=== PATIENT | female | born 1995 | race Caucasian/White ===

== ENCOUNTER 2023-01-15 09:50 | Outpatient (OUT) | payer OTHER, SELFPAY ==
[2023-01-15 10:52] LABS: HCG Quantitative 41400 mIU/mL
== END 2023-01-15 09:51 | disposition home or self-care (01) ==
PROVIDERS: PCP Family Medicine; Visit Provider Obstetrics & Gynecology
DX: N92.6 Irregular menstruation, unspecified (principal)
CPT/HCPCS: 36415; 84702

== ENCOUNTER 2023-01-17 09:44 | Outpatient (OUT) | payer OTHER, SELFPAY ==
[2023-01-17 12:38] LABS: HCG Quantitative 54295 mIU/mL
== END 2023-01-17 09:45 | disposition home or self-care (01) ==
LOC: LAB 09:44
PROVIDERS: PCP Family Medicine; Visit Provider Obstetrics & Gynecology
DX: N92.6 Irregular menstruation, unspecified (principal)
CPT/HCPCS: 36415; 84702

== ENCOUNTER 2023-01-30 13:17 | Outpatient (OUT) | payer OTHER, SELFPAY ==
--- NOTE | 2023-01-30 13:11 | US_ITS ---
[address] [address] Patient Name: GUANAKITO CASTILLO MRN: [id number] date: 1995 Sex: F Assigned Patient Location: US Current Patient Location: LAB Accession/Order Number: [id number] Exam Date: 01/30/2023 13:12 Report Date: 01/30/2023 20:56 At the request of: DEANDRA HOWE Procedure: US OB transvaginal EXAMINATION: US OB transvaginal HISTORY: MISSED period COMPARISON: No relevant comparison available. FINDINGS: Huerta intrauterine gestation Gestational sac: 3.6 cm, 8 weeks 6 days CRL: 1.5 cm, 8 weeks 2 days Yolk sac: 1.3 mm Heart rate: 159 beats minute Cervix: Closed, 3.6 cm The uterus is normal in size. Adjacent to the gestational sac is a 2.3 x 0.6 x 3.0 cm area of hypoechogenicity. The ovaries are normal. Right corpus luteal cyst Clinical age: 9 weeks 2 days Clinical RACHEL: 09/02/2023 Ultrasound age: 8 weeks 2 days Ultrasound RACHEL: 09/09/2023 US/US OB transvaginal IMPRESSION: Viable huerta intrauterine gestation measuring 8 weeks 2 days 3.0 cm subchorionic hematoma Electronically authenticated by: ERICA BHANDARI Date: 01/30/2023 20:56
== END 2023-01-30 13:18 | disposition home or self-care (01) ==
PROVIDERS: PCP Family Medicine; Visit Provider Obstetrics & Gynecology
DX: O36.8910 Maternal care for other specified fetal problems, first trimester, not applicable or unspecified (principal); Z3A.08 8 weeks gestation of pregnancy
CPT/HCPCS: 76817

== ENCOUNTER 2023-01-31 10:05 | Outpatient (OUT) | payer OTHER, SELFPAY ==
[2023-01-31 10:23] LABS: Basophils Percent Auto 0.5 % (0.2-2.0); Eosinophils Percent Auto 0.7 % (0.9-7.0); Hematocrit 42.1 % (36.0-48.0); Hemoglobin 14.6 g/dL (12.0-16.0); Immature Granulocytes Abs Auto 0.01 10^3/uL (0.00-0.03); Immature Granulocytes Pct Auto 0.2 % (0.0-0.5); Lymphocytes Absolute Auto 1.2 10^3/uL (1.2-3.8); Lymphocytes Percent Auto 21.6 % (20.5-60.0); Mean Corpuscular HGB Conc 34.7 g/dL (29.9-35.2); Mean Corpuscular Hemoglobin 31.2 pg (26.7-34.0); Monocytes Absolute Auto 0.5 10^3/uL (0.3-0.8); Monocytes Percent Auto 8.2 % (1.7-12.0); Neutrophils Absolute Auto 3.9 10^3/uL (1.4-6.5); Neutrophils Percent Auto 68.8 % (43.0-75.0); Platelet Count 212 10^3/uL (150-450); Red Blood Count 4.68 10^6/uL (4.20-5.40); Red Cell Distribution Width 12.6 % (11.0-15.0); White Blood Count 5.6 10^3/uL (4.0-11.0)
[2023-01-31 11:12] LABS: Estimated Average Glucose 88 mg/dL; Glycohemoglobin A1C 4.7 % (4.5-6.2)
[2023-01-31 11:25] LABS: Thyroid Stimulating Hormone 1.029 uIU/mL (0.358-3.740)
[2023-02-01 07:12] LABS: HBsAg Screen Negative (Negative); HCV Ab Non Reactive (Non Reactive); HIV Ab/p24 Ag Screen Non Reactive (Non Reactive)
[2023-02-01 10:13] LABS: Rapid Plasma Reagin, Quant Non Reactive (NonRea<1:1)
== END 2023-01-31 10:06 | disposition home or self-care (01) ==
LOC: LAB 10:05
PROVIDERS: PCP Family Medicine; Visit Provider Obstetrics & Gynecology
DX: N91.2 Amenorrhea, unspecified (principal)
CPT/HCPCS: 36415; 83036; 84443; 85025; 86592; 86706; 86762; 86803; 86850; 86900; 86901; 87086; 87389

== ENCOUNTER 2023-04-23 13:27 | Outpatient (OUT) | payer OTHER, SELFPAY ==
--- NOTE | 2023-04-23 13:29 | US_ITS ---
[address] [address] Patient Name: GUANAKITO CASTILLO MRN: [id number] date: 1995 Sex: F Assigned Patient Location: Current Patient Location: Accession/Order Number: [id number] Exam Date: 04/23/2023 13:30 Report Date: 04/24/2023 10:08 At the request of: DEANDRA HOWE Procedure: US OB anatomy EXAMINATION: US OB anatomy, US OB cervical length HISTORY: ANATOMY COMPARISON: No relevant comparison available. TECHNIQUE: Transabdominal sonographic examination was performed for obstetrical and evaluation. FINDINGS: Number: 1 Heart Rate: 154.0 bpm H.B. /min Amniotic Fluid Volume: Subjectively normal position: Breech presentation, longitudinal lie Placental Location: Anterior, grade 0. Placental edge 4.9 cm from the cervical os Cervix Length: 4.7 cm , closed Normal anatomy: Lateral ventricles, cerebellum, posterior fossa, nose, lips, orbits, four-chamber heart, RVOT, LVOT, diaphragm, stomach, kidneys, abdominal cord insertion, bladder, umbilical arteries, three-vessel cord, spine, extremities BIOMETRY: BPD: 4.7 cm 20 weeks 2 days , 58% HC: 18.2 cm 20 weeks 4 days, 61% AC: 15.5 cm 20 weeks 5 days, 63% FL: 3.2 cm 20 weeks 1 days, 41% EFW:353.7 grams; 12 ounces, 62% FL/AC: 20.9 FL/BPD: 68.4 HC/AC: 1.2 GESTATIONAL AGE: Age by EDC: 20 weeks 1 days RACHEL by EDC: 09/09/2023 Age by current US: 20 weeks 3 days RACHEL by current US: 09/07/2023 US/US OB anatomy IMPRESSION: Normal anatomy scan *Reference: [facility] Practice Guideline for the performance of Obstetric Ultrasound Examinations, April 06, 2007. Electronically authenticated by: ERICA BHANDARI Date: 04/24/2023 10:08
--- NOTE | 2023-04-23 13:29 | US_ITS ---
[address] [address] Patient Name: GUANAKITO CASTILLO MRN: [id number] date: 1995 Sex: F Assigned Patient Location: US Current Patient Location: Accession/Order Number: [id number] Exam Date: 04/23/2023 13:30 Report Date: 04/24/2023 10:08 At the request of: DEANDRA HOWE Procedure: US OB cervical length EXAMINATION: US OB anatomy, US OB cervical length HISTORY: ANATOMY COMPARISON: No relevant comparison available. TECHNIQUE: Transabdominal sonographic examination was performed for obstetrical and evaluation. FINDINGS: Number: 1 Heart Rate: 154.0 bpm H.B. /min Amniotic Fluid Volume: Subjectively normal position: Breech presentation, longitudinal lie Placental Location: Anterior, grade 0. Placental edge 4.9 cm from the cervical os Cervix Length: 4.7 cm , closed Normal anatomy: Lateral ventricles, cerebellum, posterior fossa, nose, lips, orbits, four-chamber heart, RVOT, LVOT, diaphragm, stomach, kidneys, abdominal cord insertion, bladder, umbilical arteries, three-vessel cord, spine, extremities BIOMETRY: BPD: 4.7 cm 20 weeks 2 days , 58% HC: 18.2 cm 20 weeks 4 days, 61% AC: 15.5 cm 20 weeks 5 days, 63% FL: 3.2 cm 20 weeks 1 days, 41% EFW:353.7 grams; 12 ounces, 62% FL/AC: 20.9 FL/BPD: 68.4 HC/AC: 1.2 GESTATIONAL AGE: Age by EDC: 20 weeks 1 days RACHEL by EDC: 09/09/2023 Age by current US: 20 weeks 3 days RACHEL by current US: 09/07/2023 US/US OB cervical length IMPRESSION: Normal anatomy scan *Reference: [facility] Practice Guideline for the performance of Obstetric Ultrasound Examinations, April 06, 2007. Electronically authenticated by: ERICA BHANDARI Date: 04/24/2023 10:08
== END 2023-04-23 13:28 | disposition home or self-care (01) ==
LOC: US 13:27
PROVIDERS: PCP Family Medicine; Visit Provider Obstetrics & Gynecology
DX: Z34.92 Encounter for supervision of normal pregnancy, unspecified, second trimester (principal); Z3A.20 20 weeks gestation of pregnancy
CPT/HCPCS: 76805; 76817

== ENCOUNTER 2023-05-23 08:30 | Outpatient (OUT) | payer OTHER, SELFPAY ==
[2023-05-23 09:36] LABS: Basophils Percent Auto 0.1 % (0.2-2.0); Eosinophils Absolute Auto 0.1 10^3/uL (0.0-0.7); Eosinophils Percent Auto 0.9 % (0.9-7.0); Hematocrit 39.7 % (36.0-48.0); Hemoglobin 13.5 g/dL (12.0-16.0); Immature Granulocytes Abs Auto 0.03 10^3/uL (0.00-0.03); Immature Granulocytes Pct Auto 0.4 % (0.0-0.5); Lymphocytes Absolute Auto 1.2 10^3/uL (1.2-3.8); Mean Corpuscular Hemoglobin 31.5 pg (26.7-34.0); Mean Corpuscular Volume 92.5 fL (81.0-99.0); Mean Platelet Volume 9.7 fL (9.5-13.5); Monocytes Absolute Auto 0.6 10^3/uL (0.3-0.8); Monocytes Percent Auto 7.8 % (1.7-12.0); Neutrophils Absolute Auto 5.9 10^3/uL (1.4-6.5); Neutrophils Percent Auto 75.8 % (43.0-75.0); Platelet Count 152 10^3/uL (150-450); Red Blood Count 4.29 10^6/uL (4.20-5.40); Red Cell Distribution Width 12.6 % (11.0-15.0); White Blood Count 7.8 10^3/uL (4.0-11.0)
[2023-05-23 10:14] LABS: Glucose 1 Hour 121 mg/dL
== END 2023-05-23 08:31 | disposition home or self-care (01) ==
LOC: LAB 08:30
PROVIDERS: PCP Family Medicine; Visit Provider Obstetrics & Gynecology
DX: Z34.92 Encounter for supervision of normal pregnancy, unspecified, second trimester (principal)
CPT/HCPCS: 36415; 82950; 85025

== ENCOUNTER 2023-08-11 20:43 | Outpatient (REF) | payer OTHER, SELFPAY ==
--- OUTSIDE RECORDS SUMMARY | 2023-08-11 20:45 | XMS_ITS | CCD ---
Author Name Unknown Address [address] [place] [address] Organization [facility] Care Team Providers Care Air And Hydronic Balancing Technician Name Role Phone CARLEY ., DR LIRIANO Admitting Unavailable CARLEY ., DR LIRIANO Attending Unavailable CARLEY ., DR LIRIANO Primary Care Unavailable CARLEY ., DR LIRIANO Admitting Unavailable CARLEY ., DR LIRIANO Attending Unavailable CARLEY ., DR LIRIANO Primary Care Unavailable CARLEY ., DR LIRIANO Consulting Unavailable KARASIK ., DR MANZO Admitting Unavailabl e KARASIK ., DR MANZO Attending Unavailabl e CARLEY ., DR LIRIANO Primary Care Unavailable KARASIK ., DR MANZO Consulting Unavailabl e CARLEY ., DR LIRIANO Admitting Unavailable CARLEY ., DR LIRIANO Attending Unavailable CARLEY ., DR LIRIANO Primary Care Unavailable CARLEY ., DR LIRIANO Consulting Unavailable AGUBOSIM, YOLIS Consulting Unavailable CARLEY ., DR LIRIANO Procedure Practitioner Unavail able TOMMY OLSEN Attending Unavailable CARLEYDEANDRA Attending Unavailable TOMMY OLSEN Attending Unavailable CARLEYDEANDRA Attending Unavailable Allergies Allergy Classification Reported Allergen(s) Allergy Type Date of Onset Reaction(s) Facility (1 source) bee venom Drug allergy (disorder) 12-25-2021 [facility] Repository (1 source) Erythromycin Drug Allergy [facility] Problems Active Problems Problem Classification Problem Date Documented Date Episodic/Chronic Other screening for suspected conditions (not mental disorders or infectious disease) (8 sources) Encounter for screening for malignant neoplasm of cervix; Translations: [Encounter for screening for Streptococcus B] Onset: 12-11-2021 Episodic Unclassified (1 source) CONTACT W/AND (SUSP) EXPOS COVID-19; Translations: [CONTACT W/AND (SUSP) EXPOS COVID-19] Onset: 01-03-2022 Past or Other Problems Problem Classification Problem Date Documented Da te Episodic/Chronic OB-related trauma to perineum and vulva (1 source) Third degree perineal laceration during delivery, unspecified; Translations: [THIRD DEGREE PERINL LAC DUR DEL UNS] Onset: 01-03-2022 Episodic Other and delivery including normal (7 sources) Encounter for routine follow-up; Translations: [Encounter for supervision of normal , unspecified, first trimester] Onset: 12-25-2021 Episodic Residual codes; unclassified (1 source) 38 weeks gestation of ; Translations: [38 WEEKS GESTATION OF ] Onset: 01-03-2022 Episodic Results Test Name Value Interpretation Reference Range Facil ity PAP ACOG PANEL 2: 21 to 29on 10-02-2022 . . [facility] Comment on above: Performed By: #### [id number] #### [facility] [address] [place] [address] Dr. Alee Paez Age Gdln ACOG Testing - [facility] Comment on above: Performed By: #### [id number] #### [facility] [address] [place] [address] Dr. Alee Paez DIAGNOSIS: Comment [facility] Comment on above: Result Comment: NEGA TIVE FOR INTRAEPITHELIAL LESION OR MALIGNANCY. THIS SPECIMEN WAS RESCREENED PART OF OUR ONLINE SERVICES MANAGER PROGRAM. Performed By: #### [id number] #### [facility] [address] [place] [address] Dr. Alee Paez Methodology: Comment [facility] Comment on above: Result Comment: This liquid based ThinPrep(R) pap test was screened with the use of an image guided system. Performed By: #### [id number] #### [facility] [address] [place] [address] Dr. Alee Paez Note: Comment [facility] Comment on above: Result Comment: The Pap smear is a screening test designed to aid in the detection of premalignant and malignant conditions of the uterine cervix. It is not a diagnostic procedure and should not be used as the sole means of detecting cervical cancer. Both false-positive and false-negative reports do occur. . Performed By: #### [id number] #### [facility] [address] [place] [address] Dr. Alee Paez Performed by: Comment Normal [facility] Comment on above: Result Comment: Sarita Gonzales, [facility] (ASCP) Performed By: #### [id number] #### [facility] [address] [place] [address] Dr. Aele Paez QC reviewed by: Comment Normal [facility] Comment on above: Result Comment: Ketty Caba, [facility] (ASCP) Performed By: #### [id number] #### [facility] [address] [place] [address] Dr. Alee Paez Reflex Criteria: Comment Normal [facility] Comment on above: Result Comment: The HPV DNA reflex criteria were not met with this specimen result therefore, no HPV testing was performed. . Performed By: #### [id number] #### [facility] [address] [place] [address] Dr. Alee Paez Specimen adequacy: Comment Normal [facility] Comment on above: Result Comment: Sati sfactory for evaluation. Endocervical and/or squamous metaplastic cells (endocervical component) are present. Performed By: #### [id number] #### [facility] [address] [place] [address] Dr. Alee Paez CBC AUTO DIFFon 12-27-2021 BASO # 0.0 103/ul Normal 0.0-0.1 [facility] Comment on above: Performed By: #### C BC #### [facility] [address] [place] [address] Dr. Alee Paez Basophils/100 WBC (Bld) 0.2 % Normal 0.2-2.0 [facility] Comment on above: Performed By: #### C BC #### [facility] [address] [place] [address] Dr. Alee Paez EO # 0.1 103/ul Normal 0.0-0.7 [facility] Comment on above: Performed By: #### C BC #### [facility] [address] [place] [address] Dr. Alee Paez Eosinophils/100 WBC (Bld) 1.2 % Normal 0.9-7.0 [facility] Comment on above: Performed By: #### C BC #### [facility] [address] [place] [address] Dr. Alee Paez Erythrocyte distribution width (RBC) [Ratio] 15.3 % Critically high 11.0-15.0 [facility] Comment on above: Performed By: #### C BC #### [facility] [address] [place] [address] Dr. Alee Paez Hematocrit (Bld) [Volume fraction] 25.1 % Critically low 36.0-48.0 [facility] Comment on above: Performed By: #### C BC #### [facility] [address] [place] [address] Dr. Alee Paez Hemoglobin (Bld) [Mass/Vol] 8.2 g/dL Critically low 12.0-16.0 [facility] Comment on above: Result Comment: just delivered Performed By: #### C BC #### [facility] [address] [place] [address] Dr. Alee Paez IG # 0.03 10e3/ul Normal 0.00-0.03 [facility] Comment on above: Performed By: #### C BC #### [facility] [address] [place] [address] Dr. Alee Paez IG % 0.4 % Normal 0.0-0.5 [facility] Comment on above: Performed By: #### C BC #### [facility] [address] [place] [address] Dr. Alee Paez LYMPH # 2.0 103/ul Normal 1.2-3.8 [facility] Comment on above: Performed By: #### C BC #### [facility] [address] [place] [address] Dr. Alee Paez Lymphocytes/100 WBC (Bld) 23.9 % Normal 20.5-60.0 [facility] Comment on above: Performed By: #### C BC #### [facility] [address] [place] [address] Dr. Alee Paez MANUAL DIFF REQ NO Normal [facility] Comment on above: Performed By: #### C BC #### [facility] [address] [place] [address] Dr. Alee Paez MCH (RBC) [Entitic mass] 28.3 pg Normal 26.7-34.0 [facility] Comment on above: Performed By: #### C BC #### [facility] [address] [place] [address] Dr. Alee Paez MCHC (RBC) [Mass/Vol] 32.7 g/dL Normal 29.9-35.2 [facility] Comment on above: Performed By: #### C BC #### [facility] [address] [place] [address] Dr. Alee Paez MCV (RBC) [Entitic vol] 86.6 fL Normal 81.0-99.0 [facility] Comment on above: Performed By: #### C BC #### [facility] [address] [place] [address] Dr. Alee Paez MONO # 0.8 103/ul Normal 0.3-0.8 [facility] Comment on above: Performed By: #### C BC #### [facility] [address] [place] [address] Dr. Alee Paez Monocytes/100 WBC (Bld) 9.8 % Normal 1.7-12.0 [facility] Comment on above: Performed By: #### C BC #### [facility] [address] [place] [address] Dr. Alee Paez NEUT # 5.5 103/ul Normal 1.4-6.5 [facility] Comment on above: Performed By: #### C BC #### [facility] [address] [place] [address] Dr. Alee Paez Neutrophils/100 WBC (Bld) 64.5 % Normal 43.0-75.0 [facility] Comment on above: Performed By: #### C BC #### [facility] [address] [place] [address] Dr. Alee Paez Platelet mean volume (Bld) [Entitic vol] 9.8 fL Normal 9.5-13.5 [facility] Comment on above: Performed By: #### C BC #### [facility] [address] [place] [address] Dr. Alee Paez PLT 152 103/ul Normal 150-450 [facility] Comment on above: Performed By: #### C BC #### [facility] [address] [place] [address] Dr. Alee Paez RBC 2.90 106/ul Critically low 4.20-5.40 [facility] Comment on above: Performed By: #### C BC #### [facility] [address] [place] [address] Dr. Alee Paez WBC 8.5 103/ul Normal 4.0-11.0 [facility] Comment on above: Performed By: #### C BC #### [facility] [address] [place] [address] Dr. Alee Paez CBC AUTO DIFFon 12-25-2021 BASO # 0.0 103/ul Normal 0.0-0.1 [facility] Comment on above: Performed By: #### C BC #### [facility] [address] [place] [address] Dr. Alee Paez Basophils/100 WBC (Bld) 0.2 % Normal 0.2-2.0 [facility] Comment on above: Performed By: #### C BC #### [facility] [address] [place] [address] Dr. Alee Paez EO # 0.0 103/ul Normal 0.0-0.7 [facility] Comment on above: Performed By: #### C BC #### [facility] [address] [place] [address] Dr. Alee Paez Eosinophils/100 WBC (Bld) 0.5 % Critically low 0.9-7.0 [facility] Comment on above: Performed By: #### C BC #### [facility] [address] [place] [address] Dr. Alee Paez Erythrocyte distribution width (RBC) [Ratio] 15.0 % Normal 11.0-15.0 [facility] Comment on above: Performed By: #### C BC #### [facility] [address] [place] [address] Dr. Alee Paez Hematocrit (Bld) [Volume fraction] 38.1 % Normal 36.0-48.0 [facility] Comment on above: Performed By: #### C BC #### [facility] [address] [place] [address] Dr. Alee Paez Hemoglobin (Bld) [Mass/Vol] 12.6 g/dL Normal 12.0-16.0 [facility] Comment on above: Performed By: #### C BC #### [facility] [address] [place] [address] Dr. Alee Paez IG # 0.03 10e3/ul Normal 0.00-0.03 [facility] Comment on above: Performed By: #### C BC #### [facility] [address] [place] [address] Dr. Alee Paez IG % 0.4 % Normal 0.0-0.5 [facility] Comment on above: Performed By: #### C BC #### [facility] [address] [place] [address] Dr. Alee Paez LYMPH # 1.0 103/ul Critically low 1.2-3.8 [facility] Comment on above: Performed By: #### C BC #### [facility] [address] [place] [address] Dr. Alee Paez Lymphocytes/100 WBC (Bld) 12.5 % Critically low 20.5-60.0 [facility] Comment on above: Performed By: #### C BC #### [facility] [address] [place] [address] Dr. Alee Paez MANUAL DIFF REQ NO Normal [facility] Comment on above: Performed By: #### C BC #### [facility] [address] [place] [address] Dr. Alee Paez MCH (RBC) [Entitic mass] 27.8 pg Normal 26.7-34.0 [facility] Comment on above: Performed By: #### C BC #### [facility] [address] [address] [address] Alee Paez MCHC (RBC) [Mass/Vol] 33.1 g/dL Normal 29.9-35.2 [facility] Comment on above: Performed By: #### C BC #### [facility] [address] [place] [address] Dr. Alee Paez MCV (RBC) [Entitic vol] 84.1 fL Normal 81.0-99.0 [facility] Comment on above: Performed By: #### C BC #### [facility] [address] [place] [address] Dr. Alee Paez MONO # 1.0 103/ul Critically high 0.3-0.8 [facility] Comment on above: Performed By: #### C BC #### [facility] [address] [place] [address] Dr. Alee Paez Monocytes/100 WBC (Bld) 11.4 % Normal 1.7-12.0 [facility] Comment on above: Performed By: #### C BC #### [facility] [address] [place] [address] Dr. Alee Paez NEUT # 6.2 103/ul Normal 1.4-6.5 [facility] Comment on above: Performed By: #### C BC #### [facility] [address] [place] [address] Dr. Alee Paez Neutrophils/100 WBC (Bld) 75.0 % Normal 43.0-75.0 [facility] Comment on above: Performed By: #### C BC #### [facility] [address] [place] [address] Dr. Alee Paez Platelet mean volume (Bld) [Entitic vol] 11.4 fL Normal 9.5-13.5 [facility] Comment on above: Performed By: #### C BC #### [facility] [address] [place] [address] Dr. Alee Paez PLT 204 103/ul Normal 150-450 [facility] Comment on above: Performed By: #### C BC #### [facility] [address] [place], [place] [address] Dr. Alee Paez RBC 4.53 106/ul Normal 4.20-5.40 [facility] Comment on above: Performed By: #### C BC #### [facility] [address] [place], [place] [address] Dr. Alee Paez WBC 8.3 103/ul Normal 4.0-11.0 [facility] Comment on above: Performed By: #### C BC #### [facility] [address] [address] [address] Alee [facility]ae[facility]06 SARS-CoV-2 (COVID-19) RNA JERRY+probe Ql (Unsp spec) Not detected Normal NOT DETECTED [facility] Comment on above: Result Comment: When diagnostic testing is negative, the possibility of a false negative should be considered in the context of a patient's recent exposures and the presence of clinical signs and symptoms consistent with SARS-CoV-2. This test is not yet approved or cleared by the [place] FDA. When there are no FDA-approved or cleared tests available, and other criteria are met, FDA can make tests available under an emergency access mechanism called an Emergency Use Authorization (EUA). The EUA for this test is supported by the [place] of Health and Human Service's declaration that circumstances exist to justify the emergency use of in vitro diagnostics for the detection and/or diagnosis of the virus that causes COVID-19. This EUA will remain in effect for the duration of the COVID-19 declaration justifying emergency of IVDs, unless it is terminated or revoked by the FDA (after which the test may no longer be used). Performed By: #### C VDTBH #### [facility] [address] [place], [place] [id number] Dr. Alee Paez DRUG SCREEN RAPID (URINE)on 12-25-2021 AMP Negative Normal NEGATIVE [facility] Comment on above: Performed By: #### D RUGRPD #### [facility] [address] [place], [place] [id number] Dr. Alee Paez BAR Negative Normal NEGATIVE [facility] Comment on above: Performed By: #### D RUGRPD #### [facility] [address] [address] [address] Alee Paez BUP Negative Normal NEGATIVE [facility] Comment on above: Performed By: #### D RUGRPD #### [facility] [address] [place] [address] Dr. Alee Paez BZO Negative Normal NEGATIVE [facility] Comment on above: Performed By: #### D RUGRPD #### [facility] [address] [address] [address] Alee Paez FLOYD Negative Normal NEGATIVE [facility] Comment on above: Performed By: #### D RUGRPD #### [facility] [address] [place] [address] Dr. Alee Paez CUT-OFFS SEE BELOW Normal [facility] Comment on above: Result Comment: AMP (Amphetamine): 500ng/mL, BAR (Barbituates): 200 ng/mL, BZO (Benzodiazepines): 150 ng/mL, BUP (Buprenorphine): 10 ng/mL, FLOYD (Cocaine): 150 ng/mL, mAMP (Methamphetamine): 500 ng/mL, MTD (Methadone): 200 ng/mL, OPI (Opiates): 100 ng/mL, OXY (Oxycodone): 100 ng/mL, PCP (Phencyclidine): 25 ng/mL, PPX (Propoxyphene): 300 ng/mL, THC (Cannabinoids): 50 ng/mL, TCA (Trycyclic Antidepressants): 300 ng/mL Performed By: #### D RUGRPD #### [facility] [address] [place] [address] Dr. Alee Paez DRUG CUT HEADER DRUG CLASS TEST SYST EM CUT-OFF CONCENTRATIONS ARE FOLLOWS: Normal [facility] Comment on above: Performed By: #### D RUGRPD #### [facility] [address] [place] [address] Dr. Alee Paez mAMP Negative Normal NEGATIVE [facility] Comment on above: Performed By: #### D RUGRPD #### [facility] [address] [address] [address] Alee Paez MTD Negative Normal NEGATIVE [facility] Comment on above: Performed By: #### D RUGRPD #### [facility] [address] [address] [address] Alee Paez OPI Negative Normal NEGATIVE [facility] Comment on above: Performed By: #### D RUGRPD #### [facility] [address] [address] [address] Alee Paez OXY Negative Normal NEGATIVE [facility] Comment on above: Performed By: #### D RUGRPD #### [facility] [address] [place] [address] Dr. Alee Paez PCP Negative Normal NEGATIVE [facility] Comment on above: Performed By: #### D RUGRPD #### [facility] [address] [place] [address] Dr. Alee Paez PPX Negative Normal NEGATIVE [facility] Comment on above: Performed By: #### D RUGRPD #### [facility] [address] [place] [address] Dr. Alee Paez TCA Negative Normal NEGATIVE [facility] Comment on above: Performed By: #### D RUGRPD #### [facility] [address] [address] [address] Alee Paez THC Negative Normal NEGATIVE [facility] Comment on above: Performed By: #### D RUGRPD #### [facility] [address] [place] [address] Dr. Alee Paez TYPE AND SCREENon 12-25-2021 TYPE AND SCREEN Negative Normal [facility] Comment on above: Performed By: #### T NS #### [facility] [address] [place] [address] Dr. Alee Paez GROUP B STREP CULTUREon S. agalactiae Ag Ql (Unsp spec) Culture Observations: NEGATIVE FOR GROUP B STREPTOCOCCUS. Normal [facility] Comment on above: Performed By: #### G BSCX #### [facility] [address] [place] [address] Dr. Alee Paez Encounters Encounter Date Encounter Type Care Provider Facility Start: 07-28-2023 End: 07-28-2023 ambulatory DEANDRA HOWE Not Available Start: 07-14-2023 End: 07-14-2023 ambulatory TOMMY GONSALVESEY Not Available Start: 06-26-2023 End: 06-26-2023 ambulatory DEANDRA HOWE Not Available Start: 05-28-2023 End: 05-28-2023 ambulatory TOMMY OLSEN Not Available Start: 09-23-2022 End: 09-23-[address] DEANDRA HOWE . Facility: Start: 12-31-2021 End: 12-31-[address] DEANDRA HOWE . Facility: Start: 12-25-2021 End: 12-27-2021 Evaluation and management of inpatient DR DEANDRA HOWE . Facility: Start: 12-11-2021 End: 12-11-[address] JOVANY RUSHING . Facility: Procedures Date Procedure Procedure Detail Performing Clinician Start: 12-25-2021 Delivery of Products of Conception, External Approach DR DEANDRA HOWE . Start: 12-25-2021 Division of Female P erineum, External Approach DR DEANDRA HOWE . Start: 12-25-2021 Repair Anal Sphincte r, Open Approach DR DEANDRA HOWE . Payers Date Payer Category Payer Unknown [id number] 2.16.84 [id number] 1994 Unknown [id number] 2.16.84 [id number] 1994 Unknown [id number] 2.16.84 [id number] 1994 Unknown [id number] 2.16.84 [id number] 1994 Unknown [id number] 2.16.84 [id number] 1994 Unknown [id number] 2.16.84 [id number] 1994 Unknown [id number] 1994 Unknown [id number] 1959 Unknown [id number] Summary Purpose Family History No Family History Records FoundNo Family History Records Found Advance Directives No Advanced Directives Records FoundNo Advanced Directives Records Found Additional Source Comments INFORMATION SOURCE (unrecogn ized section and content) DATE CREATED AUTHOR 10/06/2022 [facility] DATE CREATED AUTHOR AUTHOR'S ORGANIZ ATRAJENDRA 07/29/2023 [facility] Special[facility] FOR RECORDS PERTAINING TO PATIENTS WHO ARE OR HAVE BEEN ENROLLED IN A CHEMICAL DEPENDENCY/SUBSTANCEABUSE PROGRAM, SOME INFORMATION MAY BE OMITTED. This clinical summary was aggregated from multiple sources. Caution should be exercised in using it in the provision of clinical care. This summary normalizes information from multiple sources, and as a consequence, information in this document may materially change the coding, format and clinical context of patient data. In addition, data may be omitted in some cases. CLINICAL DECISIONS SHOULD BE BASED ON THE PRIMARY CLINICAL RECORDS. [facility] [employer] provides no warranty or guarantee of the accuracy or completeness of information in this document.
== END 2023-08-11 20:44 | disposition home or self-care (01) ==
LOC: LAB 20:43
PROVIDERS: PCP Family Medicine; Visit Provider Obstetrics & Gynecology
DX: Z34.93 Encounter for supervision of normal pregnancy, unspecified, third trimester (principal)
CPT/HCPCS: 87081

== ENCOUNTER 2023-08-14 18:30 | Observation (INO) | payer OTHER, SELFPAY ==
--- OUTSIDE RECORDS SUMMARY | 2023-08-14 18:35 | XMS_ITS | CCD ---
Author Name Unknown Address [facility] [address] [place] [address] Organization [facility] Care Team Providers Care Ad Setter Name Role Phone CARLEY ., DR LIRIANO [...] TOMMY OLSEN Attending Unavailable CARLEYDEANDRA Attending Unavailable CARLEY, DEANDRA Attending Unavailable PRETTYTOMMY RHOADES Attending Unavailable CARLEYDEANDRA Attending Unavailable Allergies Allergy Classification Reported Allergen(s) Allergy Type Date of Onset Reaction(s) Facility (1 source) bee venom Drug allergy (disorder) 12-25-2021 [facility] Repository (1 source) Erythromycin Drug Allergy [facility] Problems Active Problems Problem Classification Problem [...] 21 to 29on 10-02-2022 . . Normal [facility] Comment on above: Performed By: #### [id number] #### [facility] [address] [place] [address] Dr. Alee Paez Age Gdln ACOG Testing [facility] Comment on above: Performed By: #### [id number] #### [facility] [address] [place] [address] Dr. Alee Paez DIAGNOSIS: Comment [facility] Comment on above: Result Comment: NEGA TIVE FOR INTRAEPITHELIAL LESION OR MALIGNANCY. THIS SPECIMEN WAS RESCREENED PART OF OUR VEGETABLE CANNER PROGRAM. Performed By: #### [id number] #### [facility] [address] [place] [address] Dr. Alee Paez Methodology: Comment [facility] Comment on above: Result Comment: This liquid based ThinPrep(R) pap test was screened with the use of an image guided system. Performed By: #### [id number] #### [facility] [address] [place] [address] Dr. Alee Paez Note: Comment [facility] Comment on above: Result Comment: The Pap smear is a screening test designed to aid in the detection of premalignant and malignant conditions of the uterine cervix. It is not a diagnostic procedure and should not be used as the sole means of detecting cervical cancer. Both false-positive and false-negative reports do occur. . Performed By: #### [id number] #### [facility] [address] [place] [address] Dr. Alee Paez Performed by: Comment Normal [facility] Comment on above: Result Comment: Sarita Gonzales, Mobility Engineer (ASCP) Performed By: #### [id number] #### [facility] [address] [place] [address] Dr. Alee Paez QC reviewed by: Comment Normal [facility] Comment on above: Result Comment: Ketty Caba, Mobility Engineer (ASCP) Performed By: #### [id number] #### [facility] [address] [place] [address] Dr. Alee Paez Reflex Criteria: Comment Normal [facility] Comment on above: Result Comment: The HPV DNA reflex criteria were not met with this specimen result therefore, no HPV testing was performed. . Performed By: #### [id number] #### [facility] [address] [place] [address] Dr. Alee Paez Specimen adequacy: Comment Normal [facility] Comment on above: Result Comment: Sati sfactory for evaluation. Endocervical and/or squamous metaplastic cells (endocervical component) are present. Performed By: #### [id number] #### [facility] [address] [place] [address] Dr. Alee Paez CBC AUTO DIFFon 12-27-2021 BASO # 0.0 103/ul Normal 0.0-0.1 [facility] Comment on above: Performed By: #### C BC #### [facility] [address] [place] [address] Dr. Alee Paez Basophils/100 WBC (Bld) 0.2 % Normal 0.2-2.0 [facility] Comment on above: Performed By: #### C BC #### [facility] [address] [place] [address] Dr. Alee Paez EO # 0.1 103/ul Normal 0.0-0.7 [facility] Comment on above: Performed By: #### C BC #### [facility] [address] [place] [address] Dr. Alee Paez Eosinophils/100 WBC (Bld) 1.2 % Normal 0.9-7.0 [facility] Comment on above: Performed By: #### C BC #### [facility] [address] [place] [address] Dr. Alee Paez Erythrocyte distribution width (RBC) [Ratio] 15.3 % Critically high 11.0-15.0 [facility] Comment on above: Performed By: #### C BC #### [facility] [address] [place] [address] Dr. Alee Paez Hematocrit (Bld) [Volume fraction] 25.1 % Critically low 36.0-48.0 [facility] Comment on above: Performed By: #### C BC #### [facility] [address] [place] [address] Dr. Alee Paez Hemoglobin (Bld) [Mass/Vol] 8.2 g/dL Critically low 12.0-16.0 [facility] Comment on above: Result Comment: just delivered Performed By: #### C BC #### [facility] [address] [place] [address] Dr. Alee Paez IG # 0.03 10e3/ul Normal 0.00-0.03 [facility] Comment on above: Performed By: #### C BC #### [facility] [address] [place] [address] Dr. Alee Paez IG % 0.4 % Normal 0.0-0.5 [facility] Comment on above: Performed By: #### C BC #### [facility] [address] [place] [address] Dr. Alee Paez LYMPH # 2.0 103/ul Normal 1.2-3.8 [facility] Comment on above: Performed By: #### C BC #### [facility] [address] [place] [address] Dr. Alee Paez Lymphocytes/100 WBC (Bld) 23.9 % Normal 20.5-60.0 [facility] Comment on above: Performed By: #### C BC #### [facility] [address] [place] [address] Dr. Alee Paez MANUAL DIFF REQ NO Normal [facility] Comment on above: Performed By: #### C BC #### [facility] [address] [place] [address] Dr. Alee Paez MCH (RBC) [Entitic mass] 28.3 pg Normal 26.7-34.0 [facility] Comment on above: Performed By: #### C BC #### [facility] [address] [place] [address] Dr. Alee Paez MCHC (RBC) [Mass/Vol] 32.7 g/dL Normal 29.9-35.2 [facility] Comment on above: Performed By: #### C BC #### [facility] [address] [place] [address] Dr. Alee Paez MCV (RBC) [Entitic vol] 86.6 fL Normal 81.0-99.0 [facility] Comment on above: Performed By: #### C BC #### [facility] [address] [place] [address] Dr. Alee Paez MONO # 0.8 103/ul Normal 0.3-0.8 [facility] Comment on above: Performed By: #### C BC #### [facility] [address] [place] [address] Dr. Alee Paez Monocytes/100 WBC (Bld) 9.8 % Normal 1.7-12.0 [facility] Comment on above: Performed By: #### C BC #### [facility] [address] [place] [address] Dr. Alee Paez NEUT # 5.5 103/ul Normal 1.4-6.5 [facility] Comment on above: Performed By: #### C BC #### [facility] [address] [place] [address] Dr. Alee Paez Neutrophils/100 WBC (Bld) 64.5 % Normal 43.0-75.0 [facility] Comment on above: Performed By: #### C BC #### [facility] [address] [place] [address] Dr. Alee Paez Platelet mean volume (Bld) [Entitic vol] 9.8 fL Normal 9.5-13.5 [facility] Comment on above: Performed By: #### C BC #### [facility] [address] [place] [address] Dr. Alee Paez PLT 152 103/ul Normal 150-450 [facility] Comment on above: Performed By: #### C BC #### [facility] [address] [address] [address] Alee Paez RBC 2.90 106/ul Critically low 4.20-5.40 [facility] Comment on above: Performed By: #### C BC #### [facility] [address] [place] [address] Dr. Alee Paez WBC 8.5 103/ul Normal 4.0-11.0 [facility] Comment on above: Performed By: #### C BC #### [facility] [address] [place] [address] Dr. Alee Paez CBC AUTO DIFFon 12-25-2021 BASO # 0.0 103/ul Normal 0.0-0.1 [facility] Comment on above: Performed By: #### C BC #### [facility] [address] [place] [address] Dr. Alee Paez Basophils/100 WBC (Bld) 0.2 % Normal 0.2-2.0 [facility] Comment on above: Performed By: #### C BC #### [facility] [address] [place] [address] Dr. Alee Paez EO # 0.0 103/ul Normal 0.0-0.7 [facility] Comment on above: Performed By: #### C BC #### [facility] [address] [place] [address] Dr. Alee Paez Eosinophils/100 WBC (Bld) 0.5 % Critically low 0.9-7.0 [facility] Comment on above: Performed By: #### C BC #### [facility] [address] [place] [address] Dr. Alee Paez Erythrocyte distribution width (RBC) [Ratio] 15.0 % Normal 11.0-15.0 [facility] Comment on above: Performed By: #### C BC #### [facility] [address] [place] [address] Dr. Alee Paez Hematocrit (Bld) [Volume fraction] 38.1 % Normal 36.0-48.0 [facility] Comment on above: Performed By: #### C BC #### [facility] [address] [place] [address] Dr. Alee Paez Hemoglobin (Bld) [Mass/Vol] 12.6 g/dL Normal 12.0-16.0 [facility] Comment on above: Performed By: #### C BC #### [facility] [address] [place] [address] Dr. Alee Paez IG # 0.03 10e3/ul Normal 0.00-0.03 [facility] Comment on above: Performed By: #### C BC #### [facility] [address] [place] [address] Dr. Alee Paez IG % 0.4 % Normal 0.0-0.5 [facility] Comment on above: Performed By: #### C BC #### [facility] [address] [place] [address] Dr. Alee Paez LYMPH # 1.0 103/ul Critically low 1.2-3.8 [facility] Comment on above: Performed By: #### C BC #### [facility] [address] [place] [address] Dr. Alee Paez Lymphocytes/100 WBC (Bld) 12.5 % Critically low 20.5-60.0 [facility] Comment on above: Performed By: #### C BC #### [facility] [address] [place] [address] Dr. Alee Paez MANUAL DIFF REQ NO Normal [facility] Comment on above: Performed By: #### C BC #### [facility] [address] [place] [address] Dr. Alee Paez MCH (RBC) [Entitic mass] 27.8 pg Normal 26.7-34.0 [facility] Comment on above: Performed By: #### C BC #### [facility] [address] [place] [address] Dr. Alee Paez MCHC (RBC) [Mass/Vol] 33.1 g/dL Normal 29.9-35.2 [facility] Comment on above: Performed By: #### C BC #### [facility] [address] [place] [address] Dr. Alee Paez MCV (RBC) [Entitic vol] 84.1 fL Normal 81.0-99.0 [facility] Comment on above: Performed By: #### C BC #### [facility] [address] [place] [address] Dr. Alee Paez MONO # 1.0 103/ul Critically high 0.3-0.8 [facility] Comment on above: Performed By: #### C BC #### [facility] [address] [place] [address] Dr. Alee Paez Monocytes/100 WBC (Bld) 11.4 % Normal 1.7-12.0 [facility] Comment on above: Performed By: #### C BC #### [facility] [address] [place] [address] Dr. Alee Paez NEUT # 6.2 103/ul Normal 1.4-6.5 [facility] Comment on above: Performed By: #### C BC #### [facility] [address] [place] [address] Dr. lAee Paez Neutrophils/100 WBC (Bld) 75.0 % Normal 43.0-75.0 [facility] Comment on above: Performed By: #### C BC #### [facility] [address] [place] [address] Dr. Alee Paez Platelet mean volume (Bld) [Entitic vol] 11.4 fL Normal 9.5-13.5 [facility] Comment on above: Performed By: #### C BC #### [facility] [address] [place] [address] Dr. Alee Paez PLT 204 103/ul Normal 150-450 [facility] Comment on above: Performed By: #### C BC #### [facility] [address] [place] [address] Dr. Alee Paez RBC 4.53 106/ul Normal 4.20-5.40 [facility] Comment on above: Performed By: #### C BC #### [facility] [address] [id number] [address] Alee Paez WBC 8.3 103/ul Normal 4.0-11.0 [facility] Comment on above: Performed By: #### C BC #### [facility] [address] [place] [address] Dr. Alee Paez Covid-19 PCR ([facility])on 12-06 SARS-CoV-2 (COVID-19) RNA JERRY+probe Ql (Unsp spec) Not detected Normal NOT DETECTED [facility] Comment on above: Result Comment: When diagnostic [...] for this test is supported by the [place] of [employer] Service's declaration that [...] used). Performed By: #### C VDTBH #### [facility] [address] [place] [address] Dr. Alee Paez DRUG SCREEN RAPID (URINE)on 12-25-2021 AMP Negative Normal NEGATIVE [facility] Comment on above: Performed By: #### D RUGRPD #### [facility] [address] [place] [address] Dr. Alee Paez BAR Negative Normal NEGATIVE [facility] Comment on above: Performed By: #### D RUGRPD #### [facility] [address] [address] [address] Alee Paez BUP Negative Normal NEGATIVE [facility] Comment on above: Performed By: #### D RUGRPD #### [facility] [address] [address] [address] Alee Paez BZO Negative Normal NEGATIVE [facility] Comment on above: Performed By: #### D RUGRPD #### [facility] [address] [place] [address] Dr. Alee Paez FLOYD Negative Normal NEGATIVE [facility] Comment on above: Performed By: #### D RUGRPD #### [facility] [address] [place] [address] Dr. Alee Paez CUT-OFFS SEE BELOW Normal [facility] Comment on above: Result Comment: AMP (Amphetamine): 500ng/mL, BAR (Barbituates): 200 ng/mL, BZO (Benzodiazepines): 150 ng/mL, BUP (Buprenorphine): 10 ng/mL, FLOYD (Cocaine): 150 ng/mL, mAMP (Methamphetamine): 500 ng/mL, MTD (Methadone): 200 ng/mL, OPI (Opiates): 100 ng/mL, OXY (Oxycodone): 100 ng/mL, PCP (Phencyclidine): 25 ng/mL, PPX (Propoxyphene): 300 ng/mL, THC (Cannabinoids): 50 ng/mL, TCA (Trycyclic Antidepressants): 300 ng/mL Performed By: #### D RUGRPD #### [facility] [address] [place] [address] Dr. Alee Paez DRUG CUT HEADER DRUG CLASS TEST SYST EM CUT-OFF CONCENTRATIONS ARE FOLLOWS: Normal [facility] Comment on above: Performed By: #### D RUGRPD #### [facility] [address] [address] [address] Alee Paez mAMP Negative Normal NEGATIVE [facility] Comment on above: Performed By: #### D RUGRPD #### [facility] [address] [place] [address] Dr. Alee Paez MTD Negative Normal NEGATIVE [facility] Comment on above: Performed By: #### D RUGRPD #### [facility] [address] [place] [address] Dr. Alee Paez OPI Negative Normal NEGATIVE [facility] Comment on above: Performed By: #### D RUGRPD #### [facility] [address] [place] [address] Dr. Alee Paez OXY Negative Normal NEGATIVE [facility] Comment on above: Performed By: #### D RUGRPD #### [facility] [address] [place] [address] Dr. Alee Paez PCP Negative Normal NEGATIVE [facility] Comment on above: Performed By: #### D RUGRPD #### [facility] [address] [place] [address] Dr. Alee Paez PPX Negative Normal NEGATIVE [facility] Comment on above: Performed By: #### D RUGRPD #### [facility] [address] [place] [address] Dr. Alee Paez TCA Negative Normal NEGATIVE [facility] Comment on above: Performed By: #### D RUGRPD #### [facility] [address] [place] [address] Dr. Alee Paez THC Negative Normal NEGATIVE [facility] Comment on above: Performed By: #### D RUGRPD #### [facility] [address] [place] [address] Dr. Alee Paez TYPE AND SCREENon 12-25-2021 TYPE AND SCREEN Negative Normal [facility] Comment on above: Performed By: #### T NS #### [facility] [address] [place] [address] Dr. Alee Paez GROUP B STREP CULTUREon S. agalactiae Ag Ql (Unsp spec) Culture Observations: NEGATIVE FOR GROUP B STREPTOCOCCUS. Normal [facility] Comment on above: Performed By: #### G BSCX #### [facility] [address] [place] [address] Dr. Alee Paez Encounters Encounter Date Encounter Type Care Provider Facility Start: 08-11-2023 End: 08-11-2023 ambulatory DEANDRA HOWE Not Available Start: 07-28-2023 End: 07-28-2023 ambulatory DEANDRA HOWE Not Available Start: 07-14-2023 End: 07-14-2023 ambulatory TOMMY OLSEN Not Available Start: 06-26-2023 End: 06-26-2023 ambulatory [...] . Payers Date Payer Category Payer Unknown [id number] 2.16.84 [id number] 1994 Unknown [id number] 2.16.84 [id number] 1994 Unknown [id number] 2.16.84 [id number] 1994 Unknown [id number] 2.16.84 [id number] 1994 Unknown [id number] 2.16.84 [id number] 1994 Unknown [id number] 2.16.84 [id number] 1994 Unknown [id number] 2.16.84 [id number] 1994 Unknown [id number] [id number] .[id number] 1994 Unknown [id number] [id number] .[id number] 1959 Unknown [id number] Summary Purpose Family History No Family History Records FoundNo Family History Records Found Advance Directives No Advanced Directives Records FoundNo Advanced Directives Records Found Additional Source Comments INFORMATION SOURCE (unrecogn ized section and content) DATE CREATED AUTHOR 10/06/2022 [facility] DATE CREATED AUTHOR MARVA COOPER 08/12/2023 [facility] EPIC FOR RECORDS PERTAINING TO PATIENTS WHO ARE [...] BE BASED ON THE PRIMARY CLINICAL RECORDS. [employer] provides no warranty or guarantee of the accuracy or completeness of information in this document.
[2023-08-14 18:45] VITALS: BP 141/65; PULSE 85
[2023-08-14 19:38] LABS: Bilirubin Urine NEGATIVE (NEGATIVE); Blood Urine NEGATIVE (NEGATIVE); Clarity Urine CLEAR (CLEAR); Color Urine LT. YELLOW (YELLOW); Glucose Urine UA NEGATIVE (NEGATIVE); Ketones Urine NEGATIVE (NEGATIVE); Leukocyte Esterase Urine NEGATIVE (NEGATIVE); Nitrite Urine NEGATIVE (NEGATIVE); Protein Urine NEGATIVE (NEG/TRACE); Urobilinogen Urine 0.2 EU/dL (0.2-1.0); pH Urine 5.5 (5.0-9.0)
[2023-08-14 19:41] LABS: Urine Microscopic Indicated NO
== END 2023-08-14 19:34 | disposition home or self-care (01) ==
LOC: FBC 18:33
PROVIDERS: Admitting Provider Obstetrics & Gynecology; PCP Family Medicine; Visit Provider Obstetrics & Gynecology
DX: O47.9 False labor, unspecified (principal); Z3A.00 Weeks of gestation of pregnancy not specified
CPT/HCPCS: 59025; 81003; G0378; G0379

== ENCOUNTER 2023-08-26 05:02 | Inpatient (IN) | payer OTHER, SELFPAY ==
[2023-08-26] VITALS (31 sets, daily range): BP systolic 106–170; BP diastolic 59–96; PULSE 70–109; RESP 16; TEMP 36.2–36.9
--- OUTSIDE RECORDS SUMMARY | 2023-08-26 05:06 | XMS_ITS | CCD ---
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 Name Role Phone JASON ., DR LIRIANO Admitting Unavailable JASON ., DR LIRIANO Attending Unavailable JASON ., DR LIRIANO Primary Care Unavailable JASON ., DR LIRIANO Admitting Unavailable JASON ., DR LIRIANO Attending Unavailable JASON ., DR LIRIANO Primary Care Unavailable JASON ., DR LIRIANO Consulting Unavailable KARASIK ., DR MANZO Admitting Unavailabl e KARASIK ., DR MANZO Attending Unavailabl e JASON ., DR LIRIANO Primary Care Unavailable KARASIK ., DR MANZO Consulting Unavailabl e JASON ., DR LIRIANO Admitting Unavailable JASON ., DR LIRIANO Attending Unavailable JASON ., DR LIRIANO Primary Care Unavailable JASON ., DR LIRIANO Consulting Unavailable AGUBOSIM, YOLIS Consulting Unavailable JASON ., DR LIRIANO Procedure Practitioner Unavail Harshil Solares MD Primary Care Provider [phone] TOMMY OLSEN Attending Unavailable JASONDEANDRA Pichardo Attending Unavailable TOMMY OLSEN Attending Unavailable JASONDEANDRA Attending Unavailable JASONDEANDRA Attending Unavailable JASONDEANDRA Attending Unavailable Allergies Allergy Classification Reported Allergen(s) Allergy Type Date of Onset Reaction(s) Facility (1 source) bee venom Drug allergy (disorder) 2 [facility] (4 sources) Erythromycin Drug Allergy 2 Rash [facility] (3 sources) Erythromycin Drug Allergy 3 Hives, Unknown [facility] (3 sources) Honey bee venom Propensity to adverse reactions 9 Hives, Unknown [facility] Work Phone: Medications Current Medications Medication Drug Class(es) Dates Sig (Normalized) Sig (Original) alpha-tocopherol acetate 30 unt / ascorbic acid 100 mg / beta carotene 1000 unt / calcium carbonate 200 mg / calcium pantothenate 7 mg / cholecalciferol 400 unt / docusate sodium 25 mg / ferrous fumarate 29 mg / folic acid 1 mg / niacinamide 15 mg / pyridoxine hydrochloride 20 mg / riboflavin 3 mg / thiamine 3 mg / vitamin b12 0.012 mg / zinc oxide 20 mg oral tablet (3 sources) Vitamin B12, Vitamin D, Vitamin C take 1 tablet by mouth in the morning Vit-DSS-Fe Fum-FA ( 19) 29-1 MG tablet Take 1 tablet by mouth in the morning. 0 Active omeprazole 20 mg delayed release oral capsule (3 sources) Proton Pump Inhibitor Start: 04-30-2023 End: 04-29-2024 take 1 capsule by mouth before mealtime omeprazole (PriLOSEC) [address] capsule Indications: Acute cough Take 1 capsule (20 mg) by mouth in the morning. Take before meals. Do not crush or chew. . 30 capsule 11 04/30/2023 04/29/2024 Active Problems Active Problems Problem Classification Problem Date Documented Date Episodic/Chronic Other and delivery including normal (9 sources) Encounter for routine follow-up; Translations: [Encounter for supervision of normal , unspecified, first trimester] Onset: 12-25-2021 Episodic Other screening for suspected conditions (not mental [...] LAC DUR DEL UNS] Onset: 01-03-2022 Episodic Residual codes; unclassified (1 source) 38 weeks gestation of ; Translations: [38 WEEKS GESTATION OF ] Onset: 01-03-2022 Episodic Results Test Name Value Interpretation Reference Range Facility Urinalysis macro (dipstick) panel (U)on 08-18-2023 Bilirubin, UA Negative Negative - 4(70) +++ mg/dL [facility] Blood, UA Negative Negative - 50 Jerad/mcL [facility] Clarity, UA Clear [facility] Color, UA Yellow [facility] Glucose, UA Negative Negative - 1999(110) ++++ mg/dL [facility] Interpretation and review of [facility] results Normal [facility] Ketones, UA Negative Negative - 160(16) ++++ mg/dL [facility] Leukocytes, UA Negative Negative - 500+++ Gerson/mcL [facility] Nitrite, UA Negative Negative - Positive [facility] pH, UA 7.0 5 - 9 [facility] Protein, UA Negative Negative - 1999(20) ++++ mg/dL [facility] Spec Grav, UA 1.010 1 - 1.03 [facility] Urobilinogen, UA 0.2 0.2 - 12 mg/dL [facility] UA (CLEAN/CATCH) [facility] IF INDICATEon 08-14-2023 BILIRUBIN URINE Negative NEGATIVE [facility] BLOOD URINE Negative NEGATIVE [facility] Clarity (U) CLEAR CLEAR [facility] Color (U) LT. YELLOW YELLOW [facility] GLUCOSE URINE UA Negative NEGATIVE mg/dL [facility] Ketones Ql (U) Negative NEGATIVE mg/dL [facility] Leukocyte esterase Test strip Ql (U) Negative NEGATIVE [facility] NITRITE URINE Negative NEGATIVE [facility] pH (U) 5.5 [pH] 5.0 - 9.0 [facility] PROTEIN URINE Negative NEG/TRACE mg/dL [facility] SPECIFIC GRAVITY URINE 1.010 1.005 - 1.025 [facility] URINE MICROSCOPIC INDICATED NO [facility] UROBILINOGEN URINE 0.2 EU/dL 0.2 - 1.0 EU/dL [facility] PAP ACOG PANEL 2: 21 to 29on 10-02-2022 . . Normal [facility] Comment on above: Performed By: #### [id number] #### [facility] [address] [place] [address] Dr. Alee Paez Age Gdln ACOG Testing - Normal [facility] Comment on above: Performed By: #### [id number] #### [facility] [address] [place] [address] Dr. Alee Paez DIAGNOSIS: Comment [facility] Comment on above: Result Comment: NEGA TIVE FOR INTRAEPITHELIAL LESION OR MALIGNANCY. THIS SPECIMEN WAS RESCREENED PART OF OUR SENIOR RELIABILITY ENGINEER PROGRAM. Performed By: #### [id number] #### [facility] [address] [place] [address] Dr. Alee Paez Methodology: Comment [facility] Comment on above: Result Comment: This liquid based ThinPrep(R) pap test was screened with the use of an image guided system. Performed By: #### [id number] #### [facility] [address] [place] [address] Dr. Alee Paez Note: Comment Normal [facility] Comment on above: Result Comment: The Pap smear is a screening test designed to aid in the detection of premalignant and malignant conditions of the uterine cervix. It is not a diagnostic procedure and should not be used as the sole means of detecting cervical cancer. Both false-positive and false-negative reports do occur. . Performed By: #### [id number] #### [facility] [address] [place] [address] Dr. Alee Paez Performed by: Comment Normal [facility] Comment on above: Result Comment: Sarita Gonzales, Animal Pathologist (ASCP) Performed By: #### [id number] #### [facility] [address] [place] [address] Dr. Alee Paez QC reviewed by: Comment Normal [facility] Comment on above: Result Comment: Ketty Caba, Animal Pathologist (ASCP) Performed By: #### [id number] #### [facility] [address] [place] [address] Dr. Alee Paez Reflex Criteria: Comment [facility] Comment on above: Result Comment: The HPV DNA reflex criteria were not met with this specimen result therefore, no HPV testing was performed. . Performed By: #### [id number] #### [facility] [address] [place] [address] Dr. Alee Paez Specimen adequacy: Comment Normal [facility] Comment on above: Result Comment: Sati sfactory for evaluation. Endocervical and/or squamous metaplastic cells (endocervical component) are present. Performed By: #### [id number] #### [facility] [address] [place] [address] Dr. Alee Paez CBC AUTO DIFFon 12-27-2021 BASO # 0.0 103/ul Normal 0.0-0.1 [facility] Comment on above: Performed By: #### C BC #### [facility] [address] [place] [address] Dr. Alee Paez Basophils/100 WBC (Bld) 0.2 % Normal 0.2-2.0 [facility] Comment on above: Performed By: #### C BC #### [facility] [address] [place] [address] Dr. Alee Paez EO # 0.1 103/ul Normal 0.0-0.7 [facility] Comment on above: Performed By: #### C BC #### [facility] [address] [place] [address] Dr. Alee Paez Eosinophils/100 WBC (Bld) 1.2 % Normal 0.9-7.0 [facility] Comment on above: Performed By: #### C BC #### [facility] [address] [place] [address] Dr. Alee Paez Erythrocyte distribution width (RBC) [Ratio] 15.3 % Critically high 11.0-15.0 [facility] Comment on above: Performed By: #### C BC #### [facility] [address] [place] [address] Dr. Alee Paez Hematocrit (Bld) [Volume fraction] 25.1 % Critically low 36.0-48.0 [facility] Comment on above: Performed By: #### C BC #### [facility] [address] [place] [address] Dr. Alee Paez Hemoglobin (Bld) [Mass/Vol] 8.2 g/dL Critically low 12.0-16.0 [facility] Comment on above: Result Comment: just delivered Performed By: #### C BC #### [facility] [address] [place] [address] Dr. Alee Paez IG # 0.03 10e3/ul Normal 0.00-0.03 [facility] Comment on above: Performed By: #### C BC #### [facility] [address] [place] [address] Dr. Alee Paez IG % 0.4 % Normal 0.0-0.5 [facility] Comment on above: Performed By: #### C BC #### [facility] [address] [place] [address] Dr. Alee Paez LYMPH # 2.0 103/ul Normal 1.2-3.8 [facility] Comment on above: Performed By: #### C BC #### [facility] [address] [place] [address] Dr. Alee Paez Lymphocytes/100 WBC (Bld) 23.9 % Normal 20.5-60.0 [facility] Comment on above: Performed By: #### C BC #### [facility] [address] [place] [address] Dr. Alee Paez MANUAL DIFF REQ NO Normal [facility] Comment on above: Performed By: #### C BC #### [facility] [address] [place] [address] Dr. Alee Paez MCH (RBC) [Entitic mass] 28.3 pg Normal 26.7-34.0 [facility] Comment on above: Performed By: #### C BC #### [facility] [address] [place] [address] Dr. Alee Paez MCHC (RBC) [Mass/Vol] 32.7 g/dL Normal 29.9-35.2 [facility] Comment on above: Performed By: #### C BC #### [facility] [address] [place] [address] Dr. Alee Paez MCV (RBC) [Entitic vol] 86.6 fL Normal 81.0-99.0 [facility] Comment on above: Performed By: #### C BC #### [facility] [address] [address] [address] Alee Paez MONO # 0.8 103/ul Normal 0.3-0.8 [facility] Comment on above: Performed By: #### C BC #### [facility] [address] [address] [address] Alee Paez Monocytes/100 WBC (Bld) 9.8 % Normal 1.7-12.0 [facility] Comment on above: Performed By: #### C BC #### [facility] [address] [address] [address] Alee Paez NEUT # 5.5 103/ul Normal 1.4-6.5 [facility] Comment on above: Performed By: #### C BC #### [facility] [address] [place] [address] Dr. Alee Paez Neutrophils/100 WBC (Bld) 64.5 % Normal 43.0-75.0 [facility] Comment on above: Performed By: #### C BC #### [facility] [address] [place] [address] Dr. Alee Paez Platelet mean volume (Bld) [Entitic vol] 9.8 fL Normal 9.5-13.5 [facility] Comment on above: Performed By: #### C BC #### [facility] [address] [place] [address] Dr. Alee Paez PLT 152 103/ul Normal 150-450 [facility] Comment on above: Performed By: #### C BC #### [facility] [address] [place] [address] Dr. Alee Paez RBC 2.90 106/ul Critically low 4.20-5.40 [facility] Comment on above: Performed By: #### C BC #### [facility] [address] [address] [address] Alee Paez WBC 8.5 103/ul Normal 4.0-11.0 [facility] Comment on above: Performed By: #### C BC #### [facility] [address] [place] [address] Dr. Alee Paez CBC AUTO DIFFon 12-25-2021 BASO # 0.0 103/ul Normal 0.0-0.1 [facility] Comment on above: Performed By: #### C BC #### [facility] [address] [place] [address] Dr. Alee Paez Basophils/100 WBC (Bld) 0.2 % Normal 0.2-2.0 [facility] Comment on above: Performed By: #### C BC #### [facility] [address] [place] [address] Dr. Alee Paez EO # 0.0 103/ul Normal 0.0-0.7 [facility] Comment on above: Performed By: #### C BC #### [facility] [address] [place] [address] Dr. Alee Paez Eosinophils/100 WBC (Bld) 0.5 % Critically low 0.9-7.0 [facility] Comment on above: Performed By: #### C BC #### [facility] [address] [place] [address] Dr. Alee Paez Erythrocyte distribution width (RBC) [Ratio] 15.0 % Normal 11.0-15.0 [facility] Comment on above: Performed By: #### C BC #### [facility] [address] [place] [address] Dr. Alee Paez Hematocrit (Bld) [Volume fraction] 38.1 % Normal 36.0-48.0 [facility] Comment on above: Performed By: #### C BC #### [facility] [address] [place] [address] Dr. Alee Paez Hemoglobin (Bld) [Mass/Vol] 12.6 g/dL Normal 12.0-16.0 [facility] Comment on above: Performed By: #### C BC #### [facility] [address] [place] [address] Dr. Alee Paez IG # 0.03 10e3/ul Normal 0.00-0.03 [facility] Comment on above: Performed By: #### C BC #### [facility] [address] [place] [address] Dr. Alee Paez IG % 0.4 % Normal 0.0-0.5 [facility] Comment on above: Performed By: #### C BC #### [facility] [address] [place] [address] Dr. Alee Paez LYMPH # 1.0 103/ul Critically low 1.2-3.8 [facility] Comment on above: Performed By: #### C BC #### [facility] [address] [place] [address] Dr. Alee Paez Lymphocytes/100 WBC (Bld) 12.5 % Critically low 20.5-60.0 [facility] Comment on above: Performed By: #### C BC #### [facility] [address] [place] [address] Dr. Alee Paez MANUAL DIFF REQ NO Normal [facility] Comment on above: Performed By: #### C BC #### [facility] [address] [place] [address] Dr. Alee Paez MCH (RBC) [Entitic mass] 27.8 pg Normal 26.7-34.0 [facility] Comment on above: Performed By: #### C BC #### [facility] [address] [place] [address] Dr. Alee Paez MCHC (RBC) [Mass/Vol] 33.1 g/dL Normal 29.9-35.2 [facility] Comment on above: Performed By: #### C BC #### [facility] [address] [place] [address] Dr. Alee Paez MCV (RBC) [Entitic vol] 84.1 fL Normal 81.0-99.0 [facility] Comment on above: Performed By: #### C BC #### [facility] [address] [place] [address] Dr. Alee Paez MONO # 1.0 103/ul Critically high 0.3-0.8 [facility] Comment on above: Performed By: #### C BC #### [facility] [address] [place] [address] Dr. Alee Paez Monocytes/100 WBC (Bld) 11.4 % Normal 1.7-12.0 [facility] Comment on above: Performed By: #### C BC #### [facility] [address] [place] [address] Dr. Alee Paez NEUT # 6.2 103/ul Normal 1.4-6.5 [facility] Comment on above: Performed By: #### C BC #### [facility] [address] [place] [address] Dr. Alee Paez Neutrophils/100 WBC (Bld) 75.0 % Normal 43.0-75.0 [facility] Comment on above: Performed By: #### C BC #### [facility] [address] [place] [address] Dr. Alee Paez Platelet mean volume (Bld) [Entitic vol] 11.4 fL Normal 9.5-13.5 [facility] Comment on above: Performed By: #### C BC #### [facility] [address] [place] [address] Dr. Alee Paez PLT 204 103/ul Normal 150-450 [facility] Comment on above: Performed By: #### C BC #### [facility] [address] [place] [address] Dr. Alee Paez RBC 4.53 106/ul Normal 4.20-5.40 [facility] Comment on above: Performed By: #### C BC #### [facility] [address] [place] [address] Dr. Alee Paez WBC 8.3 103/ul Normal 4.0-11.0 [facility] Comment on above: Performed By: #### C BC #### [facility] [address] [place] [address] Dr. Alee Paez [facility]on [facility]06 SARS-CoV-2 (COVID-19) RNA JERRY+probe Ql (Unsp spec) Not detected Normal NOT DETECTED [facility] Comment on above: Result [...] for this test is supported by the [employer] of Health and Human Service's declaration that [...] used). Performed By: #### C VDTBH #### [facility] [address] [place] [address] Dr. Alee Paez DRUG SCREEN RAPID (URINE)on 12-25-2021 AMP Negative Normal NEGATIVE [facility] Comment on above: Performed By: #### D RUGRPD #### [facility] [address] [place] [address] Dr. Alee Paez BAR Negative Normal NEGATIVE [facility] Comment on above: Performed By: #### D RUGRPD #### [facility] [address] [place] [address] Dr. Alee Paez BUP Negative Normal NEGATIVE [facility] Comment on above: Performed By: #### D RUGRPD #### [facility] [address] [place] [address] Dr. Alee Paez BZO Negative Normal NEGATIVE [facility] Comment on above: Performed By: #### D RUGRPD #### [facility] [address] [place] [address] Dr. Alee Paez FLOYD Negative Normal NEGATIVE [facility] Comment on above: Performed By: #### D RUGRPD #### [facility] [address] [place] [address] Dr. Alee Paez CUT-OFFS SEE BELOW Normal [facility] Comment on above: Result Comment: [...] ng/mL Performed By: #### D RUGRPD #### [facility] [address] [place] [address] Dr. Alee Paez DRUG CUT HEADER DRUG CLASS TEST SYSTEM CUT-OFF CONCENTRATIONS ARE FOLLOWS: Normal [facility] Comment on above: Performed By: #### D RUGRPD #### [facility] [address] [place] [address] Dr. Alee Paez mAMP Negative Normal NEGATIVE [facility] Comment on above: Performed By: #### D RUGRPD #### [facility] [address] [place] [address] Dr. Alee Paez MTD Negative Normal NEGATIVE [facility] Comment on above: Performed By: #### D RUGRPD #### [facility] [address] [place] [address] Dr. Alee Paez OPI Negative Normal NEGATIVE [facility] Comment on above: Performed By: #### D RUGRPD #### [facility] [address] [place] [address] Dr. Alee Paez OXY Negative Normal NEGATIVE [facility] Comment on above: Performed By: #### D RUGRPD #### [facility] [address] [place] [address] Dr. Alee Paez PCP Negative Normal NEGATIVE [facility] Comment on above: Performed By: #### D RUGRPD #### [facility] [address] [place] [address] Dr. Alee Paez PPX Negative Normal NEGATIVE [facility] Comment on above: Performed By: #### D RUGRPD #### [facility] [address] [address] [address] Alee Paez TCA Negative Normal NEGATIVE [facility] Comment on above: Performed By: #### D RUGRPD #### [facility] [address] [address] [address] Alee Paez THC Negative Normal NEGATIVE [facility] Comment on above: Performed By: #### D RUGRPD #### [facility] [address] [address] [address] Alee Paez TYPE AND SCREENon 12-25-2021 TYPE AND SCREEN Negative Normal [facility] Comment on above: Performed By: #### T NS #### [facility] [address] [place] [address] Dr. Alee Paez GROUP B STREP CULTUREon S. agalactiae Ag Ql (Unsp spec) Culture Observations: NEGATIVE FOR GROUP B STREPTOCOCCUS. Normal [facility] Comment on above: Performed By: #### G BSCX #### [facility] [address] [address] [address] Alee Paez Vital Signs Date Time Vital Sign Value Performing Clinician Faci lity 08-18-2023 12:59-0500 Body mass index (BMI) [Ratio] 29.45 kg/m2 Deandra Jason DO Work Phone: [facility] 08-18-2023 12:59-0500 Body weight 73.03 kg Deandra Jason DO Work Phone: [facility] 08-18-2023 12:59-0500 Diastolic blood pressure 72 mm[Hg] Deandra Jason DO Work Phone: [facility] 08-18-2023 12:59-0500 Systolic blood pressure 122 mm[Hg] Deandra Jason DO Work Phone: [facility] Encounters Encounter Date Encounter Type Care Provider Facility Start: 08-18-2023 End: 08-18-2023 ambulatory DEANDRA GOMEZ Not Available Start: 08-18-2023 End: 08-18-2023 flow sheet Deandra Jason DO Work Phone: [facility] Comment on above: Third trimester preg coco Start: 08-14-2023 Clinisync Result Encounter Deandra Jason DO Work Phone: [facility] Unsolicited Start: 08-14-2023 Clinisync Result Encounter Deandra Jason DO Work Phone: [facility] Unsolicited Start: 08-11-2023 End: 08-11-2023 ambulatory DEANDRA GOMEZ Not Available Start: 07-28-2023 End: 07-28-2023 ambulatory DEANDRA GOMEZ Not Available Start: 07-14-2023 End: 07-14-2023 ambulatory TOMMY OLSEN Not Available Start: 06-26-2023 End: 06-26-2023 ambulatory DEANDRA GOMEZ Not Available Start: 05-28-2023 End: 05-28-2023 ambulatory TOMMY OLSEN Not Available Start: 09-23-2022 End: 09-23-[address] DEANDRA GOMEZ . Facility: Start: 12-31-2021 End: 12-31-[address] DEANDRA GOMEZ . Facility: Start: 12-25-2021 End: 12-27-2021 Evaluation and management of inpatient DR DEANDRA GOMEZ . Facility: Start: 12-11-2021 End: 12-11-[address] JOVANY RUSHING . Facility: Procedures Date Procedure Procedure Detail Performing Clinician Start: 08-18-2023 Urnls dip stick/tabl et rgnt non-auto w/o micrscp Deandra Gomez DO Work Phone: Start: 08-14-2023 [facility] UA (CLEAN/CATCH) MICROSCOPIC IF INDICATE Deandra Gomez DO Work Phone: Start: 12-25-2021 Delivery of Products of Conception, External Approach DR DEANDRA GOMEZ . Start: 12-25-2021 Division of Female Perineum, External Approach DR DEANDRA GOMEZ . Start: 12-25-2021 Repair Anal Sphincte r, Open Approach DR DEANDRA GOMEZ . Plan of Treatment Date Care Activity Detail Author Start: 08-18-2023 End: 08-18-2023 Patient encounter procedure 08/18/2023 1:00 PM EST Routine [facility] [address] [place] [address] Deandra Gomez, [address] [place] [address] Third trimester [facility] Comment on above: Third trimester preg coco Payers Date Payer Category Payer Unknown [employer] FRONTP ATH [id number] 2022-Present [address] [place] [address] [id number] 1994 Unknown [id number] 3 1994 Unknown [id number] 3 1994 Unknown [id number] 3 1994 Unknown [id number] 3 1994 Unknown [id number] 59 1994 Unknown [id number] 59 1994 Unknown [id number] 59 1994 Unknown [id number] 59 1994 Unknown [id number] 59 1994 Unknown [id number] 59 1959 Unknown [id number] Social History Date Type Detail Facility Start: 02-25-[address] [facility] Never smoked tobacco [facility] Start: 02-25-2023 Tobacco use and exposure Smokeless t obacco non-user [facility] Start: 07-28-2023 End: 08-18-2023 Alcohol intake Lifetime non-drinker (finding) [facility] Start: 02-25-2023 History of Social function [facility] Start: 02-25-2023 Tobacco use panel [facility] Start: 12-17-2022 [facility] Start: 1995 Sex Assigned At Not on file [facility] History of Present illness Narrative 08-18-2023 Saadia Fernandez MA - 08/18/2023 1:00 PM EST Note Date & Type Note Facility 08-18-2023 History of Presen t illness Narrative Reason for Appointment: Patient ID: Albina Monreal is a 27 y.o. female who presents for Routine Visit Patient presents today for Return OB appointment. Current Medications: has a current medication list which includes the following prescription(s): omeprazole and 19. Medical History: Active Ambulatory Problems Diagnosis Date Noted No Active Ambulatory Problems Resolved Ambulatory Problems Diagnosis Date Noted No Resolved Ambulatory Problems Past Medical History: Diagnosis Date 6 weeks follow-up BMI 24.0-24.9, adult Vaginal delivery Family History Problem Relation Name Age of Onset Hypertension Mother Hypertension Father Heart disease Father Heart disease Brother Social History Tobacco Use Smoking status: Never Smokeless tobacco: Never Substance Use Topics Alcohol use: Never Drug use: Never Past Surgical History: Procedure Laterality Date PAP SMEAR 09/19/2021 negative Allergies Allergen Reactions Bee Venom Hives and Unknown Erythromycin Hives and Unknown Erythromycin Base Rash Review of Systems: Review of Systems Objective OBGyn Exam Vitals: Estimated body mass index is 29.45 kg/m as calculated from the following: Height as of 09/23/22: 5' 2 . Weight as of this encounter: 161 lb. BP: 122/72 Patient's last menstrual period was 11/28/2022. Assessment/Plan Encounter Diagnosis Name Primary? Third trimester Pt was vaginally checked and is 1 cm dilated, 50% effaced and -2 at today's visit. Pt will be induced on 08/26/2023 due to h/o placenta abruption. Induction paperwork was signed and faxed to [facility] for patients scheduled induction plan. Documented by Saadia Fernandez MA on behalf of: Deandra Gomez DO documented in this encounter [facility] Evaluation note Note Date & Type Note Facility Evaluation note Diagnosis Third trimester state, incidental documented in this encounter [facility] Summary Purpose Family History No Family History Records FoundNo Family History Records Found Advance Directives No Advanced Directives Records FoundNo Advanced Directives Records Found Additional Source Comments INFORMATION SOURCE (unrecogn ized section and content) DATE CREATED AUTHOR 10/06/2022 [facility] DATE CREATED AUTHOR AUTHOR'S ORGANIZ ATION 08/19/2023 [facility] EPIC Care Teams (unrecognized sec tion and content) [employer] Machine Operator Relationship Specialty Start Date End Date Harshil Moran MD [address], [place] [address] PCP - General Family Medicine 12/30/22 [employer] Operator Relationship Specialty Start Date End Date Harshil Moran MD [address], [place] [address] PCP - General Family Medicine 12/30/22 Reason for Visit (unrecogniz ed section and content) Reason Comments Routine Visit FOR RECORDS PERTAINING TO PATIENTS WHO ARE [...] BE BASED ON THE PRIMARY CLINICAL RECORDS. [employer] provides no warranty or guarantee of the accuracy or completeness of information in this document.
[2023-08-26] MEDS: 0.9 % SODIUM CHLORIDE 1,000 ML 125 ML IV ×2 (05:30→12:52)
[2023-08-26 05:34] LABS: Hematocrit 41.9 % (36.0-48.0); Hemoglobin 13.8 g/dL (12.0-16.0); Mean Corpuscular HGB Conc 32.9 g/dL (29.9-35.2); Mean Corpuscular Hemoglobin 29.8 pg (26.7-34.0); Mean Corpuscular Volume 90.5 fL (81.0-99.0); Mean Platelet Volume 11.4 fL (9.5-13.5); Platelet Count 213 10^3/uL (150-450); Red Blood Count 4.63 10^6/uL (4.20-5.40); Red Cell Distribution Width 14.1 % (11.0-15.0); White Blood Count 9.4 10^3/uL (4.0-11.0)
[2023-08-26 05:44] LABS: Amphetamine Screen Urine NEGATIVE (NEGATIVE); Barbiturates Screen Urine NEGATIVE (NEGATIVE); Benzodiazepines Screen Urine NEGATIVE (NEGATIVE); Buprenorphine Screen Urine NEGATIVE (NEGATIVE); Cannabinoid Screen Urine NEGATIVE (NEGATIVE); Cocaine Screen Urine NEGATIVE (NEGATIVE); Methadone Screen Urine NEGATIVE (NEGATIVE); Methamphetamines Screen Urine NEGATIVE (NEGATIVE); Opiate Screen Urine NEGATIVE (NEGATIVE); Oxycodone Screen Urine NEGATIVE (NEGATIVE); Phencyclidine Screen Urine NEGATIVE (NEGATIVE); Tricyclic Antidepressant Urine NEGATIVE (NEGATIVE)
[2023-08-26] MEDS: OXYTOCIN/0.9 % SODIUM CHLORIDE 10 UNITS/500 ML PLAST..BAG 6 UNIT IV (06:30)
--- NOTE | 2023-08-26 16:55 | PM.OBPRCVD ---
Procedure Intrapartal events: None Induction method: per pitocin protocol Delivery augmentation: rupture of membranes and pitocin Delivery monitor: external FHT and external uterine Route of delivery: Episiotomy Description: none L&D Laceration Description: periurethral - 1st degree and perineal - 1st degree Delivery repair: Vicryl Estimated blood loss (mL): 300 Anesthesia type: None Disposition: floor Delivery date: 08/26/23 Gender: male presentation: vertex Placental delivery description: Spontaneous cord description: 3 Vessels
[2023-08-26] MEDS: KETOROLAC TROMETHAMINE 30 MG/ML VIAL IVP (17:14)
[2023-08-26] MEDS: BENZOCAINE/MENTHOL 85 GRAM SPRAY BOTTLE 1 APPLIC TOPICAL (17:16)
[2023-08-26] MEDS: GLYCERIN/WITCH HAZEL PADS 1 PAD TOPICAL (17:16)
[2023-08-26] MEDS: LIDOCAINE HCL 1% 200 MG/20 ML MDV INJ (17:19)
[2023-08-27 05:52] LABS: Basophils Percent Auto 0.3 % (0.2-2.0); Eosinophils Absolute Auto 0.1 10^3/uL (0.0-0.7); Eosinophils Percent Auto 0.5 % (0.9-7.0); Hematocrit 34.1 % (36.0-48.0); Hemoglobin 11.1 g/dL (12.0-16.0); Immature Granulocytes Abs Auto 0.05 10^3/uL (0.00-0.03); Immature Granulocytes Pct Auto 0.4 % (0.0-0.5); Lymphocytes Absolute Auto 2.1 10^3/uL (1.2-3.8); Lymphocytes Percent Auto 16.4 % (20.5-60.0); Mean Corpuscular HGB Conc 32.6 g/dL (29.9-35.2); Mean Corpuscular Hemoglobin 29.8 pg (26.7-34.0); Mean Corpuscular Volume 91.7 fL (81.0-99.0); Mean Platelet Volume 10.9 fL (9.5-13.5); Monocytes Absolute Auto 1.4 10^3/uL (0.3-0.8); Monocytes Percent Auto 10.7 % (1.7-12.0); Neutrophils Absolute Auto 9.2 10^3/uL (1.4-6.5); Neutrophils Percent Auto 71.7 % (43.0-75.0); Platelet Count 158 10^3/uL (150-450); Red Blood Count 3.72 10^6/uL (4.20-5.40); Red Cell Distribution Width 14.2 % (11.0-15.0); White Blood Count 12.8 10^3/uL (4.0-11.0)
[2023-08-27 08:16] VITALS: BP 112/72; PULSE 92; RESP 16; TEMP 36.3
[2023-08-27] MEDS: IBUPROFEN 600 MG TABLET PO ×2 (08:23→17:56)
[2023-08-27] MEDS: DOCUSATE SODIUM 100 MG CAPSULE PO (08:23)
--- NOTE | 2023-08-27 09:35 | PM.OBPN ---
OB - PN: Subj Subjective Patient comments: no complaints and pain well controlled [place] status: doing well Exam Constitutional Vital Signs, click to edit/add: Last Vital Signs Temp 98.4 F 08/26/23 23:39 Pulse 92 H 08/27/23 08:16 Resp 16 08/26/23 17:44 BP 112/72 08/27/23 08:16 O2 Del Method Room Air 08/26/23 23:39 Documenting provider has reviewed patient's vital signs: yes Common normals: no apparent distress Respiratory Common normals: clear to auscultation bilaterally Cardio Common normals: regular rate and regular rhythm GI Common normals: Normal to inspection, nondistended, normoactive bowel sounds present Extremity Common normals: no clubbing, cyanosis or edema and no calf tenderness Results Labs Labs: Short CBC 08/27/23 Range/Units 05:37 WBC 12.8 H (4.0-11.0) 10^3/uL Hgb 11.1 L (12.0-16.0) g/dL Hct 34.1 L (36.0-48.0) % Plt Count 158 (150-450) 10^3/uL OB - PN: A/P Plan - Vaginal Delivery day: 1 Plan: routine care Time Spent with Patient Time: Total time spent is greater than 50% in coordination of care (as documented) at patient's floor/unit and/or counseling patient: Total time spent with greater than 50% in coordination of care (as documented) at patient's floor/unit and/or counseling patient: less than 15 minutes
--- NOTE | 2023-08-27 14:16 | PC.NURSE ---
LC into room and identifies self. 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 States feels comfortable and has no questions or concerns at this time. Mom does reveal, I had to remember this is a and he needs help getting latched instead of older child that helps himself info given for review. Will call for questions or concerns as needed.
[2023-08-27 17:30] VITALS: RESP 16
[2023-08-27 17:53] VITALS: BP 116/75; PULSE 80; TEMP 36.9
[2023-08-27] MEDS: ACETAMINOPHEN 325 MG TABLET 650 MG PO (21:18)
[2023-08-28 01:26] VITALS: BP 114/60; PULSE 84; RESP 16; TEMP 36.8
[2023-08-28] MEDS: IBUPROFEN 600 MG TABLET PO (01:33)
[2023-08-28 08:30] VITALS: BP 116/71; PULSE 83
--- NOTE | 2023-08-28 08:42 | P.OBPN_ITS ---
OB - PN: Subj Subjective Patient comments: no complaints [place] status: doing well feeding status: exclusively Exam Constitutional Vital Signs, click to edit/add: Last Vital Signs Temp 98.2 F 08/28/23 01:26 Pulse 83 08/28/23 08:30 Resp 16 08/28/23 01:26 BP 116/71 08/28/23 08:30 O2 Del Method Room Air 08/27/23 17:30 Documenting provider has reviewed patient's vital signs: yes Common normals: no apparent distress HENMT Common normals: normocephalic Eye Common normals: EOMs intact bilaterally Neck & C-Spine Common normals: full ROM and no lymphadenopathy Lymph Lymphatic: no lymphadenopathy noted Chest Common normals: inspection of chest normal Respiratory Common normals: normal respiratory effort Effort & inspection: able to speak in complete sentences Cardio Common normals: regular rate and regular rhythm Rate: regular rate Rhythm: regular rhythm GI Common normals: Normal to inspection, nondistended, normoactive bowel sounds present Inspection: normal to inspection Common normals: no CVA tenderness External Female Exam: normal appearance of the urethra Back & Pelvis Common normals: no CVA tenderness Extremity Common normals: normal to inspection and full ROM Neuro Biju Coma Scale: document GCS findings Common normals: oriented x3 Sensorium/orientation: awake, alert, oriented to person, oriented to place and oriented to time Psych Psychiatry clinicians, please identify where your Mental Status Exam is documented: Mental Status Exam documented in the separate MSE Appearance: grossly normal Attitude: calm Speech: normal speech OB - PN: A/P Plan - Vaginal Delivery Plan: discharge home Time Spent with Patient Time: Total time spent is greater than 50% in coordination of care (as documented) at patient's floor/unit and/or counseling patient: Total time spent with greater than 50% in coordination of care (as documented) at patient's floor/unit and/or counseling patient: less than 15 minutes
[2023-08-28 10:38] VITALS: BP 116/71; PULSE 83; RESP 16; TEMP 36.6
--- NOTE | 2023-08-28 10:51 | PC.NURSE ---
Awake sitting on couch with baby. Denies concerns or complaints. Reports baby has been nursing every 2-3 hours on demand, offers breast sooner if needed. Mom reports baby beginning to gulp with feeds and feels like milk is beginning to transition.
--- NOTE | 2023-08-28 10:59 | PC.NURSE ---
08/28/[address] Ventura in room and reviews circ with mom and obtains consent.
== END 2023-08-28 13:45 | disposition home or self-care (01) | DRG 807 ==
PROVIDERS: Admitting Provider Obstetrics & Gynecology; PCP Family Medicine; Visit Provider Obstetrics & Gynecology
DX: O70.0 First degree perineal laceration during delivery (principal); Z37.0 Single live birth; Z3A.38 38 weeks gestation of pregnancy
CPT/HCPCS: 36415; 59410; 80307; 85025; 85027; 86850; 86900; 86901; 96365; 96366; 96375; 96376; J1885; J2590

== ENCOUNTER 2023-12-15 20:34 | Outpatient (REF) | payer OTHER, SELFPAY ==
--- OUTSIDE RECORDS SUMMARY | 2023-12-15 20:38 | XMS_ITS | CCD ---
Author Organization [facility] Care Team Providers Care Supervisor Twisting Department Name Role Phone JASON ., DR LIRIANO [...] JASON ., DR LIRIANO Procedure Practitioner Unavail precious Moran MD, Harshil Barron Primary Care Provider TOMMY OLSEN Attending Unavailable JASONDEANDRA Attending Unavailable JASON, DEANDRA Attending Unavailable JASON, DEANDRA Attending Unavailable TOMMY OLSEN Attending Unavailable TOMMY OLSEN Attending Unavailable JASON, DEANDRA Attending Unavailable Allergies Allergy Classification Reported Allergen(s) Allergy Type Date of Onset Reaction(s) Facility (1 source) bee venom Drug allergy (disorder) 2 [facility] (4 sources) Erythromycin Drug Allergy 2 Rash [facility] (3 sources) Erythromycin Drug Allergy 3 [...] Range Facility Urinalysis macro (dipstick) panel (U)on 02-12-2024 Bilirubin, UA Negative Negative - 4(70) +++ mg/dL [facility] Blood, UA Negative Negative - 50 Jerad/mcL [facility] Clarity, UA Clear [facility] Color, UA Yellow [facility] Glucose, UA Negative Negative - 1999(110) ++++ mg/dL [facility] Interpretation and review of laboratory results Normal [facility] Ketones, UA Negative Negative - 160(16) ++++ mg/dL [facility] Leukocytes, UA Negative Negative - 500+++ Gerson/mcL [facility] Nitrite, UA Negative Negative - Positive [facility] pH, UA 7.0 5 - 9 [facility] Protein, UA Negative Negative - 1999(20) ++++ mg/dL [facility] Spec Grav, UA 1.010 1 - 1.03 [facility] Urobilinogen, UA 0.2 0.2 - 12 mg/dL [facility] UA (CLEAN/CATCH) [facility] OPIC IF INDICATEon 08-14-2023 BILIRUBIN URINE Negative NEGATIVE [facility] BLOOD URINE Negative NEGATIVE [facility] Clarity (U) CLEAR CLEAR [facility] Color (U) LT. YELLOW YELLOW [facility] GLUCOSE URINE UA Negative NEGATIVE mg/dL [facility] Ketones Ql (U) Negative NEGATIVE mg/dL [facility] Leukocyte esterase Test strip Ql (U) Negative NEGATIVE [facility] NITRITE URINE Negative NEGATIVE [facility] pH (U) 5.5 [pH] 5.0 - 9.0 [facility] PROTEIN URINE Negative NEG/TRACE mg/dL [facility] SPECIFIC GRAVITY URINE 1.010 1.005 - 1.025 [facility] URINE MICROSCOPIC INDICATED NO [facility] UROBILINOGEN URINE 0.2 EU/dL 0.2 - 1.0 EU/dL [facility] PAP ACOG PANEL 2: 21 to 29on 10-02-2022 . . Normal [facility] Comment on above: Performed By: #### [id number] #### [facility] [address] [address] [address] Alee Paez Age Gdln ACOG Testing - Normal [facility] Comment on above: Performed By: #### [id number] #### [facility] [address] [place] [address] Dr. Alee Paez DIAGNOSIS: Comment [facility] Comment on above: Result Comment: NEGA TIVE FOR INTRAEPITHELIAL LESION OR MALIGNANCY. THIS SPECIMEN WAS RESCREENED PART OF OUR POND TENDER PROGRAM. Performed By: #### [id number] #### [facility] [address] [place] [address] Dr. Alee Paez Methodology: Comment Normal [facility] Comment on above: Result Comment: This liquid based ThinPrep(R) pap test was screened with the use of an image guided system. Performed By: #### [id number] #### [facility] [address] [place] [address] Dr. Alee Paez Note: Comment [facility] Comment on above: Result Comment: The Pap smear is a screening test designed to aid in the detection of premalignant and malignant conditions of the uterine cervix. It is not a diagnostic procedure and should not be used as the sole means of detecting cervical cancer. Both false-positive and false-negative reports do occur. . Performed By: #### [id number] #### [facility] [address] [place] [address] Dr. Alee Paez Performed by: Comment Normal [facility] Comment on above: Result Comment: Sarita Gonzales, Parachute Accessories Attacher (ASCP) Performed By: #### [id number] #### [facility] [address] [place] [address] Dr. Alee Paez QC reviewed by: Comment Normal [facility] Comment on above: Result Comment: Ketty Caba, Parachute Accessories Attacher (ASCP) Performed By: #### [id number] #### [facility] [address] [place] [address] Dr. Alee Paez Reflex Criteria: Comment [facility] Comment on above: Result Comment: The HPV DNA reflex criteria were not met with this specimen result therefore, no HPV testing was performed. . Performed By: #### 4 [id number] #### [facility] [address] [place] [address] Dr. Alee Paez Specimen adequacy: Comment Normal [facility] Comment on above: Result Comment: Sati sfactory for evaluation. Endocervical and/or squamous metaplastic cells (endocervical component) are present. Performed By: #### [id number] #### [facility] [address] [address] [address] Alee Paez CBC AUTO DIFFon 12-27-2021 BASO # 0.0 103/ul Normal 0.0-0.1 [facility] Comment on above: Performed By: #### C BC #### [facility] [address] [address] [address] Alee Paez Basophils/100 WBC (Bld) 0.2 % Normal 0.2-2.0 [facility] Comment on above: Performed By: #### C BC #### [facility] [address] [place] [address] Dr. Alee Paez EO # 0.1 103/ul Normal 0.0-0.7 [facility] Comment on above: Performed By: #### C BC #### [facility] [address] [place] [address] Dr. Alee Paez Eosinophils/100 WBC (Bld) 1.2 % Normal 0.9-7.0 [facility] Comment on above: Performed By: #### C BC #### [facility] [address] [place] [address] Dr. Alee Paez Erythrocyte distribution width (RBC) [Ratio] 15.3 % Critically high 11.0-15.0 [facility] Comment on above: Performed By: #### C BC #### [facility] [address] [place] [address] Dr. Alee Paez Hematocrit (Bld) [Volume fraction] 25.1 % Critically low 36.0-48.0 [facility] Comment on above: Performed By: #### C BC #### [facility] [address] [place] [address] Dr. Alee Paez Hemoglobin (Bld) [Mass/Vol] 8.2 g/dL Critically low 12.0-16.0 [facility] Comment on above: Result Comment: just delivered Performed By: #### C BC #### [facility] [address] [place] [address] Dr. Alee Paez IG # 0.03 10e3/ul Normal 0.00-0.03 [facility] Comment on above: Performed By: #### C BC #### [facility] [address] [place] [address] Dr. lAee Paez IG % 0.4 % Normal 0.0-0.5 [facility] Comment on above: Performed By: #### C BC #### [facility] [address] [place] [address] Dr. Alee Paez LYMPH # 2.0 103/ul Normal 1.2-3.8 [facility] Comment on above: Performed By: #### C BC #### [facility] [address] [place] [address] Dr. Alee Paez Lymphocytes/100 WBC (Bld) 23.9 % Normal 20.5-60.0 [facility] Comment on above: Performed By: #### C BC #### [facility] [address] [place] [address] Dr. Alee Paez MANUAL DIFF REQ NO Normal [facility] Comment on above: Performed By: #### C BC #### [facility] [address] [place] [address] Dr. Alee Paez MCH (RBC) [Entitic mass] 28.3 pg Normal 26.7-34.0 [facility] Comment on above: Performed By: #### C BC #### [facility] [address] [place] [address] Dr. Alee Paez MCHC (RBC) [Mass/Vol] 32.7 g/dL Normal 29.9-35.2 [facility] Comment on above: Performed By: #### C BC #### [facility] [address] [place] [address] Dr. Alee Paez MCV (RBC) [Entitic vol] 86.6 fL Normal 81.0-99.0 [facility] Comment on above: Performed By: #### C BC #### [facility] [address] [address] [address] Alee Paez MONO # 0.8 103/ul Normal 0.3-0.8 [facility] Comment on above: Performed By: #### C BC #### [facility] [address] [address] [address] Alee Paez Monocytes/100 WBC (Bld) 9.8 % Normal 1.7-12.0 [facility] Comment on above: Performed By: #### C BC #### [facility] [address] [place] [address] Dr. Alee Paez NEUT # 5.5 103/ul Normal 1.4-6.5 [facility] Comment on above: Performed By: #### C BC #### [facility] [address] [place] [address] Dr. Alee Paez Neutrophils/100 WBC (Bld) 64.5 % Normal 43.0-75.0 [facility] Comment on above: Performed By: #### C BC #### [facility] [address] [place] [address] Dr. Alee Paez Platelet mean volume (Bld) [Entitic vol] 9.8 fL Normal 9.5-13.5 [facility] Comment on above: Performed By: #### C BC #### [facility] [address] [place] [address] Dr. Alee Paez PLT 152 103/ul Normal 150-450 [facility] Comment on above: Performed By: #### C BC #### [facility] [address] [place] [address] Dr. Alee Paez RBC 2.90 106/ul Critically low 4.20-5.40 [facility] Comment on above: Performed By: #### C BC #### [facility] [address] [place] [address] Dr. Alee Paez WBC 8.5 103/ul Normal 4.0-11.0 [facility] Comment on above: Performed By: #### C BC #### [facility] [address] [place] [address] Dr. Alee Paez CBC AUTO DIFFon 12-25-2021 BASO # 0.0 103/ul Normal 0.0-0.1 [facility] Comment on above: Performed By: #### C BC #### [facility] [address] [place] [address] Dr. Alee Paez Basophils/100 WBC (Bld) 0.2 % Normal 0.2-2.0 [facility] Comment on above: Performed By: #### C BC #### [facility] [address] [place] [address] Dr. Alee Paez EO # 0.0 103/ul Normal 0.0-0.7 [facility] Comment on above: Performed By: #### C BC #### [facility] [address] [place] [address] Dr. Alee Paez Eosinophils/100 WBC (Bld) 0.5 % Critically low 0.9-7.0 [facility] Comment on above: Performed By: #### C BC #### [facility] [address] [place] [address] Dr. Alee Paez Erythrocyte distribution width (RBC) [Ratio] 15.0 % Normal 11.0-15.0 [facility] Comment on above: Performed By: #### C BC #### [facility] [address] [place] [address] Dr. Alee Paez Hematocrit (Bld) [Volume fraction] 38.1 % Normal 36.0-48.0 [facility] Comment on above: Performed By: #### C BC #### [facility] [address] [place] [address] Dr. Alee Paez Hemoglobin (Bld) [Mass/Vol] 12.6 g/dL Normal 12.0-16.0 [facility] Comment on above: Performed By: #### C BC #### [facility] [address] [place] [address] Dr. Alee Paez IG # 0.03 10e3/ul Normal 0.00-0.03 [facility] Comment on above: Performed By: #### C BC #### [facility] [address] [place] [address] Dr. Alee Paez IG % 0.4 % Normal 0.0-0.5 [facility] Comment on above: Performed By: #### C BC #### [facility] [address] [place] [address] Dr. Alee Paez LYMPH # 1.0 103/ul Critically low 1.2-3.8 [facility] Comment on above: Performed By: #### C BC #### [facility] [address] [place] [address] Dr. Alee Paez Lymphocytes/100 WBC (Bld) 12.5 % Critically low 20.5-60.0 [facility] Comment on above: Performed By: #### C BC #### [facility] [address] [place] [address] Dr. Alee Paez MANUAL DIFF REQ NO Normal [facility] Comment on above: Performed By: #### C BC #### [facility] [address] [place] [address] Dr. Alee Paez MCH (RBC) [Entitic mass] 27.8 pg Normal 26.7-34.0 [facility] Comment on above: Performed By: #### C BC #### [facility] [address] [place] [address] Dr. Alee Paez MCHC (RBC) [Mass/Vol] 33.1 g/dL Normal 29.9-35.2 [facility] Comment on above: Performed By: #### C BC #### [facility] [address] [place] [address] Dr. Alee Paez MCV (RBC) [Entitic vol] 84.1 fL Normal 81.0-99.0 [facility] Comment on above: Performed By: #### C BC #### [facility] [address] [place] [address] Dr. Alee Paez MONO # 1.0 103/ul Critically high 0.3-0.8 [facility] Comment on above: Performed By: #### C BC #### [facility] [address] [place] [address] Dr. Alee Paez Monocytes/100 WBC (Bld) 11.4 % Normal 1.7-12.0 [facility] Comment on above: Performed By: #### C BC #### [facility] [address] [place] [address] Dr. Alee Paez NEUT # 6.2 103/ul Normal 1.4-6.5 [facility] Comment on above: Performed By: #### C BC #### [facility] [address] [place] [address] Dr. Alee Paez Neutrophils/100 WBC (Bld) 75.0 % Normal 43.0-75.0 [facility] Comment on above: Performed By: #### C BC #### [facility] [address] [place] [address] Dr. Alee Paez Platelet mean volume (Bld) [Entitic vol] 11.4 fL Normal 9.5-13.5 [facility] Comment on above: Performed By: #### C BC #### [facility] [address] [place] [address] Dr. Alee Paez PLT 204 103/ul Normal 150-450 [facility] Comment on above: Performed By: #### C BC #### [facility] [address] [place] [address] Dr. Alee Paez RBC 4.53 106/ul Normal 4.20-5.40 [facility] Comment on above: Performed By: #### C BC #### [facility] [address] [place] [address] Dr. Alee Paez WBC 8.3 103/ul Normal 4.0-11.0 [facility] Comment on above: Performed By: #### C BC #### [facility] [address] [place] [address] Dr. Alee Paez Covid-19 PCR ([facility])on 12-06 SARS-CoV-2 (COVID-19) RNA JERRY+probe Ql (Unsp spec) Not detected Normal NOT DETECTED [facility] Comment on above: Result Comment: When [...] for this test is supported by the [place] of Health and Human Service's declaration that [...] used). Performed By: #### C VDTBH #### [facility] [address] [place] [address] Dr. Alee Paez DRUG SCREEN RAPID (URINE)on 12-25-2021 AMP Negative Normal NEGATIVE [facility] Comment on above: Performed By: #### D RUGRPD #### [facility] [address] [place] [address] Dr. Alee Paez BAR Negative Normal NEGATIVE [facility] Comment on above: Performed By: #### D RUGRPD #### [facility] [address] [place] [address] Dr. Alee Paez BUP Negative Normal NEGATIVE [facility] Comment on above: Performed By: #### D RUGRPD #### [facility] [address] [place] [address] Dr. Alee Paez BZO Negative Normal NEGATIVE [facility] Comment on above: Performed By: #### D RUGRPD #### [facility] [address] [place] [address] Dr. Alee Paez FLOYD Negative Normal NEGATIVE [facility] Comment on above: Performed By: #### D RUGRPD #### [facility] [address] [place] [address] Dr. Alee Paez CUT-OFFS SEE BELOW Normal [facility] Comment on above: Result Comment: AMP [...] ng/mL Performed By: #### D RUGRPD #### [facility] [address] [place] [address] Dr. Alee Paez DRUG CUT HEADER DRUG CLASS TEST SYSTEM CUT-OFF CONCENTRATIONS ARE FOLLOWS: Normal [facility] Comment on above: Performed By: #### D RUGRPD #### [facility] [address] [place] [address] Dr. Alee Paez mAMP Negative Normal NEGATIVE [facility] Comment on above: Performed By: #### D RUGRPD #### [facility] [address] [place] [address] Dr. Alee Paez MTD Negative Normal NEGATIVE [facility] Comment on above: Performed By: #### D RUGRPD #### [facility] [address] [place] [address] Dr. Alee Paez OPI Negative Normal NEGATIVE [facility] Comment on above: Performed By: #### D RUGRPD #### [facility] [address] [place] [address] Dr. Alee Paez OXY Negative Normal NEGATIVE [facility] Comment on above: Performed By: #### D RUGRPD #### [facility] [address] [place] [address] Dr. Alee Paez PCP Negative Normal NEGATIVE [facility] Comment on above: Performed By: #### D RUGRPD #### [facility] [address] [place] [address] Dr. Alee Paez PPX Negative Normal NEGATIVE [facility] Comment on above: Performed By: #### D RUGRPD #### [facility] [address] [address] [address] Alee Paez TCA Negative Normal NEGATIVE [facility] Comment on above: Performed By: #### D RUGRPD #### [facility] [address] [address] [address] Alee Paez THC Negative Normal NEGATIVE [facility] Comment on above: Performed By: #### D RUGRPD #### [facility] [address] [address] [address] Alee Paez TYPE AND SCREENon 12-25-2021 TYPE AND SCREEN Negative Normal [facility] Comment on above: Performed By: #### T NS #### [facility] [address] [place] [address] Dr. Alee Paez GROUP B STREP CULTUREon S. agalactiae Ag Ql (Unsp spec) Culture Observations: NEGATIVE FOR GROUP B STREPTOCOCCUS. Normal [facility] Comment on above: Performed By: #### G BSCX #### [facility] [address] [place] [address] Dr. Alee Paez Vital Signs Date Time Vital Sign Value Performing Clinician Faci lity 08-18-2023 12:59-0500 Body mass index (BMI) [Ratio] 29.45 kg/m2 Deandra Jason DO Work Phone: [facility] 08-18-2023 12:59-0500 Body weight 73.03 kg Deandra Jason DO Work Phone: [facility] 08-18-2023 12:59-0500 Diastolic blood pressure 72 mm[Hg] Deandra Jason DO Work Phone: [facility] 08-18-2023 12:59-0500 Systolic blood pressure 122 mm[Hg] Deandra Jason DO Work Phone: [facility] Healthcare Encounters Encounter Date Encounter Type Care Provider Facility Start: 10-07-2023 End: 10-07-2023 ambulatory TOMMY OLSEN Not Available Start: 08-18-2023 End: 08-18-2023 ambulatory DEANDRA GOMEZ [...] EST Routine [facility] [address] [place] [address] Deandra Gomez, [address] [place] [address] Third trimester [facility] Comment on above: Third trimester preg coco Payers Date Payer Category Payer Unknown FRONTPATH FRONTP ATH [id number] 2022-Present [address] [place] [address] [id number] 1994 Unknown [id number] 3 1994 Unknown [id number] 3 1994 Unknown [id number] 3 1994 Unknown [id number] 3 1994 Unknown [id number] 59 1994 Unknown [id number] [id number] 59 1994 Unknown [id number] 59 1994 Unknown [id number] 59 1994 Unknown [id number] [id number] 59 1994 Unknown [id number] [id number] 59 1994 Unknown [id number] 59 1959 Unknown [id number] Social History Date Type Detail Facility Start: 02-25-2023 Tobacco smoking stat [facility] Never smoked tobacco [facility] Start: [...] Narrative Reason for Appointment: Patient ID: Albina Castillo is a 27 y.o. female who presents [...] Induction paperwork was signed and faxed to [facility] for patients scheduled induction plan. Documented [...] pital DATE CREATED AUTHOR AUTHOR'S ORGANIZ ATION 10/08/2023 [facility] Care Teams (unrecognized sec tion and content) Supervisor Twisting Department Relationship Specialty Start Date End Date Harshil Moran MD [address], [place] [address] PCP - General Family Medicine 12/30/22 Supervisor Twisting Department Relationship Specialty Start Date End Date Harshil Moran MD [address] [place] [address] PCP - General Family Medicine 12/30/22 Reason [...] BE BASED ON THE PRIMARY CLINICAL RECORDS. [facility] provides no warranty or guarantee of the accuracy or completeness of information in this document.
[2023-12-18 09:11] LABS: Age Gdln ACOG Testing Note (.); IGP, rfx Aptima HPV ASCU Note (.)
== END 2023-12-15 20:35 | disposition home or self-care (01) ==
LOC: LAB 20:34
PROVIDERS: PCP Family Medicine; Visit Provider Obstetrics & Gynecology
DX: Z01.419 Encounter for gynecological examination (general) (routine) without abnormal findings (principal)
CPT/HCPCS: 88175

== ENCOUNTER 2023-12-25 08:54 | Outpatient (OUT) | payer OTHER, SELFPAY ==
--- NOTE | 2023-12-25 08:59 | US_ITS ---
The [address] [address] Patient Name: GUANAKITO CASTILLO MRN: [id number] date: 1995 Sex: F Assigned Patient Location: US Current Patient Location: Accession/Order Number: [id number] Exam Date: 12/25/2023 09:10 Report Date: 12/26/2023 05:12 At the request of: DEANDRA HOWE Procedure: US extremity nonvascular RT EXAMINATION: US extremity nonvascular RT HISTORY: Mass Of Right Axilla COMPARISON: No relevant comparison available. FINDINGS: Nonspecific mass versus 2 adjacent masses within the subcutaneous fat of the right axilla corresponding to patient's palpable lump, 4.1 x 1.2 x 0.6 cm. Color Doppler demonstrates blood flow within this lesion(s). US/US extremity nonvascular RT IMPRESSION: 1. Nonspecific subcutaneous mass versus lymph node(s) within right axilla. Consider follow-up ultrasound evaluation in one month to document regression, otherwise consider ultrasound-guided tissue sampling. Electronically authenticated by: AKIKO NATARAJAN Date: 12/26/2023 05:12
--- OUTSIDE RECORDS SUMMARY | 2023-12-25 09:11 | XMS_ITS | CCD ---
Author Organization [facility] Care Team Providers Care [employer] Superintendent Name Role Phone JASON ., DR LIRIANO [...] Primary Care Provider TOMMY OLSEN Attending Unavailable JASONDAJUANY Attending Unavailable JASON, DEANDRA Attending Unavailable JASON, DEANDRA Attending Unavailable TOMMY OLSEN Attending Unavailable TOMMY OLSEN Attending Unavailable JASON, DEANDRA Attending Unavailable Allergies Allergy Classification Reported Allergen(s) Allergy Type Date of Onset Reaction(s) Facility (1 source) bee venom Drug allergy (disorder) [address] [facility] Repository (4 sources) Erythromycin Drug Allergy 2 Rash [address] [facility] Repository (3 sources) Erythromycin Drug Allergy [...] UA Negative Negative - 1999(110) ++++ mg/dL [facility] Interpretation and review of laboratory results [facility] Ketones, UA Negative Negative - 160(16) ++++ mg/dL [facility] Leukocytes, UA Negative Negative - 500+++ Gerson/mcL [facility] Nitrite, UA Negative Negative - Positive [facility] pH, UA 7.0 5 - 9 [facility] Protein, UA Negative Negative - 1999(20) ++++ mg/dL [facility] Spec Grav, UA 1.010 1 - 1.03 [facility] Urobilinogen, UA 0.2 0.2 - 12 mg/dL [facility] UA (CLEAN/CATCH) [facility] IF INDICATEon 08-14-2023 BILIRUBIN URINE Negative NEGATIVE [facility] BLOOD URINE Negative NEGATIVE [facility] [...] URINE 0.2 EU/dL 0.2 - 1.0 EU/dL [facility] PAP ACOG PANEL 2: 21 to 29on 10-02-2022 . . Normal [facility] Comment on above: Performed By: #### [id number] #### [facility] [address] [address] [address] Alee Paez Age Gdln ACOG Testing - Normal [facility] Comment on above: Performed By: #### [id number] #### [facility] [address] [place] [address] Dr. Alee Paez DIAGNOSIS: Comment [facility] Comment on above: Result Comment: NEGA TIVE FOR INTRAEPITHELIAL LESION OR MALIGNANCY. THIS SPECIMEN WAS RESCREENED PART OF OUR RISK LEAD PROGRAM. Performed By: #### [id number] #### [facility] [address] [place] [address] Dr. Alee Paez Methodology: Comment Normal [facility] Comment on above: Result Comment: This liquid based ThinPrep(R) pap test was screened with the use of an image guided system. Performed By: #### [id number] #### [facility] [address] [place] [address] Dr. Alee Paez Note: Comment [facility] Comment on above: Result Comment: The Pap smear is a screening test designed to aid in the detection of premalignant and malignant conditions of the uterine cervix. It is not a diagnostic procedure and should not be used as the sole means of detecting cervical cancer. Both false-positive and false-negative reports do occur. . Performed By: #### [id number] #### [facility] [address] [place] [address] Dr. Alee Paez Performed by: Comment Normal [facility] Comment on above: Result Comment: Sarita Gonzales, Hand Woven Carpet And Rug Mender (ASCP) Performed By: #### [id number] #### [facility] [address] [place] [address] Dr. Alee Paez QC reviewed by: Comment [facility] Comment on above: Result Comment: Ketty Caba, Hand Woven Carpet And Rug Mender (ASCP) Performed By: #### [id number] #### [facility] [address] [place] [address] Dr. Alee Paez Reflex Criteria: Comment [facility] Comment on above: Result Comment: The HPV DNA reflex criteria were not met with this specimen result therefore, no HPV testing was performed. . Performed By: #### [id number] #### [facility] [address] [place] [address] Dr. Alee Paez Specimen adequacy: Comment Normal [facility] Comment on above: Result Comment: Sati sfactory for evaluation. Endocervical and/or squamous metaplastic cells (endocervical component) are present. Performed By: #### [id number] #### [facility] [address] [address] [address] Alee Paez CBC AUTO DIFFon 12-27-2021 BASO # 0.0 103/ul Normal 0.0-0.1 [facility] Comment on above: Performed By: #### C BC #### [facility] [address] [address] [address] Alee Paez Basophils/100 WBC (Bld) 0.2 % Normal 0.2-2.0 [facility] Comment on above: Performed By: #### C BC #### [facility] [address] [place] [address] Dr. Alee Paez EO # 0.1 103/ul Normal 0.0-0.7 [facility] Comment on above: Performed By: #### C BC #### [facility] [address] [place] [address] Dr. Alee Paez Eosinophils/100 WBC (Bld) 1.2 % Normal 0.9-7.0 [facility] Comment on above: Performed By: #### C BC #### [facility] [address] [place] [address] Dr. Alee Paez Erythrocyte distribution width (RBC) [Ratio] 15.3 % Critically high 11.0-15.0 [facility] Comment on above: Performed By: #### C BC #### [facility] [address] [place] [address] Dr. Alee Paez Hematocrit (Bld) [Volume fraction] 25.1 % Critically low 36.0-48.0 [facility] Comment on above: Performed By: #### C BC #### [facility] [address] [place] [address] Dr. Alee Paez Hemoglobin (Bld) [Mass/Vol] 8.2 g/dL Critically low 12.0-16.0 [facility] Comment on above: Result Comment: just delivered Performed By: #### C BC #### [facility] [address] [place] [address] Dr. Alee Paez IG # 0.03 10e3/ul Normal 0.00-0.03 [facility] Comment on above: Performed By: #### C BC #### [facility] [address] [place] [address] Dr. Alee Paez IG % 0.4 % Normal 0.0-0.5 [facility] Comment on above: Performed By: #### C BC #### [facility] [address] [place] [address] Dr. Alee Paez LYMPH # 2.0 103/ul Normal 1.2-3.8 [facility] Comment on above: Performed By: #### C BC #### [facility] [address] [place] [address] Dr. Alee Paez Lymphocytes/100 WBC (Bld) 23.9 % Normal 20.5-60.0 [facility] Comment on above: Performed By: #### C BC #### [facility] [address] [place] [address] Dr. Alee Paez MANUAL DIFF REQ NO [facility] Comment on above: Performed By: #### C BC #### [facility] [address] [place] [address] Dr. Alee Paez MCH (RBC) [Entitic mass] 28.3 pg Normal 26.7-34.0 [facility] Comment on above: Performed By: #### C BC #### [facility] [address] [place] [address] Dr. Alee Paez MCHC (RBC) [Mass/Vol] 32.7 g/dL Normal 29.9-35.[address] [facility] Comment on above: Performed By: #### C BC #### [facility] [address] [place] [address] Dr. Alee Paez MCV (RBC) [Entitic vol] 86.6 fL Normal 81.0-99.0 [facility] Comment on above: Performed By: #### C BC #### [facility] [address] [address] [address] Alee Paez MONO # 0.8 103/ul Normal 0.3-0.[address] [facility] Comment on above: Performed By: #### C BC #### [facility] [address] [address] [address] Alee Paez Monocytes/100 WBC (Bld) 9.8 % Normal 1.7-12.[address] [facility] Comment on above: Performed By: #### C BC #### [facility] [address] [place] [address] Dr. Alee Paez NEUT # 5.5 103/ul Normal 1.4-6.5 [facility] Comment on above: Performed By: #### C BC #### [facility] [address] [place] [address] Dr. Alee Paez Neutrophils/100 WBC (Bld) 64.5 % Normal 43.0-75.[address] [facility] Comment on above: Performed By: #### C BC #### [facility] [address] [place] [address] Dr. Alee Paez Platelet mean volume (Bld) [Entitic vol] 9.8 fL Normal 9.5-13.5 [facility] Comment on above: Performed By: #### C BC #### [facility] [address] [place] [address] Dr. Alee Paez PLT 152 103/ul Normal 150-[address] [facility] Comment on above: Performed By: #### C BC #### [facility] [address] [place] [address] Dr. Alee Paez RBC 2.90 106/ul Critically low 4.20-5.40 The [facility] Comment on above: Performed By: #### C BC #### [facility] [address] [place] [address] Dr. Alee Paez WBC 8.5 103/ul Normal 4.0-11.[address] [facility] Comment on above: Performed By: #### C BC #### [facility] [address] [place] [address] Dr. Alee Paez CBC AUTO DIFFon 12-25-2021 BASO # 0.0 103/ul Normal 0.0-0.[address] [facility] Comment on above: Performed By: #### C BC #### [facility] [address] [place] [address] Dr. Alee Paez Basophils/100 WBC (Bld) 0.2 % Normal 0.2-2.[address] [facility] Comment on above: Performed By: #### C BC #### [facility] [address] [place] [address] Dr. Alee Paez EO # 0.0 103/ul Normal 0.0-0.[address] [facility] Comment on above: Performed By: #### C BC #### [facility] [address] [place] [address] Dr. Alee Paez Eosinophils/100 WBC (Bld) 0.5 % Critically low 0.9-7.0 [facility] Comment on above: Performed By: #### C BC #### [facility] [address] [place] [address] Dr. Alee Paez Erythrocyte distribution width (RBC) [Ratio] 15.0 % Normal 11.0-15.0 [facility] Comment on above: Performed By: #### C BC #### [facility] [address] [place] [address] Dr. Alee Paez Hematocrit (Bld) [Volume fraction] 38.1 % Normal 36.0-48.0 [facility] Comment on above: Performed By: #### C BC #### [facility] [address] [place] [address] Dr. Alee Paez Hemoglobin (Bld) [Mass/Vol] 12.6 g/dL Normal 12.0-16.[address] [facility] Comment on above: Performed By: #### C BC #### [facility] [address] [place] [address] Dr. Alee Paez IG # 0.03 10e3/ul Normal 0.00-0.[address] [facility] Comment on above: Performed By: #### C BC #### [facility] [address] [place] [address] Dr. Alee Paez IG % 0.4 % Normal 0.0-0.5 [facility] Comment on above: Performed By: #### C BC #### [facility] [address] [place] [address] Dr. Alee Paez LYMPH # 1.0 103/ul Critically low 1.2-3.8 The [facility] Comment on above: Performed By: #### C BC #### [facility] [address] [place] [address] Dr. Alee Paez Lymphocytes/100 WBC (Bld) 12.5 % Critically low 20.5-60.0 [facility] Comment on above: Performed By: #### C BC #### [facility] [address] [place] [address] Dr. Alee Paez MANUAL DIFF REQ NO Normal [facility] Comment on above: Performed By: #### C BC #### [facility] [address] [place] [address] Dr. Alee Paez MCH (RBC) [Entitic mass] 27.8 pg Normal 26.7-34.0 [facility] Comment on above: Performed By: #### C BC #### [facility] [address] [place] [address] Dr. Alee Paez MCHC (RBC) [Mass/Vol] 33.1 g/dL Normal 29.9-35.[address] [facility] Comment on above: Performed By: #### C BC #### [facility] [address] [place] [address] Dr. Alee Paez MCV (RBC) [Entitic vol] 84.1 fL Normal 81.0-99.[address] [facility] Comment on above: Performed By: #### C BC #### [facility] [address] [place] [address] Dr. Alee Paez MONO # 1.0 103/ul Critically high 0.3-0.8 The [facility] Comment on above: Performed By: #### C BC #### [facility] [address] [place] [address] Dr. Alee Paez Monocytes/100 WBC (Bld) 11.4 % Normal 1.7-12.0 [facility] Comment on above: Performed By: #### C BC #### [facility] [address] [place] [address] Dr. Alee Paez NEUT # 6.2 103/ul Normal 1.4-6.5 [facility] Comment on above: Performed By: #### C BC #### [facility] [address] [place] [address] Dr. Alee Paez Neutrophils/100 WBC (Bld) 75.0 % Normal 43.0-75.[address] [facility] Comment on above: Performed By: #### C BC #### [facility] [address] [place] [address] Dr. Alee Paez Platelet mean volume (Bld) [Entitic vol] 11.4 fL Normal 9.5-13.5 [facility] Comment on above: Performed By: #### C BC #### [facility] [address] [place] [address] Dr. Alee Paez PLT 204 103/ul Normal 150-[address] [facility] Comment on above: Performed By: #### C BC #### [facility] [address] [place] [address] Dr. Alee Paez RBC 4.53 106/ul Normal 4.20-5.[address] [facility] Comment on above: Performed By: #### C BC #### [facility] [address] [place] [address] Dr. Alee Paez WBC 8.3 103/ul Normal 4.0-11.[address] [facility] Comment on above: Performed By: #### C BC #### [facility] [address] [place] [address] Dr. Alee Paez Covid-19 PCR ([facility])on 12-06 SARS-CoV-2 (COVID-19) RNA JERRY+probe Ql (Unsp spec) Not detected Normal NOT DETECTED [facility] Comment on above: Result Comment: When [...] for this test is supported by the [employer] of Health and Human Service's declaration that [...] used). Performed By: #### C VDTBH #### [facility] [address] [place] [address] Dr. Alee Paez DRUG SCREEN RAPID (URINE)on 12-25-2021 AMP Negative Normal NEGATIVE [facility] Comment on above: Performed By: #### D RUGRPD #### [facility] [address] [place] [address] Dr. Alee Paez BAR Negative Normal NEGATIVE [facility] Comment on above: Performed By: #### D RUGRPD #### [facility] [address] [place] [address] Dr. Alee Paez BUP Negative Normal NEGATIVE [facility] Comment on above: Performed By: #### D RUGRPD #### [facility] [address] [place] [address] Dr. Alee Paez BZO Negative Normal NEGATIVE [facility] Comment on above: Performed By: #### D RUGRPD #### [facility] [address] [place] [address] Dr. Alee Paez FLOYD Negative Normal NEGATIVE [facility] Comment on above: Performed By: #### D RUGRPD #### [facility] [address] [place] [address] Dr. Alee Paez CUT-OFFS SEE BELOW Normal [facility] Comment on above: Result Comment: AMP [...] ng/mL Performed By: #### D RUGRPD #### [facility] [address] [place] [address] Dr. Alee Paez DRUG CUT HEADER DRUG CLASS TEST SYSTEM CUT-OFF CONCENTRATIONS ARE FOLLOWS: Normal [facility] Comment on above: Performed By: #### D RUGRPD #### [facility] [address] [place] [address] Dr. Alee Paez mAMP Negative Normal NEGATIVE [facility] Comment on above: Performed By: #### D RUGRPD #### [facility] [address] [place] [address] Dr. Alee Paez MTD Negative Normal NEGATIVE [facility] Comment on above: Performed By: #### D RUGRPD #### [facility] [address] [place] [address] Dr. Alee Paez OPI Negative Normal NEGATIVE [facility] Comment on above: Performed By: #### D RUGRPD #### [facility] [address] [place] [address] Dr. Alee Paez OXY Negative Normal NEGATIVE [facility] Comment on above: Performed By: #### D RUGRPD #### [facility] [address] [place] [address] Dr. Alee Paez PCP Negative Normal NEGATIVE [facility] Comment on above: Performed By: #### D RUGRPD #### [facility] [address] [place] [address] Dr. Alee Paez PPX Negative Normal NEGATIVE [facility] Comment on above: Performed By: #### D RUGRPD #### [facility] [address] [address] [address] Alee Paez TCA Negative Normal NEGATIVE [facility] Comment on above: Performed By: #### D RUGRPD #### [facility] [address] [address] [address] Alee Paez THC Negative Normal NEGATIVE [facility] Comment on above: Performed By: #### D RUGRPD #### [facility] [address] [address] [address] Alee Paez TYPE AND SCREENon 12-25-2021 TYPE AND SCREEN Negative Normal [facility] Comment on above: Performed By: #### T NS #### [facility] [address] [place] [address] Dr. Alee Paez GROUP B STREP CULTUREon S. agalactiae Ag Ql (Unsp spec) Culture Observations: NEGATIVE FOR GROUP B STREPTOCOCCUS. Normal [facility] Comment on above: Performed By: #### G BSCX #### [facility] [address] [place] [address] Dr. Alee Paez Vital Signs Date Time Vital Sign Value Performing Clinician Faci lity 08-18-2023 12:59-0500 Body mass index (BMI) [Ratio] 29.45 kg/m2 Deandra Jason DO Work Phone: [facility] 08-18-2023 12:59-0500 Body weight 73.03 kg Deandra Jason DO Work Phone: [facility] 08-18-2023 12:59-0500 Diastolic blood pressure 72 mm[Hg] Deandra Jason DO Work Phone: [facility] 08-18-2023 12:59-0500 Systolic blood pressure 122 mm[Hg] Deandra Jason DO Work Phone: [facility] Healthcare Encounters Encounter Date Encounter Type [...] EST Routine [facility] [address] [place] [address] Deandra Gomez, [address] [place] [address] Third trimester [facility] Comment on above: Third trimester preg coco Payers Date Payer Category Payer Unknown FRONTPATH FRONTP ATH [id number] 2022-Present [address] [place] [address] [id number] 1994 Unknown [id number] 3 1994 Unknown [id number] 3 1994 Unknown [id number] 3 1994 Unknown [id number] 3 1994 Unknown [id number] [id number] 59 1994 Unknown [id number] [id number] 59 1994 Unknown [id number] [id number] 59 1994 Unknown [id number] [id number] 59 1994 Unknown [id number] [id number] 59 1994 Unknown [id number] [id number] 59 1994 Unknown [id number] 59 1959 Unknown [id number] Social History Date Type Detail Facility Start: 02-25-2023 Tobacco smoking stat [facility] Never smoked tobacco [facility] [...] Induction paperwork was signed and faxed to [facility] for patients scheduled induction plan. Documented by Saadia Fernandze MA on behalf of: Deandra Gomez DO [...] DATE CREATED AUTHOR AUTHOR'S ORGANIZ ATION 10/08/2023 [facility] Care Teams (unrecognized sec tion and content) [employer] Superintendent Relationship Specialty Start Date End Date Harshil Moran MD [address], [place] [address] PCP - General Family Medicine 12/30/22 [employer] Superintendent Relationship Specialty Start Date End Date Harshil Moran MD [address] [place] [address] PCP - General Family Medicine 12/30/22 Reason [...] BE BASED ON THE PRIMARY CLINICAL RECORDS. [facility]. provides no warranty or guarantee of the accuracy or completeness of information in this document.
== END 2023-12-25 08:55 | disposition home or self-care (01) ==
LOC: US 08:54
PROVIDERS: PCP Family Medicine; Visit Provider Obstetrics & Gynecology
DX: N63.10 Unspecified lump in the right breast, unspecified quadrant (principal); R22.31 Localized swelling, mass and lump, right upper limb; R92.8 Other abnormal and inconclusive findings on diagnostic imaging of breast
CPT/HCPCS: 76882

== ENCOUNTER 2024-01-16 10:30 | Day surgery (SDC) | payer OTHER, SELFPAY ==
--- NOTE | 2024-01-16 10:35 | US_ITS ---
The [address] [address] Patient Name: GUANAKITO CASTILLO MRN: [id number] date: 1995 Sex: F Assigned Patient Location: US Current Patient Location: US Accession/Order Number: [id number] Exam Date: 01/16/2024 10:34 Report Date: 01/16/2024 12:45 At the request of: DEANDRA HOWE Procedure: US biopsy FNA EXAMINATION: US biopsy FNA HISTORY: Axillary Mass Right R22.31 COMPARISON: No relevant comparison available. TECHNIQUE: After obtaining informed consent, an ultrasound-guided biopsy was performed in the usual sterile manner. FINDINGS: IMAGING: Ultrasound BIOPSY NEEDLE: 25-gauge, 2 inch SPECIMEN TYPE, #, LOCATION: 3 fine-needle aspirates, right axillary mass MEDICATION: 2 cc 1% buffered lidocaine COMPLICATIONS: None. LABORATORY: Specimen sent for pathology OTHER: Aspiration of milky clear fluid resembling milk, suspicious for galactocele US/US biopsy FNA IMPRESSION: Uneventful ultrasound guided biopsy. The patient was instructed to obtain follow up care and biopsy results from the referring physician. Electronically authenticated by: ERICA BHANDARI Date: 01/16/2024 12:45
[2024-01-16 10:40] VITALS: BP 137/77; PULSE 97; O2SAT 95
[2024-01-16] MEDS: LIDOCAINE HCL 10 ML, SODIUM BICARBONATE 1 MEQ INJ (11:35)
--- NOTE | 2024-01-16 13:13 | SUR.PREOP ---
01/12/24 Pt instructed on procedure, date, time, and prep.
--- NOTE | 2024-01-16 13:22 | PC.NURSE ---
1140 All fluid aspirated is milky white.
== END 2024-01-16 11:55 | disposition home or self-care (01) ==
LOC: US 10:30
PROVIDERS: Radiology Diagnostic Radiology; PCP Family Medicine; Visit Provider Obstetrics & Gynecology
DX: R22.31 Localized swelling, mass and lump, right upper limb (principal); R92.8 Other abnormal and inconclusive findings on diagnostic imaging of breast
CPT/HCPCS: 10005; 88173

== ENCOUNTER 2024-03-11 08:56 | Outpatient (OUT) | payer OTHER, SELFPAY ==
--- NOTE | 2024-03-11 09:04 | US_ITS ---
The [address] [address] Patient Name: GUANAKITO CASTILLO MRN: [id number] date: 1995 Sex: F Assigned Patient Location: US Current Patient Location: Accession/Order Number: [id number] Exam Date: 03/11/2024 09:10 Report Date: 03/12/2024 04:44 At the request of: PRAKASH LATHAM Procedure: US extremity nonvascular RT EXAMINATION: US extremity nonvascular RT HISTORY: Localized Swelling Mass And Lump Unopacified Upper Limb COMPARISON: Ultrasound biopsy 01/16/2024, ultrasound extremity nonvascular right 12/25/2023 FINDINGS: Multiloculated/multilobular hypoechoic mass versus fluid collection within right axilla, 4.0 x 0.5 x 1.0 cm. US/US extremity nonvascular RT IMPRESSION: 1. Nonspecific fluid collection versus hypovascular mass within right axilla which was previously biopsied. No appreciable change. Electronically authenticated by: AKIKO NATARAJAN Date: 03/12/2024 04:44
== END 2024-03-11 08:57 | disposition home or self-care (01) ==
LOC: US 08:57
PROVIDERS: PCP Family Medicine; Visit Provider Surgery
DX: R22.30 Localized swelling, mass and lump, unspecified upper limb (principal)
CPT/HCPCS: 76882

== ENCOUNTER 2024-12-20 20:07 | Outpatient (REF) | payer OTHER, SELFPAY ==
--- OUTSIDE RECORDS SUMMARY | 2024-12-20 14:00 | XMS_ITS | Encounter Summary ---
Author Organization [facility] Address [address] [facility] [place] [address] Care Team Providers Care Stamping Die Maker Name Role Phone Harshil Moran MD Primary Care Provider [phone] Reason for Visit * Reason Comments Well Women Visit Encounter Details Date Type Department Care Team (Late st Contact Info) Description 12/20/2024 2:00 PM EDT Office Visit [facility] [address] [address] Alexis Gomez, DO [address] [facility] [place] [address] examination or test, positive result ([facility]) (Primary Dx); Well woman exam with routine gynecological exam; STD exposure; Nausea and vomiting during ([facility]) Social History Tobacco Use Types Packs/Day Years Used Date Smoking Tobacco: Never Smokeless Tobacco: Never Alcohol Use Standard Drinks/Week Comments Never 0 (1 standard drink = 0.6 oz pur e alcohol) Comments No Sex and Gender Information Value Date Recorded Sex Assigned at Not on file Legal Sex Female 11:47 PM EDT Gender Identity Not on file Sexual Orientation Not on file documented as of this encounter Last Filed Vital Signs Vital Sign Reading Time Taken Comments Blood Pressure 126/90 12/20/2024 2:29 PM EDT Pulse - - Temperature - - Respiratory Rate - - Oxygen Saturation - - Inhaled Oxygen Concentration - - Weight 64.9 kg (143 lb) 12/20/2024 2:29 PM EDT Height - - Body Mass Index 26.16 09/23/2022 12:00 PM EDT documented in this encounter Plan of Treatment Upcoming Encounters Date Type Department Care Team (Late st Contact Info) Description 01/21/2025 8:30 AM EDT Ancillary Procedure [facility] OB [address] [facility] [place] [address] 01/21/2025 9:00 AM EDT Initial [facility] [address] [facility] [place] [address] Scheduled Orders Name Type Priority Associated Diagnoses Orde r Schedule Pap Smear Pathology and Cytology Routine Well woman exam with routine gynecological exam Ordered: 12/20/2024 HPV DNA probe, amplified Microbiology Routine Well woman exam with routine gynecological exam Ordered: 12/20/2024 SURESWAB(R) ADVANCED VAGINITIS PLUS, TMA Pathology and Cytology Routine STD exposure Ordered: 12/20/2024 CHLAMYDIA TRACHOMATIS (GENITO/STI) Lab Routine STD exposure Ordered: 12/20/2024 Neisseria gonorrhea DNA probe, direct Lab Routine STD exposure Ordered: 12/20/2024 documented as of this encounter Procedures Procedure Name Priority Date/Time Associated Diagnosis Comments POCT , URINE Routine 12/20/2024 3:26 PM EDT Well woman exam with routine gynecological exam STD exposure Nausea and vomiting during ([facility]) examination or test, positive result ([facility]) documented in this encounter Results * (ABNORMAL) POCT , urine manually resulted (12/20/2024 3:26 PM EDT) Preg Test, Ur Positive Negative Urine 12/20/2024 3:26 PM EDT Alexis Jason DO POINT OF CARE TEST ENTER/EDIT OR DERABLES Final Result documented in this encounter Visit Diagnoses Diagnosis examination or test, positive result ([facility])- Primary examination or test, positive result Well woman exam with routine gynecological exam Routine gynecological examination STD exposure Nausea and vomiting during ([facility]) documented in this encounter Care Teams Stamping Die Maker Relationship Specialty Start Date End Date Harshil Moran MD PCP - General Family Medicine 12/30/22 documented as of this encounter
--- OUTSIDE RECORDS SUMMARY | 2024-12-20 20:10 | XMS_ITS | Encounter Summary ---
Author Organization [facility] Address [address] [facility] [place] [address] Care Team Providers Care Towboat Captain Name Role Phone Harshil Moran MD Primary Care Provider [phone] Encounter Details Date Type Department Care Team (Late st Contact Info) Description 04/24/2023 Clinisync Result Encounter [facility] External Department Unsolicited Deandra Gomez, DO [address] [place], [place] [id number] Social History Tobacco Use Types Packs/Day Years Used Date Smoking Tobacco: Never Smokeless Tobacco: Never Alcohol Use Standard Drinks/Week Comments Never 0 (1 standard drink = 0.6 oz pur e alcohol) Comments Yes Sex and Gender Information Value Date Recorded Sex Assigned at Not on file Legal Sex Female 11:47 PM EDT Gender Identity Not on file Sexual Orientation Not on file COVID-19 Exposure Response Date Recorded In the last 10 days, have yo u been in contact with someone who was confirmed or suspected to have Coronavirus/COVID-19? No / Unsure 04/24/2023 11:11 AM EDT documented as of this encounter Plan of Treatment Upcoming Encounters Date Type Department Care Team (Late st Contact Info) Description 01/21/2025 8:30 AM EDT Ancillary Procedure [facility] [place] [address] 01/21/2025 9:00 AM EDT Initial [facility] [place] [address] documented as of this encounter Procedures Procedure Name Priority Date/Time Associated Diagnosis Comments US OB CERVICAL LENGTH 04/24/2023 10:08 AM EDT documented in this encounter Results * US OB CERVICAL LENGTH (04/24/2023 10:08 AM EDT) Anatomical Region Laterality Modality Other 04/24/2023 10:0 8 AM EDT Narrative 04/24/2023 10:08 [place] [address] Ultrasound Report Signed Patient: GUANAKIOT MONREAL MR#: [id number] : 1995 Acct:[id number] Age/Sex: 27 / F ADM Date: 04/23/23 Loc: US Attending Dr: Deandra Gomez D.O. Ordering Physician: Deandra Gomez D.O. Date of Service: 04/23/23 Procedure(s): US OB cervical length Accession Number(s): [id number] cc: HARSHIL MORAN Corey D.O. [place] [address] Patient Name: GUANAKITO MONREAL MRN: [id number] date: 1995 Sex: F Assigned Patient Location: Current Patient Location: Accession/Order Number: [id number] Exam Date: 04/23/2023 13:30 Report Date: 04/24/2023 10:08 At the request of: DEANDRA GOMEZ Procedure: US OB cervical length EXAMINATION: US OB anatomy, US OB cervical length HISTORY: ANATOMY COMPARISON: No relevant comparison available. TECHNIQUE: Transabdominal sonographic examination was performed for obstetrical and evaluation. FINDINGS: Number: 1 Heart Rate: 154.0 bpm H.B. /min Amniotic Fluid Volume: Subjectively normal position: Breech presentation, longitudinal lie Placental Location: Anterior, grade 0. Placental edge 4.9 cm from the cervical os Cervix Length: 4.7 cm , closed Normal anatomy: Lateral ventricles, cerebellum, posterior fossa, nose, lips, orbits, four-chamber heart, RVOT, LVOT, diaphragm, stomach, kidneys, abdominal cord insertion, bladder, umbilical arteries, three-vessel cord, spine, extremities BIOMETRY: BPD: 4.7 cm 20 weeks 2 days , 58% HC: 18.2 cm 20 weeks 4 days, 61% AC: 15.5 cm 20 weeks 5 days, 63% FL: 3.2 cm 20 weeks 1 days, 41% EFW:353.7 grams; 12 ounces, 62% FL/AC: 20.9 FL/BPD: 68.4 HC/AC: 1.2 GESTATIONAL AGE: Age by EDC: 20 weeks 1 days RACHEL by EDC: 09/09/2023 Age by current US: 20 weeks 3 days RACHEL by current US: 09/07/2023 US/US OB cervical length IMPRESSION: Normal anatomy scan *Reference: [employer] Practice Guideline for the performance of Obstetric Ultrasound Examinations, April 06, 2007. Electronically authenticated by: ERICA BHANDARI Date: 04/24/2023 10:08 Dictated By: Erica Bhandari M.D. Signed By: 04/24/23 1010 DD/ 1008 TD/TT: Training Program Assistant: Procedure Note Radiology, Radiologist, MD - 04/24/2023 [place] [address] Ultrasound Report Signed Patient: GUANAKITO MONREAL LMR#: [id number] : 1995Acct:[id number] Age/Sex: 27 / FADM Date: 04/23/23 Loc: US Attending Dr: Deandra Gomez D.O. Ordering Physician: Deandra Gomez D.O. Date of Service: 04/23/23 Procedure(s): US OB cervical length Accession Number(s): [id number] cc: HARSHIL MORAN Corey D.O. The [place] [id number] Patient Name: GUANAKITO MONREAL MRN: [id number] date: 1995 Sex: F Assigned Patient Location: US Current Patient Location: Accession/Order Number: [id number] Exam Date: 04/23/2023 13:30 Report Date: 04/24/2023 10:08 At the request of: DEANDRA GOMEZ Procedure: US OB cervical length EXAMINATION: US OB anatomy, US OB cervical length HISTORY: ANATOMY COMPARISON: No relevant comparison available. TECHNIQUE: Transabdominal sonographic examination was performed for obstetrical and evaluation. FINDINGS: Number: 1 Heart Rate: 154.0 bpm H.B. /min Amniotic Fluid Volume: Subjectively normal position: Breech presentation, longitudinal lie Placental Location: Anterior, grade 0. Placental edge 4.9 cm from thecervical os Cervix Length: 4.7 cm , closed Normal anatomy: Lateral ventricles, cerebellum, posterior fossa, nose,lips, orbits, four-chamber heart, RVOT, LVOT, diaphragm, stomach, kidneys,abdominal cord insertion, bladder, umbilical arteries, three-vessel cord, spine, extremities BIOMETRY: BPD: 4.7 cm 20 weeks 2 days , 58% HC: 18.2 cm 20 weeks 4 days, 61% AC: 15.5 cm 20 weeks 5 days, 63% FL: 3.2 cm 20 weeks 1 days, 41% EFW:353.7 grams; 12 ounces, 62% FL/AC: 20.9 FL/BPD: 68.4 HC/AC: 1.2 GESTATIONAL AGE: Age by EDC: 20 weeks 1 days RACHEL by EDC: 09/09/2023 Age by current US: 20 weeks 3 days RACHEL by current US: 09/07/2023 US/US OB cervical length IMPRESSION: Normal anatomy scan *Reference: [employer] Practice Guideline for the performance of Obstetric Ultrasound Examinations, April 06, 2007. Electronically authenticated by: ERICA BHANDARI Date: 04/24/2023 10:08 Dictated By: Erica Bhandari M.D. Signed By:04/24/23 1010 DD/ 1008 TD/TT: Training Program Assistant: us Deandra Gmoez DO [facility] Final Result documented in this encounter Visit Diagnoses Not on filedocumented in this encounter Care Teams Towboat Captain Relationship Specialty Start Date End Date Harshil Moran MD PCP - General Family Medicine 12/30/22 documented as of this encounter
--- OUTSIDE RECORDS SUMMARY | 2024-12-20 20:10 | XMS_ITS | Encounter Summary ---
Author Organization [facility] Address [facility] [address] [facility] [place] [address] Care Team Providers Care Equity Research Associate Name Role Phone Harshil Moran MD Primary Care Provider + [phone] Encounter Details Date Type Department Care Team (Late Contact Info) Description 01/21/2024 Abstract [facility] [address] [employer] [address] Nu Patiño LPN [address] [employer] [facility] [address] [facility] Social History Tobacco Use Types Packs/Day Years [...] on file documented as of this encounter Plan of Treatment Upcoming Encounters Date Type Department Care Team (Late Contact Info) Description 01/21/2025 8:30 AM EDT Ancillary Procedure [facility] [address] [facility] [place] [address] 01/21/2025 9:00 AM EDT Initial [facility] OB [address] [facility] [place] [address] documented as of this encounter Visit Diagnoses Not on filedocumented in this encounter Care Teams Equity Research Associate Relationship Specialty Start Date End Date Harshil Moran MD PCP - General Family Medicine 12/30/22 documented as of this encounter
--- OUTSIDE RECORDS SUMMARY | 2024-12-20 20:10 | XMS_ITS | Clinical Summary ---
[id number] [address] [place] [address] Care Team Providers Care Traffic Controller Cable Name Role Phone Unavailable Primary Care Provider Unavailabl e Allergies Active Allergy Reactions Criticality Noted Date Comments Bee Venom Protein (Honey Bee) Hives Medium 2018 Erythromycin Base Rash Low 04/29/2022 Medications hydrocortisone (HYTONE) 2.5 % cream Apply 1 application topically in the morning and 1 application before bedtime. 30 g Active Family History Medical History Relation Name Comments Atrial fibrillation Father Hypertension Father Anxiety disorder Mother Hypertension Mother Relation Name Status Comments Father Mother Social History Tobacco Use Types Packs/Day Years Used Date Smoking Tobacco: Never Smokeless Tobacco: Never Tobacco Cessation:Counseling Given: Not Answered Comments Unknown Sex and Gender Information Value Date Recorded Sex Assigned at Not on file Legal Sex Female 9:18 AM EDT Gender Identity Not on file Sexual Orientation Not on file Last Filed Vital Signs Vital Sign Reading Time Taken Comments Blood Pressure 141/83 04/29/2022 10:44 AM EDT Pulse 83 04/29/2022 10:44 AM EDT Temperature 37.4 C (99.3 F) 04/29/2022 10:44 AM EDT Respiratory Rate - - Oxygen Saturation 97% 04/29/2022 10:44 AM EDT Inhaled Oxygen Concentration - - Weight 59.4 kg (131 lb) 04/29/2022 10:44 AM EDT Height 162.6 cm (5' 4 ) 04/29/2022 10:44 AM EDT Body Mass Index 22.49 04/29/2022 10:44 AM EDT Plan of Treatment Health Maintenance Due Date Last Done Comments Depression Screening 2006 Tobacco Screening 2006 Adult BMI Screening 04/29/2023 04/29/2022 Influenza Vaccine 03/07/2025 05/04/2019, , 04/30/2017 Pap Smear 09/23/2025 09/23/2022 DTaP,Tdap and Td Vaccines (2 - Td or Tdap) 03/30/2028 03/30/2018 Medical Devices Not on file Insurance [employer]
--- OUTSIDE RECORDS SUMMARY | 2024-12-20 20:10 | XMS_ITS | Encounter Summary ---
Author Organization [facility] tem Address [facility] [address] [place] [address] Care Team Providers Care Poultry Processor Name Role Phone Donna Mata Primary Care Provider [phone] Encounter Details Date Type Department Care Team (Late st Contact Info) Description 11/01/2022 Telephone [facility] Internal Medicine - Family Medicine [address] [place] [address] Donna Mata APRN-FNP [address] [place] [address] [place] [address] Social History Tobacco Use Types Packs/Day Years Used Date Smoking Tobacco: Never Smokeless Tobacco: Never Comments Unknown Sex and Gender Information Value Date Recorded Sex Assigned at Not on file Legal Sex Female 9:18 AM EDT Gender Identity Not on file Sexual Orientation Not on file documented as of this encounter Miscellaneous Notes * Telephone Encounter - Saray Oswald - 11/01/2022 7:50 AM EDT Albina called today c/o yellow gunk in one eye. Son was just diagnosed with pink eye and she thinks she now has it. Would like something called into the pharmacy * Telephone Encounter - EAMON Jose - 11/01/2022 7:50 AM EDT Done - Donna documented in this encounter Plan of Treatment Not on file documented as of this encounter Visit Diagnoses Not on filedocumented in this encounter Care Teams Poultry Processor Relationship Specialty Start Date End Date Donna Mata, OLGA-PREFABRICATOR [address] [facility] 01/05/2024 [place] [address] PCP - General Internal Medicine 11/01/22 12/13/23 documented as of this encounter
--- OUTSIDE RECORDS SUMMARY | 2024-12-20 20:10 | XMS_ITS | Encounter Summary ---
Author Organization [facility] Address [address] [facility] [place] [address] Care Team Providers Care Cheese Packer Name Role Phone Harshil Moran MD Primary Care Provider [phone] Encounter Details Date Type Department Care Team (Late st Contact Info) Description 01/16/2024 Clinisync Result Encounter [facility] External Department Unsolicited Deandra Gomez, DO [address] [place], [place] [id number] Social History Tobacco Use Types Packs/Day Years [...] 01/21/2025 8:30 AM EDT Ancillary Procedure [facility] OB [facility] [place] [address] 01/21/2025 9:00 AM EDT Initial [facility] BCP OB [facility] [place] [address] documented as of this encounter Procedures Procedure Name Priority Date/Time Associated Diagnosis Comments US BIOPSY FNA 01/16/2024 12:45 PM EDT documented in this encounter Results * US BIOPSY FNA (01/16/2024 12:45 PM EDT) Anatomical Region Laterality Modality Other 01/16/2024 12:4 5 PM EDT Narrative 01/16/2024 12:48 PM EDT [address] [address] Ultrasound Report Signed Patient: GUANAKITO MONREAL MR#: [id number] : 1995 Acct:[id number] Age/Sex: 28 / F ADM Date: 01/16/24 Loc: US Attending Dr: Deandra Gomez D.O. Ordering Physician: Deandra Gomez D.O. Date of Service: 01/16/24 Procedure(s): US biopsy FNA Accession Number(s): [id number] cc: HARSHIL MORAN ; Deandra Gomez D.O. [address] [address] Patient Name: GUANAKITO MONREAL MRN: [facility]:[id number] date: 1995 Sex: F Assigned Patient Location: US Current Patient Location: US Accession/Order Number: [id number] Exam Date: 01/16/2024 10:34 Report Date: 01/16/2024 12:45 At the request of: DEANDRA GOMEZ Procedure: US biopsy FNA EXAMINATION: US biopsy FNA HISTORY: Axillary Mass Right R22.31 COMPARISON: No relevant comparison available. TECHNIQUE: After obtaining informed consent, an ultrasound-guided biopsy was performed in the usual sterile manner. FINDINGS: IMAGING: Ultrasound BIOPSY NEEDLE: 25-gauge, 2 inch SPECIMEN TYPE, #, LOCATION: 3 fine-needle aspirates, right axillary mass MEDICATION: 2 cc 1% buffered lidocaine COMPLICATIONS: None. LABORATORY: Specimen sent for pathology OTHER: Aspiration of milky clear fluid resembling milk, suspicious for galactocele US/US biopsy FNA IMPRESSION: Uneventful ultrasound guided biopsy. The patient was instructed to obtain follow up care and biopsy results from the referring physician. Electronically authenticated by: ERICA BHANDARI Date: 01/16/2024 12:45 Dictated By: Erica Bhandari M.D. Signed By: 01/16/24 1248 DD/ 1245 TD/TT: Flash Welder: Procedure Note Radiology, Radiologist, - 01/16/2024 [place] [address] Ultrasound Report Signed Patient: GUANAKITO MONREAL LMR#: [id number] : 1995Acct:[id number] Age/Sex: 28 / FADM Date: 01/16/24 Loc: US Attending Dr: Deandra Gomez D.O. Ordering Physician: Deandra Gomez D.O. Date of Service: 01/16/24 Procedure(s): US biopsy FNA Accession Number(s): [id number] cc: HARSHIL MORAN ; Deandra Gomez D.O. The [place] [id number] Patient Name: GUANAKITO MONREAL MRN: [id number] date: 1995 Sex: F Assigned Patient Location: US Current Patient Location: US Accession/Order Number: [id number] Exam Date: 01/16/2024 10:34 Report Date: 01/16/2024 12:45 At the request of: DEANDRA GOMEZ Procedure: US biopsy FNA EXAMINATION: US biopsy FNA HISTORY: Axillary Mass Right R22.31 COMPARISON: No relevant comparison available. TECHNIQUE: After obtaining informed consent, an ultrasound-guided biopsywas performed in the usual sterile manner. FINDINGS: IMAGING: Ultrasound BIOPSY NEEDLE: 25-gauge, 2 inch SPECIMEN TYPE, #, LOCATION: 3 fine-needle aspirates, right axillary mass MEDICATION: 2 cc 1% buffered lidocaine COMPLICATIONS: None. LABORATORY: Specimen sent for pathology OTHER: Aspiration of milky clear fluid resembling milk, suspicious for galactocele US/US biopsy FNA IMPRESSION: Uneventful ultrasound guided biopsy. The patient was instructed to obtain follow up care and biopsy results from the referring physician. Electronically authenticated by: ERICA BHANDARI Date: 01/16/2024 12:45 Dictated By: rEica Bhandari M.D. Signed By:01/16/24 1248 DD/ 1245 TD/TT: Flash Welder: us Deandra Gomez DO [facility] Final Result documented in this encounter Visit Diagnoses Not on filedocumented in this encounter Care Teams Cheese Packer Relationship Specialty Start Date End Date Harshil Moran MD PCP - General Family Medicine 12/30/22 documented as of this encounter
--- OUTSIDE RECORDS SUMMARY | 2024-12-20 20:10 | XMS_ITS | Encounter Summary ---
Author Organization [facility] tem Address [id number] [address] [place] [address] Care Team Providers Care Hair Baler Name Role Phone Donna Mata Primary Care Provider [phone] Encounter Details Date Type Department Care Team (Late st Contact Info) Description 01/31/2023 Orders Only [facility] Internal Medicine - Family Medicine [address] [place] [id number] External, Scanning Provider Social History Tobacco Use Types Packs/Day Years Used Date Smoking Tobacco: Never Smokeless Tobacco: Never Comments Unknown Sex and Gender Information Value Date Recorded Sex Assigned at Not on file Legal Sex Female 9:18 AM EDT Gender Identity Not on file Sexual Orientation Not on file documented as of this encounter Plan of Treatment Not on file documented as of this encounter Procedures Procedure Name Priority Date/Time Associated Diagnosis Comments US PELVIC WITH TRANSVAGINAL Routine 01/30/2023 10:41 AM EDT documented in this encounter Results * Ultrasound pelvic with transvaginal (01/30/2023 10:41 AM EDT) Anatomical Region Laterality Modality Body, Pelvis Ultrasound us Scanning Provider External IMG US ORDERABLES Fin al Result documented in this encounter Visit Diagnoses Not on filedocumented in this encounter Care Teams Hair Baler Relationship Specialty Start Date End Date Donna Mata APRN-FNP [address] [facility] RETIRED 01/05/2024 [place] [address] PCP - General Internal Medicine 11/01/22 12/13/23 documented as of this encounter
--- OUTSIDE RECORDS SUMMARY | 2024-12-20 20:10 | XMS_ITS | Encounter Summary ---
Author Organization [facility] Address [address] [facility] [place] [address] Care Team Providers Care Cloud Administrator Name Role Phone Harshil Moran MD Primary Care Provider [phone] Encounter Details Date Type Department Care Team (Late Contact Info) Description 04/01/2023 Abstract [facility] [address] [place] [address] Tammie Maloney PA [address] [place] [address] Dr Garcia, [facility] Social History Tobacco Use Types Packs/Day Years Used Date Smoking Tobacco: Never Smokeless Tobacco: Never Tobacco Cessation:Counseling Given: Not Answered Alcohol Use Standard Drinks/Week Comments Never 0 [...] suspected to have Coronavirus/COVID-19? No / Unsure 03/27/2023 11:11 AM EDT documented as of this encounter Plan of Treatment Upcoming Encounters Date Type Department Care Team (Late Contact Info) Description 01/21/2025 8:30 AM EDT Ancillary Procedure [facility] [address] [place] [address] 01/21/2025 9:00 AM EDT Initial [facility] OB [address] [place] [address] [place] [address] documented as of this encounter Visit Diagnoses Not on filedocumented in this encounter Care Teams Cloud Administrator Relationship Specialty Start Date End Date Harshil Moran MD PCP - General Family Medicine 12/30/22 documented as of this encounter
--- OUTSIDE RECORDS SUMMARY | 2024-12-20 20:10 | XMS_ITS | Encounter Summary ---
Author Organization [facility] Address [id number] [address] [place] [address] Care Team Providers Care Survey Technician Name Role Phone Unavailable Primary Care Provider Unavailabl e Encounter Details Date Type Department Care Team (Late st Contact Info) Description 03/12/2024 Orders Only [facility] - Family Medicine [address] [place] [address] Ref Prov, [place] [address] Social History Tobacco Use Types Packs/Day Years [...] Name Priority Date/Time Associated Diagnosis Comments US EXTREMITY NON-VASC REAL-TIME IMG LMTD Routine 03/11/2024 2:28 PM EDT documented in this encounter Results * US EXTREMITY NON-VASC REAL-TIME IMG LMTD (03/11/2024 2:28 PM EDT) us Not In System Ref Prov [facility] Final Result MANUALLY TRANSCRIBED RESULTS documented in this encounter Visit Diagnoses Not on filedocumented in this encounter
--- OUTSIDE RECORDS SUMMARY | 2024-12-20 20:10 | XMS_ITS | Encounter Summary ---
Author Organization [facility] Address [facility] [place] [address] Care Team Providers Care Clerk Typist Name Role Phone Harshil Moran MD Primary Care Provider + [phone] Encounter Details Date Type Department Care Team (Late Contact Info) Description 07/22/2023 Abstract [facility] [address] [facility] [place] [address] Nu Patiño LPN [address] [employer] [facility] [address] [place] [facility]11 Social History Tobacco Use Types Packs/Day Years [...] 01/21/2025 8:30 AM EDT Ancillary Procedure [facility] OB [address] [facility] [place] [address] 01/21/2025 9:00 AM EDT Initial [facility] OB [address] [facility] [place] [address] documented as of this encounter Visit Diagnoses Not on filedocumented in this encounter Care Teams Clerk Typist Relationship Specialty Start Date End Date Harshil Moran MD PCP - General Family Medicine 12/30/22 documented as of this encounter
--- OUTSIDE RECORDS SUMMARY | 2024-12-20 20:10 | XMS_ITS | Encounter Summary ---
Author Organization [facility] Address [address] [facility] [place] [address] Care Team Providers Care Abap Developer Name Role Phone Harshil Moran MD Primary Care Provider + [phone] Encounter Details Date Type Department Care Team (Late Contact Info) Description 08/26/[address] [facility] OB [address] [place] [address] Alexis Gomez [address] Raudel Limon, [facility]11 Social History Tobacco Use Types Packs/Day [...] 01/21/2025 8:30 AM EDT Ancillary Procedure [facility] OB [address] [place] [address] 01/21/2025 9:00 AM EDT [facility] OB [address] [place] [address] documented as of this encounter Visit Diagnoses Not on filedocumented in this encounter Care Teams Abap Developer Relationship Specialty Start Date End Date Harshil Moran MD PCP - General Family Medicine 12/30/22 documented as of this encounter
--- OUTSIDE RECORDS SUMMARY | 2024-12-20 20:10 | XMS_ITS | Encounter Summary ---
Author Organization [facility] Address [address] [facility] [place] [address] Care Team Providers Care Propeller Tester Name Role Phone Harshil Moran MD Primary Care Provider +[phone] Encounter Details Date Type Department Care Team (Late st Contact Info) Description 12/24/2023 Orders Only [facility] OB [address] [place], [place] [address] [address] Saadia Fernandez MA [address] [place] [address] [place] [address] Social History Tobacco Use Types Packs/Day Years [...] 01/21/2025 8:30 AM EDT Ancillary Procedure [facility] OB [facility] [place] [address] 01/21/2025 9:00 AM EDT Initial [facility] OB [address] [place], [place] [address] [address] documented as of this encounter Procedures Procedure Name Priority Date/Time Associated Diagnosis Comments PAP SMEAR Routine 12/15/2023 12:00 AM EDT documented in this encounter Results * Pap Smear (12/15/2023 12:00 AM EDT) Swab Cervical swab / Unknown us [facility] ORDERABLES Final Re sult EXTERNAL LAB documented in this encounter Visit Diagnoses Not on filedocumented in this encounter Care Teams Propeller Tester Relationship Specialty Start Date End Date Harshil Moran MD PCP - General Family Medicine 12/30/22 documented as of this encounter
--- OUTSIDE RECORDS SUMMARY | 2024-12-20 20:10 | XMS_ITS | Encounter Summary ---
Author Organization [facility] Address [address] [facility] [place] [address] Care Team Providers Care Computer Repair Engineer Name Role Phone Harshil Moran MD Primary Care Provider [phone] Encounter Details Date Type Department Care Team (Late st Contact Info) Description 04/24/2023 Clinisync Result Encounter N[facility] External Department Unsolicited Deandra Gomez [place] [facility] [place] [address] Social History Tobacco Use Types Packs/Day Years [...] 01/21/2025 8:30 AM EDT Ancillary Procedure [facility] [place] [facility] [place] [address] 01/21/2025 9:00 AM EDT Initial [facility] [place] [facility] [place] [address] documented as of this encounter Procedures Procedure Name Priority Date/Time Associated Diagnosis Comments US OB ANATOMY 04/24/2023 10:08 AM EDT documented in this encounter Results * US OB ANATOMY (04/24/2023 10:08 AM EDT) Anatomical Region Laterality Modality Other 04/24/2023 10:0 8 AM EDT Narrative 04/24/2023 10:08 [place] [address] Ultrasound Report Signed Patient: GUANAKITO MONREAL MR#: [id number] : 1995 Acct:[id number] Age/Sex: 27 / F ADM Date: 04/23/23 Loc: US Attending Dr: Deandra Gomez D.O. Ordering Physician: Deandra Gomez D.O. Date of Service: 04/23/23 Procedure(s): US OB anatomy Accession Number(s): [id number] cc: HARSHIL MORAN Corey D.O. [place] [address] Patient Name: GUANAKITO MONREAL MRN: [id number] date: 1995 Sex: F Assigned Patient Location: Current Patient Location: Accession/Order Number: [id number] Exam Date: 04/23/2023 13:30 Report Date: 04/24/2023 10:08 At the request of: DEANDRA GOMEZ Procedure: US OB anatomy EXAMINATION: US OB anatomy, US OB cervical [...] RACHEL by current US: 09/07/2023 US/US OB anatomy IMPRESSION: Normal anatomy scan *Reference: [facility] Practice Guideline for the performance of Obstetric Ultrasound Examinations, April 06, 2007. Electronically authenticated by: ERICA BHANDARI Date: 04/24/2023 10:08 Dictated By: Erica Bhandari M.D. Signed By: 04/24/23 1010 DD/ 1008 TD/TT: Police Liaison Officer: Procedure Note Radiology, Radiologist, MD - 04/24/2023 [place] [address] Ultrasound Report Signed Patient: GUANAKITO MONREAL LMR#: [id number] : 1995Acct:[id number] Age/Sex: 27 / FADM Date: 04/23/23 Loc: US Attending Dr: Deandra Gomez D.O. Ordering Physician: Deandra Gomez D.O. Date of Service: 04/23/23 Procedure(s): US OB anatomy Accession Number(s): [id number] cc: HARSHIL MORAN Corey D.O. The [address] [address] Patient Name: GUANAKITO MONREAL MRN: [id number] date: 1995 Sex: F Assigned Patient Location: Current Patient Location: Accession/Order Number: [id number] Exam Date: 04/23/2023 13:30 Report Date: 04/24/2023 10:08 At the request of: DEANDRA GOMEZ Procedure: US OB anatomy EXAMINATION: US OB anatomy, US OB cervical [...] RACHEL by current US: 09/07/2023 US/US OB anatomy IMPRESSION: Normal anatomy scan *Reference: [facility] Practice Guideline for the performance of Obstetric Ultrasound Examinations, April 06, 2007. Electronically authenticated by: ERICA BHANDARI Date: 04/24/2023 10:08 Dictated By: Erica Bhandari M.D. Signed By:04/24/23 1010 DD/ 1008 TD/TT: Police Liaison Officer: us Deandra Jason DO [facility] Final Result documented in this encounter Visit Diagnoses Not on filedocumented in this encounter Care Teams Computer Repair Engineer Relationship Specialty Start Date End Date Harshil Moran MD PCP - General Family Medicine 12/30/22 documented as of this encounter
--- OUTSIDE RECORDS SUMMARY | 2024-12-20 20:10 | XMS_ITS | Encounter Summary ---
Author Organization [facility] Address [address] [place] [address] Care Team Providers Care Continuous Improvement Manager Name Role Phone Harshil Moran MD Primary Care Provider [phone] Encounter Details Date Type Department Care Team (Late st Contact Info) Description 12/26/2023 Clinisync Result Encounter [facility] External Department Unsolicited Deandra Gomez, DO [address] [place], [place] [address] Social History Tobacco Use Types Packs/Day Years [...] 01/21/2025 8:30 AM EDT Ancillary Procedure [facility] OB [facility] [place] [address] 01/21/2025 9:00 AM EDT Initial [facility] BCP OB [facility] [place] [address] documented as of this encounter Procedures Procedure Name Priority Date/Time Associated Diagnosis Comments US NONVASCULAR RIGHT EXTREMITY 55923 12/26/2023 5:12 AM EDT documented in this encounter Results * US NONVASCULAR RIGHT EXTREMITY 87290 (12/26/2023 5:12 AM EDT) Anatomical Region Laterality Modality Radiographic Grace ging 12/26/2023 5:12 AM EDT Narrative 12/26/2023 5:15 [place] [address] Ultrasound Report Signed Patient: GUANAKITO MONREAL MR#: [id number] : 1995 Acct:[id number] Age/Sex: 28 / F ADM Date: 12/25/23 Loc: US Attending Dr: Deandra Gomez D.O. Ordering Physician: Deandra Gomez D.O. Date of Service: 12/25/23 Procedure(s): US extremity nonvascular RT Accession Number(s): [id number] cc: HARSHIL MORAN ; Deandra Gomez D.O. The [place] [address] Patient Name: GUANAKITO MONREAL MRN: [id number] date: 1995 Sex: F Assigned Patient Location: US Current Patient Location: Accession/Order Number: [id number] Exam Date: 12/25/2023 09:10 Report Date: 12/26/2023 05:12 At the request of: DEANDRA GOMEZ Procedure: US extremity nonvascular RT EXAMINATION: US extremity nonvascular RT HISTORY: Mass Of Right Axilla COMPARISON: No relevant comparison available. FINDINGS: Nonspecific mass versus 2 adjacent masses within the subcutaneous fat of the right axilla corresponding to patient's palpable lump, 4.1 x 1.2 x 0.6 cm. Color Doppler demonstrates blood flow within this lesion(s). US/US extremity nonvascular RT IMPRESSION: 1. Nonspecific subcutaneous mass versus lymph node(s) within right axilla. Consider follow-up ultrasound evaluation in one month to document regression, otherwise consider ultrasound-guided tissue sampling. Electronically authenticated by: ARIS WORKMAN Date: 12/26/2023 05:12 Dictated By: Aris Workman M.D. Signed By: 12/26/23514 DD/ 1 TD/TT: Nurse Orthopedic: Procedure Note Radiology, Radiologist, MD - 12/26/2023 [place] [address] Ultrasound Report Signed Patient: GUANAKITO MONREAL LMR#: [id number] : 1995Acct:[id number] Age/Sex: 28 / FADM Date: 12/25/23 Loc: US Attending Dr: Deandra Gomez D.O. Ordering Physician: Deandra Gomez D.O. Date of Service: 12/25/23 Procedure(s): US extremity nonvascular RT Accession Number(s): [id number] cc: HARSHIL MORAN ; Deandra Gomez D.O. [address] [place] [address] Patient Name: GUANAKITO MONREAL MRN: [id number] date: 1995 Sex: F Assigned Patient Location: US Current Patient Location: Accession/Order Number: [id number] Exam Date: 12/25/2023 09:10 Report Date: 12/26/2023 05:12 At the request of: DEANDRA GOMEZ Procedure: US extremity nonvascular RT EXAMINATION: US extremity nonvascular RT HISTORY: Mass Of Right Axilla COMPARISON: No relevant comparison available. FINDINGS: Nonspecific mass versus 2 adjacent masses within the subcutaneous fat ofthe right axilla corresponding to patient's palpable lump, 4.1 x 1.2 x 0.6 cm. Color Doppler demonstrates blood flow within this lesion(s). US/US extremity nonvascular RT IMPRESSION: 1. Nonspecific subcutaneous mass versus lymph node(s) within right axilla. Consider follow-up ultrasound evaluation in one month to documentregression, otherwise consider ultrasound-guided tissue sampling. Electronically authenticated by: ARIS WORKMAN Date: 12/26/2023 05:12 Dictated By: Aris Workman M.D. Signed By:12/26/23 0515 DD/ TD/TT: Nurse Orthopedic: us Deandra Gomez DO IMG XR PROCEDURES Final Result documented in this encounter Visit Diagnoses Not on filedocumented in this encounter Care Teams Continuous Improvement Manager Relationship Specialty Start Date End Date Harshil Moran MD PCP - General Family Medicine 12/30/22 documented as of this encounter
--- OUTSIDE RECORDS SUMMARY | 2024-12-20 20:10 | XMS_ITS | Encounter Summary ---
Author Organization [facility] Address [address] [facility] [place] [address] Care Team Providers Care Finishing And Shipping Supervisor Name Role Phone Harshil Moran MD Primary Care Provider + [phone] Encounter Details Date Type Department Care Team (Late Contact Info) Description 01/27/2024 Abstract [facility] OB [address] [facility] [place] [address] Selina Ruiz LPN [facility] [place] [address] Social History Tobacco Use Types Packs/Day [...] AM EDT Ancillary Procedure [facility] BCP OB [address] [facility] [place] [address] 01/21/2025 9:00 AM EDT Initial [facility] BCP OB [address] [facility] [place] [address] documented as of this encounter Visit Diagnoses Not on filedocumented in this encounter Care Teams Finishing And Shipping Supervisor Relationship Specialty Start Date End Date Harshil Moran MD PCP - General Family Medicine 12/30/22 documented as of this encounter
--- OUTSIDE RECORDS SUMMARY | 2024-12-20 20:11 | XMS_ITS | Encounter Summary ---
Author Organization [facility] Address [id number] [address] [place] [address] Care Team Providers Care Die Try Out Worker Stamping Name Role Phone Unavailable Primary Care Provider Unavailabl e Encounter Details Date Type Department Care Team (Late st Contact Info) Description 12/26/2023 Orders Only [facility] - Family Medicine [address] [place] [address] External, Scanning Provider Social History Tobacco Use [...] Procedure Name Priority Date/Time Associated Diagnosis Comments VASC ARTERIAL DUPLEX UPPER SINGLE RIGHT Routine 12/25/2023 12:46 PM EDT documented in this encounter Results * Vas art duplex upr single right (12/25/2023 12:46 PM EDT) Anatomical Region Laterality Modality Vascular Right Ultrasound us Scanning Provider External CV VASCULAR ORDERABLE S Final Result documented in this encounter Visit Diagnoses Not on filedocumented in this encounter
--- OUTSIDE RECORDS SUMMARY | 2024-12-20 20:11 | XMS_ITS | Encounter Summary ---
Author Organization [facility] tem Address [id number] [address] [place] [address] Care Team Providers Care Tear Down Man Name Role Phone Unavailable Primary Care Provider Unavailabl e Encounter Details Date Type Department Care Team (Late st Contact Info) Description 01/19/2024 Orders Only [facility] - Family Medicine [address] [place] [address] Ref Prov, [place] [address] Social History Tobacco Use Types Packs/Day Years [...] Name Priority Date/Time Associated Diagnosis Comments US GUIDE NDL BIOPSY Routine 01/16/2024 2:28 PM EDT documented in this encounter Results * Ultrasound guidance intraoperative with Bx or Asp (01/16/2024 2:28 PM EDT) Anatomical Region Laterality Modality Ultrasound us Not In System Ref Prov IMG US ORDERABLES Final R esult documented in this encounter Visit Diagnoses Not on filedocumented in this encounter
--- OUTSIDE RECORDS SUMMARY | 2024-12-20 20:11 | XMS_ITS | Encounter Summary ---
Author Organization [facility] Address [id number] [address] [place] [address] Care Team Providers Care Photogrammetry Airplane Pilot Name Role Phone Donna Mata APRN-JAJA Primary Care Provider [phone] Encounter Details Date Type Department Care Team (Late st Contact Info) Description 04/25/2023 Orders Only [facility] - Family Medicine [address] [place] [address] Donna Mata APRN-FNP [address] [facility] [place] [address] Social History Tobacco Use Types Packs/Day Years [...] Diagnosis Comments US PELVIC WITH TRANSVAGINAL Routine 04/23/2023 11:51 AM EDT documented in this encounter Results * Ultrasound pelvic with transvaginal (04/23/2023 11:51 AM EDT) Anatomical Region Laterality Modality Body, Pelvis Ultrasound us Scanning Provider External IMG US ORDERABLES Fin al Result documented in this encounter Visit Diagnoses Not on filedocumented in this encounter Care Teams Photogrammetry Airplane Pilot Relationship Specialty Start Date End Date Donna Mata APRN-FNP [address] [employer] [facility] RETIRED 01/05/2024 [place] [address] PCP - General Internal Medicine 11/01/22 12/13/23 documented as of this encounter
--- OUTSIDE RECORDS SUMMARY | 2024-12-20 20:11 | XMS_ITS | Encounter Summary ---
Author Organization [facility] Address [address] [facility] [place] [address] Care Team Providers Care Dental Technician Instructor Name Role Phone Harshil Moran MD Primary Care Provider + [phone] Encounter Details Date Type Department Care Team (Late Contact Info) Description 12/20/2024 Bamboo flowsheet [facility] OB [address] [place] [address] Alexis Gomez [address] Raudel Limon, [facility]11 Social History Tobacco Use Types Packs/Day [...] 01/21/2025 8:30 AM EDT Ancillary Procedure [facility] OB [address] [place] [address] 01/21/2025 9:00 AM EDT Initial [facility] OB [address] [place] [address] documented as of this encounter Visit Diagnoses Not on filedocumented in this encounter Care Teams Dental Technician Instructor Relationship Specialty Start Date End Date Harshil Moran MD PCP - General Family Medicine 12/30/22 documented as of this encounter
--- OUTSIDE RECORDS SUMMARY | 2024-12-20 20:11 | XMS_ITS | Clinical Summary ---
Author Organization [facility] Address [address] [place] [address] Care Team Providers Care Room Service Food Server Name Role Phone Harshil Moran MD Primary Care Provider [phone] Allergies Active Allergy Reactions Criticality Noted Date Comments Bee Venom Hives,Unknown Medium 12/20/2018 Erythromycin Hives,Unknown 01/30/2023 Erythromycin Base Rash Low 04/29/2022 Medications Vit-DSS-Fe Fum-FA ( 19) 29-1 MG tablet Take 1 tablet by mouth in the morning. Active ondansetron (Zofran) 4 MG tabletIndications: Well woman exam with routine gynecological exam Take 2 tablets (8 mg) by mouth every 6 (six) hours if needed for nausea or vomiting for up to 120 doses Take 1 tablet by mouth every 6 hours as needed for nausea. 60 tablet 3 5 Active ondansetron (Zofran) 4 MG tabletIndications: Nausea and vomiting during ([facility]) Take 1 tablet (4 mg) by mouth every 6 (six) hours if needed for nausea or vomiting for up to 30 doses Take 1 tablet by mouth every 6 hours as needed for nausea. 30 tablet 3 5 Active Vit-Fe Fumarate-FA ( Vitamins) 28-0.8 MG tabletIndications: examination or test, positive result ([facility]) Take 1 tablet by mouth Daily 30 tablet 9 5 12/21/19 26 Active Active Problems Problem Noted Date Diagnosed Date Axillary mass, right 01/05/2024 Encounters Date Type Department Care Team Description 12/20/2024 2:00 PM EDT Office Visit [facility] OB [address] [place] [address] [place] [address] Alexis Gomez DO examination or test, positive result [facility] (Primary [facility]x); Well woman exam with routine gynecological exam; STD exposure; Nausea and vomiting during ([facility]) 12/20/2024 Bamboo flowsheet [facility] OB [address] [facility] [place] [address] Alexis Gomez DO 12/13/2024 Travel from Last 3 Months Family History Medical History Relation Name Comments Heart disease Brother Heart disease Father Hypertension Father Hypertension Mother Relation Name Status Comments Brother 1 Father Mother Social History Tobacco Use Types [...] (143 lb) 12/20/2024 2:29 PM EDT Height 157.5 cm (5' 2 ) 09/23/2022 12:00 PM EDT Body Mass Index 26.16 09/23/2022 12:00 PM EDT Plan of Treatment Upcoming Encounters Date Type Department Care Team (Late st Contact Info) Description 01/21/2025 8:30 AM EDT Ancillary Procedure [facility] OB [address] [place] [address] [place] [address] 01/21/2025 9:00 AM EDT Initial N[facility] OB [address] [place] [address] [place] [address] Procedures Procedure Name Priority Date/Time Associated Diagnosis Comments POCT , URINE Routine 12/20/2024 3:26 PM EDT Well woman exam with routine gynecological exam STD exposure Nausea and vomiting during ([facility]) examination or test, positive result ([facility]) from Last 3 Months Results * (ABNORMAL) POCT , urine manually resulted (12/20/2024 3:26 PM EDT) Preg Test, Ur Positive Negative Urine 12/20/2024 3:26 PM EDT Alexis Gomez DO POINT OF CARE TEST ENTER/EDIT OR DERABLES Final Result from Last 3 Months Insurance [employer] Care Teams Room Service Food Server Relationship Specialty Start Date End Date Harshil Moran MD PCP - General Family Medicine 12/30/22
--- OUTSIDE RECORDS SUMMARY | 2024-12-20 20:11 | XMS_ITS | Encounter Summary ---
Author Organization [facility] Address [address] [place] [address] Care Team Providers Care Fishing Manager Name Role Phone Harshil Moran MD Primary Care Provider [phone] Encounter Details Date Type Department Care Team (Latest Contact Info) Description 12/13/2024 Travel Social History Tobacco Use Types Packs/Day Years [...] EDT Ancillary Procedure [facility] B[facility] OB [address] [facility] [place] [address] 01/21/2025 9:00 AM EDT Initial [facility] OB [address] [facility] [place] [address] documented as of this encounter Visit Diagnoses Not on filedocumented in this encounter Care Teams Fishing Manager Relationship Specialty Start Date End Date Harshil Moran MD PCP - General Family Medicine 12/30/22 documented as of this encounter
--- OUTSIDE RECORDS SUMMARY | 2024-12-20 20:11 | XMS_ITS | Encounter Summary ---
Author Organization [facility] Address [address] [facility] [place] [address] Care Team Providers Care Meter Reader Inspector Name Role Phone Harshil Moran MD Primary Care Provider + [phone] Encounter Details Date Type Department Care Team (Late Contact Info) Description 01/28/2024 Abstract [facility] BCP OB [address] [place] [address] Alexis Gomez [address] Raudel [place], [facility] Social History Tobacco Use Types Packs/Day Years [...] 01/21/2025 8:30 AM EDT Ancillary Procedure [facility] OB [address] [place] [address] 01/21/2025 9:00 AM EDT Initial [facility] OB [address] [place] [address] documented as of this encounter Visit Diagnoses Not on filedocumented in this encounter Care Teams Meter Reader Inspector Relationship Specialty Start Date End Date Harshil Moran MD PCP - General Family Medicine 12/30/22 documented as of this encounter
--- OUTSIDE RECORDS SUMMARY | 2024-12-20 20:11 | XMS_ITS | Encounter Summary ---
Author Organization [facility] tem Address [id number] [address] [place] [address] Care Team Providers Care Sales Development Director Name Role Phone Unavailable Primary Care Provider Unavailabl e Encounter Details Date Type Department Care Team (Late st Contact Info) Description 01/26/2024 Orders Only [facility] - Family Medicine [address] [place] [address] Ref Prov, [place] [address] Social History Tobacco Use Types Packs/Day Years [...] Comments US GUIDE NDL BIOPSY Routine 01/16/2024 1:50 PM EDT documented in this encounter Results * Ultrasound guidance intraoperative with Bx or Asp (01/16/2024 1:50 PM EDT) Anatomical Region Laterality Modality Ultrasound us Not In System Ref Prov IMG US ORDERABLES Final R esult documented in this encounter Visit Diagnoses Not on filedocumented in this encounter
--- OUTSIDE RECORDS SUMMARY | 2024-12-20 20:29 | XMS_ITS | CCD ---
Author Organization [facility] Care Team Providers Care Manufacturing Software Engineer Name Role Phone JASON ., DR LIRIANO Admitting Unavailable JASNO ., DR LIRIANO Attending Unavailable JASON ., [...] JASON ., DR LIRIANO Procedure Practitioner Unavail able Harshil Moran MD Primary Care Provider [phone] TOMMY OLSEN Attending Unavailable DAJUAN GOMEZY Attending Unavailable JASONDAJUAN PERSONY Attending Unavailable JASONDAJUANY Attending Unavailable TOMMY OLSEN Attending Unavailable TOMMY OLSEN Attending Unavailable JASONDAJUANY Attending Unavailable Community, Outreach Primary Care Provider DO Deandra Gomez Attending Provider Community, Outreach Primary Care Unavailable Dajuan Gomezy Attending Unavailable Jason Deandra Admitting Unavailable HARSHIL MORAN Primary Care Physician HARSHIL MORAN Referring Unavailable Mark LATHAM Attending Harshil St MD Primary Care Provider [phone] Allergies Allergy Classification Reported Allergen(s) Allergy Type Date of Onset Reaction(s) Facility (1 source) bee venom Drug allergy (disorder) 2 [facility] (5 sources) Erythromycin Drug Allergy 2 Rash [facility] (6 sources) Erythromycin; Translations: [erythromycin] Drug Allergy 3 Hives, Unknown, Eruption of skin (disorder) [facility] (4 sources) Honey bee venom Propensity to adverse reactions 9 Hives, Unknown [facility] Work Phone: (2 sources) Bee/Wasp/Ant venom; Translations: [Bee Stings] Allergy to substance Weal (disorder) [facility] (1 source) No Known Medication Allergies; Translations: [No Known Medication Allergies] Propensity to adverse reactions (disorder) [facility] Medications Current Medications Medication Drug Class(es) Dates [...] / zinc oxide 20 mg oral tablet (4 sources) Vitamin B12, Vitamin D, Vitamin C take 1 tablet by mouth in the morning Vit-DSS-Fe Fum-FA ( 19) 29-1 MG tablet Take 1 tablet by mouth in the morning. Active [facility] (No Known Home Meds) (1 source) Start: 04-21-2024 [facility] (No Known Home Meds) Active April 21, 2024 12:00am omeprazole 20 mg delayed release oral capsule (3 sources) Proton Pump Inhibitor Start: 04-30-2023 End: 04-29-2024 take 1 capsule by mouth before mealtime omeprazole (PriLOSEC) [address] capsule Indications: Acute cough Take 1 capsule (20 mg) by mouth in the morning. Take before meals. Do not crush or chew. . 30 capsule 11 04/30/2023 04/29/2024 Active Completed/Discontinued Medications Medication Drug Class(es) Dates Sig (Normalized) Sig (Original) amoxicillin 500 mg oral capsule (3 sources) Penicillin-class Antibacterial Start: 12-27-2023 End: 04-21-2024 take 500 mg by mouth twice daily Amoxicillin Discontinued 500 MG PO Twice daily 20 December 27, 2023 12:00am April 21, 2024 9:28am Problems Active Problems Problem Classification Problem Date Documented Date Episodic/Chronic Other nutritional; endocrine; and metabolic disorders (1 source) Overweight 03-09-2024 Episodic Other nutritional; endocrine; and metabolic disorders (1 source) Overweight in adulthood with body mass index of 25 or more but less than 30 03-09-2024 Episodic Other and delivery including normal (9 sources) Encounter for routine follow-up; Translations: [Encounter for supervision of normal , unspecified, first trimester] Onset: 12-25-2021 Episodic Other screening for suspected conditions (not mental disorders or infectious disease) (8 sources) Encounter for screening for malignant neoplasm of cervix; Translations: [Encounter for screening for Streptococcus B] Onset: 12-11-2021 Episodic Other skin disorders (1 source) Mass of subcutaneous tissue of upper limb; Translations: [Localized swelling, mass and lump, unspecified upper limb] Onset: 03-09-2024 Episodic Other skin disorders (1 source) Mass of axilla 03-09-2024 Episodic Other upper respiratory infections (5 sources) Acute bacterial pharyngitis; Translations: [Acute pharyngitis due to other specified organisms] 12-27-2023 Episodic Otitis media and related conditions (5 sources) Acute right otitis media; Translations: [Otitis media, unspecified, right ear] 12-27-2023 Episodic Unclassified (1 source) CONTACT W/AND (SUSP) EXPOS COVID-19; Translations: [CONTACT W/AND (SUSP) EXPOS COVID-19] Onset: 01-03-2022 Past or Other Problems Problem Classification Problem Date Documented Da te Episodic/Chronic OB-related trauma to perineum and vulva (1 source) Third degree perineal laceration during delivery, unspecified; Translations: [THIRD DEGREE PERINL LAC DUR DEL UNS] Onset: 01-03-2022 Episodic Other skin disorders (1 source) Localized swelling, mass and lump, right upper limb; Translations: [Localized superficial swelling, mass, or lump] Onset: 01-05-2024 01-05-2024 Episodic Residual codes; unclassified (1 source) 38 weeks gestation of ; Translations: [38 WEEKS GESTATION OF ] Onset: 01-03-2022 Episodic Results Test Name Value Interpretation Reference Range Facility [facility] 01-16-2024 L Specimen: BC Received: 01/19/24 Status: JACQUELYN Ashraf Num: [id number] Spec Type: Cytology Subm Dr: Deandra Gomez Tissues: A FNA SLIDES PATH (RT AXILLA) Procedures: HE/2, -, PAPSTN/7 Age/ Patient Sex Location Account Attending Physician RahAlbina Jay Jay 28/F [place] [id number] Deandra Gomez SPEC NUM: [id number] RECD: 01/19/24 STATUS: JACQUELYN ASHRAF NUM: [id number] KAITLIN: 01/16/24- SUBM DR: Deandra Gomez ENTERED: 01/19/[address]: Ashly,Lab Ehsan Evans MD SPEC TYPE: Cytology DEPT: MYESHA NCJOYA ENTERED BY: [id number] RECV BY: [id number] ORDERED: HE/2, -, PAPSTN/7 ORDERED: HE/2, -, PAPSTN/7 Pathological Diagnosis Right axillary mass, FNA cytology -No evidence of malignant cells -Occasional macrophages and rare small nests of simple or benign epithelial cells in few smears -ThinPrep smear also showing similar findings, suggesting sampling of the simple or benign epithelial cyst -No other acute or obvious chronic inflammatory cell noted -Continuous conservative excision of the entire mass for further assessment is also suggested Clinical Information Right axilla mass Gross Description Received fixed in Cytolyt is <1 ml colorless opaque fluid for cytology said to have been obtained as R't axilla mass. ThinPrep and cell block preparations are prepared for microscopic examination. Also received are 6 spray fixed smeared slides to be stained pap for microscopic Specimen: [id number] Received: 01/19/24 Status: JACQUELYN Ashraf Num: [id number] Spec Type: Cytology Subm Dr: Deandra Gomez Tissues: A FNA SLIDES PATH (RT AXILLA) Procedures: JEET/Silvia, -, PAPSTN/7 Patient: Albina Monreal [id number] (Continued) Specimen: Received: 01/19/24 (Continued) Gross Description (Continued) Signed (signature on file) Kishore Paez MD 01/20/24 1720 Specimen: Received: 01/19/24 Status: JACQUELYN Ashraf Num: [id number] Spec Type: Cytology Subm Dr: Deandra Gomez Tissues: A FNA SLIDES PATH (RT AXILLA) Procedures: JEET/Silvia, -, PAPSTN/7 Patient: Albina Monreal [id number] (Continued) Specimen: [id number] Received: 01/19/24 (Continued) Gross Description (Continued) examination.(CC/nh) CPT Codes 16052 Specimen: BC Received: 01/19/24 Status: JACQUELYN Ashraf Num: [id number] Spec Type: Cytology Subm Dr: Deandra Gomez Tissues: A FNA SLIDES PATH (RT AXILLA) Procedures: HE/2, -, PAPSTN/7 Patient: Albina Monreal [id number] (Continued) Signed (signature on file) Enrique-Yared Paez MD 01/20/24 1720 Normal [facility] No Panel InformationOrdered By: Terrie Cardozo on 12-27-2023 Quick Strep (POC) [facility] Urinalysis macro (dipstick) panel (U)on 08-18-2023 Bilirubin, UA Negative Negative - 4(70) +++ mg/dL [facility] Blood, UA Negative Negative - 50 Jerad/mcL [facility] Clarity, UA Clear [facility] Color, UA Yellow [facility] Glucose, UA Negative Negative - 1999(110) ++++ mg/dL [facility] Interpretation and review of laboratory results Normal [facility] Ketones, UA Negative Negative - 160(16) ++++ mg/dL [facility] Leukocytes, UA Negative Negative - 500+++ Gerson/mcL [facility] Nitrite, UA Negative Negative - Positive [facility] pH, UA 7.0 5 - 9 [facility] Protein, UA Negative Negative - 1999(20) ++++ mg/dL [facility] Spec Grav, UA 1.010 1 - 1.03 [facility] Urobilinogen, UA 0.2 0.2 - 12 mg/dL [facility]H UA (CLEAN/CATCH) MICROS OPIC IF INDICATEon 08-14-2023 BILIRUBIN URINE Negative NEGATIVE [facility] BLOOD URINE Negative NEGATIVE [facility] Clarity (U) CLEAR CLEAR [facility] Color (U) LT. YELLOW YELLOW [facility] GLUCOSE URINE UA Negative NEGATIVE mg/dL [facility] Ketones Ql (U) Negative NEGATIVE mg/dL [facility] Leukocyte esterase Test strip Ql (U) Negative NEGATIVE [facility] NITRITE URINE Negative NEGATIVE [facility] pH (U) 5.5 [pH] 5.0 - 9.0 [facility] PROTEIN URINE Negative NEG/TRACE mg/dL [facility] SPECIFIC GRAVITY URINE 1.010 1.005 - 1.025 [facility] URINE MICROSCOPIC INDICATED NO [facility] UROBILINOGEN URINE 0.2 EU/dL 0.2 - 1.0 EU/dL [facility] PAP ACOG PANEL 2: 21 to 28on 10-02-2022 . . [facility] Comment on above: Performed By: #### [id number] #### [facility] [address] [place] [address] Dr. Alee Paez Age Gdln ACOG Testing [facility] Comment on above: Performed By: #### [id number] #### [facility] [address] [place] [address] Dr. Alee Paez DIAGNOSIS: Comment [facility] Comment on above: Result Comment: NEGA TIVE FOR INTRAEPITHELIAL LESION OR MALIGNANCY. THIS SPECIMEN WAS RESCREENED PART OF OUR CABLE CUTTER AND SWAGER PROGRAM. Performed By: #### [id number] #### [facility] [address] [place] [address] Dr. Alee Paez Methodology: Comment [facility] Comment on above: Result Comment: This liquid based ThinPrep(R) pap test was screened with the use of an image guided system. Performed By: #### [id number] #### [facility] [address] [place] [address] Dr. Alee Paez Note: Comment [facility] Comment on above: Result Comment: The Pap smear is a screening test designed to aid in the detection of premalignant and malignant conditions of the uterine cervix. It is not a diagnostic procedure and should not be used as the sole means of detecting cervical cancer. Both false-positive and false-negative reports do occur. . Performed By: #### [id number] #### [facility] [address] [place] [address] Dr. Alee Paez Performed by: Comment Normal [facility] Comment on above: Result Comment: Sarita Gonzales, Account Executive [employer] (ASCP) Performed By: #### [id number] #### [facility] [address] [place] [address] Dr. Alee Paez QC reviewed by: Comment Normal [facility] Comment on above: Result Comment: Ketty Caba, Account Executive [employer] (ASCP) Performed By: #### [id number] #### [facility] [address] [place] [address] Dr. Alee Paez Reflex Criteria: Comment Normal [facility] Comment on above: Result Comment: The HPV DNA reflex criteria were not met with this specimen result therefore, no HPV testing was performed. . Performed By: #### [id number] #### [facility] [address] [place] [address] Dr. Alee Paez Specimen adequacy: Comment Normal [facility] Comment on above: Result Comment: Sati sfactory for evaluation. Endocervical and/or squamous metaplastic cells (endocervical component) are present. Performed By: #### [id number] #### [facility] [address] [place] [address] Dr. Alee Paez CBC AUTO DIFFon 12-27-2021 BASO # 0.0 103/ul Normal 0.0-0.1 [facility] Comment on above: Performed By: #### C BC #### [facility] [address] [place] [address] Dr. Alee Paez Basophils/100 WBC (Bld) 0.2 % Normal 0.2-2.0 [facility] Comment on above: Performed By: #### C BC #### [facility] [address] [place] [address] Dr. Alee Paez EO # 0.1 103/ul Normal 0.0-0.7 [facility] Comment on above: Performed By: #### C BC #### [facility] [address] [place] [address] Dr. Alee Paez Eosinophils/100 WBC (Bld) 1.2 % Normal 0.9-7.0 [facility] Comment on above: Performed By: #### C BC #### [facility] [address] [place] [address] Dr. Alee Paez Erythrocyte distribution width (RBC) [Ratio] 15.3 % Critically high 11.0-15.0 [facility] Comment on above: Performed By: #### C BC #### [facility] [address] [place] [address] Dr. Alee Paez Hematocrit (Bld) [Volume fraction] 25.1 % Critically low 36.0-48.0 [facility] Comment on above: Performed By: #### C BC #### [facility] [address] [place] [address] Dr. Alee Paez Hemoglobin (Bld) [Mass/Vol] 8.2 g/dL Critically low 12.0-16.0 [facility] Comment on above: Result Comment: just delivered Performed By: #### C BC #### [facility] [address] [place] [address] Dr. Alee Paez IG # 0.03 10e3/ul Normal 0.00-0.03 [facility] Comment on above: Performed By: #### C BC #### [facility] [address] [place] [address] Dr. Alee Paez IG % 0.4 % Normal 0.0-0.5 [facility] Comment on above: Performed By: #### C BC #### [facility] [address] [place] [address] Dr. Alee Paez LYMPH # 2.0 103/ul Normal 1.2-3.8 [facility] Comment on above: Performed By: #### C BC #### [facility] [address] [place] [address] Dr. Alee Paez Lymphocytes/100 WBC (Bld) 23.9 % Normal 20.5-60.0 [facility] Comment on above: Performed By: #### C BC #### [facility] [address] [place] [address] Dr. Alee Paez MANUAL DIFF REQ NO Normal [facility] Comment on above: Performed By: #### C BC #### [facility] [address] [place] [address] Dr. Alee Paez MCH (RBC) [Entitic mass] 28.3 pg Normal 26.7-34.0 [facility] Comment on above: Performed By: #### C BC #### [facility] [address] [place] [address] Dr. Alee Paez MCHC (RBC) [Mass/Vol] 32.7 g/dL Normal 29.9-35.2 [facility] Comment on above: Performed By: #### C BC #### [facility] [address] [place] [address] Dr. Alee Paez MCV (RBC) [Entitic vol] 86.6 fL Normal 81.0-99.0 [facility] Comment on above: Performed By: #### C BC #### [facility] [address] [place] [address] Dr. Alee Paez MONO # 0.8 103/ul Normal 0.3-0.8 [facility] Comment on above: Performed By: #### C BC #### [facility] [address] [place] [address] Dr. Alee Paez Monocytes/100 WBC (Bld) 9.8 % Normal 1.7-12.0 [facility] Comment on above: Performed By: #### C BC #### [facility] [address] [place] [address] Dr. Alee Paez NEUT # 5.5 103/ul Normal 1.4-6.5 [facility] Comment on above: Performed By: #### C BC #### [facility] [address] [place] [address] Dr. Alee Paez Neutrophils/100 WBC (Bld) 64.5 % Normal 43.0-75.0 [facility] Comment on above: Performed By: #### C BC #### [facility] [address] [place] [address] Dr. Alee Paez Platelet mean volume (Bld) [Entitic vol] 9.8 fL Normal 9.5-13.5 [facility] Comment on above: Performed By: #### C BC #### [facility] [address] [place] [address] Dr. Alee Paez PLT 152 103/ul Normal 150-450 [facility] Comment on above: Performed By: #### C BC #### [facility] [address] [place] [address] Dr. Alee Paez RBC 2.90 106/ul Critically low 4.20-5.40 [facility] Comment on above: Performed By: #### C BC #### [facility] [address] [place] [address] Dr. Alee Paez WBC 8.5 103/ul Normal 4.0-11.0 [facility] Comment on above: Performed By: #### C BC #### [facility] [address] [place] [address] Dr. Alee Paez CBC AUTO DIFFon 12-25-2021 BASO # 0.0 103/ul Normal 0.0-0.1 [facility] Comment on above: Performed By: #### C BC #### [facility] [address] [place] [address] Dr. Alee Paez Basophils/100 WBC (Bld) 0.2 % Normal 0.2-2.0 [facility] Comment on above: Performed By: #### C BC #### [facility] [address] [place] [address] Dr. Alee Paez EO # 0.0 103/ul Normal 0.0-0.7 [facility] Comment on above: Performed By: #### C BC #### [facility] [address] [place] [address] Dr. Alee Paez Eosinophils/100 WBC (Bld) 0.5 % Critically low 0.9-7.0 [facility] Comment on above: Performed By: #### C BC #### [facility] [address] [place] [address] Dr. Alee Paez Erythrocyte distribution width (RBC) [Ratio] 15.0 % Normal 11.0-15.0 [facility] Comment on above: Performed By: #### C BC #### [facility] [address] [place] [address] Dr. Alee Paez Hematocrit (Bld) [Volume fraction] 38.1 % Normal 36.0-48.0 [facility] Comment on above: Performed By: #### C BC #### [facility] [address] [place] [address] Dr. Alee Paez Hemoglobin (Bld) [Mass/Vol] 12.6 g/dL Normal 12.0-16.0 [facility] Comment on above: Performed By: #### C BC #### [facility] [address] [place] [address] Dr. Alee Paez IG # 0.03 10e3/ul Normal 0.00-0.03 [facility] Comment on above: Performed By: #### C BC #### [facility] [address] [place] [address] Dr. Alee Paez IG % 0.4 % Normal 0.0-0.5 [facility] Comment on above: Performed By: #### C BC #### [facility] [address] [place] [address] Dr. Alee Paez LYMPH # 1.0 103/ul Critically low 1.2-3.8 [facility] Comment on above: Performed By: #### C BC #### [facility] [address] [place] [address] Dr. Alee Paez Lymphocytes/100 WBC (Bld) 12.5 % Critically low 20.5-60.0 [facility] Comment on above: Performed By: #### C BC #### [facility] [address] [place] [address] Dr. Alee Paez MANUAL DIFF REQ NO Normal [facility] Comment on above: Performed By: #### C BC #### [facility] [address] [place] [address] Dr. Alee Paez MCH (RBC) [Entitic mass] 27.8 pg Normal 26.7-34.0 [facility] Comment on above: Performed By: #### C BC #### [facility] [address] [address] [address] Alee Paez MCHC (RBC) [Mass/Vol] 33.1 g/dL Normal 29.9-35.2 [facility] Comment on above: Performed By: #### C BC #### [facility] [address] [address] [address] Alee Paez MCV (RBC) [Entitic vol] 84.1 fL Normal 81.0-99.0 [facility] Comment on above: Performed By: #### C BC #### [facility] [address] [address] [address] Alee Paez MONO # 1.0 103/ul Critically high 0.3-0.8 [facility] Comment on above: Performed By: #### C BC #### [facility] [address] [place] [address] Dr. Alee Paez Monocytes/100 WBC (Bld) 11.4 % Normal 1.7-12.0 [facility] Comment on above: Performed By: #### C BC #### [facility] [address] [place] [address] Dr. Alee Paez NEUT # 6.2 103/ul Normal 1.4-6.5 [facility] Comment on above: Performed By: #### C BC #### [facility] [address] [place] [address] Dr. Alee Paez Neutrophils/100 WBC (Bld) 75.0 % Normal 43.0-75.0 [facility] Comment on above: Performed By: #### C BC #### [facility] [address] [address] [address] Alee Paez Platelet mean volume (Bld) [Entitic vol] 11.4 fL Normal 9.5-13.5 [facility] Comment on above: Performed By: #### C BC #### [facility] [address] [address] [address] Alee Paez PLT 204 103/ul Normal 150-450 [facility] Comment on above: Performed By: #### C BC #### [facility] [address] [address] [address] Alee Paez RBC 4.53 106/ul Normal 4.20-5.40 [facility] Comment on above: Performed By: #### C BC #### [facility] [address] [place], [place] [address] Dr. Alee Paez WBC 8.3 103/ul Normal 4.0-11.0 [facility] Comment on above: Performed By: #### C BC #### [facility] [id number] Alee Paez Covid-19 PCR (CVDTB)on 12-06 SARS-CoV-2 (COVID-19) RNA JERRY+probe Ql (Unsp spec) Not detected Normal NOT DETECTED [facility] Comment on above: Result Comment: When diagnostic [...] for this test is supported by the Guest Experience Captain of Health and Human Service's declaration that [...] used). Performed By: #### C VDTBH #### [facility] [address] [place], [place] [id number] Dr. Alee Paez DRUG SCREEN RAPID (URINE)on 12-25-2021 AMP Negative Normal NEGATIVE [facility] Comment on above: Performed By: #### D RUGRPD #### [facility] [address] [place], [place] [id number] Dr. Alee Paez BAR Negative Normal NEGATIVE [facility] Comment on above: Performed By: #### D RUGRPD #### [facility] [address] [address] [address] Alee Paez BUP Negative Normal NEGATIVE [facility] Comment on above: Performed By: #### D RUGRPD #### [facility] [address] [place] [address] Dr. Alee Paez BZO Negative Normal NEGATIVE [facility] Comment on above: Performed By: #### D RUGRPD #### [facility] [address] [address] [address] Alee Paez FLOYD Negative Normal NEGATIVE [facility] Comment on above: Performed By: #### D RUGRPD #### [facility] [address] [place] [address] Dr. Alee Paez CUT-OFFS SEE BELOW Normal [facility] Comment on above: Result Comment: AMP [...] ng/mL Performed By: #### D RUGRPD #### [facility] [address] [place] [address] Dr. Alee Paez DRUG CUT HEADER DRUG CLASS TEST SYSTEM CUT-OFF CONCENTRATIONS ARE FOLLOWS: Normal [facility] Comment on above: Performed By: #### D RUGRPD #### [facility] [address] [place] [address] Dr. Alee Paez mAMP Negative Normal NEGATIVE [facility] Comment on above: Performed By: #### D RUGRPD #### [facility] [address] [place] [address] Dr. Alee Paez MTD Negative Normal NEGATIVE [facility] Comment on above: Performed By: #### D RUGRPD #### [facility] [address] [place] [address] Dr. Alee Paez OPI Negative Normal NEGATIVE [facility] Comment on above: Performed By: #### D RUGRPD #### [facility] [address] [place] [address] Dr. Alee Paez OXY Negative Normal NEGATIVE [facility] Comment on above: Performed By: #### D RUGRPD #### [facility] [address] [place] [address] Dr. Alee Paez PCP Negative Normal NEGATIVE [facility] Comment on above: Performed By: #### D RUGRPD #### [facility] [address] [place] [address] Dr. Alee Paez PPX Negative Normal NEGATIVE [facility] Comment on above: Performed By: #### D RUGRPD #### [facility] [address] [place] [address] Dr. Alee Paez TCA Negative Normal NEGATIVE [facility] Comment on above: Performed By: #### D RUGRPD #### [facility] [address] [place] [address] Dr. Alee Paez THC Negative Normal NEGATIVE [facility] Comment on above: Performed By: #### D RUGRPD #### [facility] [address] [place] [address] Dr. Alee Paez TYPE AND SCREENon 12-25-2021 TYPE AND SCREEN Negative Normal [facility] Comment on above: Performed By: #### T NS #### [facility] [address] [place] [address] Dr. Alee Paez GROUP B STREP CULTUREon S. agalactiae Ag Ql (Unsp spec) Culture Observations: NEGATIVE FOR GROUP B STREPTOCOCCUS. Normal [facility] Comment on above: Performed By: #### G BSCX #### [facility] [address] [place] [address] Dr. Alee Paez Vital Signs Date Time Vital Sign Value Performing Clinician Facility 04-21-2024 09:31-0400 Body height 162.56 cm [facility] 04-21-2024 09:31-0400 Body mass index (BMI) [Ratio] 24 kg/m2 [facility] 04-21-2024 09:31-0400 Body temperature 98.1 [degF] [facility] 04-21-2024 09:31-0400 Body weight 63.5 kg [facility] 04-21-2024 09:31-0400 Diastolic blood pressure 83 mm[Hg] [facility] 04-21-2024 09:31-0400 Heart rate 102 /min [facility] 04-21-2024 09:31-0400 Respiratory rate 18 /min [facility] 04-21-2024 09:31-0400 SaO2% (BldA) [Mass fraction] 99 % [facility] 04-21-2024 09:31-0400 Systolic blood pressure 120 mm[Hg] [facility] 03-09-2024 13:32-0400 Blood Pressure Location [employer] [facility] 03-09-2024 13:32-0400 Diastolic blood pressure 78 mm[Hg] Mark DYEL [facility] 03-09-2024 13:32-0400 Heart rate 72 /min Mark DYEL [facility] 03-09-2024 13:32-0400 Respiratory rate 16 /min Mark DYEL [facility] 03-09-2024 13:32-0400 Systolic blood pressure 120 mm[Hg] Mark DYEL [facility] 12-27-2023 09:45-0400 Body height 162.56 cm [facility] 12-27-2023 09:45-0400 Body mass index (BMI) [Ratio] 23.6 kg/m2 [facility] 12-27-2023 09:45-0400 Body temperature 98.7 [degF] [facility] 12-27-2023 09:45-0400 Body weight 62.59 kg [facility] 12-27-2023 09:45-0400 Heart rate 79 /min [facility] 12-27-2023 09:45-0400 Respiratory rate 18 /min [facility] 12-27-2023 09:45-0400 SaO2% (BldA) [Mass fraction] 98 % [facility] 08-18-2023 12:59-0500 Body mass index (BMI) [Ratio] 29.45 kg/m2 Deandra Jason DO Work Phone: [facility] 08-18-2023 12:59-0500 Body weight 73.03 kg Deandra Jason DO Work Phone: [facility] 08-18-2023 12:59-0500 Diastolic blood pressure 72 mm[Hg] Deandra Jason DO Work Phone: [facility] 08-18-2023 12:59-0500 Systolic blood pressure 122 mm[Hg] Deandra Jason DO Work Phone: [facility] Encounters Encounter Date Encounter Type Care Provider Facility Start: 12-20-2024 End: 12-20-2024 Bamboo flowsheet Deandra Jason DO Work Phone: [facility] Start: 12-20-2024 End: 12-20-2024 Bamboo flowsheet Deandra Jason DO Work Phone: [facility] Start: 04-21-2024 End: 04-21-2024 ambulatory [facility] Work Phone: Start: 04-21-2024 End: 04-21-2024 Patient encounter procedure [facility] Work Phone: Start: 03-09-2024 End: 03-09-2024 ambulatory HARSHIL DAFTER Facility: [facility] Start: 03-09-2024 End: 03-09-2024 Patient encounter procedure Mark LATHAM [facility] Start: 01-29-2024 ambulatory HARSHIL FURLONG Facility : [place] Start: 01-16-2024 End: 01-16-2024 ambulatory [facility] Work Phone: [facility] Work Phone: Start: 01-16-2024 End: 01-16-2024 Departed Referred [facility] Work Phone: [facility] Start: 12-27-2023 End: 12-27-2023 ambulatory [facility] Work Phone: Start: 12-27-2023 End: 12-27-2023 Patient encounter procedure [facility] Work Phone: Start: 10-07-2023 End: 10-07-2023 ambulatory TOMMY OLSEN Not Available Start: 08-18-2023 End: 08-18-2023 ambulatory DEANDRA JASON Not Available Start: 08-18-2023 End: 08-18-2023 flow sheet Deandra Jason DO Work Phone: [facility] Comment on above: Third trimester preg coco Start: 08-14-2023 Clinisync Result Encounter Deandra Jason DO Work Phone: [facility] Unsolicited Start: 08-14-2023 Clinisync Result Encounter Deandra Jason DO Work Phone: [facility] Unsolicited Start: 08-11-2023 End: 08-11-2023 ambulatory DEANDRA JASON Not Available Start: 07-28-2023 End: 07-28-2023 ambulatory DEANDRA JASON Not Available Start: 07-14-2023 End: 07-14-2023 ambulatory TOMMY PRETTY Not Available Start: 06-26-2023 End: 06-26-2023 ambulatory DEANDRA JASON Not Available Start: 05-28-2023 End: 05-28-2023 ambulatory TOMMY OLSEN Not Available Start: 09-23-2022 End: 09-23-[address] DEANDRA GOMEZ . Facility:[facility] Start: 12-31-2021 End: 12-31-[address] DEANDRA GOMEZ . Facility: Start: 12-25-2021 End: 12-27-2021 Evaluation and management of inpatient DR DEANDRA GOMEZ . Facility:[facility] Start: 12-11-2021 End: 12-11-[address] JOVANY RUSHING . Facility:[facility] Procedures Date Procedure Procedure Detail Performing Clinician Start: 12-27-2023 Quick Strep (POC) Start: 08-18-2023 Urnls dip stick/tabl et rgnt non-auto w/o micrscp Deandra Gomez DO Work Phone: Start: 08-14-2023 TB UA (CLEAN/CATCH) MICROSCOPIC IF INDICATE Deandra Gomez DO Work Phone: Start: 12-25-2021 Delivery of Products of Conception, External Approach DR DEANDRA GOMEZ . Start: 12-25-2021 Division of Female Perineum, External Approach DR DEANDRA GOMEZ . Start: 12-25-2021 Repair Anal Sphincte r, Open Approach DR DEANDRA GOMEZ . Adenoid excision Mark Goyal Nasal polypectomy Mark YEBOAH Plan of Treatment Date Care Activity Detail Author Start: 12-20-2024 End: 12-20-2024 Patient encounter procedure 12/20/2024 2:00 PM EDT Office Visit [facility] [address] [place] [address] Deandra Gomez, DO [address] [place] [address] Arrived [facility] Comment on above: Arrived Start: 08-18-2023 End: 08-18-2023 Patient encounter procedure 08/18/2023 1:00 PM EST Routine [facility] [address] [place] [address] Deandra Gomez, [address] [place] [address] Third trimester [facility] Comment on above: Third trimester preg coco Payers Date Payer Category Payer Private Health [facility] [id number] 2022 Unknown [facility] ATH [id number] 2022-Present [address] [address] [id number] 1994 Unknown [id number] .2.593 1994 Unknown [id number] [id number] .2.593 1994 Unknown [id number] [id number] .2.593 1994 Unknown [id number] [id number] .2.593 1994 Unknown [id number] [id number] .2.1259 1994 Unknown [id number] [id number] .2.1259 1994 Unknown [id number] 2.16.840.1.060988.3.579 .2.9 1994 Unknown [id number] [id number] .2.9 1994 Unknown [id number] 2.16.840.1.358636.3.579 .2.9 1994 Unknown [id number] 2.16.840.1.820471.3.579 .2.9 1994 Unknown [id number] [id number] .2.9 1994 Unknown [id number] [id number] .2.727 1959 Unknown [id number] Social History Date Type Detail Facility Start: 02-25-2023 End: 04-21-2024 Tobacco smoking status NHIS Never smoked tobacco [facility] Start: 02-25-2023 Tobacco use and exposure Smokeless tobacco non-user [facility] Start: 07-28-2023 End: 12-15-2023 Alcohol intake Lifetime non-drinker (finding) [facility] Start: 02-25-2023 End: 12-15-2023 History of Social function [facility] Start: 02-25-2023 End: 12-15-2023 Tobacco use panel [facility] Start: 12-17-2022 [facility] Start: 1995 Sex Assigned At Not on file N [facility] Start: 1995 Sex Assigned At Female F [facility] Tobacco smoking status Never Zayra Tapia [facility] [place] Functional Status Date Assessment Result Facility 03-09-2024 Functional Status N/A Latoya byrnes [facility] Clinical Note 03-09-2024 Note Date & Type Note Facility 03-09-2024 Note General Surgery Offi ce/Clinic Note Chief Complaint consultation for axillary cyst HPI Staff 28 year old female presents on consultation from Dr. Moran for right axilla mass. US completed 12/25 with nonspecific mass. Fine needle aspiration completed 01/24 suggestive of benign cyst. Denies change in size since first noted. Denies soreness or tenderness. History of Present Illness 28 yo female referred for right axillary nodule, noticed this 3 months ago, no pain, has decreased in size; US with nonspecific subcutaneous nodule; patient had fine need aspirate by radiology, thought to be consistent with possible cyst; no fevers, chills or night sweats, no recent injections or extremity injuries/infections; no asa or NSAID use. Review of Systems PHQ Score Initial Depression Screen Score: 0 SCORE ROS - Provider Constitutional: no fever, no sweats, no weight loss. Eyes: no glasses, no blurred vision, no visual loss. ENMT: no dentures, no hoarseness, no swallowing difficulties, no hearing loss, no ear infection(s), no nose bleeds. Cardiovascular: normal blood pressure, no chest pain, regular heartbeat, no heart murmur. Respiratory: no shortness of breath, no cough, no asthma, no wheezing. Gastrointestinal: no nausea, no vomiting, no diarrhea, no constipation, no blood in stool, no change in bowel habits, no abdominal pain, no hepatitis. Genitourinary: no kidney stones, no urine infection, no dysuria. Musculoskeletal: no pain, no weakness. Skin: no changing moles, no rash, yes skin lumps. Neurologic: no seizures, no epilepsy, no headache. Psychiatric: no emotional or psychiatric problem. Heme/Lymph: no bleeding problems, no anemia, no blood clots, no transfusions. Allergy/Immunologic: no swollen lymph nodes/glands, no IV drug abuse. Other: Additional ROS info: Except as noted in the above Review of Systems and in the History of Present Illness, all other systems have been reviewed and are negative or noncontributory. Physical Exam Vitals & Measurements HR: 72(Peripheral) RR: 16 BP: 120/78 HT: 62 in HT: 157.4 cm WT: 66.4 kg WT: 146.08 lb BMI: 26.8 HEENT: normal conjunctiva, sclera clear, no scleral icterus, EOM intact, PERRLA, oral mucosa moist without lesions. Neck: trachea midline, no mass, symmetric, no thyromegaly or nodules, no adenopathy Respiratory: lungs CTA, respirations non labored. Cardiovascular: regular rate and rhythm, no murmur, no pedal edema or varicosities. Lymphatic: no cervical adenopathy, right axilla with firm nodule upper, lateral axilla, nontender,no skin changes; no other adenopathy noted Musculoskeletal: normal gait, digits and nails without infection, nodes, cyanosis, clubbing. Skin: no rashes, no lesions, no ulcers, no subcutaneous nodules, induration. Psychiatric/Neuro: oriented to time, place, person, judgement normal, affect appropriate for age, insight intact, no focal deficits. Tests: , x-rays reviewed, review of old records completed , Discussed surgical options, risks, and possible complications with patient. Assessment/Plan 1. Axillary mass (R22.30: Localized swelling, mass and lump, unspecified upper limb) possible 2 adjacent reactive nodes; appear to be decreasing in size; will recheck US, if remain enlarged, will proceed with excisional biopsy under anesthesia for definitive diagnosis, informed consent obtained; call sooner if problems/questions. Ordered: US Extremity Non-Vascular Limited Right Follow-up No qualifying data available Problem List/Past Medical History Ongoing Axillary mass BMI 26.0-26.9,adult Over weight Historical No qualifying data Procedure/Surgical History Adenoidectomy, Nasal polypectomy. Medications No active medications Allergies Bee Stings (Hives) erythromycin (Rash) Social History Alcohol - Denies Alcohol Use, 03/09/2024 Substance Abuse - Denies Substance Abuse, 03/09/2024 Tobacco Never (less than 100 in lifetime) Tobacco Use:. Never Smokeless Tobacco Use:., 03/09/2024 Family History Cardiac arrhythmia: Father. Hypertension: Mother, Father and Brother. [facility] Comment on above: Result Comment: Elec tronically Signed By: NOA SANTA, Mark Tolbert\Date and Time Signed: 03/09/24 14:03 EDT History of Present illness Narrative 08-18-2023 Saadia [...] Induction paperwork was signed and faxed to [facility] for patients scheduled induction plan. Documented by Saadia Fernandez MA on behalf of: Deandra Gomez DO documented in this encounter [facility] Evaluation + Plan note Note Date & Type Note Facility Evaluation + Plan note No data available for this section [facility] Note Date & Type Note Facility Evaluation note Diagnosis Third trimester state, incidental documented in this encounter [facility] Evaluation note Note Date & Type Note Facility Evaluation note Diagnosis Onset Date Acute bacterial pharyngitis acute Acute right otitis media acu [facility] Work Phone: Evaluation note Note Date & Type Note Facility Evaluation note No assessment information availa [facility] Work Phone: Hospital Discharge instructions Note Date & Type Note Facility Hospital Discharge instructions No data available for this section [facility] Progress note Note Date & Type Note Facility Progress note No data available for this section [facility] Summary Purpose Family History Relationship Condition Age at Onset Recorded Date/T celio father Hypertension Unknown Heart disease Unknown mother Hypertension Unknown Advance Directives Advance Directive Response Recorded Date/ Time Advance Directives No December 26 9:37am Chief Complaint and Reason for Visit Chief Complaint sore throat, fever, body aches Reason for Visit Acute bacterial phar yngitis Acute right otitis media Chief Complaint sore throat, fever, body aches Unknown Reason for Visit Acute bacterial phar yngitis Acute right otitis media Chief Complaint Cough Additional Source Comments INFORMATION SOURCE (unrecogn ized section and content) DATE CREATED AUTHOR 10/06/2022 [facility] DATE CREATED AUTHOR AUTHOR'S ORGANIZ ATION 10/08/2023 [facility] EPIC DATE CREATED AUTHOR AUTHOR'S ORGANIZ ATION 01/23/2024 [facility] DATE CREATED AUTHOR AUTHOR'S ORGANIZ ATION 03/11/2024 [facility] Care Teams (unrecognized sec tion and content) Manufacturing Software Engineer Relationship Specialty Start Date End Date Harshil Moran MD [address], [facility] [place] [address] PCP - General Family Medicine 12/30/22 Manufacturing Software Engineer Relationship Specialty Start Date End Date Harshil Moran MD [address] [facility] [place] [address] PCP - General Family Medicine 12/30/22 Team Status: Active Member Role Status Dates [facility] Primary Care Provider Active Team Status: Inactive Member Role Status Dates Terrie Cardozo APRN Attending Provider Active S tart: December 27, 2023 End: December 27, 2023 [facility] Primary Care Provider Active Start: December 27, 2023 End: December 27, 2023 Team Status: Inactive Member Role Status Dates [facility] Primary Care Provider Active Start: January 16, 2024 End: January 16, 2024 Deandra Gomez DO Attending Provider Active Start : January 16, 2024 End: January 16, 2024 Team Status: Active Member Role Status Dates Harshil Moran DO Primary Care Provider Active Team Status: Inactive Member Role Status Dates Terrie Cardozo APRN Attending Provider Active S tart: April 21, 2024 End: April 21, 2024 Harshil Moran DO Primary Care Provider Active Start: April 21, 2024 End: April 21, 2024 Manufacturing Software Engineer Relationship Specialty Start Date End Date Harshil Moran MD PCP - General Family Medicine 12/30/22 Reason for Visit (unrecogniz ed section and content) Reason Comments Routine Visit Goals (unrecognized section and content) Goals may be documented in a n alternate sectionGoals may be documented in an alternate section No data available for this sectionGoals may be documented in an alternate section FOR RECORDS PERTAINING TO PATIENTS WHO ARE [...] BE BASED ON THE PRIMARY CLINICAL RECORDS. [facility] [employer] [facility]. provides no warranty or guarantee of the accuracy or completeness of information in this document.
[2024-12-23 17:10] LABS: Age Gdln ACOG Testing Note (.); HPV Aptima Negative (Negative); IGP, Aptima HPV, rfx 16/18,45 Note (.)
== END 2024-12-20 20:08 | disposition home or self-care (01) ==
LOC: LAB 20:07
PROVIDERS: PCP Family Medicine; Visit Provider Obstetrics & Gynecology
DX: Z01.419 Encounter for gynecological examination (general) (routine) without abnormal findings (principal)
CPT/HCPCS: 87624; 88175

== ENCOUNTER 2025-01-28 09:05 | Outpatient (OUT) | payer OTHER, SELFPAY ==
--- OUTSIDE RECORDS SUMMARY | 2025-01-21 08:30 | XMS_ITS | Encounter Summary ---
Author Organization [facility] Address [address] [facility] [place] [address] Care Team Providers Care Gunner'S Mate Name Role Phone Harshil Moran MD Primary Care Provider Encounter Details Date Type Department Care Team (Late Contact Info) Description 01/21/2025 8:30 AM EDT Ancillary Procedure [facility] [address] [place] [address] [place] [address] Missed menses Social History Tobacco Use Types Packs/Day Years Used Date Smoking Tobacco: Never Smokeless Tobacco: Never Alcohol Use Standard Drinks/Week Comments Never 0 (1 standard drink = 0.6 oz pur e alcohol) Estimated Date of Delivery Comme nts Yes 08/23/2025 Based on last me nstrual period of 11/16/2024 Sex and Gender Information Value Date Recorded Sex Assigned at Not on file Legal Sex Female 11:47 PM EDT Gender Identity Not on file Sexual Orientation Not on file documented as of this encounter Plan of Treatment Upcoming Encounters Date Type Department Care Team (Late st Contact Info) Description 02/21/2025 9:50 AM EDT Routine [facility] [address] [place], [place] [address] [address] Alexis Gomez, DO [address] [place], [place] [address], [place] [id number] documented as of this encounter Procedures Procedure Name Priority Date/Time Associated Diagnosis Comments US OB TRANSVAGINAL Routine 01/21/2025 8: 41 AM EDT Missed menses documented in this encounter Results * US OB transvaginal (01/21/2025 8:41 AM EDT) Anatomical Region Laterality Modality Body Ultrasound 01/25/2025 10:4 0 AM EDT Impressions 01/25/2025 11:25 AM EDT Findings consistent with a live intrauterine gestation, current sonographic age of 9 weeks and 1 day resulting in an estimated date of delivery of August 25, 2025. TRANSCRIBED BY: ELECTRONICALLY SIGNED BY: Corey Melgoza MD Narrative 01/25/2025 11:25 AM EDT FINDINGS: A single intrauterine gestational sac is present. No subchorionic hemorrhage. A single pole is present. Normal heart rate at 186 beats per minute. Yolk sac also is seen. Current sonographic age is 9 weeks and 1 day based on the crown-rump length measurement of 2.4 cm, gestational sac measurement of 3.9 cm. Based on this age, current estimated date of delivery is August 25, 2025. No pelvic fluid or adnexal mass present. Cervix is closed, 3.5 cm. Procedure Note Corey Melgoza MD - 01/25/2025 FINDINGS: A single intrauterine gestational sac is present. No subchorionichemorrhage. A single pole is present. Normal heart rate at186 beats per minute. Yolk sac also is seen. Current sonographic age is9 weeks and 1 day based on the crown-rump length measurement of 2.4 cm,gestational sac measurement of 3.9 cm. Based on this age, currentestimated date of delivery is August 25, 2025. No pelvic fluid oradnexal mass present. Cervix is closed, 3.5 cm. IMPRESSION: Findings consistent with a live intrauterine gestation, currentsonographic age of 9 weeks and 1 day resulting in an estimated date ofdelivery of August 25, 2025. TRANSCRIBED BY: ELECTRONICALLY SIGNED BY: Corey Melgoza MD us Alexis Jason DO IMG OB US PROCEDURES Final Resul t documented in this encounter Visit Diagnoses Diagnosis Missed menses documented in this encounter Care Teams Gunner'S Mate Relationship Specialty Start Date End Date Harshil Moran MD PCP - General Family Medicine 12/30/22 documented as of this encounter
--- OUTSIDE RECORDS SUMMARY | 2025-01-21 09:00 | XMS_ITS | Encounter Summary ---
Author Organization [facility] Address [address] [place] [address] Care Team Providers Care Bullet Swaging Machine Adjuster Name Role Phone Harshil Moran MD Primary Care Provider Reason for Visit * Reason Comments Amenorrhea Encounter Details Date Type Department Care Team (Late st Contact Info) Description 01/21/2025 9:00 AM EDT Initial [facility] B[facility] OB [address] [place] [address] [place] [address] GA: 9w3d Social History Tobacco Use Types Packs/Day Years [...] Sign Reading Time Taken Comments Blood Pressure 120/80 01/21/2025 9:03 AM EDT Pulse - - Temperature - - Respiratory Rate - - Oxygen Saturation - - Inhaled Oxygen Concentration - - Weight 64.8 kg (142 lb 12.8 oz) 01/21/2025 9:03 AM EDT Height - - Body Mass Index 26.12 09/23/2022 12:00 PM EDT documented in this encounter Progress Notes * Nu Patiño LPN - 01/21/2025 9:00 AM EDT Reason for Appointment: Patient ID: Albina Monreal is a 29 y.o. female who presents for Amenorrhea Patient presents today for a Nurse OB Intake appointment. Patient is 9w3d with a Estimated Date of Delivery: 08/23/25 OB History Para Term AB Living 3 2 2 2 SAB IAB Ectopic Multiple Live Births 2 # Outcome Date GA Lbr Shiva/2nd Weight Sex Type Anes PTL Lv 3 Current 2 Term 08/26/23 38w0d 6 lb 10 oz M Vag-Spont AIKL 1 Term 12/25/21 38w0d 6 lb 10 oz M Vag-Spont AKIL Obstetric Comments Last pap smear date 09/19/2021 neg Current Medications: has a current medication list which includes the following prescription(s): ondansetron, ondansetron, 19, and vitamins. Medical History: Active Ambulatory Problems Diagnosis Date Noted Axillary mass, right 01/05/2024 Resolved Ambulatory Problems Diagnosis Date Noted No Resolved Ambulatory Problems Past Medical History: Diagnosis Date 6 weeks follow-up ([facility]) BMI 24.0-24.9, adult Vaginal delivery ([facility]) Family History Problem Relation Name Age of Onset Hypertension Mother Hypertension Father Heart disease Father Heart disease Brother Social History Tobacco Use Smoking status: Never Smokeless tobacco: Never Substance Use Topics Alcohol use: Never Drug use: Never Past Surgical History: Procedure Laterality Date PAP SMEAR 09/19/2021 negative Allergies Allergen Reactions Bee Venom Hives and Unknown Erythromycin Hives and Unknown Erythromycin Base Rash Vitals: Estimated body mass index is 26.12 kg/m?? as calculated from the following: Height as of 09/23/22: 5' 2 . Weight as of this encounter: 142 lb 12.8 oz. BP: 120/80 Patient's last menstrual period was 11/16/2024. Assessment/Plan Diagnoses and all orders for this visit: Missed menses - US OB transvaginal; Future - Type and screen; Future - ABO/Rh; Future - CBC and differential - Hemoglobin A1c - RPR - Rubella antibody, IgG - Hepatitis B surface antigen - Hepatitis C antibody - HIV-1 and HIV-2 antibodies - Urine culture - POCT , urine manually resulted - POCT urinalysis dipstick manually resulted , unspecified gestational age [facility] - Type and screen; Future - ABO/Rh; Future - CBC and differential - Hemoglobin A1c - RPR - Rubella antibody, IgG - Hepatitis B surface antigen - Hepatitis C antibody - HIV-1 and HIV-2 antibodies - Rapid drug screen, urine; Future Encounter for supervision of normal first in first trimester ([facility]) - Rapid drug screen, urine; Future Nurse Note: OB Intake: Patient presents today for first OB visit. Patients history has been reviewed in great detail including any potential risks. Patient signed consent forms and patient desires testing in both trimesters. Patient currently has no complaints and has been advised to drink 6-8 glasses of water a day, eatno raw or undercooked meat, and stay away from [facility]. Patient has also been advised to not change litter boxes and eat 6 small meals a day. Patient has been consulted regarding the do's and don'ts ofpregnancy. Patient was given labs and all questions and concerns were answered. Follow Up: Patient is to return in 4 weeks for routine OB appointment. Follow Up: Patient is to have labs drawn at directed and return to office for initial OB appointment with provider. Patient may call office as needed with any concerns or questions. Nurse Visit Completed by: Nu Patiño LPN documented in this encounter Plan of Treatment Upcoming Encounters Date Type Department Care Team (Late st Contact Info) Description 02/21/2025 9:50 AM EDT Routine [facility] OB [address] [place] [address] Alexis Gomez, DO [address] [facility] [address] [address] Scheduled Orders Name Type Priority Associated Diagnoses Orde r Schedule Type and screen Lab Routine Missed menses , unspecified gestational age ([facility]) Expected: 01/21/2025 (Approximate), Expires: 01/21/2026 ABO/Rh Lab Routine Missed menses , unspecified gestational age ([facility]) Expected: 01/21/2025 (Approximate), Expires: 01/21/2026 CBC and differential Lab Routine Missed menses , unspecified gestational age ([facility]) Ordered: 01/21/2025 Hemoglobin A1c Lab Routine Missed menses , unspecified gestational age ([facility]) Ordered: 01/21/2025 RPR Lab Routine Missed menses , unspecified gestational age ([facility]) Ordered: 01/21/2025 Rubella antibody, IgG Lab Routine Missed menses , unspecified gestational age ([facility]) Ordered: 01/21/2025 Hepatitis B surface antigen Lab Routine Missed menses , unspecified gestational age ([facility]) Ordered: 01/21/2025 Hepatitis C antibody Lab Routine Missed menses , unspecified gestational age ([facility]) Ordered: 01/21/2025 HIV-1 and HIV-2 antibodies Lab Routine Missed menses , unspecified gestational age ([facility]) Ordered: 01/21/2025 Urine culture Microbiology Routine Missed menses Ordered: 01/21/2025 Rapid drug screen, urine Lab Routine , unspecified gestational age ([facility]) Encounter for supervision of normal first in first trimester ([facility]) Expected: 01/21/2025 (Approximate), Expires: 01/21/2026 documented as of this encounter Procedures Procedure Name Priority Date/Time Associated Diagnosis Comments POCT , URINE Routine 01/21/2025 8:49 AM EDT Missed menses POCT URINALYSIS DIPSTICK Routine 01/21/2025 8:49 AM EDT Missed menses documented in this encounter Results * POCT urinalysis dipstick manually resulted (01/21/2025 8:49 AM EDT) Color, UA Yellow Clarity, UA Clear Glucose, UA Negative Negative - 1999(110) ++++ mg/dL Bilirubin, UA Negative Negative - 4(70) +++ mg/dL Ketones, UA Negative Negative - 160(16) ++++ mg/dL Spec Grav, UA 1.010 1 - 1.03 Blood, UA Negative Negative - 50 Jerad/mcL pH, UA 6.0 5 - 9 Protein, UA Negative Negative - 1999(20) ++++ mg/dL Urobilinogen, UA 1.0 0.2 - 12 mg/dL Leukocytes, UA Negative Negative - 500+++ Gerson/mcL Nitrite, UA Negative Negative - Positive Urine 01/21/2025 8:49 AM EDT us Alexis Jason DO POINT OF CARE TEST ENTER/EDIT OR DERABLES Final Result * (ABNORMAL) POCT , urine manually resulted (01/21/2025 8:49 AM EDT) Preg Test, Ur Positive Negative Urine 01/21/2025 8:49 AM EDT us Alexis Jason DO POINT OF CARE TEST ENTER/EDIT OR DERABLES Final Result * US OB transvaginal (01/21/2025 8:41 AM [...] this encounter Visit Diagnoses Diagnosis Missed menses Missed menses , unspecified gestational age ([facility]) Encounter for supervision of normal first in first trimester ([facility]) documented in this encounter Care Teams Bullet Swaging Machine Adjuster Relationship Specialty Start Date End Date Harshil Moran MD PCP - General Family Medicine 12/30/22 documented as of this encounter
--- OUTSIDE RECORDS SUMMARY | 2025-01-28 09:07 | XMS_ITS | Encounter Summary ---
Author Organization [facility] Address [address] [place] [facility] [place] [address] Care Team Providers Care Director Personal Name Role Phone Harshil Moran MD Primary Care Provider [phone] Encounter Details Date Type Department Care Team (Late st Contact Info) Description 12/30/2024 Orders Only [facility] [address] [place] [phone] Nu Patiño LPN [address] [employer] [facility] [place] [address] Social History Tobacco Use Types Packs/Day Years [...] AM EDT Routine [facility] OB [address] [employer] [place] [address] Alexis Gomez [address] [place], [place] [address] documented as of this encounter Procedures Procedure Name Priority Date/Time Associated Diagnosis Comments PAP SMEAR Routine 12/20/2024 12:00 AM EDT documented in this encounter Results * Pap Smear (12/20/2024 12:00 AM EDT) Swab Cervical swab / Unknown us Jason Nurse [facility] LAB CYTOLOGY ORDERABLES Final Result EXTERNAL LAB documented in this encounter Visit Diagnoses Not on filedocumented in this encounter Care Teams Director Personal Relationship Specialty Start Date End Date Harshil Moran MD PCP - General Family Medicine 12/30/22 documented as of this encounter
--- OUTSIDE RECORDS SUMMARY | 2025-01-28 09:08 | XMS_ITS | Encounter Summary ---
Author Organization [facility] [employer] [facility] tem Address [id number] [address] [place] [address] Care Team Providers Care Marketing Communications Associate Name Role Phone Donna Mata Primary Care Provider [phone] Encounter Details Date Type Department Care Team (Late st Contact Info) Description 11/01/2022 Telephone [facility] Internal Medicine - Family Medicine [address] [place] [address] Donna Mata APRN-FNP [address] [place] [address] [place] [address] Social History Tobacco Use Types Packs/Day Years [...] on filedocumented in this encounter Care Teams Marketing Communications Associate Relationship Specialty Start Date End Date Donna Mata, OLGA-NURSE ORTHOPAEDIC [address] [facility] 01/05/2024 [place] [address] PCP - General Internal Medicine 11/01/22 12/13/23 documented as of this encounter
--- OUTSIDE RECORDS SUMMARY | 2025-01-28 09:08 | XMS_ITS | Encounter Summary ---
Author Organization [facility] [employer] [facility] tem Address [id number] [address] [place] [address] Care Team Providers Care Film Reader Name Role Phone Donna Mata Primary Care Provider [phone]- [phone] Encounter Details Date Type Department Care Team (Late st Contact Info) Description 01/31/2023 Orders Only [facility] Internal Medicine - Family Medicine [address] [place] [address] External, Scanning Provider Social History Tobacco Use [...] on filedocumented in this encounter Care Teams Film Reader Relationship Specialty Start Date End Date Donna Mata APRN-FNP [address] [facility] RETIRED 01/05/2024 [place] [address] PCP - General Internal Medicine 11/01/22 12/13/23 documented as of this encounter
--- OUTSIDE RECORDS SUMMARY | 2025-01-28 09:08 | XMS_ITS | Encounter Summary ---
Author Organization [facility] tem Address [id number] [address] [place] [address] Care Team Providers Care Store Administrator Name Role Phone Donna Mata APRN-JAJA Primary Care Provider [phone]- [phone] Encounter Details Date Type Department Care Team (Late st Contact Info) Description 04/25/2023 Orders Only [facility] Internal Medicine - Family Medicine [address] [place] [address] Donna Mata APRN-FNP [address] [place] [address] Social History Tobacco Use Types Packs/Day Years [...] on filedocumented in this encounter Care Teams Store Administrator Relationship Specialty Start Date End Date Donna Mata APRN-FNP [address] [facility] 01/05/2024 [place] [address] PCP - General Internal Medicine 11/01/22 12/13/23 documented as of this encounter
--- OUTSIDE RECORDS SUMMARY | 2025-01-28 09:08 | XMS_ITS | Encounter Summary ---
Author Organization [facility] Address [address] [facility] [place] [address] Care Team Providers Care Helminthologist Name Role Phone Harshil Moran MD Primary Care Provider [phone] Encounter Details Date Type Department Care Team (Late st Contact Info) Description 12/24/2023 Orders Only NOM[facility] [address] [place] [phone] Saadia Fernandez MA [address] [place] [address] [place] [address] Social History Tobacco Use Types Packs/Day Years [...] Description 02/21/2025 9:50 AM EDT Routine [facility] OB [address] [place], [place] [address] [phone] Alexis Gomez DO [address] [facility] [address] [place], [place] [address] documented as of this encounter Procedures Procedure Name Priority Date/Time Associated Diagnosis Comments PAP SMEAR Routine 12/15/2023 12:00 AM EDT documented in this encounter Results * Pap Smear (12/15/2023 12:00 AM EDT) Swab Cervical swab / Unknown us Tammie GENAO LAB CYTOLOGY ORDERABLES Final Re sult EXTERNAL LAB documented in this encounter Visit Diagnoses Not on filedocumented in this encounter Care Teams Helminthologist Relationship Specialty Start Date End Date Harshil Moran MD PCP - General Family Medicine 12/30/22 documented as of this encounter
--- OUTSIDE RECORDS SUMMARY | 2025-01-28 09:08 | XMS_ITS | Encounter Summary ---
Author Organization [facility] Address [address] [facility] [place] [address] Care Team Providers Care Firmware Engineer Name Role Phone Harshil Moran MD Primary Care Provider [phone] Encounter Details Date Type Department Care Team (Late st Contact Info) Description 04/24/2023 Clinisync Result Encounter [facility] External Department Unsolicited Deandra Gomez, DO [address] [place], [place] [phone] Social History Tobacco Use Types Packs/Day Years [...] AM EDT Routine [facility] B[facility] OB [address] [place] [phone] Deandra Gomez, DO [address] [place] [address] documented as of this encounter Procedures Procedure Name Priority Date/Time Associated Diagnosis Comments US OB ANATOMY 04/24/2023 10:08 AM EDT documented in this encounter Results * US OB ANATOMY (04/24/2023 10:08 AM EDT) Anatomical Region Laterality Modality Other 04/24/2023 10:0 8 AM EDT Narrative 04/24/2023 10:08 [place] [address] Ultrasound Report Signed Patient: GUANAKITO MONREAL MR#: [id number] : 1995 Acct:[id number] Age/Sex: 27 / F ADM Date: 04/23/23 Loc: US Attending Dr: Deandra Gomez D.O. Ordering Physician: Deandra Gomez D.O. Date of Service: 04/23/23 Procedure(s): US OB anatomy Accession Number(s): [id number] cc: HARSHIL MORAN ; Deandra Gomez D.O. [place] [address] Patient Name: GUANAKITO MONREAL MRN: [id number] date: 1995 Sex: F Assigned Patient Location: Current Patient Location: Accession/Order Number: [id number] Exam Date: 04/23/2023 13:30 Report Date: 04/24/2023 [...] Signed By: 04/24/23 1010 DD/ 1008 TD/TT: Food Mixer: Procedure Note Radiology, Radiologist, MD - 04/24/2023 [place] [address] Ultrasound Report Signed Patient: GUANAKITO MONREAL LMR#: [id number] : 1995Acct:[id number] Age/Sex: 27 / FADM Date: 04/23/23 Loc: US Attending Dr: Deandra Gomez D.O. Ordering Physician: Deandra Gomez D.O. Date of Service: 04/23/23 Procedure(s): US OB anatomy Accession Number(s): [id number] cc: HARSHIL MORAN Corey D.O. The [address] [address] Patient Name: GUANAKITO MONREAL MRN: [id number] date: 1995 Sex: F Assigned Patient Location: Current Patient Location: Accession/Order Number: [id number] Exam Date: 04/23/2023 13:30 Report Date: 04/24/2023 [...] M.D. Signed By:04/24/23 1010 DD/ 1008 TD/TT: Food Mixer: us Deandraандрей Rooto DO [facility] Final Result documented in this encounter Visit Diagnoses Not on filedocumented in this encounter Care Teams Firmware Engineer Relationship Specialty Start Date End Date Harshil Moran MD PCP - General Family Medicine 12/30/22 documented as of this encounter
--- OUTSIDE RECORDS SUMMARY | 2025-01-28 09:08 | XMS_ITS | Clinical Summary ---
Author [facility] Address [id number] [address] [place] [address] Care Team Providers Care Router Tender Name Role Phone Unavailable Primary Care Provider [...]
--- OUTSIDE RECORDS SUMMARY | 2025-01-28 09:08 | XMS_ITS | Encounter Summary ---
Author Organization [facility] Address [address] [facility] [place] [address] Care Team Providers Care Senior Dynamics Crm Developer Name Role Phone Harshil Moran MD Primary Care Provider [phone] Encounter Details Date Type Department Care Team (Late Contact Info) Description 04/01/2023 Abstract [facility] OB [address] [facility] [place] [address] Tammie Maloney PA [address] [facility] [address] [place], [facility] Social History Tobacco Use Types Packs/Day [...] Description 02/21/2025 9:50 AM EDT Routine [facility] OB [address] [facility] [place] [address] Alexis Gomez, DO [address] [facility] [address] [place], [facility] documented as of this encounter Visit Diagnoses Not on filedocumented in this encounter Care Teams Senior Dynamics Crm Developer Relationship Specialty Start Date End Date Harshil Moran MD PCP - General Family Medicine 12/30/22 documented as of this encounter
--- OUTSIDE RECORDS SUMMARY | 2025-01-28 09:08 | XMS_ITS | Encounter Summary ---
Author Organization [facility] Address [address] [place] [address] Care Team Providers Care Spring Fitter Helper Name Role Phone Harshil Moran MD Primary Care Provider + [phone] Encounter Details Date Type Department Care Team (Late Contact Info) Description 08/26/2023 Abstract [facility] B[facility] OB [address] [place] [phone] Alexis Gomez [address] [place], [facility]11 Social History Tobacco Use Types Packs/Day Years [...] Department Care Team (Late Contact Info) Description 02/21/2025 9:50 AM EDT Routine [facility] OB [address] [place] [address] Alexis Gomez [facility] [place] [phone] documented as of this encounter Visit Diagnoses Not on filedocumented in this encounter Care Teams Spring Fitter Helper Relationship Specialty Start Date End Date Harshil Moran MD PCP - General Family Medicine 12/30/22 documented as of this encounter
--- OUTSIDE RECORDS SUMMARY | 2025-01-28 09:08 | XMS_ITS | Encounter Summary ---
Author Organization [facility] Address [id number] [address] [place] [address] Care Team Providers Care Lighthouse Keeper Name Role Phone Unavailable Primary Care Provider Unavailabl e Encounter Details Date Type Department Care Team (Late st Contact Info) Description 12/26/2023 Orders Only [facility] Internal [facility] - Family Medicine [address] [place] [address] External, Scanning Provider Social History Tobacco Use [...]
--- OUTSIDE RECORDS SUMMARY | 2025-01-28 09:08 | XMS_ITS | Encounter Summary ---
Author Organization [facility] Address [id number] [address] [place] [address] Care Team Providers Care Design Drafter Chief Name Role Phone Unavailable Primary Care Provider Unavailabl e Encounter Details Date Type Department Care Team (Late st Contact Info) Description 03/12/2024 Orders Only [facility] Internal Medicine - Family Medicine [address] [place] [address] Ref Prov, [place] [address] Social History Tobacco Use Types Packs/Day Years [...] EDT) us Not In System Ref Prov OR [facility] Final Result MANUALLY TRANSCRIBED RESULTS documented in this encounter Visit Diagnoses Not on filedocumented in this encounter
--- OUTSIDE RECORDS SUMMARY | 2025-01-28 09:08 | XMS_ITS | Encounter Summary ---
Author Organization [facility] Address [address] [facility] [place] [address] Care Team Providers Care Devops Developer Name Role Phone Harshil Moran MD Primary Care Provider [phone] Encounter Details Date Type Department Care Team (Late st Contact Info) Description 01/16/2024 Clinisync Result Encounter [facility] External Department Unsolicited Deandra Gomez, [address] [place], [place] [address] Social History Tobacco Use Types Packs/Day Years [...] AM EDT Routine [facility] B[facility] OB [address] [facility] [place] [phone] Deandra Gomez, DO [address] [place], [place] [address] documented as of this encounter Procedures Procedure Name Priority Date/Time Associated Diagnosis Comments US BIOPSY FNA 01/16/2024 12:45 PM EDT documented in this encounter Results * US BIOPSY FNA (01/16/2024 12:45 PM EDT) Anatomical Region Laterality Modality Other 01/16/2024 12:4 5 PM EDT Narrative 01/16/2024 12:48 PM EDT [address] [address] Ultrasound Report Signed Patient: GUANAKITO MONREAL MR#: [id number] : 1995 Acct:[id number] Age/Sex: 28 / F ADM Date: 01/16/24 Loc: US Attending Dr: Deandra Gomez D.O. Ordering Physician: Deandra Gomez D.O. Date of Service: 01/16/24 Procedure(s): US biopsy FNA Accession Number(s): [id number] cc: HARSHIL MORAN ; Deandra Gomez D.O. [address] [address] Patient Name: GUANAKITO MONREAL MRN: [facility]:[id number] date: 1995 Sex: F Assigned Patient Location: US Current Patient Location: US Accession/Order Number: [id number] Exam Date: 01/16/2024 10:34 Report Date: 01/16/2024 [...] Signed By: 01/16/24 1248 DD/ 1245 TD/TT: Medical Technical Writer: Procedure Note Radiology, Radiologist, - 01/16/2024 [place] [address] Ultrasound Report Signed Patient: GUANAKITO MONREAL LMR#: [id number] : 1995Acct:[id number] Age/Sex: 28 / FADM Date: 01/16/24 Loc: US Attending Dr: Deandra Gomez D.O. Ordering Physician: Deandra Gomez D.O. Date of Service: 01/16/24 Procedure(s): US biopsy FNA Accession Number(s): [id number] cc: HARSHIL MORAN Corey D.O. The [place] [id number] Patient Name: GUANAKITO MONREAL MRN: [id number] date: 1995 Sex: F Assigned Patient Location: US Current Patient Location: US Accession/Order Number: [id number] Exam Date: 01/16/2024 10:34 Report Date: 01/16/2024 [...] 12:45 Dictated By: Erica Bhandari M.D. Signed By:01/16/24 1248 DD/ 1245 TD/TT: Medical Technical Writer: us Deandra Gomez DO [facility] Final Result documented in this encounter Visit Diagnoses Not on filedocumented in this encounter Care Teams Devops Developer Relationship Specialty Start Date End Date Harshil Moran MD PCP - General Family Medicine 12/30/22 documented as of this encounter
--- OUTSIDE RECORDS SUMMARY | 2025-01-28 09:08 | XMS_ITS | Encounter Summary ---
Author Organization [facility] Address [address] [facility] [place] [address] Care Team Providers Care Cassandra Developer Name Role Phone Harshil Moran MD Primary Care Provider [phone] Encounter Details Date Type Department Care Team (Late st Contact Info) Description 04/24/2023 Clinisync Result Encounter [facility] External Department Unsolicited Deandra Gomez, DO [address] [place], [place] [id number] Social History Tobacco Use Types Packs/Day Years [...] Routine [facility] BCP [place] [address] [place] [phone] Deandra Gomez, DO [address] [place] [address] documented as of this encounter Procedures Procedure Name Priority Date/Time Associated Diagnosis Comments US OB CERVICAL LENGTH 04/24/2023 10:08 AM EDT documented in this encounter Results * US OB CERVICAL LENGTH (04/24/2023 10:08 AM EDT) Anatomical Region Laterality Modality Other 04/24/2023 10:0 8 AM EDT Narrative 04/24/2023 10:08 [place] [address] Ultrasound Report Signed Patient: GUANAKITO MONREAL MR#: [id number] : 1995 Acct:[id number] Age/Sex: 27 / F ADM Date: 04/23/23 Loc: US Attending Dr: Deandra Gomez D.O. Ordering Physician: Deandra Gomez D.O. Date of Service: 04/23/23 Procedure(s): US OB cervical length Accession Number(s): [id number] cc: HARSHIL MORAN ; Deandra Gomez D.O. [place] [address] Patient Name: GUANAKITO MONREAL MRN: [id number] date: 1995 Sex: F Assigned Patient Location: Current Patient Location: Accession/Order Number: [id number] Exam Date: 04/23/2023 13:30 Report Date: 04/24/2023 [...] Signed By: 04/24/23 1010 DD/ 1008 TD/TT: General Clerk: Procedure Note Radiology, Radiologist, MD - 04/24/2023 [place] [address] Ultrasound Report Signed Patient: GUANAKITO MONREAL LMR#: [id number] : 1995Acct:[id number] Age/Sex: 27 / FADM Date: 04/23/23 Loc: US Attending Dr: Deandra Gomez D.O. Ordering Physician: Deandra Gomez D.O. Date of Service: 04/23/23 Procedure(s): US OB cervical length Accession Number(s): [id number] cc: HARSHIL MORAN Corey D.O. The [place] [id number] Patient Name: GUANAKITO MONREAL MRN: [id number] date: 1995 Sex: F Assigned Patient Location: US Current Patient Location: Accession/Order Number: [id number] Exam Date: 04/23/2023 13:30 Report Date: 04/24/2023 [...] M.D. Signed By:04/24/23 1010 DD/ 1008 TD/TT: General Clerk: us Deandra Gomez DO [facility] Final Result documented in this encounter Visit Diagnoses Not on filedocumented in this encounter Care Teams Cassandra Developer Relationship Specialty Start Date End Date Harshil Moran MD PCP - General Family Medicine 12/30/22 documented as of this encounter
--- OUTSIDE RECORDS SUMMARY | 2025-01-28 09:08 | XMS_ITS | Encounter Summary ---
Author Organization [facility] Address [address] [facility] [place] [address] Care Team Providers Care Mold Mechanic Name Role Phone Harshil Moran MD Primary Care Provider + [phone] Encounter Details Date Type Department Care Team (Late Contact Info) Description 01/27/2024 Abstract [facility] BCP OB [address] [employer] [place] [address] Selina Ruiz LPN [address] [employer] [place] [id number] Social History Tobacco Use Types Packs/Day Years [...] AM EDT Routine [facility] BCP OB [address] [employer] [place] [address] Alexis Gomez [address] [place] [address] documented as of this encounter Visit Diagnoses Not on filedocumented in this encounter Care Teams Mold Mechanic Relationship Specialty Start Date End Date Harhsil Moran MD PCP - General Family Medicine 12/30/22 documented as of this encounter
--- OUTSIDE RECORDS SUMMARY | 2025-01-28 09:08 | XMS_ITS | Encounter Summary ---
Author Organization [facility] Address [id number] [address] [place] [address] Care Team Providers Care Circuit Court Clerk Name Role Phone Unavailable Primary Care Provider Unavailabl e Encounter Details Date Type Department Care Team (Late st Contact Info) Description 01/26/2024 Orders Only [facility] Internal Medicine - Family Medicine [address] [place] [address] Ref Prov, [place] [address] Social History Tobacco Use Types Packs/Day Years [...]
--- OUTSIDE RECORDS SUMMARY | 2025-01-28 09:08 | XMS_ITS | Encounter Summary ---
Author Organization [facility] Address [address] [facility] [place] [address] Care Team Providers Care Master Electrician Name Role Phone Harshil Moran MD Primary Care Provider + [phone] Encounter Details Date Type Department Care Team (Late Contact Info) Description 01/21/2024 Abstract [facility] BCP OB [address] [place] [place] [phone] Nu Patiño LPN [address] [employer] [facility] [place] [address] Social History Tobacco Use Types Packs/Day Years [...] AM EDT Routine [facility] BCP OB [address] [facility] [place] [address] Alexis Gomez DO [address] [place], [place] [phone] documented as of this encounter Visit Diagnoses Not on filedocumented in this encounter Care Teams Master Electrician Relationship Specialty Start Date End Date Harshil Moran MD PCP - General Family Medicine 12/30/22 documented as of this encounter
--- OUTSIDE RECORDS SUMMARY | 2025-01-28 09:08 | XMS_ITS | Encounter Summary ---
Author Organization [facility] Address [address] [facility] [address] Care Team Providers Care Long Lines Operator Name Role Phone Harshil Moran MD Primary Care Provider + [phone] Encounter Details Date Type Department Care Team (Late st Contact Info) Description 07/22/2023 Abstract [facility] BCP OB [address] [employer] [place] [phone] Nu Patiño LPN [address] [employer] [facility] [address] Social History Tobacco Use Types Packs/Day Years [...] AM EDT Routine [facility] BCP OB [address] [place] [address] Alexis Gomez DO [address] [place], [place] [address] documented as of this encounter Visit Diagnoses Not on filedocumented in this encounter Care Teams Long Lines Operator Relationship Specialty Start Date End Date Harshil Moran MD PCP - General Family Medicine 12/30/22 documented as of this encounter
--- OUTSIDE RECORDS SUMMARY | 2025-01-28 09:08 | XMS_ITS | Encounter Summary ---
Author Organization [facility] Address [address] [place] [address] Care Team Providers Care Enterprise Project Manager Name Role Phone Harshil Moran MD Primary Care Provider [phone] Encounter Details Date Type Department Care Team (Late st Contact Info) Description 12/26/2023 Clinisync Result Encounter [facility] External Department Unsolicited Deandra Gomez, [address] [place] [address] Social History Tobacco Use Types Packs/Day Years [...] AM EDT Routine [facility] BCP OB [address] [place] [phone] Deandra Gomez, [address] [place] [address] documented as of this encounter Procedures Procedure Name Priority Date/Time Associated Diagnosis Comments US NONVASCULAR RIGHT EXTREMITY 11982 12/26/2023 5:12 AM EDT documented in this encounter Results * US NONVASCULAR RIGHT EXTREMITY 03625 (12/26/2023 5:12 AM EDT) Anatomical Region Laterality Modality Radiographic Grace ging 12/26/2023 5:12 AM EDT Narrative 12/26/2023 5:15 [place] [address] Ultrasound Report Signed Patient: GUANAKITO MONREAL MR#: [id number] : 1995 Acct:[id number] Age/Sex: 28 / F ADM Date: 12/25/23 Loc: US Attending Dr: Deandra Gomez D.O. Ordering Physician: Deandra Gomez D.O. Date of Service: 12/25/23 Procedure(s): US extremity nonvascular RT Accession Number(s): [id number] cc: HARSHIL MORAN ; Deandra Gomez D.O. [place] [address] Patient Name: GUANAKITO MONREAL MRN: [id number] date: 1995 Sex: F Assigned Patient Location: US Current Patient Location: Accession/Order Number: [id number] Exam Date: 12/25/2023 09:10 Report Date: 12/26/2023 [...] Dictated By: Aris Workman M.D. Signed By: 12/26/2315 DD/ 1 TD/TT: Electrician Helper Powerhouse: Procedure Note Radiology, Radiologist, MD - 12/26/2023 [place] [address] Ultrasound Report Signed Patient: GUANAKITO MONREAL LMR#: [id number] : 1995Acct:[id number] Age/Sex: 28 / FADM Date: 12/25/23 Loc: US Attending Dr: Deandra Gomez D.O. Ordering Physician: Deandra Gomez D.O. Date of Service: 12/25/23 Procedure(s): US extremity nonvascular RT Accession Number(s): [id number] cc: HARSHIL MORAN ; Deandra Gomez D.O. The [place] [address] Patient Name: GUANAKITO MONREAL MRN: [facility]:[id number] date: 1995 Sex: F Assigned Patient Location: US Current Patient Location: Accession/Order Number: [id number] Exam Date: 12/25/2023 09:10 Report Date: 12/26/2023 [...] 05:12 Dictated By: Aris Workman M.D. Signed By:12/26/2315 DD/ 1 TD/TT: Electrician Helper Powerhouse: us Deandra Gomez DO IMG XR PROCEDURES Final Result documented in this encounter Visit Diagnoses Not on filedocumented in this encounter Care Teams Enterprise Project Manager Relationship Specialty Start Date End Date Harshil Moran MD PCP - General Family Medicine 12/30/22 documented as of this encounter
--- OUTSIDE RECORDS SUMMARY | 2025-01-28 09:09 | XMS_ITS | Clinical Summary ---
Author Organization [facility] Healthcare Address [address] [place] [address] Care Team Providers Care Director Private Name Role Phone Harshil Moran MD Primary Care Provider Allergies Active Allergy Reactions Criticality Noted Date [...] 4 MG tabletIndications: Nausea and vomiting during ([facility]) Take 1 tablet (4 mg) by mouth every 6 (six) hours if needed for nausea or vomiting for up to 30 doses Take 1 tablet by mouth every 6 hours as needed for nausea. 30 tablet 3 5 Active Vit-Fe Fumarate-FA ( Vitamins) 28-0.8 MG tabletIndications: examination or test, positive result ([facility]) Take 1 tablet by mouth Daily 30 tablet 9 5 12/21/19 26 Active Active Problems Problem Noted Date Diagnosed Date Axillary mass, right 01/05/2024 Estimated Date of Delivery Comme nts Yes 08/23/2025 Based on last me nstrual period of 11/16/2024 Encounters Date Type Department Care Team Description 01/21/2025 9:00 AM EDT Initial [facility] OB [address] [place] [address] GA: 9w3d 01/21/2025 8:30 AM EDT Ancillary Procedure [facility] OB [address] [place] [address] Missed menses 01/21/2025 Abstract [facility] OB [facility] [place] [address] Alexis Gomez, DO 01/21/2025 Abstract [facility] OB [address] [place] [address] Alexis Gomez, DO 01/14/2025 Travel 12/30/2024 Orders Only [facility] OB [address] [place] [address] Nu Patiño LPN 12/20/2024 2:00 PM EDT Office Visit [facility] OB [address] [place] [address] Alexis Gomez, examination or test, positive result ([facility]) (Primary Dx); Well woman exam with routine gynecological exam; STD exposure; Nausea and vomiting during ([facility]) 12/20/2024 Clinisync Result Encounter [facility]OMS External Department Unsolicited Alexis Gomez, DO 12/20/2024 External Result Encounter [facility] External Department Unsolicited Alexis Gomez, DO 12/20/2024 Bamboo flowsheet [facility] OB [address] [facility] [place] [address] Alexis Gomez, DO 12/13/2024 Travel from Last 3 Months [...] 12.8 oz) 01/21/2025 9:03 AM EDT Height 157.5 cm (5' 2 ) 09/23/2022 12:0 0 PM EDT Body Mass Index 26.12 09/23/2022 12:00 PM EDT Plan of Treatment Upcoming Encounters Date Type Department Care Team (Late st Contact Info) Description 02/21/2025 9:50 AM EDT Routine [facility] BCP OB [address] [facility] [place] [address] Alexis Gomez, DO [address] [place] [address] [place] [address] Procedures Procedure Name Priority Date/Time Associated Diagnosis Comments POCT URINALYSIS DIPSTICK Routine 01/21/2025 8:49 AM EDT Missed menses POCT , URINE Routine 01/21/2025 8:49 AM EDT Missed menses OB TRANSVAGINAL Routine 01/21/2025 8: 41 AM EDT Missed menses RECURRENT VAGINITIS (HTRX) Routine 12/20/2024 4:28 PM EDT POCT , URINE Routine 12/20/2024 3:26 PM EDT Well woman exam with routine gynecological exam STD exposure Nausea and vomiting during ([facility]) examination or test, positive result ([facility]) IGP,APTIMA HPV,AGE GDLN Routine 12/20/2024 2:09 PM EDT PAP SMEAR Routine 12/20/2024 12:00 AM EDT from Last 3 Months Results * (ABNORMAL) POCT , urine manually resulted (01/21/2025 8:49 AM EDT) Only the most recent of2 resultswithin the time period is included. Preg Test, Ur Positive Negative Urine 01/21/2025 8:49 AM EDT Alexis Jason DO POINT OF CARE TEST ENTER/EDIT OR DERABLES Final Result * POCT urinalysis dipstick manually resulted (01/21/2025 8:49 AM EDT) Color, UA Yellow Clarity, UA Clear Glucose, UA Negative Negative - 2000(110) ++++ mg/dL Bilirubin, UA Negative Negative - 4(70) +++ mg/dL Ketones, UA Negative Negative - 160(16) ++++ mg/dL Spec Grav, UA 1.010 1 - 1.03 Blood, UA Negative Negative - 50 Jerad/mcL pH, UA 6.0 5 - 9 Protein, UA Negative Negative - 2000(20) ++++ mg/dL Urobilinogen, UA 1.0 0.2 - [...] Corey Melgoza MD us Alexis Jason DO IM OB US PROCEDURES Final Resul t * RECURRENT VAGINITIS (HTRX) (12/20/2024 4:28 PM EDT) Pathologist [facility] ATOPOBIUM VAGINAE 0 19.961 - 24.689 ppm 12/22/2024 6:23 AM EDT [facility] ATOPOBIUM VAGINAE Not Detected 19.961 - 24.689 ppm 12/22/2024 6:23 AM EDT [facility] 2,3 (BACTERIAL VAGINOSIS ASSOCIATED BACTERIA 2, 3); MOBILUNCUS SPP 0 19.961 - 24.689 ppm 12/22/2024 6:23 AM EDT [facility] BVAB 2,3 (BACTERIAL VAGINOSIS ASSOCIATED BACTERIA 2, 3); MOBILUNCUS SPP Not Detected 19.961 - 24.689 ppm 12/22/2024 6:23 AM EDT [facility] HIMANSHU ALBICANS, PARAPSILOSIS, TROPICALIS 0 19.961 - 30.770 ppm 12/22/2024 6:23 AM EDT [facility] HIMANSHU ALBICANS, PARAPSILOSIS, TROPICALIS Not Detected 19.961 - 30.770 ppm 12/22/2024 6:23 AM EDT [facility] HIMANSHU GLABRATA 0 23.000 - 32.138 ppm 12/22/2024 6:23 AM EDT [facility] HIMANSHU GLABRATA Not Detected 23.000 - 32.138 ppm 12/22/2024 6:23 AM EDT [facility] HIMANSHU KRUSEI 0 23.000 - 32.271 ppm 12/22/2024 6:23 AM EDT [facility] HIMANSHU KRUSEI Not Detected 23.000 - 32.271 ppm 12/22/2024 6:23 AM EDT [facility] CHLAMYDIA TRACHOMATIS 0 23.000 - 31.467 ppm 12/22/2024 6:23 AM EDT [facility] CHLAMYDIA TRACHOMATIS Not Detected 23.000 - 31.467 ppm 12/22/2024 6:23 AM EDT [facility] GARDNERELLA VAGINALIS 0 19.961 - 24.689 ppm 12/22/2024 6:23 AM EDT [facility] GARDNERELLA VAGINALIS Not Detected 19.961 - 24.689 ppm 12/22/2024 6:23 AM EDT [facility] MEGASPHAERA (TYPES 1, 2) 0 19.961 - 24.689 ppm 12/22/2024 6:23 AM EDT [facility] MEGASPHAERA (TYPES 1, 2) Not Detected 19.961 - 24.689 ppm 12/22/2024 6:23 AM EDT [facility] NEISSERIA GONORRHOEAE 0 23.000 - 32.117 ppm 12/22/2024 6:23 AM EDT [facility] NEISSERIA GONORRHOEAE Not Detected 23.000 - 32.117 ppm 12/22/2024 6:23 AM EDT [facility] TRICHOMONAS VAGINALIS 0 23.000 - 32.119 ppm 12/22/2024 6:23 AM EDT [facility] TRICHOMONAS VAGINALIS Not Detected 23.000 - 32.119 ppm 12/22/2024 6:23 AM EDT [facility] MYCOPLASMA GENITALIUM 0 19.961 - 24.689 ppm 12/22/2024 6:23 AM EDT [facility] MYCOPLASMA GENITALIUM Not Detected 19.961 - 24.689 ppm 12/22/2024 6:23 AM EDT [facility] Tissue 12/20/2024 4:28 PM EDT 12/22/2024 1:19 AM EDT us Alexis Gomez DO LAB BLOOD ORDERABLES Final Resul t [facility] [address] [place] [address] * IGP,APTIMA HPV,AGE GDLN (12/20/2024 2:09 PM EDT) AGE GDLN ACOG TESTING Note . [facility] Comment: TESTS RESULT FLAG UNITS REF RANGE LAB Clinician Provided Cytology Information Source.............Cervix;Endocervix No. of containers..01 ThinPrep Vial Age Algo ACOG Yessy... 30-65 01 FLAG LEGEND: L-Low Normal,H-High Normal,LL-Alert Low,HH-Alert High <-Panic Low,>-Panic High,A-Abnormal,AA-Critical Abnormal Performed at: 01 =[facility] [address] [facility] [place] [address] Sunita Jacobs MD, IGP, APTIMA HPV, RFX 16/18,45 Note . [facility] Comment: TESTS RESULT FLAG UNITS REF RANGE LAB DIAGNOSIS: 02 NEGATIVE FOR INTRAEPITHELIAL LESION OR MALIGNANCY. Specimen adequacy: 02 Satisfactory for evaluation. No endocervical component is identified. Performed by: Edi Goode, Foreman/Pile Driving And Erection ([facility]) . 02 Note: Note 02 The Pap smear is a screening test designed to aid in the detection of premalignant and malignant conditions of the uterine cervix. It is not a diagnostic procedure and should not be used as the sole means of detecting cervical cancer. Both false-positive and false-negative reports do occur. Test Methodology: Note 02 This liquid based ThinPrep(R) pap test was screened with the use of an image guided system. HPV Genotype Reflex Note 02 Criteria not met, HPV Genotype not performed. FLAG LEGEND: L-Low Normal,H-High Normal,LL-Alert Low,HH-Alert High <-Panic Low,>-Panic High,A-Abnormal,AA-Critical Abnormal Performed at: [address] [address] Sunita Jacobs MD, HPV APTIMA Negative Negative [facility] Comment: This nucleic acid amplification test detects fourteen high- risk HPV types (16,18,31,33,35,39,45,51,52,56,58,59,66,68) without differentiation. Performed at: =[facility] [id number] Lamp Shade Joiner: Sunita Jacobs MD, Phone: [phone] Performed at: [address] [id number] Lamp Shade Joiner: Sunita Jacobs MD, Phone: [phone] 12/20/2024 2:09 PM EDT 12/20/2024 9:37 PM EDT Narrative [facility] - 12/23/2024 5:10 PM EDT BRUSH-SPATULA CERVIX ENDOCERVIX Alexis Gomez DO LAB BLOOD ORDERABLES Final Resul t Performing Organization Address City/[facility]/ZIP Co de Phone Number [facility] * Pap Smear (12/20/2024 12:00 AM EDT) Swab Cervical swab / Unknown Jason Nurse [facility] Ob LAB CYTOLOGY ORDERABLES Final Result EXTERNAL LAB from Last 3 Months Insurance FRONTPATH Care Teams Director Private Relationship Specialty Start Date End Date Harshil Moran MD PCP - General Family Medicine 12/30/22
--- OUTSIDE RECORDS SUMMARY | 2025-01-28 09:09 | XMS_ITS | Encounter Summary ---
Author Organization [facility] Address [address] [facility] [place] [address] Care Team Providers Care Boiler Cleaner Name Role Phone Harshil Moran MD Primary Care Provider + [phone] Encounter Details Date Type Department Care Team (Late Contact Info) Description 01/28/2024 Abstract [facility] B[facility] OB [address] [place] [address] Alexis Gomez [address] [place] [id number] Social History Tobacco Use Types Packs/Day Years [...] Routine [facility] BCP OB [address] [place] [address] Alexis Gomez [facility] [place] [id number] documented as of this encounter Visit Diagnoses Not on filedocumented in this encounter Care Teams Boiler Cleaner Relationship Specialty Start Date End Date Harshil Moran MD PCP - General Family Medicine 12/30/22 documented as of this encounter
--- OUTSIDE RECORDS SUMMARY | 2025-01-28 09:09 | XMS_ITS | Encounter Summary ---
Author Organization [facility] tem Address [id number] [address] [place] [address] Care Team Providers Care Lining Setter Name Role Phone Unavailable Primary Care Provider Unavailabl e Encounter Details Date Type Department Care Team (Late st Contact Info) Description 01/19/2024 Orders Only [facility] Internal Medicine - Family Medicine [address] [place] [address] Ref Prov, [place] [address] Social History Tobacco Use Types Packs/Day Years [...]
--- OUTSIDE RECORDS SUMMARY | 2025-01-28 09:09 | XMS_ITS | Encounter Summary ---
Author Organization [facility] Address [address] [facility] [place] [address] Care Team Providers Care Courtroom Deputy Name Role Phone Harshil Moran MD Primary Care Provider [phone] Encounter Details Date Type Department Care Team (Late Contact Info) Description 01/21/2025 Abstract [facility] OB [address] [place] [address] [facility] [place], [facility] Social History Tobacco Use Types [...] Routine [facility] BCP OB [address] [place] [address] [facility] [place], [place] [id number] documented as of this encounter Visit Diagnoses Not on filedocumented in this encounter Care Teams Courtroom Deputy Relationship Specialty Start Date End Date Harshil Moran MD PCP - General Family Medicine 12/30/22 documented as of this encounter
--- OUTSIDE RECORDS SUMMARY | 2025-01-28 09:09 | XMS_ITS | Encounter Summary ---
Author Organization [facility] Address [address] [place] [address] Care Team Providers Care Aquatics Group Fitness Instructor Name Role Phone Harshil Moran MD Primary Care Provider [phone] Encounter Details Date Type Department Care Team (Latest Contact Info) Description 01/14/2025 Travel Social History Tobacco Use Types Packs/Day [...] AM EDT Routine [facility] OB [address] [facility] [place] [address] Alexis Gomez, DO [address] [facility] [address] [place], [facility]11 documented as of this encounter Visit Diagnoses Not on filedocumented in this encounter Care Teams Aquatics Group Fitness Instructor Relationship Specialty Start Date End Date Harshil Moran MD PCP - General Family Medicine 12/30/22 documented as of this encounter
--- OUTSIDE RECORDS SUMMARY | 2025-01-28 09:09 | XMS_ITS | Encounter Summary ---
Author Organization [facility] Address [address] [facility] [place] [address] Care Team Providers Care Geodetic Survey Director Name Role Phone Harshil Moran MD Primary Care Provider [phone] Encounter Details Date Type Department Care Team (Late Contact Info) Description 01/21/2025 Abstract [facility] OB [address] [place] [address] [facility] [place] Lolita [place], [facility] Social History Tobacco Use Types Packs/Day [...] AM EDT Routine [facility] BCP OB [address] [place] [address] [facility] [place], [place] [id number] documented as of this encounter Visit Diagnoses Not on filedocumented in this encounter Care Teams Geodetic Survey Director Relationship Specialty Start Date End Date Harshil Moran MD PCP - General Family Medicine 12/30/22 documented as of this encounter
[2025-01-28 09:33] LABS: Hematocrit 40.0 % (36.0-48.0); Hemoglobin 14.0 g/dL (12.0-16.0); Immature Granulocytes Abs Auto 0.01 10^3/uL (0.00-0.03); Immature Granulocytes Pct Auto 0.2 % (0.0-0.5); Lymphocytes Absolute Auto 1.5 10^3/uL (1.2-3.8); Mean Corpuscular HGB Conc 35.0 g/dL (29.9-35.2); Mean Corpuscular Hemoglobin 32.0 pg (26.7-34.0); Mean Corpuscular Volume 91.3 fL (81.0-99.0); Platelet Count 196 10^3/uL (150-450); Red Blood Count 4.38 10^6/uL (4.20-5.40); White Blood Count 5.8 10^3/uL (4.0-11.0)
[2025-01-28 09:55] LABS: Cannabinoid Screen Urine NEGATIVE (NEGATIVE); Methamphetamines Screen Urine NEGATIVE (NEGATIVE); Tricyclic Antidepressant Urine NEGATIVE (NEGATIVE)
[2025-01-29 06:08] LABS: Rubella Antibodies, IgG 1.05 index (Immune >0.99)
[2025-01-29 12:09] LABS: Rapid Plasma Reagin, Quant Non Reactive titer (NonRea<1:1)
== END 2025-01-28 09:06 | disposition home or self-care (01) ==
LOC: LAB 09:06
PROVIDERS: PCP Family Medicine; Visit Provider Obstetrics & Gynecology
DX: Z34.01 Encounter for supervision of normal first pregnancy, first trimester (principal); N92.6 Irregular menstruation, unspecified
CPT/HCPCS: 36415; 80307; 83036; 85025; 86592; 86762; 86803; 86850; 86900; 86901; 87086; 87340; 87389

== ENCOUNTER 2025-05-13 08:28 | Outpatient (OUT) | payer OTHER, SELFPAY ==
--- OUTSIDE RECORDS SUMMARY | 2025-04-18 14:00 | XMS_ITS | Encounter Summary ---
Author Organization [facility] Address [address] [place] [address] Care Team Providers Care Director Of Corporate Strategy Name Role Phone Harshil Moran MD Primary Care Provider Reason for Visit * ReasonCommentsRoutine Visit Encounter Details DateTypeDepartmentCare Team (Latest Contact Info)Mygqatbtpwz52/13/2025 3:00 PM EDTRoutine [facility] [place] [facility] [address] [facility] [facility] [address] Alexis Gomez DO [address] [facility] [place] [address] Second trimester ([facility]); 21 weeks gestation of ([facility]); Diabetes mellitus screening Social History Tobacco UseTypesPacks/DayYears UsedDateSmoking Tobacco: NeverSmokeless Tobacco: NeverAlcohol UseStandard Drinks/WeekCommentsNever0 (1 standard drink = 0.6 oz pure alcohol)Estimated Date of ShjbcrtmKtautxkuPja74/17/2026ased on last menstrual period of 11/16/2024Sex and Gender InformationValueDate Recorded Sex Assigned at BirthNot on fileLegal TlpQkywmy13/15/2023 11:47 PM EDTGender IdentityNot on fileSexual OrientationNot on filedocumented as of this encounter Last Filed Vital Signs Vital SignReadingTime TakenCommentsBlood Geiebzta697/9004/18/2025 3:31 PM EDT Pulse--Temperature--Respiratory Rate--Oxygen Saturation--Inhaled Oxygen Concentration--Crvurj40 kg (158 lb 12 oz)04/18/2025 3:31 PM EDTHeight--Body Mass Index29.0403 12:00 PM EDTdocumented in this encounter Progress Notes * Yamilet Ho NP - 04/18/2025 3:00 PM EDT Reason for Appointment: Patient ID: Albina Monreal is a 29 y.o. female who presents for Routine Visit Patient presents today for Return OB appointment. MEDICATIONS Current Outpatient Medications Medication Instructions omeprazole (PRILOSEC) 20 mg, Oral, Daily before breakfast, Do not crush or chew. ondansetron (ZOFRAN) 8 mg, Oral, Every 6 hours PRN, Take 1 tablet by mouth every 6 hours as needed for nausea. ondansetron (ZOFRAN) 4 mg, Oral, Every 6 hours PRN, Take 1 tablet by mouth every 6 hours as needed for nausea. Vit-Fe Fumarate-FA ( Vitamins) 28-0.8 MG tablet 1 tablet, Oral, Daily promethazine (PHENERGAN) 12.5 mg, Oral, Every 6 hours PRN, Take 1 tablet by mouth every 6 hours as needed for nausea. ALLERGIES Allergies[1] PROBLEMS Active Ambulatory Problems Diagnosis Date Noted Axillary mass, right 01/05/2024 Resolved Ambulatory Problems Diagnosis Date Noted No Resolved Ambulatory Problems Past Medical History: Diagnosis Date 6 weeks follow-up ([facility]) BMI 24.0-24.9, adult History of placenta abruption Vaginal delivery ([facility]) HISTORY PAST MEDICAL HISTORY SOCIAL HISTORY Medical History[2] Social History Tobacco Use Smoking status: Never Smokeless tobacco: Never Substance Use Topics Alcohol use: Never Drug use: Never FAMILY HISTORY Family History[3] SURGICAL HISTORY Surgical History[4] REVIEW OF SYSTEMS Review of Systems: Review of Systems Constitutional: Negative. HENT: Negative. Eyes: Negative. Respiratory: Negative. Cardiovascular: Negative. Gastrointestinal: Negative. Genitourinary: Negative. Musculoskeletal: Negative. Skin: Negative. Neurological: Negative. All other systems reviewed and are negative. Hematological: Negative. Endocrine: Negative. Allergic/Immunologic: Negative. OBJECTIVE Objective: Physical Exam Constitutional: Appearance: Normal appearance. She is well-developed. Cardiovascular: Rate and Rhythm: Normal rate and regular rhythm. Pulmonary: Effort: Pulmonary effort is normal. Breath sounds: Normal breath sounds. Abdominal: General: Bowel sounds are normal. There is no distension. Palpations: Abdomen is soft. Tenderness: There is no abdominal tenderness. There is no guarding or rebound. Musculoskeletal: General: No swelling. Normal range of motion. Right lower leg: No edema. Left lower leg: No edema. Neurological: Mental Status: She is alert and oriented to person, place, and time. Skin: General: Skin is warm and dry. Psychiatric: Mood and Affect: Mood normal. Behavior: Behavior normal. Vitals and nursing note reviewed. Exam conducted with a slubber frame changer present. Vitals: Estimated body mass index is 29.04 kg/m?? as calculated from the following: Height as of 09/23/22: 5' 2 . Weight as of this encounter: 158 lb 12 oz. BP: 134/90 Patient's last menstrual period was 11/16/2024. ASSESSMENT & PLAN ICD-10-CM 1. Second trimester ([facility]) Z34.92 POCT urinalysis dipstick manually resulted 2. 21 weeks gestation of ([facility]) Z3A.21 3. Diabetes mellitus screening Z13.1 CBC Glucose tolerance, 1 hour CBC Glucose tolerance, 1 hour Return OB: Patient presents today for a routine obstetrics appointment. Patient is currently 21w6d . Patient states she is doing well but has complaints of being tired due to current . Patient has verbalizes frequent movement. labor precautions was discussed/given and patient was instructed to perform kick counts three times a day. Orders Placed This Encounter Procedures CBC Glucose tolerance, 1 hour POCT urinalysis dipstick manually resulted Follow Up: Patient is to return to office in 4 week for routine OB appointment. Documented by Yamilet Ho NP on behalf of: Alexis Gomez DO [1] Allergies Allergen Reactions Bee Venom Hives and Unknown Erythromycin Hives and Unknown Honey Bee Venom Hives Erythromycin Base Rash [2] Past Medical History: Diagnosis Date 6 weeks follow-up ([facility]) BMI 24.0-24.9, adult History of placenta abruption Vaginal delivery ([facility]) [3] Family History Problem Relation Name Age of Onset Hypertension Mother Hypertension Father Heart disease Father Heart disease Brother [4] Past Surgical History: Procedure Laterality Date PAP SMEAR 09/19/2021 negative documented in this encounter Plan of Treatment DateTypeDepartmentCare Team (Latest Contact Info)Psvqiicewha12/10/2025 2:30 PM ESTRoutine [facility] [address] [facility] [address] Tammie Maloney PA [address] [facility] [place] [address] 12/22/2025 8:30 AM EDTProcedure Visit [facility] [address] [facility] [place] [address] Alexis Gomez DO [address] [facility] [place] [address] NameTypePriorityAssociated DiagnosesOrder ScheduleCBCLabRoutine Diabetes mellitus screening Expected: 04/18/2025 (Approximate), Expires: 04/18/2026Glucose tolerance, 1 hour LabRoutine Diabetes mellitus screening Expected: 04/18/2025 (Approximate), Expires: 04/18/2026documented as of this encounter Procedures Procedure NamePriorityDate/TimeAssociated DiagnosisCommentsPOCT URINALYSIS HLKYXALOIuwtliq60/13/2025 3:34 PM EDT Second trimester ([facility]) documented in this encounter Results * POCT urinalysis dipstick manually resulted (04/18/2025 3:34 PM EDT)Component ValueRef RangeTest MethodAnalysis TimePerformed AtPathologist SignatureColor, UAYellowClarity, UAClearGlucose, UANegativeNegative - 2000(110) ++++ mg/dL Bilirubin, UANegativeNegative - 4(70) +++ mg/dLKetones, UANegativeNegative - 160(16) ++++ mg/dLSpec Grav, UA1.0101 - 1.03Blood, UANegativeNegative - 50 Jerad/mcLpH, UA6.05 - 9Protein, UANegativeNegative - 2000(20) ++++ mg/dL Urobilinogen, UA0.20.2 - 12 mg/dLLeukocytes, UANegativeNegative - 500+++ Gerson/mcLNitrite, UANegativeNegative - PositiveSpecimen (Source)Anatomical Location / LateralityCollection Method / VolumeCollection TimeReceived Time Urine04/18/2025 3:34 PM EDT Narrative Authorizing ProviderResult TypeResult StatusCorey Jason DOPOINT OF CARE TEST ENTER/EDIT ORDERABLESFinal Result documented in this encounter Visit Diagnoses Diagnosis Second trimester ([facility]) state, incidental 21 weeks gestation of ([facility]) Diabetes mellitus screening Screening for diabetes mellitus documented in this encounter Care Teams Team MemberRelationshipSpecialtyStart DateEnd Date Harshil Moran MD PCP - GeneralFamily Medicine12/30/22documented as of this encounter
--- OUTSIDE RECORDS SUMMARY | 2025-05-13 08:30 | XMS_ITS | Encounter Summary ---
Author Organization [facility] Address [address] [place] [facility] [place] [address] Care Team Providers Care Inbound Call Center Agent Name Role Phone Harshil [place] MD Primary Care Provider [phone] Encounter Details DateTypeDepartmentCare Team (Latest Contact Info)Mmcejudqrru83/12/2024linisync Result Encounter [facility] External Department Unsolicited Deandra Gomez DO [address] [facility] [address] [place], [facility]11 Social History Tobacco UseTypesPacks/DayYears UsedDateSmoking Tobacco: NeverSmokeless Tobacco: NeverAlcohol UseStandard Drinks/WeekCommentsNever0 (1 standard drink = 0.6 oz pure alcohol)CommentsNoSex and Gender InformationValueDate RecordedSex Assigned at BirthNot on fileLegal SnjWgeqtb56/15/2023 11:47 PM EDTGender IdentityNot on fileSexual OrientationNot on filedocumented as of this encounter Plan of Treatment DateTypeDepartmentCare Team (Latest Contact Info)Emexteuuhbi72/10/2025 2:30 PM ESTRoutine [facility] [place] [facility] [address] [facility] [address] Tammie Maloney PA [address] [facility] [address] [place], [facility]11 12/22/2025 8:30 AM EDTProcedure Visit [facility] [place] [facility] [address] [facility] [address] Deandra Gomez, DO [address] [place] [address] [place] [address] documented as of this encounter Procedures Procedure NamePriorityDate/TimeAssociated DiagnosisCommentsUS BIOPSY FNA 01/16/2024 12:45 PM EDT documented in this encounter Results * US BIOPSY FNA (01/16/2024 12:45 PM EDT)Anatomical RegionLateralityModality OtherSpecimen (Source)Anatomical Location / LateralityCollection Method / VolumeCollection TimeReceived Time01/16/2024 12:45 PM EDT Narrative 01/16/2024 12:48 PM EDT [facility] ?[address] ? [place] [address] ? Ultrasound Report ? Signed ? Patient: ALBINA MONREAL ?MR#: [id number] ?? : 1995 ?Acct:[id number] ?? Age/Sex: 28 / F ?ADM Date: 01/16/24 ?? Loc: US ? Attending Dr: Deandra Gomez D.O. ? Ordering Physician: Deandra Gomez D.O. ?? Date of Service: 01/16/24 ?? Procedure(s): US biopsy FNA ?? Accession Number(s): [id number] ? cc: HARSHIL [place] ; Deandra Gomez D.O. ? [facility] ? [address] [facility] ? [place] [address] ? Patient Name: ?? ALBINA Goyal MONREAL ? MRN: [facility]:[id number] ? date: 1995 ?Sex: F ?? Assigned Patient Location: US ?? Current Patient Location: US ?? Accession/Order Number: [id number] ?? Exam Date: 01/16/2024 ??10:34 ?Report Date: 01/16/2024 ??12:45 ? At the request of: ?? DEANDRA ??JASON ? Procedure: ??US biopsy FNA ? EXAMINATION: US biopsy FNA ? HISTORY: Axillary Mass Right R22.31 ? COMPARISON: No relevant comparison available. ? TECHNIQUE: After obtaining informed consent, an ultrasound-guided biopsy was ?? performed in the usual sterile manner. ? FINDINGS: ?? IMAGING: Ultrasound ?? BIOPSY NEEDLE: 25-gauge, 2 inch ?? SPECIMEN TYPE, #, LOCATION: 3 fine-needle aspirates, right axillary mass ?? MEDICATION: 2 cc 1% buffered lidocaine ?? COMPLICATIONS: None. ?? LABORATORY: Specimen sent for pathology ?? OTHER: Aspiration of milky clear fluid resembling milk, suspicious for ?? galactocele ? US/US biopsy FNA ?? IMPRESSION: ? Uneventful ultrasound guided biopsy. The patient was instructed to obtain ?? follow up care and biopsy results from the referring physician. ? Electronically authenticated by: ERICA ??ELISABET ?? Date: 01/16/2024 ??12:45 ? Dictated By: ?Erica Bhandari M.D. ? Signed By: ?1224 1248 ? DD/ 1245 ? TD/TT: ? Washer Repairman: Procedure Note Radiology, Radiologist, MD - 01/16/2024 [place] [address] Ultrasound Report Signed Patient: ALBINA MONREAL LMR#: [id number] : 1995Acct:[id number] Age/Sex: 28 / FADM Date: 01/16/24 Loc: US Attending Dr: Deandra Gomez D.O. Ordering Physician: Deandra Gomez D.O. Date of Service: 01/16/24 Procedure(s): US biopsy FNA Accession Number(s): [id number] cc: HARSHIL [place] ; Deandra Gomez D.O. The [place] [id number] Patient Name: ALBINA MONREAL MRN: [id number] date: 1995 Sex: F Assigned Patient Location: US Current Patient Location: US Accession/Order Number: [id number] Exam Date: 01/16/2024 10:34 Report Date: 01/16/2024 [...] M.D. Signed By:01/16/24 1248 DD/ 1245 TD/TT: Washer Repairman: Authorizing ProviderResult TypeResult StatusCorey Jason DOCLINISYNC IMAGINGFinal Result documented in this encounter Visit Diagnoses Not on filedocumented in this encounter Care Teams Team MemberRelationshipSpecialtyStart DateEnd Date Harshil [place] MD PCP - GeneralFamily Medicine12/30/22documented as of this encounter
--- OUTSIDE RECORDS SUMMARY | 2025-05-13 08:30 | XMS_ITS | Encounter Summary ---
Author Organization [facility] Address [address] [facility] [place] [address] Care Team Providers Care Hand Outside Cutter Name Role Phone Harshil [place] MD Primary Care Provider [phone] Encounter Details DateTypeDepartmentCare Team (Latest Contact Info)Nobdimayuha28/21/2024linisync Result Encounter [facility] External Department Unsolicited Deandra Gomez DO [address] [facility] [address] [place], [facility]11 Social History Tobacco UseTypesPacks/DayYears UsedDateSmoking Tobacco: NeverSmokeless Tobacco: NeverAlcohol UseStandard Drinks/WeekCommentsNever0 (1 standard drink = 0.6 oz pure alcohol)CommentsNoSex and Gender InformationValueDate RecordedSex Assigned at BirthNot on fileLegal RgmSgymcu59/15/2023 11:47 PM EDTGender IdentityNot on fileSexual OrientationNot on filedocumented as of this encounter Plan of Treatment DateTypeDepartmentCare Team (Latest Contact Info)Yykjjnlrefy45/10/2025 2:30 PM ESTRoutine [facility] [place] [facility] [address] [place] [address] Tammie Maloney PA [address] [facility] [address] [place], [facility]11 12/22/2025 8:30 AM EDTProcedure Visit [facility] [place] [facility] [address] [place] [address] Deandra Gomez, DO [address] [place] [address] Dr [place] [address] documented as of this encounter Procedures Procedure NamePriorityDate/TimeAssociated DiagnosisCommentsUS NONVASCULAR RIGHT EXTREMITY 0259827/ 5:12 AM EDT documented in this encounter Results * US NONVASCULAR RIGHT EXTREMITY 22669 (12/26/2023 5:12 AM EDT)Anatomical Region LateralityModalityRadiographic ImagingSpecimen (Source)Anatomical Location / LateralityCollection Method / VolumeCollection TimeReceived Time12/26/2023 5:12 AM EDT Narrative 12/26/2023 5:15 AM EDT [facility] ?[address] ? [place] [address] ? Ultrasound Report ? Signed ? Patient: ALBINA MONREAL ?MR#: [id number] ?? : 1995 ?Acct:[id number] ?? Age/Sex: 28 / F ?ADM Date: 12/25/23 ?? Loc: US ? Attending Dr: Deandra Gomez D.O. ? Ordering Physician: Deandra Gomez D.O. ?? Date of Service: 12/25/23 ?? Procedure(s): US extremity nonvascular RT ?? Accession Number(s): [id number] ? cc: HARSHIL [place] ; Deandra Gomez D.O. ? [facility] ? [address] ? [place] [address] ? Patient Name: ?? ALBINA MONREAL ? MRN: [id number] ? date: 1995 ?Sex: F ?? Assigned Patient Location: US ?? Current Patient Location: ? Accession/Order Number: [id number] ?? Exam Date: 12/25/2023 ??09:10 ?Report Date: 12/26/2023 ??05:12 ? At the request of: ?? DEANDRA ??JASON ? Procedure: ??US extremity nonvascular RT ? EXAMINATION: US extremity nonvascular RT ? HISTORY: Mass Of Right Axilla ? COMPARISON: No relevant comparison available. ? FINDINGS: ?? Nonspecific mass versus 2 adjacent masses within the subcutaneous fat of the ?? right axilla corresponding to patient's palpable lump, 4.1 x 1.2 x 0.6 cm. ?? Color Doppler demonstrates blood flow within this lesion(s). ? US/US extremity nonvascular RT ?? IMPRESSION: ? 1. Nonspecific subcutaneous mass versus lymph node(s) within right axilla. ?? Consider follow-up ultrasound evaluation in one month to document regression, ?? otherwise consider ultrasound-guided tissue sampling. ? Electronically authenticated by: AKIKO ??ROSA ISELA ?? Date: 12/26/2023 ??05:12 ? Dictated By: ?Akiko Workman M.D. ? Signed By: ?12/26/23 0515 ? DD/ 0512 ? TD/TT: ? Eyelet Row Marker: Procedure Note Radiology, Radiologist, MD - 12/26/2023 [place] [address] Ultrasound Report Signed Patient: ALBINA MONREAL LMR#: [id number] : 1995Acct:[id number] Age/Sex: 28 / FADM Date: 12/25/23 Loc: US Attending Dr: Deandra Gomez D.O. Ordering Physician: Deandra Gomez D.O. Date of Service: 12/25/23 Procedure(s): US extremity nonvascular RT Accession Number(s): [id number] cc: HARSHIL [place] ; Deandra Gomez D.O. The [place] [id number] Patient Name: ALBINA MONREAL MRN: [id number] date: 1995 Sex: F Assigned Patient Location: US Current Patient Location: Accession/Order Number: [id number] Exam Date: 12/25/2023 09:10 Report Date: 12/26/2023 [...] consider ultrasound-guided tissue sampling. Electronically authenticated by: AKIKO WORKMAN Date: 12/26/2023 05:12 Dictated By: Akiko Workman M.D. Signed By:12/26/23514 DD/ 1 TD/TT: Eyelet Row Marker: Authorizing ProviderResult TypeResult StatusCorey Jason DOIMG XR PROCEDURESFinal Result documented in this encounter Visit Diagnoses Not on filedocumented in this encounter Care Teams Team MemberRelationshipSpecialtyStart DateEnd Date Harshil [place] MD PCP - GeneralFamily Medicine12/30/22documented as of this encounter
--- OUTSIDE RECORDS SUMMARY | 2025-05-13 08:30 | XMS_ITS | Encounter Summary ---
Author Organization [facility] Address [address] [place] [address] Care Team Providers Care Director Of Occupational Therapy Name Role Phone Harshil Moran MD Primary Care Provider [phone] Encounter Details DateTypeDepartmentCare Team (Latest Contact Info)Kppdndmmukb78/05/2025Travel Social History Tobacco UseTypesPacks/DayYears UsedDateSmoking Tobacco: NeverSmokeless Tobacco: NeverAlcohol UseStandard Drinks/WeekCommentsNever0 (1 standard drink = 0.6 oz pure alcohol)Estimated Date of SfsjwmmlIpvhbtwtWiy22/17/2026ased on last menstrual period of 11/16/2024Sex and Gender InformationValueDate Recorded Sex Assigned at BirthNot on fileLegal CeuBhfejv84/15/2023 11:47 PM EDTGender IdentityNot on fileSexual OrientationNot on filedocumented as of this encounter Plan of Treatment DateTypeDepartmentCare Team (Latest Contact Info)Ekrdcvpwuwv42/10/2025 2:30 PM ESTRoutine [facility] BILL [address] [place] [address] [place] [address] Tammie Maloney PA [address] [facility] [address] [place], [place] [address] 12/22/2025 8:30 AM EDTProcedure Visit [facility] BILL [address] [place] [address] [place] [address] Alexis Gomez DO [address] [facility] [address] [place], [facility]11 documented as of this encounter Visit Diagnoses Not on filedocumented in this encounter Care Teams Team MemberRelationshipSpecialtyStart DateEnd Date Harshil Moran MD PCP - GeneralFamily Medicine12/30/22documented as of this encounter
--- OUTSIDE RECORDS SUMMARY | 2025-05-13 08:30 | XMS_ITS | Encounter Summary ---
Author Organization [facility] Address [address] [place] [address] Care Team Providers Care Front Line Leader Name Role Phone Harshil Moran MD Primary Care Provider [phone] Encounter Details DateTypeDepartmentCare Team (Latest Contact Info)Ucsfjufaydo51/03/2025Telephone [facility] [place] [facility] [address] [facility] [place] [address] Alexis Gomez DO [address] [facility] [place] [address] Social History Tobacco UseTypesPacks/DayYears UsedDateSmoking Tobacco: NeverSmokeless Tobacco: NeverAlcohol UseStandard Drinks/WeekCommentsNever0 (1 standard drink = 0.6 oz pure alcohol)Estimated Date of JwmytmcjSlcwkvdmYwb08/17/2026ased on last menstrual period of 11/16/2024Sex and Gender InformationValueDate Recorded Sex Assigned at BirthNot on fileLegal SwnOxyihi21/15/2023 11:47 PM EDTGender IdentityNot on fileSexual OrientationNot on filedocumented as of this encounter Miscellaneous Notes * Telephone Encounter - Nu Patiño LPN - 05/09/2025 10:44 AM EST My first question is, do I have fast for my glucose test? And then second, is there anything I could do? I have been having like hip pain think it is Sciatic nerve pain. I am not really sure what to do yesterday I had it all day and it was bad. It kept radiating done like in my pelvic area and thendown my legs and I just I do not know, I tried Tylenol which helps a little, you know, belly band. I did not know what else to do. Patient call was returned advised does not need to fast but would recommend just something light before going in for the testing making sure not to have a lot of carbs or sugary foods prior to testing. Patient was advised she can use Heating to the area occasionally, use tylenol to help with discomfort, stretching and using belly band to help support nd with this use one that goes over the shoulde rs. PVU documented in this encounter Plan of Treatment DateTypeDepartmentCare Team (Latest Contact Info)Nkwumqbipxx48/10/2025 2:30 PM ESTRoutine [facility] BILL [address] [facility] [place] [address] Tammie Maloney PA [address] [facility] [address] [place], [facility]11 12/22/2025 8:30 AM EDTProcedure Visit [facility] [place] BILL [address] [place] [place] [address] Alexis Gomez DO [address] [facility] [address] [place], [place] [id number] documented as of this encounter Visit Diagnoses Not on filedocumented in this encounter Care Teams Team MemberRelationshipSpecialtyStart DateEnd Date Harshil Moran MD PCP - GeneralFamily Medicine12/30/22documented as of this encounter
--- OUTSIDE RECORDS SUMMARY | 2025-05-13 08:30 | XMS_ITS | Clinical Summary ---
Author Organization [facility] Healthcare Address [address] [place] [address] Care Team Providers Care Maintenance [employer] Name Role Phone Harshil Moran MD Primary Care Provider [phone] Allergies Active AllergyReactionsCriticalityNoted DateCommentsBee VenomHives,UnknownMedium 12/20/2018ErythromycinHives,Ryrmtjl0701/30/2023Erythromycin RuosWttkVsc83/24/2022 Honey Bee SxlksXyjwv61/25/2025 Medications MedicationSigDispense QuantityRefillsLast FilledStart DateEnd DateStatus ondansetron (Zofran) 4 MG tablet Indications:Well woman exam with routine gynecological examTake 2 tablets (8 mg) by mouth every 6 (six) hours if needed for nausea or vomiting for up to 120 do ses Take 1 tablet by mouth every 6 hours as needed for nausea. 60 tablet 5Active ondansetron (Zofran) 4 MG tablet Indications:Nausea and vomiting during ([facility])Take 1 tablet (4 mg) by mouth every 6 (six) hours if needed for nausea or vomiting for up to 30 doses Take 1 tablet by mouth every 6 hours as needed for nausea. 30 tablet 3065Active Vit-Fe Fumarate-FA ( Vitamins) 28-0.8 MG tablet Indications: examination or test, positive result ([facility])Take 1 tablet by mouth Daily 30 tablet 90//[id number]/6Active promethazine (Phenergan) 12.5 MG tablet Indications:NauseaTake 1 tablet (12.5 mg) by mouth every 6 (six) hours if needed for nausea or vomiting for up to 30 doses Take 1 tablet by mouth every 6 hours as needed for nausea. 30 tablet 208/19/2025Active omeprazole (PriLOSEC) [address] [place] Indications:Gastroesophageal Reflux Disease,HeartburnTake 1 capsule (20 mg) by mouth in the morning. Take before meals. Do not crush or chew. 30 capsule 5Active Active Problems ProblemNoted DateDiagnosed DateAxillary mass, right4Estimated Date of WobpjcemThpjpuhuIqi71/17/2026Based on last menstrual period of 11/16/2024 Encounters DateTypeDepartmentCare NzyaQnulwziliij52/05/0699Sflwtk11/03/2025Telephone [facility] [place] [address] [place] [phone] Alexis Gomez DO 04/18/2025 3:00 [place] [address] Alexis Gomez DO Second trimester ([facility]); 21 weeks gestation of ([facility]); Diabetes mellitus derzrqkox36/13/2025 2:00 PM EDTAncillary Procedure [facility] [place] [address] [place] [address] Screening, , for anatomic survey ([facility])04/13/2025Travel 03/22/2025Telephone [facility] [address] [place] [phone] Saadia Fernandez MA 03/21/2025 9:30 AM EDTRoutine [facility] [address]ILL [address] [place] [phone] Tammie Maloney PA Second trimester ([facility]); 17 weeks gestation of ([facility]); Screening, , for anatomic survey ([facility])03/21/2025bstract [facility] [place] [address] [place] [address] Alexis Gomez DO 03/21/2025amboo flowsheet [facility] [place] [place] [address] Tammie Maloney PA 03/14/20250601Rpkcmf77/25/2025 9:00 AM EDTClinical Support [facility] [address] [facility] [place] [address] Second trimester ([facility]); 14 weeks gestation of ([facility]); Blood pressure check02/21/2025 9:50 AM EDTRoutine [facility] Scott [facility] [place] [address] Alexis Gomez, Second trimester ([facility]); 13 weeks gestation of ([facility]); Hmlrmb7702/21/2025amboo flowsheet [facility] [address] [address] [place] [address] Alexis Gomez DO 02/16/2025Travelfrom Last 3 Months Family History Medical HistoryRelationNameCommentsHeart diseaseBrotherHeart diseaseFather HbnrozadiikbWbciftYmisoaneiwqoYipvswYmigchouNybjWfqftvScxgipzaWkaqdvc1Cepcms Mother Social History Tobacco UseTypesPacks/DayYears UsedDateSmoking Tobacco: NeverSmokeless Tobacco: Never Tobacco Cessation:Counseling Given: Not Answered Alcohol UseStandard Drinks/WeekCommentsNever0 (1 standard drink = 0.6 oz pure alcohol)Estimated Date of KdonrjviFysjnosjOrc76/17/2026ased on last menstrual period of 11/16/2024Sex and Gender InformationValueDate RecordedSex Assigned at BirthNot on fileLegal RrvBitpix11/15/2023 11:47 PM EDTGender IdentityNot on fileSexual OrientationNot on file Last Filed Vital Signs Vital SignReadingTime TakenCommentsBlood Idlfeqwg750/9004/18/2025 3:31 PM EDT Pulse--Temperature--Respiratory Rate--Oxygen Saturation--Inhaled Oxygen Concentration--Shqczg76 kg (158 lb 12 oz)04/18/2025 3:31 PM VUZWkbjgg153.5 cm (5' 2 )09/23/2022 12:00 PM EDTBody Mass Index29.04009/23/2022 12:00 PM EDT Plan of Treatment DateTypeDepartmentCare Team (Latest Contact Info)Klvgnkzcrxi46/10/2025 2:30 PM ESTRoutine [facility] BILL [address] [facility] [place] [address] Tammie Maloney PA [address] [facility] [address] [place], [place] [phone] 12/22/2025 8:30 AM EDTProcedure Visit [facility] BILL [address] [place] [address] [place] [address] Alexis Gomez DO [address] [facility] [address] [address] Procedures Procedure NamePriorityDate/TimeAssociated DiagnosisCommentsPOCT URINALYSIS XLJCAOJAPuvfwcc79/13/2025 3:34 PM EDT Second trimester ([facility]) OB 14+ WEEKS ANATOMY XYNMPwkwyfo64/13/2025 2:51 PM EDT Screening, , for anatomic survey ([facility]) POCT URINALYSIS JJGOFTQQVfllnad43/18/2025 9:58 AM EDT Second trimester ([facility]) from Last 3 Months Results * POCT urinalysis dipstick manually resulted (04/18/2025 3:34 PM EDT) Only the most recent of2 resultswithin the time period is included. ComponentValueRef RangeTest MethodAnalysis TimePerformed AtPathologist Signature Color, UAYellowClarity, UAClearGlucose, UANegativeNegative - 2000(110) ++++ mg/dLBilirubin, UANegativeNegative - 4(70) +++ mg/dLKetones, UANegativeNegative - 160(16) ++++ mg/dLSpec Grav, UA1.0101 - 1.03Blood, UANegativeNegative - 50 Jerad/mcLpH, UA6.05 - 9Protein, UANegativeNegative - 2000(20) ++++ mg/dL Urobilinogen, UA0.20.2 - 12 mg/dLLeukocytes, UANegativeNegative - 500+++ Gerson/mcL Nitrite, UANegativeNegative - PositiveSpecimen (Source)Anatomical Location / LateralityCollection Method / VolumeCollection TimeReceived MmetDfkiy66/13/2025 3:34 PM EDT Narrative Authorizing ProviderResult TypeResult StatusCorey Jason DOPOINT OF CARE TEST ENTER/EDIT ORDERABLESFinal Result * US OB 14+ weeks anatomy scan (04/18/2025 2:51 PM EDT)Anatomical Region LateralityModalityBodyUltrasoundSpecimen (Source)Anatomical Location / LateralityCollection Method / VolumeCollection TimeReceived Time04/19/2025 11:35 AM EDT Impressions 04/19/2025 1:13 PM EDT 1. Single, live intrauterine , current sonographic age of 21 weeks and 6 days, with an estimated date of delivery of August 23, 2025. 2. ??Very mild funneling not associated with the cervical os. * ??Estimated Weight (g) by Percentile is based upon an accurate estimated age based onlast menstrual period. ?? TRANSCRIBED BY: ? ELECTRONICALLY SIGNED BY: Corey Melgoza MD Narrative 04/19/2025 1:13 PM EDT FINDINGS: A single, live intrauterine is present with normal cardiac rate of 149 beats per minute. Normal activity and amniotic fluid volume. Amniotic fluid index is ?? cm. ??Morphology is grossly normal. ??The placenta is posterior. ?? Very mild funneling not associated with the internal cervical os. Cervical length is 3.9 cm. ??The current sonographic age is 21 weeks and 6 days, based on the following measurements BPD ? 5.2 cm (21 weeks, 5 days) Head Circumference ?19.5cm (21 weeks, 5 days) Abdominal Circumference ?17.5cm ( 22 weeks,3 ??days) Femur Length ? 36.cm ( 21weeks, 4 days) Presentation ? variable ? Placenta ? Posterior Weight (g) by Percentile ??50.3 % * These measurements result in an estimated date of delivery of August 23, 2025. ?? The current estimated weight is 466 ?? grams (1 ??pound, 0 ounces). ?? Procedure Note Corey Melgoza MD - 04/19/2025 FINDINGS: A single, live intrauterine is present with normal cardiacrate of 149 beats per minute. Normal activity and amniotic fluidvolume. Amniotic fluid index is cm. Morphology is grossly normal. Theplacenta is posterior. Very mild funneling not associated with theinternal cervical os. Cervical length is 3.9 cm. The current sonographicage is 21 weeks and 6 days, based on the following measurements BPD 5.2 cm (21 weeks, 5 days) Head Circumference 19.5cm (21 weeks, 5 days) Abdominal Circumference 17.5cm ( 22 weeks,3 days) Femur Length 36.cm ( 21weeks, 4 days) Presentation variable Placenta Posterior Weight (g) by Percentile 50.3 % * These measurements result in an estimated date of delivery of August. The current estimated weight is 466 grams (1 pound, 0ounces). IMPRESSION: 1. Single, live intrauterine , current sonographic age of 21weeks and 6 days, with an estimated date of delivery of August. 2. Very mild funneling not associated with the cervical os. * Estimated Weight (g) by Percentile is based upon an accurateestimated age based on last menstrual period. TRANSCRIBED BY: ELECTRONICALLY SIGNED BY: Corey Melgoza MD Authorizing ProviderResult TypeResult StatusAmy [place] PAIMG OB US PROCEDURES Final Result from Last 3 Months Insurance Care Teams Team MemberRelationshipSpecialtyStart DateEnd Date Harshil Moran MD PCP - GeneralFamily Medicine12/30/22
--- OUTSIDE RECORDS SUMMARY | 2025-05-13 08:30 | XMS_ITS | Clinical Summary ---
Author Organization [facility] [employer] [facility] tem Address [id number] [place] [address] Care Team Providers Care Developer [employer] Name Role Phone Unavailable Primary Care Provider Unavailabl e Allergies Active AllergyReactionsCriticalityNoted DateCommentsBee Venom Protein (Honey Bee)QrjvjXqpsar79/16/2019Erythromycin RdalWsyoSvj68/24/2022 Medications MedicationSigDispense QuantityRefillsLast FilledStart DateEnd DateStatus hydrocortisone (HYTONE) 2.5 % cream Apply 1 application topically in the morning and 1 application before bedtime. 30 g 04/29/2022ctive Family History Medical HistoryRelationNameCommentsAtrial fibrillationFatherHypertensionFather Anxiety disorderMotherHypertensionMotherRelationNameStatusCommentsFatherMother Social History Tobacco UseTypesPacks/DayYears UsedDateSmoking Tobacco: NeverSmokeless Tobacco: Never Tobacco Cessation:Counseling Given: Not Answered CommentsUnknownSex and Gender InformationValueDate RecordedSex Assigned at BirthNot on fileLegal LziUbzrly68/24/2022 9:18 AM EDTGender IdentityNot on fileSexual OrientationNot on file Last Filed Vital Signs Vital SignReadingTime TakenCommentsBlood Tudrumym296/8304/29/2022 10:44 AM EDT Pjkgm560704/29/2022 10:44 AM VWZHjjdeavmkhq73.4 ??C (99.3 ??F)04/29/2022 10:44 AM EDTRespiratory Rate--Oxygen Zjetrecdru62%04/29/2022 10:44 AM EDTInhaled Oxygen Concentration--Cdfakz61.4 kg (131 lb)04/29/2022 10:44 AM NTJQewsgx998.6 cm (5' 4 )04/29/2022 10:44 AM EDTBody Mass Index22.4904/29/2022 10:44 AM EDT Plan of Treatment Health MaintenanceDue DateLast DoneCommentsDepression Tdcqwbgfl50/07/2007Tobacco Zixjkfbqn64/07/2007dult BMI Zxajwsryc99Influenza Vaccine /, 04/14/2018, 04/30/2017Pap Smear/ DTaP,Tdap and Td Vaccines (2 - Td or Tdap) Medical Devices Not on file Insurance
--- OUTSIDE RECORDS SUMMARY | 2025-05-13 08:32 | XMS_ITS | CCD ---
Author Organization [facility] Care Team Providers Care Entry Level Account Manager Name Role Phone JASON ., DR LIRIANO [...] able Harshil Moran MD Primary Care Provider [facility] Primary Care Provider DO Deandra Gomez Attending Provider [facility] Primary Care Unavailable Deandra Gomez Attending Unavailable Deandra Gomez Admitting Unavailable HARSHIL MORAN Primary Care Physician HARSHIL MORAN Referring Unavailable Mark LATHAM Attending Harshil St MD Primary Care Provider DEANDRA GOMEZ Attending Unavailable DEANDRA GOMEZ Attending Unavailable TAMMIE OLSEN Attending Unavailable TAMMIE OLSEN Referring Unavailable DEANDRA GOMEZ Attending Unavailable Allergies Allergy ClassificationReported Allergen(s)Allergy TypeDate of OnsetReaction(s) Facility (1 source)bee venomDrug allergy (disorder)10[facility]27[facility]8032[facility] ([facility] sources)ErythromycinDrug Llkkfdu97-39-7004YhywFrs [facility] Repository (20 sources)Erythromycin; Translations: [erythromycin]Drug Bytxvgp13-44-6165 Hives, Unknown, Eruption of skin (disorder)[facility] (20 sources)Honey bee venomPropensity to adverse ubqzpxbbh24-19-2095Zccmb, UnknownNOMS Healthcare Work Phone: (2 sources)Bee/Wasp/Ant venom; Translations: [Bee Stings]Allergy to substance Weal (disorder)[facility] (1 source)No Known Medication Allergies; Translations: [No Known Medication Allergies]Propensity to adverse reactions (disorder)[facility] Repository (7 sources)Honey bee venomPropensity to adverse xlyfwxlcx03-55-6167VubjeTVGL Healthcare Medications Current Medications MedicationDrug Class(es)DatesSig (Normalized)Sig (Original)alpha-tocopherol acetate 30 unt / ascorbic acid 100 mg / beta carotene 1000 unt / calcium excwvqjjz533 mg / calcium pantothenate 7 mg / cholecalciferol 400 unt / docusate sodium 25 mg / ferrous fumarate 29 mg / folic acid 1 mg / niacinamide 15 mg / pyridoxine hydrochloride 20 mg / riboflavin 3 mg / thiamine 3 mg / vitamin b12 0.012 mg / zinc oxide 20 mg oral tablet (13 sources)Vitamin B12, Vitamin D, Vitamin C End: 26-49-8389zmzd 1 tablet by mouth in the morningPrenatal Vit-DSS-Fe Fum-FA ( 19) 29-1 MG tablet Take 1 tablet by mouth in the morning. 02/21/2025 DiscontinuedNo Name (No Known Home Meds) (1 source)Start: 20-23-4011Sg Name (No Known Home Meds) Active April 21, 2024 12:00amomeprazole 20 mg delayed release oral capsule (5 sources)Proton Pump InhibitorStart: 03-22-2025 End: 63-04-8054rjwf 1 capsule by mouth before mealtimeomeprazole (PriLOSEC) [address] capsule Indications: Gastroesophageal Reflux Disease , Heartburn Take 1 capsule (20 mg) by mouth in the morning. Take before meals. Do not crush or chew. 30 capsule 3 03/22/2025 04/21/2025 ActiveStart: 04-30-2023 End: 54-50-8285atyd 1 capsule by mouth before mealtimeomeprazole (PriLOSEC) [address] capsule Indications: Acute cough Take 1 capsule (20 mg) by mouth in the morning. Take before meals. Do not crush or chew. . 30 capsule 11 04/30/2023 04/29/2024 Activeondansetron 4 mg oral tablet (20 sources)Serotonin-3 Receptor AntagonistStart: 85-05-9662zsmj 2 tablets by mouth every six hours as needed for nausea and nausea, then take 1 tablet by mouth every six hours as needed for nausea and nauseaondansetron (Zofran) 4 MG tablet Indications: Well woman exam with routine gynecological exam Take 2 tablets (8 mg) by mouth every 6 (six) hours if needed for nausea or vomiting for up to 120 doses Take 1 tablet by mouth every 6 hours as needed for nausea. 60 tablet 3 12/20/2024 ActiveStart: 94-88-8978risd 1 tablet by mouth every six hours as needed for nausea and nausea, then take 1 tablet by mouthevery six hours as needed for nausea and nauseaondansetron (Zofran) 4 MG tablet Indications: Nausea and vomiting during ([facility]) Take 1tablet (4 mg) by mouth every 6 (six) hours if needed for nausea or vomiting for up to 30 doses Take1 tablet by mouth every 6 hours as needed for nausea. 30 tablet 3 12/20/2024 ActivePrenatal Vit-Fe Fumarate-FA ( Vitamins) 28-0.8 MG tablet (14 sources)Start: 12-20-2024 End: 26-13-3421urpo 1 tablet by mouth once dailyPrenatal Vit-Fe Fumarate-FA ( Vitamins) 28-0.8 MG tablet Indications: examinationor test, positive result ([facility]) Take 1 tablet by mouth Daily 30 tablet 9 12/20/2024 12/20/2025 Activepromethazine hydrochloride 12.5 mg oral tablet (5 sources)PhenothiazineStart: 67-57-9539lsvp 1 tablet by mouth every six hours as needed for nausea and vomiting and nausea and nauseapromethazine (Phenergan) 12.5 MG tablet Indications: Nausea Take 1 tablet (12.5 mg) by mouth every 6 (six) hours if needed for nausea or vomiting for up to 30 doses Take 1 tablet by mouth every 6 hours as needed for nausea. 30 tablet 2 02/22/2025 Active Completed/Discontinued Medications MedicationDrug Class(es)DatesSig (Normalized)Sig (Original)amoxicillin 500 mg oral capsule (3 sources)Penicillin-class AntibacterialStart: 12-27-2023 End: 76-52-5727xwpj 500 mg by mouth twice dailyAmoxicillin Discontinued 500 MG PO Twice daily 20 December 27, 2023 12:00am April 21, 2024 9:28am Problems Active Problems Problem ClassificationProblemDateDocumented DateEpisodic/ChronicImmunizations and screening for infectious disease (2 sources)Exposure to sexually transmissible disorder; Translations: [Contact with and (suspected) exposure to infections with a predominantly sexual mode of transmission]20-01-6193KpbcbivjWamrylhol disorders (1 source)Missed period; Translations: [Irregular menstruation, unspecified] 40-46-3340DfhdgzoDyoaa complications of (2 sources)Vomiting of , unspecified; Translations: [Unspecified vomiting of , unspecified as to episode of care or not applicable] 97-12-0075PrnbaubiCllyf nutritional; endocrine; and metabolic disorders (1 source)Ioiashrhpl59-84-9213MjdwepgtCfrig nutritional; endocrine; and metabolic disorders (1 source)Overweight in adulthood with body mass index of 25 or more but less than 9931-44-6229AqmeeassPwrsz and delivery including normal (19 sources)Encounter for routine follow-up; Translations: [Encounter for supervision of normal , unspecified, first trimester]Onset: 66-73-6387BaymmqkqQbhrs screening for suspected conditions (not mental disorders or infectious disease) (12 sources)Encounter for screening for malignant neoplasm of cervix; Translations: [Encounter for screening for Streptococcus B]Onset: 24-82-3746BvnogndrBrjpx skin disorders (1 source)Mass of subcutaneous tissue of upper limb; Translations: [Localized swelling, mass and lump, unspecified upper limb]Onset: 23-06-4768RohgjabhIqjgj skin disorders (1 source)Mass of wrtbez28-26-5827PifgqgdkNkpha upper respiratory infections (5 sources)Acute bacterial pharyngitis; Translations: [Acute pharyngitis due to other specified organisms]01-24-1103KbflvslpDhjses media and related conditions (5 sources)Acute right otitis media; Translations: [Otitis media, unspecified, right ear]20-06-8105FsanwethDnoriywo codes; unclassified (2 sources)Gestation period, 13 weeks; Translations: [13 weeks gestation of ]05-14-9468EfrssryjFrhxjfcw codes; unclassified (2 sources)Gestation period, 17 weeks; Translations: [17 weeks gestation of ]18-55-8435QvahdyvpCpigzwtd codes; unclassified (2 sources)Gestation period, 21 weeks; Translations: [21 weeks gestation of ]23-49-7256IcsilxdqFemwttxmihjz (1 source)CONTACT W/AND (SUSP) EXPOS COVID-19; Translations: [CONTACT W/AND (SUSP) EXPOS COVID-19]Onset: 01-03-2022 Past or Other Problems Problem ClassificationProblemDateDocumented DateEpisodic/ChronicOB-related trauma to perineum and vulva (1 source)Third degree perineal laceration during delivery, unspecified; Translations: [THIRD DEGREE PERINL LAC DUR DEL UNS]Onset: 18-82-7756Hwpubyae Other skin disorders (17 sources)Localized swelling, mass and lump, right upper limb; Translations: [Localized superficial swelling,mass, or lump]Onset: 245411-45-0277 EpisodicResidual codes; unclassified (1 source)38 weeks gestation of ; Translations: [38 WEEKS GESTATION OF ]Onset: 30-01-3331Wphqmlhw Results Test NameValueInterpretationReference RangeFacilityUS OB 14+ WEEKS ANATOMY SCAN on 79-27-9609KC OB 14+ WEEKS ANATOMY SCANFINDINGS: A single, live intrauterine is present with normal cardiac rate of 149 beats per minute. Normal activity and amniotic fluid volume. Amniotic fluid index is cm. Morphology is grossly normal. The placenta is posterior. Very mild funneling not associated with the internal cervical os. Cervical length is 3.9 cm. The current sonographic age is 21 weeks and [...] date of delivery of August 23, 2025. The current estimated weight is 466 grams (1 pound, 0 ounces). IMPRESSION: 1. Single, live intrauterine , current sonographic age of 21 weeks and 6 days, with an estimated date of delivery of August 23, 2025. 2. Very mild funneling not associated with the cervical os. * Estimated Weight (g) by Percentile is based upon an accurate estimated age based on last menstrual period. TRANSCRIBED BY: ELECTRONICALLY SIGNED BY: Edward CorcoranNot AvailableComment on above:Order Comment: US OB ANATOMY SINGLE W US OB CERVICAL LENGTH Estimated Date of Delivery: 08/23/25 Gestational Age as of 03/21/2025: 30v0yZvptjogafo macro (dipstick) panel (U)on 75-01-2379Smzjznoqw, UANegativeNegative - 4(70) +++ mg/dLNOMS HealthcareBlood, UANegativeNegative - 50 Jerad/mcLNOMS HealthcareClarity, UAClearNOMS Healthcare Color, UAYellowNOMS HealthcareGlucose, UANegativeNegative - 2000(110) ++++ mg/dL [facility] HealthcareInterpretation and review of laboratory resultsNormalNOMS HealthcareKetones, UANegativeNegative - 160(16) ++++ mg/dLN[facility] Healthcare Leukocytes, UANegativeNegative - 500+++ Gerson/mcLNOMS HealthcareNitrite, UA NegativeNegative - PositiveNOMS HealthcarepH, UA6.05 - 9N[facility] HealthcareProtein, UANegativeNegative - 2000(20) ++++ mg/dLNOMS HealthcareSpec Grav, UA1.0101 - 1.03NOMS HealthcareUrobilinogen, UA0.20.2 - 12 mg/dLNOMS HealthcareNOMS HealthcareUrinalysis macro (dipstick) panel (U)on 50-20-8014Sxmgdkpxh, UA NegativeNegative - 4(70) +++ mg/dLNOAL HealthcareBlood, UANegativeNegative - 50 Jerad/mcLGARFIELD MEMORIAL [facility]OSPITAL HealthcareClarity, UAClearNOAL HealthcareColor, UAYellowNOAL HealthcareGlucose, UANegativeNegative - 2000(110) ++++ mg/dLGARFIELD MEMORIAL [facility]OSPITAL Healthcare Interpretation and review of laboratory resultsNormalNOAL HealthcareKetones, UA NegativeNegative - 160(16) ++++ mg/dLGARFIELD MEMORIAL HOSPITAL HealthcareLeukocytes, UANegative Negative - 500+++ Gerson/mcLGARFIELD MEMORIAL HOSPITAL HealthcareNitrite, UANegativeNegative - Positive [facility] HealthcarepH, UA65 - 9NOAL HealthcareProtein, UANegativeNegative - 2000(20) ++++ mg/dLGARFIELD MEMORIAL HOSPITAL HealthcareSpec Grav, UA1.0151 - 1.03NOAL HealthcareUrobilinogen, UA0.20.2 - 12 mg/dLReynolds County General [facility] HealthcareALL CBC WITH AUTO DIFFon 91-74-6446BYWYSJNTG ABSOLUTE GZGS7VKTUChildren's Mercy NorthlandBasophils/100 WBC (Bld)0.5 %0.2 - 2.0 %[facility] HospitalEosinophils/100 WBC (Bld)0.9 %0.9 - 7.0 %[facility] Erythrocyte distribution width (RBC) [Ratio]12 %11.0 - 15.0 %[facility] Hematocrit (Bld) [Volume fraction]40 %36.0 - 48.0 %University HospitalHemoglobin (Bld) [Mass/Vol]14 g/dL12.0 - 16.0 g/dLUniversity HospitalIMMATURE GRANULOCYTES ABS AUTO0.01NOChildren's Mercy NorthlandImmature granulocytes/100 WBC (Bld)0.2 %0.0 - 0.5 %University HospitalLYMPHOCYTES ABSOLUTE AUTO1.5NOChildren's Mercy NorthlandLymphocytes/100 WBC (Bld) 26.6 %20.5 - 60.0 %University HospitalMCH (RBC) [Entitic mass]32 pg26.7 - 34.0 pg University HospitalMCHC (RBC) [Mass/Vol]35 g/dL29.9 - 35.2 g/dLUniversity HospitalMCV (RBC) [Entitic vol]91.3 fL81.0 - 99.0 fLNOMS HealthcareMONOCYTES ABSOLUTE AUTO 0.7NOMS HealthcareMonocytes/100 WBC (Bld)11.3 %1.7 - 12.0 %[facility] NEUTROPHILS ABSOLUTE AUTO3.5NOMS HealthcareNeutrophils/100 WBC (Bld)60.5 %43.0 - 75.0 %[facility] HealthcarePlatelet mean volume (Bld) [Entitic vol]10.2 fL9.5 - 13.5 fLNOMS HealthcareTBH EO #0.1NOMS HealthcareTBH WOK164RGJE HealthcareTBH RBC4.38 N[facility] HealthcareTBH WBC5.8NOMS HealthcareCLINISYNCNOMS HealthcareHCG ( test) Ql (U)on 81-26-7611Gafmoonpaqlkhq and review of laboratory resultsAbnormal [facility] HealthcarePreg Test, UrPositiveNegativeNOChildren's Mercy NorthlandNOAL HealthcareUS OB TRANSVAGINALon 98-46-1792JB OB TRANSVAGINALFINDINGS: A single intrauterine gestational sac is present. [...] of delivery is August 25, 2025. No p elvic fluid or adnexal mass present. Cervix is closed, 3.5 cm. IMPRESSION: Findings consistent with a live intrauterine gestation, current sonographic age of 9 weeks and 1 day resulting in an estimated date of delivery of August 25, 2025. TRANSCRIBED BY: ELECTRONICALLY SIGNED BY: Issac Corcoran AvailableComment on above:Order Comment: US OB TRANSVAGINAL No LMP recorded.Urinalysis macro (dipstick) panel (U)on 27-11-6755Muhwqvnfk, UA NegativeNegative - 4(70) +++ mg/dLNOAL HealthcareBlood, UANegativeNegative - 50 Jerad/mcLNOMS HealthcareClarity, UAClearNOMS HealthcareColor, UAYellowNOMS HealthcareGlucose, UANegativeNegative - 2000(110) ++++ mg/dLNOAL [facility] Interpretation and review of laboratory resultsNormalNOAL HealthcareKetones, UA NegativeNegative - 160(16) ++++ mg/dLNOAL HealthcareLeukocytes, UANegative Negative - 500+++ Gerson/mcLNOAL HealthcareNitrite, UANegativeNegative - Positive [facility] HealthcarepH, UA65 - 9N[facility] HealthcareProtein, UANegativeNegative - 2000(20) ++++ mg/dLNOMS HealthcareSpec Grav, UA1.011 - 1.03NOMS HealthcareUrobilinogen, UA1.00.2 - 12 mg/dLNOMS HealthcareNOMS HealthcareIGP,APTIMA HPV,AGE GDLNon 77-99-7542RQU GDLN ACOG TESTINGNote.[facility] HealthcareComment on above:TESTS RESULT FLAG UNITS REF RANGE LAB Clinician Provided Cytology Information Source.............Cervix;Endocervix No. of containers..01 ThinPrep Vial Age Algo ACOG Yessy... 30-65 01 FLAG LEGEND: L-Low Normal,H-High Normal,LL-Alert Low,HH-Alert High <-Panic Low,>-Panic High,A-Abnormal,AA-Critical Abnormal Performed at: 01 =[facility] [address] Sunita Jacobs MD, HPV APTIMANegativeNegCopper Basin Medical CenterComment on above:This nucleic acid amplification test detects fourteen high- risk HPV types (16,18,31,33,35,39,45,51,52,56,58,59,66,68) without differentiation. Performed at: = - [facility] [id number] Regulatory Affairs Strategy Specialist: Sunita Jacobs MD, Phone: [phone] Performed at: - [facility] [id number] Regulatory Affairs Strategy Specialist: Sunita Jacobs MD, Phone: [phone] IGP, APTIMA HPV, RFX 16/18,45Note.[facility]ide Methodist HospitalComment on above:TESTS RESULT FLAG UNITS REF RANGE LAB DIAGNOSIS: 02 NEGATIVE FOR INTRAEPITHELIAL LESION OR MALIGNANCY. Specimen adequacy: 02 Satisfactory for evaluation. No endocervical component is identified. Performed by: Edi Goode, Airport Manager (ASCP) . 02 Note: Note 02 The Pap [...] <-Panic Low,>-Panic High,A-Abnormal,AA-Critical Abnormal Performed at: [address] [address] Sunita Jacobs MD, BRUSH-SPATULA CERVIX ENDOCERVIX CLINISYNCNOMS HealthcareRECURRENT VAGINITIS (HTRX)on 43-35-0263YWJDECJNI VAGINAE 0NOMS HealthcareATOPOBIUM VAGINAENot detectedNOMS HealthcareBVAB 2,3 (BACTERIAL VAGINOSIS ASSOCIATED BACTERIA 2, 3); MOBILUNCUS DPT5CQRE HealthcareBVAB 2,3 (BACTERIAL VAGINOSIS ASSOCIATED BACTERIA 2, 3); MOBILUNCUS SPPNot detectedNOMS HealthcareCANDIDA ALBICANS, PARAPSILOSIS, ZAMWAUKPFU3JDSN HealthcareCANDIDA ALBICANS, PARAPSILOSIS, TROPICALISNot detectedNOMS HealthcareCANDIDA GLABRATA0 NOMS HealthcareCANDIDA GLABRATANot detectedNOMS HealthcareCANDIDA TVMZIE6SJGA HealthcareCANDIDA KRUSEINot detectedNOMS HealthcareCHLAMYDIA YNMSQQWAWOZ7VDSC HealthcareCHLAMYDIA TRACHOMATISNot detectedNOMS HealthcareGARDNERELLA VAGINALIS0 NOMS HealthcareGARDNERELLA VAGINALISNot detectedNOMS HealthcareMEGASPHAERA (TYPES 1, 2)0NOMS HealthcareMEGASPHAERA (TYPES 1, 2)Not detectedN[facility]S Healthcare MYCOPLASMA WZFLANIJGN2OHHP HealthcareMYCOPLASMA GENITALIUMNot detectedNOMS HealthcareNEISSERIA TQXYDZIIWXE9IHDB HealthcareNEISSERIA GONORRHOEAENot detected NOMS HealthcareTRICHOMONAS QMACUSLUI3ORCQ HealthcareTRICHOMONAS VAGINALISNot detectedNOMS HealthcareNOMS HealthcareHCG ( test) Ql (U)on 12-20-2024 Interpretation and review of laboratory resultsAbnormalNOMS HealthcarePreg Test, UrPositiveNegativeNOMS HealthcareNOAL HealthcareLon 78-50-5125LBfyjdild: [id number] Received: 01/19/24 Status: JACQUELYN Ashraf Num: [id number] Spec Type: Cytology Subm Dr: Deandra Gomez Tissues: A FNA SLIDES PATH (RT AXILLA) Procedures: HE/2, -, PAPSTN/7 Age/ Patient Sex Location Account Attending Physician Albina Castillo 28/F LABELL [id number] Deandra Gomez SPEC NUM: [id number] RECD: 01/19/24 STATUS: JACQUELYN ASHRAF NUM: [id number] KAITLIN: 01/16/24- SUBM DR: Deandra Gomez ENTERED: 01/19/[address] [facility] [address]: Ashly,Lab Erica Bhandari MD SPEC TYPE: Cytology DEPT: [facility] ENTERED BY: [id number] RECV BY: [id number] ORDERED: HE/2, -, PAPSTN/7 ORDERED: HE/2, -, [...] to be stained pap for microscopic Specimen: Received: 01/19/24 Status: JACQUELYN Ashraf Num: [id number] Spec Type: Cytology Subm Dr: Deandra Gomez Tissues: A FNA SLIDES PATH (RT AXILLA) Procedures: HE/2, -, PAPSTN/7 Patient: Albina Castillo [id number] (Continued) Specimen: [id number] Received: 01/19/24 (Continued) Gross Description (Continued) Signed (signature on file) Kishore Paez MD 01/20/24 1720 Specimen: [id number] Received: 01/19/24 Status: JACQUELYN Ashraf Num: [id number] Spec Type: Cytology Subm Dr: Deandra Gomez Tissues: A FNA SLIDES PATH (RT AXILLA) Procedures: JEET/Silvia, -, PAPJAY/Blanca Patient: Albina Castillo [id number] (Continued) Specimen: [id number] Received: 01/19/24 (Continued) Gross Description (Continued) examination.(CC/nh) CPT Codes 86876 Specimen: [id number] Received: 01/19/24 Status: JACQUELYN Ashraf Num: [id number] Spec Type: Cytology Subm Dr: Deandra Gomez Tissues: A FNA SLIDES PATH (RT AXILLA) Procedures: HE/Silvia, -, PAPSTN/7 Patient: Albina Castillo [id number] (Continued) Signed (signature on file) Kishore Paez MD 01/20/[address] [place] [address] Physician GroupUS BIOPSY FNAon 88-47-7227[place]zzH[place] [address] Ultrasound Report Signed Patient: ALBINA CASTILLO MR#: [id number] : 1995 Acct:[id number] Age/Sex: 28 / F ADM Date: 01/16/24 Loc: US Attending Dr: Deandra Gomez D.O. Ordering Physician: Deandra Gomez D.O. Date of Service: 01/16/24 Procedure(s): US biopsy FNA Accession Number(s): [id number] cc: HARSHIL MORAN ; Deandra Gomez D.O. [place] [id number] Patient Name: ALBINA CASTILLO MRN: [id number] date: 1995 Sex: F Assigned Patient Location: US Current Patient Location: US Accession/Order Number: [id number] Exam Date: 01/16/2024 10:34 Report Date: 01/16/2024 [...] Bhandari M.D. Signed By: 01/16/24 1248 DD/ 44 TD/TT: Tank Officer:JAGDISHadiology, Radiologist, - 01/16/2024 [place] [address] Ultrasound Report Signed Patient: ALBINA CASTILLO MR#: [id number] : 1995 Acct:[id number] Age/Sex: 28 / F ADM Date: 01/16/24 Loc: US Attending Dr: Deandra Gomez D.O. Ordering Physician: Deandra Gomez D.O. Date of Service: 01/16/24 Procedure(s): US biopsy FNA Accession Number(s): [id number] cc: HARSHIL MORAN ; Deandra Gomez D.O. [facility] [place] [id number] Patient Name: ALBINA CATSILLO MRN: [facility]:[id number] date: 1995 Sex: F Assigned Patient Location: US Current Patient Location: US Accession/Order Number: [id number] Exam Date: 01/16/2024 10:34 Report Date: 01/16/2024 [...] Signed By: 01/16/24 1248 DD/ 1245 TD/TT: Tank Officer: SAMANTHA HealthcareRadiology Study observation (narrative)NOMS HealthcareUS BIOPSY FNAOrdered By: Radiologist Radiology on 77-63-1178SJAO [employer] Work Phone: No Panel InformationOrdered By: Terrie Cardozo on 91-82-1416Xwjrb Strep (POC)[facility] HospitalUS Extremity - right on 29-48-8909JmiHarts[place] [address] Ultrasound Report Signed Patient: ALBINA CASTILLO MR#: [id number] : 1995 Acct:[id number] Age/Sex: 28 / F ADM Date: 12/25/23 Loc: US Attending Dr: Deandra Gomez D.O. Ordering Physician: Deandra Gomez D.O. Date of Service: 12/25/23 Procedure(s): US extremity nonvascular RT Accession Number(s): [id number] cc: HARSHIL MORAN Corey D.O. [place] [id number] Patient Name: ALBINA CASTILLO MRN: [id number] date: 1995 Sex: F Assigned Patient Location: US Current Patient Location: Accession/Order Number: [id number] Exam Date: 12/25/2023 09:10 Report Date: 12/26/2023 [...] M.D. Signed By: 12/26/2315 DD/ 1 TD/TT: Tank Officer:FABIOLAHRadiology, Radiologist, - 12/26/2023 [place] [address] Ultrasound Report Signed Patient: ALBINA CASTILLO MR#: [id number] : 1995 Acct:[id number] Age/Sex: 28 / F ADM Date: 12/25/23 Loc: US Attending Dr: Deandra Gomez D.O. Ordering Physician: Deandra Gomez D.O. Date of Service: 12/25/23 Procedure(s): US extremity nonvascular RT Accession Number(s): [id number] cc: HARSHIL MORAN ; Deandra Gomez D.O. [place] [id number] Patient Name: ALBINA CASTILLO MRN: [facility]:[id number] date: 1995 Sex: F Assigned Patient Location: US Current Patient Location: Accession/Order Number: [id number] Exam Date: 12/25/2023 09:10 Report Date: 12/26/2023 [...] M.D. Signed By: 12/26/23514 DD/ 1 TD/TT: Tank Officer: SAMANTHA HealthcareRadiology Study observation (narrative)SAMANTHA ValdesUS Extremity - rightOrdered By: Radiologist Radiology on 43-26-5745[facility] Work Phone: Urinalysis macro (dipstick) panel (U)on 08-18-2023 Bilirubin, UANegativeNegative - 4(70) +++ mg/dLNOMS HealthcareBlood, UANegative Negative - 50 Jerad/mcLNOMS HealthcareClarity, UAClearNOMS HealthcareColor, UA YellowNOMS HealthcareGlucose, UANegativeNegative - 2000(110) ++++ mg/dLNOAL HealthcareInterpretation and review of laboratory resultsNormalNOAL Healthcare Ketones, UANegativeNegative - 160(16) ++++ mg/dLNOMS HealthcareLeukocytes, UA NegativeNegative - 500+++ Gerson/mcLNOMS HealthcareNitrite, UANegativeNegative - PositiveNOMS HealthcarepH, UA7.05 - 9NOMS HealthcareProtein, UANegativeNegative - 2000(20) ++++ mg/dLNOMS HealthcareSpec Grav, UA1.0101 - 1.03N[facility] Urobilinogen, UA0.20.2 - 12 mg/dLNOMS HealthcareNOMS HealthcareTBH UA (CLEAN/CATCH) MICROSCOPIC IF INDICATEon 33-20-6552AUKSYBQMV URINENegative NEGATIVENOMS HealthcareBLOOD URINENegativeNEGATIVENOMS HealthcareClarity (U) CLEARCLEARNOMS HealthcareColor (U)LT. YELLOWYELLOWNOMS HealthcareGLUCOSE URINE UANegativeNEGATIVE mg/dLNOMS HealthcareKetones Ql (U)NegativeNEGATIVE mg/dLNOMS HealthcareLeukocyte esterase Test strip Ql (U)NegativeNEGATIVENOMS Healthcare NITRITE URINENegativeNEGATIVENOMS HealthcarepH (U)5.5 [pH]5.0 - 9.0NOMS HealthcarePROTEIN URINENegativeNEG/TRACE mg/dLNOMS HealthcareSPECIFIC GRAVITY URINE1.0101.005 - 1.025NOMS HealthcareURINE MICROSCOPIC INDICATEDNONOMS HealthcareUROBILINOGEN URINE0.2 EU/dL0.2 - 1.0 EU/dLNOMS HealthcareCLINISYNCNOMS HealthcarePAP ACOG PANEL 2: 21 to 29on 10-02-2022..[facility] Comment on above:Performed By: #### [id number] #### [facility] [address] [place] [address] Dr. Alee White Gdln ACOG Pjvfebo05-67PcsvncBylKindred HealthcareComment on above:Performed By: #### [id number] #### [facility] [address] [place] [address] Dr. Alee PaezDIAGNOSIS:CommentFlower Hospital on above: Result Comment: NEGATIVE FOR INTRAEPITHELIAL LESION OR MALIGNANCY. THIS SPECIMEN WAS RESCREENED PART OF OUR WILL CALL ORDER CLERK PROGRAM.Performed By: #### [id number] #### [facility] [address] [place] [address] Dr. Alee PaezMethodology:CommentFlower Hospital on above: Result Comment: This liquid based ThinPrep(R) pap test was screened with the use of an image guided system.Performed By: #### [id number] #### [place] [address] Dr. Alee PaezNote:CommentFlower Hospital on above:Result Comment: The Pap smear is a screening test designed to aid in the detection of premalignant and malignant conditions of the uterine cervix. It is not a diagnostic procedure and should not be used as the sole means of detecting cervical cancer. Both false-positive and false-negative reports do occur. .Performed By: #### [id number] #### [facility] [address] [place] [address] Dr. Alee PaezPerformed by:CommentFlower Hospital on above: Result Comment: Tiffani Gonzales, Marzipan Maker (ASCP)Performed By: #### [id number] #### [facility] [address] [place] [address] Dr. Alee PaezQC reviewed by:[facility] on above:Result Comment: Bhumika Caba, Marzipan Maker (ASCP)Performed By: #### [id number] #### [facility] [address] [place] [address] Dr. Alee Kingsley Criteria:CommentFlower Hospital on above:Result Comment: The HPV DNA reflex criteria were not met with this specimen result therefore, no HPV testing was performed. .Performed By: #### [id number] #### [facility] [address] [place] [address] Dr. Alee PaezSpecimen adequacy:CommentFlower Hospital on above:Result Comment: Satisfactory for evaluation. Endocervical and/or squamous metaplastic cells (endocervical component) are present.Performed By: #### [id number] #### [facility] [address] [place] [address] Dr. Alee Waite AUTO DIFFon [id number] #0.0 103/ulNormal0.0-0.1The [facility] on above:Performed By: #### CBC #### [facility] [address] [place] [address] Dr. Alee PaezBasophils/100 WBC (Bld)0.2 %Normal0.2-2.0[facility] Comment on above:Performed By: #### CBC #### [facility] [address] [place] [address] Dr. Alee Hartley #0.1 103/ulNormal0.0-0.7The [facility] on above: Performed By: #### CBC #### [facility] [address] [place] [address] Dr. Alee Murphyosinophils/100 WBC (Bld)1.2 %Normal0.9-7.0The [facility] Comment on above:Performed By: #### CBC #### [facility] [address] [place] [address] Dr. Alee Murphyrythrocyte distribution width (RBC) [Ratio]15.3 %Critically high 11.0-15.0The [facility] HospitalComment on above:Performed By: #### CBC #### [facility] [address] [address] [address] Alee PaezHematocrit (Bld) [Volume fraction]25.1 %Critically low36.0-48.0 The [facility] HospitalComment on above:Performed By: #### CBC #### [facility] [address] [address] [address] Alee PaezHemoglobin (Bld) [Mass/Vol]8.2 g/dLCritically low12.0-16.0The [facility] HospitalComment on above:Result Comment: just deliveredPerformed By: #### CBC #### [facility] [address] [place] [address] Dr. Alee Gordon #0.03 10e3/ulNormal0.00-0.03The [facility] HospitalComment on above:Performed By: #### CBC #### [facility] [address] [place] [address] Dr. Alee Gordon %0.4 %Normal0.0-0.5The [facility] HospitalComment on above: Performed By: #### CBC #### [facility] [address] [place] [address] Dr. Alee Hutchison #2.0 103/ulNormal1.2-3.8The [facility] HospitalComment on above:Performed By: #### CBC #### [facility] [address] [place] [address] Dr. Alee Perezmphocytes/100 WBC (Bld)23.9 %Muamaj68.5-60.0The [facility] HospitalComment on above:Performed By: #### CBC #### [facility] [address] [place] [address] Dr. Alee SilvaUAL DIFF REQNONormalThe [facility] HospitalComment on above: Performed By: #### CBC #### [facility] [address] [place] [address] Dr. Alee Marino (RBC) [Entitic mass]28.3 rjKpxfnl37.7-34.0The [facility] HospitalComment on above:Performed By: #### CBC #### [facility] [address] [address] [address] Alee WalterHC (RBC) [Mass/Vol]32.7 g/dNAssgzz00.9-35.2The [facility] HospitalComment on above:Performed By: #### CBC #### [facility] [address] [place] [address] Dr. Alee WalterV (RBC) [Entitic vol]86.6 aLUalogo19.0-99.0The [facility] HospitalComment on above:Performed By: #### CBC #### [facility] [address] [place] [address] Dr. Alee Jett #0.8 103/ulNormal0.3-0.8The [facility] HospitalComment on above:Performed By: #### CBC #### [facility] [address] [place] [address] Dr. Alee Estradaocytes/100 WBC (Bld)9.8 %Normal1.7-12.0The [facility] Comment on above:Performed By: #### CBC #### [facility] [address] [place] [address] Dr. Alee Rose #5.5 103/ulNormal1.4-6.5The [facility] HospitalComment on above:Performed By: #### CBC #### [facility] [address] [place] [address] Dr. Alee Carreonutrophils/100 WBC (Bld)64.5 %Odumrr37.0-75.0The [facility] HospitalComment on above:Performed By: #### CBC #### [facility] [address] [place] [address] Dr. Alee Waldroplet mean volume (Bld) [Entitic vol]9.8 fLNormal9.5-13.5The [facility] HospitalComment on above:Performed By: #### CBC #### [facility] [address] [place] [address] Dr. Alee PaezPLT152 103/ftMpziga724-123Dnl [facility] HospitalComment on above: Performed By: #### CBC #### [facility] [address] [place] [address] Dr. Alee PaezRBC2.90 106/ulCritically low4.20-5.40The [facility] Hospitalment on above:Performed By: #### CBC #### [facility] [address] [place] [address] Dr. Alee PaezWBC8.5 103/ulNormal4.0-11.0The [facility] HospitalComment on above: Performed By: #### CBC #### [facility] [address] [place] [address] Dr. Alee Waite AUTO DIFFon [id number] #0.0 103/ulNormal0.0-0.1The [facility] on above:Performed By: #### CBC #### [facility] [address] [place] [address] Dr. Alee PaezBasophils/100 WBC (Bld)0.2 %Normal0.2-2.0The [facility] on above:Performed By: #### CBC #### [facility] [address] [place] [address] Dr. Alee Hartley #0.0 103/ulNormal0.0-0.7The [facility] HospitalCommunson [facility] on above: Performed By: #### CBC #### [facility] [address] [place] [address] Dr. Alee Murphyosinophils/100 WBC (Bld)0.5 %Critically low0.9-7.0The [facility] HospitalComment on above:Performed By: #### CBC #### [facility] [address] [place] [address] Dr. Alee Murphyrythrocyte distribution width (RBC) [Ratio]15.0 %Shklrf98.0-15.0 The [facility] Hospitalment on above:Performed By: #### CBC #### [facility] [address] [place] [address] Dr. Alee PaezHematocrit (Bld) [Volume fraction]38.1 %Kvidea73.0-48.0The [facility] HospitalComment on above:Performed By: #### CBC #### [facility] [address] [place] [address] Dr. Alee PaezHemoglobin (Bld) [Mass/Vol]12.6 g/nTQbktcm85.0-16.0The [facility] HospitalComment on above:Performed By: #### CBC #### [facility] [address] [place] [address] Dr. Alee Gordon #0.03 10e3/ulNormal0.00-0.03The [facility] HospitalComment on above:Performed By: #### CBC #### [facility] [address] [place] [address] Dr. Alee Gordon %0.4 %Normal0.0-0.5The [facility] HospitalComment on above: Performed By: #### CBC #### [facility] [address] [place] [address] Dr. Alee Hutchison #1.0 103/ulCritically low1.2-3.8The [facility] Comment on above:Performed By: #### CBC #### [facility] [address] [place] [address] Dr. Alee Perezmphocytes/100 WBC (Bld)12.5 %Critically low20.5-60.0The [facility] HospitalComment on above:Performed By: #### CBC #### [facility] [address] [place] [address] Dr. Alee SilvaUAL DIFF REQNONormalThe [facility] HospitalComment on above: Performed By: #### CBC #### [facility] [address] [place] [address] Dr. Alee Marino (RBC) [Entitic mass]27.8 crJtffvb55.7-34.0The [facility] HospitalComment on above:Performed By: #### CBC #### [facility] [address] [place] [address] Dr. Alee Walter (RBC) [Mass/Vol]33.1 g/kTBixuxd51.9-35.2The [facility] HospitalComment on above:Performed By: #### CBC #### [facility] [address] [address] [address] Alee WalterV (RBC) [Entitic vol]84.1 kXXrcoxx53.0-99.0The [facility] HospitalComment on above:Performed By: #### CBC #### [facility] [address] [place] [address] Dr. Alee Jett #1.0 103/ulCritically high0.3-0.8The [facility] Comment on above:Performed By: #### CBC #### [facility] [address] [place] [address] Dr. Alee Estradaocytes/100 WBC (Bld)11.4 %Normal1.7-12.0The [facility] Comment on above:Performed By: #### CBC #### [facility] [address] [place] [address] Dr. Alee Rose #6.2 103/ulNormal1.4-6.5The [facility] HospitalComment on above:Performed By: #### CBC #### [facility] [address] [place] [address] Dr. Alee Carreonutrophils/100 WBC (Bld)75.0 %Vnftmr83.0-75.0The [facility] HospitalComment on above:Performed By: #### CBC #### [facility] [address] [place] [address] Dr. Alee Waldroplet mean volume (Bld) [Entitic vol]11.4 fLNormal9.5-13.5The [facility] HospitalComment on above:Performed By: #### CBC #### [facility] [address] [place] [address] Dr. lAee PaezPLT204 103/nkXtgukt877-781Gyf [facility] HospitalComment on above: Performed By: #### CBC #### [facility] [address] [place] [address] Dr. Alee PaezRBC4.53 106/ulNormal4.20-5.40The [facility] HospitalComment on above:Performed By: #### CBC #### [facility] [address] [place] [address] Dr. Alee PaezWBC8.3 103/ulNormal4.0-11.0The [facility] HospitalComment on above: Performed By: #### CBC #### [facility] [address] [place] [address] Dr. Alee PaezCovid-19 PCR (CVDTBH)on 78-00-1516BKES-CoV-2 (COVID-19) RNA JERRY+probe Ql (Unsp spec)Not detectedNormalNOT DETECTEDThe [facility] Comment on above:Result Comment: When diagnostic testing is negative, the [...] for this test is supported by the [place] of Health and Human Service's declaration that circumstances exist to justify the emergency use of in vitro diagnostics for the detection and/or diagnosis of the virus that causes COVID-19. This EUA will remain in effect for the duration of the COVID-19 declaration justifying emergency of IVDs, unless it is terminated or revoked by the FDA (after which the test may no longer be used).Performed By: #### CVDTBH #### [facility] [address] [place] [address] Dr. Alee PaezDRUG SCREEN RAPID (URINE)on [id number]M The [facility] HospitalComment on above:Performed By: #### DRUGRPD #### [facility] [address] [place] [address] Dr. Alee PaezBARNegativeNormalNEGATIVEThe [facility] HospitalComment on above: Performed By: #### DRUGRPD #### [facility] [address] [place] [address] Dr. Alee PaezBUPNegativeNormalNEGATIVEThe Jewish HospitalComment on above: Performed By: #### DRUGRPD #### [facility] [address] [place] [address] Dr. Alee PaezBZONegativeNormalNEGATIVEThe [facility] HospitalComment on above: Performed By: #### DRUGRPD #### [facility] [address] [place] [address] Dr. Alee PaezCOCNegativeNormalNEGATIVEThe [facility] HospitalComment on above: Performed By: #### DRUGRPD #### [facility] [address] [place] [address] Dr. Alee TellesOur Lady of Mercy HospitalComment on above: Result Comment: AMP (Amphetamine): 500ng/mL, BAR (Barbituates): 200 ng/mL, BZO (Benzodiazepines): 150 ng/mL, BUP (Buprenorphine): 10 ng/mL, FLOYD (Cocaine): 150 ng/mL, mAMP (Methamphetamine): 500 ng/mL, MTD (Methadone): 200 ng/mL, OPI (Opiates): 100 ng/mL, OXY (Oxycodone): 100 ng/mL, PCP (Phencyclidine): 25 ng/mL, PPX (Propoxyphene): 300 ng/mL, THC (Cannabinoids): 50 ng/mL, TCA (Trycyclic Antidepressants): 300 ng/mLPerformed By: #### DRUGRPD #### [facility] [address] [place] [address] Dr. Alee PaezDRUG CUT HEADERDRUG CLASS TEST SYSTEM CUT-OFF CONCENTRATIONS ARE FOLLOWS:NormalThe [facility] HospitalCommunson healthcare [facility] on above:Performed By: #### DRUGRPD #### [facility] [address] [place] [address] Dr. Alee PaezmAMPNegativeNormalNEGATIVEThe Jewish HospitalCommunson [facility] on above: Performed By: #### DRUGRPD #### [facility] [address] [place] [address] Dr. Alee PaezMTDNegativeNormalNEGATIVEThe Jewish HospitalComment on above: Performed By: #### DRUGRPD #### [facility] [address] [place] [address] Dr. Alee PaezOPINegativeNormalNEGGrand Lake Joint Township District Memorial HospitalCommunson healthcare [facility] on above: Performed By: #### DRUGRPD #### [facility] [address] [place] [address] Dr. Alee PaezOXYNegativeNormalNEGUniversity Hospitals Geauga Medical Center on above: Performed By: #### DRUGRPD #### [facility] [address] [place] [address] Dr. Alee PaezPCPNegativeNormalNEGGrand Lake Joint Township District Memorial HospitalCommunson healthcare [facility] on above: Performed By: #### DRUGRPD #### [facility] [address] [place] [address] Dr. Alee PaezPPXNegativeNormalNEGGrand Lake Joint Township District Memorial HospitalCommunson healthcare [facility] on above: Performed By: #### DRUGRPD #### [facility] [address] [place] [address] Dr. Alee PaezTCANegativeNormalNEGUniversity Hospitals Geauga Medical Center on above: Performed By: #### DRUGRPD #### [facility] [address] [place] [address] Dr. Alee PaezTHCNegativeNormalNEGGrand Lake Joint Township District Memorial HospitalCommunson [facility] on above: Performed By: #### DRUGRPD #### [facility] [address] [place] [address] Dr. Alee PaezTYPE AND SCREENon 04-15-7658SNVT AND SCREENNegativeNoKindred HealthcareCommunson healthcare [facility] on above:Performed By: #### TNS #### [facility] [address] [place] [address] Dr. Alee PaezGROUP B STREP CULTUREon 12-11-2021. agalactiae Ag Ql (Unsp spec) Culture Observations: NEGATIVE FOR GROUP B STREPTOCOCCUS.NormalThe Jewish HospitalComment on above: Performed By: #### GBSCX #### [facility] [address] [place] [address] Dr. Alee Paez Vital Signs Date TimeVital SignValuePerforming VmeugbvxuMtkahwns41-36-3376 15:31-0400Body mass index (BMI) [Ratio]29.04 kg/n9Ktkjc Jason DO Work Phone: [facility] HospitalMjojipnkas01-95-2835 15:31-0400Body zulcoz51.01 kgCorey Jason DO Work Phone: [phone] [place], [place] [address]Wqtcpddaqs96-30-4183 15:31-0400Diastolic blood vhyebtcb88 mm[Hg]Deandra Jason DO Work Phone: [phone] [place], [place] [address]Qdyjebsovp81-75-8595 15:31-0400Systolic blood mdknywiw616 mm[Hg]Deandra Jason DO Work Phone: [phone] [place], [place] [address]Fowkwmfbxx92-60-7030 09:45-0400Body mass index (BMI) [Ratio]26.01 kg/m2Tammie GENAO Work Phone: [phone] [place], [place] [address]Vmolgdtsnb78-29-9111 09:45-0400Body adrrsp84.5 kg Tammie GENAO Work Phone: [phone] [place], [place] [address]Evenohgwvz16-64-2814 09:45-0400Diastolic blood mm[Hg]Tammie GENAO Work Phone: [phone] [place], [place] [address]Qafqgicimc87-62-9708 09:45-0400Systolic blood btzpyovq275 mm[Hg]Tammie GENAO Work Phone: [phone] [place], [place] [address]Eeeyjtfocj53-24-6126 10:03-0400Diastolic blood hsvrzzto879 mm[Hg]Deandra Jason DO Work Phone: [phone])246-[facility]4University HospitalRpztzlelmo16-43-0727 10:03-0400Systolic blood rsyxjair608 mm[Hg]Deandra Jason DO Work Phone: [phone]-[facility]0University HospitalDtezfhbcub69-52-8764 09:52-0400Body mass index (BMI) [Ratio]25.74 kg/o2Eozps Jason DO Work Phone: [phone] [place], [place] [address]Vzdhhvxdii76-96-1708 09:52-0400Body wysgnr20.84 kgCorey Jason DO Work Phone: [phone] [place], [place] [address]Xwnetrqovb80-15-1489 09:03-0400Body mass index (BMI) [Ratio]26.12 kg/r5[facility]quG[facility]07-18-2025 09:03-0400Body weight 64.77 kgGarnet Health07-18-2025 09:03-0400Diastolic blood mm[Hg][facility]07-18-2025 09:03-0400Systolic blood rlogwbjp973 mm[Hg][facility]06-16-2025 14:29-0400Body mass index (BMI) [Ratio] 26.16 kg/q5Yxzrl Jason DO Work Phone: [phone] [place], [place] [address]Nxagjrmprq76-59-1955 14:290400Body imzgai34.86 kgCorey Jason DO Work Phone: [phone] [place], [place] [address]Hoqubggbmi36-79-6636 14:29-0400Diastolic blood mm[Hg]Deandra Jason DO Work Phone: [phone] [place], [place] [address]Viclbzhgjr59-56-8177 14:29-0400Systolic blood kwmczdee349 mm[Hg]Deandra Jason DO Work Phone: [phone] [place], [place] [address]Viezlmvxrp23-12-3490 09:31-0400Body vlsegw519.56 cmOhiohealth [facility]in [facility]10-16-2024 09:31-0400Body mass index (BMI) [Ratio]24 kg/l4EgfxnmqtcOhiohealth Hardin Memorial Hospital10-16-2024 09:31-0400Body ddskwojcdvx10.1 [degF][facility]10-16-2024 09:31-0400Body wvcwok83.5 kgOhiohealth [facility]in [facility] Hospital10-16-2024 09:31-0400Diastolic blood igxnqtey62 mm[Hg][facility]10-16-2024 09:31-0400 Heart nklr994 /minOhiohealth Hardin Memorial Hospital10-16-2024 09:31-0400 Respiratory rate18 /[facility]10-16-2024 09:31-0400 SaO2% (BldA) [Mass fraction]99 %[facility]10-16-2024 09:31-0400Systolic blood aegsywmm011 mm[Hg][facility] 03-09-2024 13:32-0400Blood Pressure LocationMichael NILL [phone]-UkvmzPomerene Hospital09-03-2024 13:32-0400Diastolic blood mm[Hg]Mark NILL [phone]-McnvhPomerene Hospital09-03-2024 13:32-0400Heart rate72 /minMichael NILL [phone]-IvvqfPomerene Hospital09-03-2024 13:32-0400Respiratory rate16 /minMichael NILL [phone]-KuvxvPomerene Hospital09-03-2024 13:32-0400Systolic blood lnmajgpl576 mm[Hg]Mark NILL [phone]-AdylzPomerene Hospital06-22-2024 09:45-0400Body hkodsd594.56 cmOhiohealth Hardin [facility] Hospital06-22-2024 09:45-0400Body mass index (BMI) [Ratio]23.6 kg/s8DcjzostscOhiohealth Hardin Memorial Hospital06-22-2024 09:45-0400Body vkiokkitjww52.7 [degF][facility]06-22-2024 09:45-0400Body .59 kgOhiohealth Hardin Memorial Hospital 12-27-2023 09:45-0400Heart rate79 /[facility] 12-27-2023 09:45-0400Respiratory rate18 /[facility] 12-27-2023 09:45-6634SdY1% (BldA) [Mass fraction]98 %[facility]02-12-2024 12:59-0500Body mass index (BMI) [Ratio]29.45 kg/h9RlipvDeandra Rooto DO Work Phone: NO Kehqalrytt94-99-0406 12:59-0500Body .03 kgCorey Jason DO Work Phone: [facility] Ncnxdiqxnq50-98-2434 12:59-0500Diastolic blood uprfwfzp50 mm[Hg]Deandra Jason DO Work Phone: NOChildren's Mercy NorthlandQrmicsgvng04-13-5428 12:59-0500Systolic blood rwqsaufv290 mm[Hg]Deandra Jason DO Work Phone: [facility] Encounters Encounter DateEncounter TypeCare ProviderFacilityStart: 04-18-2025 End: 12-33-6831Wreigpgy flow sheetCorey Jason [employer] Work Phone: NO [place] OBGYNComment on above:Second trimester ([facility]); 21 weeks gestation of ([facility]); Diabetes mellitus screeningStart: 04-18-2025 End: 95-24-7076ijaajvgldqSRKDA FAZIONot AvailableStart: 04-18-2025 End: 07-31-6441ixisqcmgsfVID RAMEYNot AvailableStart: 03-21-2025 End: 85-82-2887Feyvob Ronnie GENAO Work Phone: [facility] OBGYNStart: 03-21-2025 End: 30-30-2639Dgurpb Ronnie GENAO Work Phone: [facility] [place] OBGYNStart: 03-21-2025 End: 63-83-3333Rdrklmvk flow sheetTammie GENAO Work Phone: [facility] [place] OBGYNComment on above:Second trimester ([facility]); 17 weeks gestation of ([facility]); Screening, , for anatomic survey ([facility])Start: 03-21-2025 End: 94-31-2332uqejpdpauoEEC RAMEYNot AvailableStart: 02-28-2025 End: 85-89-0289gojmlmuglwEHAJI FAZIONot AvailableStart: 02-21-2025 End: 06-58-5141Nlotay flowsheetCorey Jason DO Work Phone: [facility] OBGYNStart: 02-21-2025 End: 22-26-5646Xwjtdt flowsheetCorey Jason DO Work Phone: [facility] [place] OBGYNStart: 02-21-2025 End: 66-38-2443Ndguamcs flow sheetCorey Jason DO Work Phone: [facility] [place] OBGYNComment on above:Second trimester ([facility]); 13 weeks gestation of ([facility])Start: 02-21-2025 End: 27-72-7909hwluwtchusYZWAB FAZIONot AvailableStart: 01-28-2025 End: 28-20-4906Mkuaitcku Result EncounterCorey Jason DO Work Phone: [facility] External Department UnsolicitedStart: 01-28-2025 End: 58-15-6568Rzbvwmgrr Result EncounterCorey Jason DO Work Phone: noMS External Department UnsolicitedStart: 01-21-2025 End: 86-35-5381Ntmvoc outpatient visit 5 minutesFazio Nurse [facility] Bcp ObNOMS BCP OBComment on above:GA: 5u7zUqkzn: 01-21-2025 End: 68-20-6006rlaahffrnmIBBEE FAZIONot AvailableStart: 12-20-2024 End: 85-40-7354Tdoufy flowsheetCorey Jason DO Work Phone: [facility] BCP OBStart: 12-20-2024 End: 27-24-3539Qncmxc flowsheetCorey Jason DO Work Phone: [facility] BCP OBStart: 12-20-2024 End: 18-94-5225Jhcbnowfy Result EncounterCorey Jason DO Work Phone: [facility] External Department UnsolicitedStart: 12-20-2024 End: 80-08-4519Tzqrnnjl Result EncounterCorey Jason DO Work Phone: n[facility] External Department UnsolicitedStart: 12-20-2024 End: 92-38-3962Gehyruw encounter procedureCorey Jason DO Work Phone: noms HealthcareStart: 12-20-2024 End: 10-62-6720Mhztuezr preventive med est patient 18-39 yrsCorey Jason DO Work Phone: noms BCP OBComment on above: examination or test, positive result ([facility]) (Primary Dx); Well woman exam with routine gynecological exam; STD exposure; Nausea and vomiting during ([facility])Start: 12-20-2024 End: 17-99-6637wiqmklecyvLJOHS FAZIONot AvailableStart: 04-21-2024 End: 70-88-9404zlvwudwjkmBwlsvdjaiGerman Hospital Work Phone: Start: 04-21-2024 End: 22-03-7265Jzwflpn encounter procedureMaria [facility] [place] Work Phone: Start: 03-09-2024 End: 18-29-6472jxhsbqmqdxPTLTNF FURLONGFacility: RenettaevueStart: 03-09-2024 End: 06-49-6909Xtgmmpg encounter procedureMichael R NILL [phone]-Jrozq General Surgery [facility] Start: 36-05-3935ddzbnpsuceXEAFQD FURLONGFacility: [place]vueStart: 01-16-2024 End: 22-01-6267Oujnlydmd Result EncounterCorey Jason DO Work Phone: noms External Department UnsolicitedStart: 01-16-2024 End: 06-16-4311Cxsxgckrd Result EncounterCorey Jason DO Work Phone: noms External Department UnsolicitedStart: 01-16-2024 End: 47-75-1772pudffymngoDxthtoov [facility] Work Phone: [facility] Work Phone: Start: 01-16-2024 End: 61-67-2816Ueiynefw [facility]erred[facility] Work Phone: [facility]-LAB Path Spec [facility] HospStart: 12-27-2023 End: 45-34-0935xzqfbpdqvjVbmefhcvv [facility] Work Phone: Start: 12-27-2023 End: 37-11-1038Xrteruu encounter procedureMaria [facility] [place] Work Phone: Start: 12-26-2023 End: 75-13-1074Ucdsjeeit Result EncounterCorey Jason DO Work Phone: noms External Department UnsolicitedStart: 12-26-2023 End: 86-96-7336Dbacqcjqs Result EncounterCorey Jason DO Work Phone: noms External Department UnsolicitedStart: 08-18-2023 End: 97-83-9989Gyhoatxs flow sheetCorey Jason DO Work Phone: noms BCP OBComment on above:Third trimester Start: 20-06-4660Uqyshmpgs Result EncounterCorey Jason DO Work Phone: noms External Department UnsolicitedStart: 08-14-2023 Clinisync Result EncounterCorey Jason DO Work Phone: noms External Department UnsolicitedStart: 09-23-2022 End: 16-08-2270xdmkpaqsmsPI DEANDRA JASON .Facility:U1Ohrbg: 12-31-2021 End: 64-19-9941bqveigcjnrVZ DEANDRA JASON .Facility:L2Znmfc: 12-25-2021 End: 26-22-0277Ounkhfdqvy and management of inpatientDR DEANDRA JASON .Facility:H1 Start: 12-11-2021 End: 19-93-4548uiimwlcrliQE JOVANY RUSHING .Facility: Procedures DateProcedureProcedure DetailPerforming ClinicianStart: 64-37-7102Epwzy dip stick/tablet rgnt non-auto w/o micrscpCorey Jason DO Work Phone: Start: 63-56-8950Fvmky dip stick/tablet rgnt non-auto w/o micrscpCorey Jason DO Work Phone: Start: 50-78-3224LDZ CBC WITH AUTO DIFFCorey Jason DO Work Phone: Start: 61-83-1998Yuoys dip stick/tablet rgnt non-auto w/o micrscpCorey Jason DO Work Phone: Start: 11-32-3617TPHXZSIZG VAGINITIS (HTRX)Deandra Jason DO Work Phone: Start: 10-00-4564Zauku test visual color cmprsn methsCorey Jason DO Work Phone: Start: 03-96-8227UNZ,APTIMA HPV,AGE GDLNCorey Jason DO Work Phone: Start: 87-54-8002YV BIOPSY FNACorey Jsaon DO Work Phone: Start: 05-75-4065Mtgzf Strep (POC)Start: 67-44-1482VM Extremity - rightCorey Jason DO Work Phone: Start: 23-33-7678Cnzjc dip stick/tablet rgnt non-auto w/o micrscpCorey Jason DO Work Phone: Start: 90-35-9270KCP UA (CLEAN/CATCH) MICROSCOPIC IF INDICATECorey Jason DO Work Phone: Start: 29-32-0192Vfqmuphi of Products of Conception, External ApproachDR DEANDRA JASON .Start: 89-34-8966Drddwfxe of Female Perineum, External ApproachDR DEANDRA JASON .Start: 43-86-6345Nygoko Anal Sphincter, Open ApproachDR DEANDRA JASON .Adenoid excisionMichael NILL Nasal polypectomyMichael NILL Plan of Treatment DateCare ActivityDetailAuthorStart: 12-22-2025 End: 87-05-5708Hlncdtl encounter ajmeubvtz08/18/2026 8:30 AM EDT Procedure Visit NOM[facility] BILL [address] [place] [id number] Deandra Gomez, DO [address] [place] [address] NOMS [facility] OBGYNStart: 05-16-2025 End: 38-85-8379Cgbaixf encounter zuwyercla48/10/2025 2:30 PM EST Routine [facility]OM[facility] BILL [address] [place], [id number] Tammie Olsen PA [address] [place] [address] NOMS [facility] OBGYNStart: 04-18-2025 End: 48-56-3475Iztnsoj encounter wtkcrruqu69/13/2025 3:00 PM EDT Routine NOM[facility] RYANN [address] [place], [id number] Deandra Gomez, DO [address] [place] [address] NOMS [facility] OBGYNStart: 04-18-2025 End: 95-23-7967SEL panel - Blood by Automated countCBC Lab Routine Diabetes mellitus screening Expected: 04/18/2025 (Approximate), Expires: 04/18/2026[facility] Work Phone: comment on above:Expected: 04/18/2025 (Approximate), Expires: 04/18/2026Start: 04-18-2025 End: 09-99-7632Tafiyejgooq of glucose 1 hour after glucose challenge for glucose tolerance testGlucose tolerance, 1 hour Lab Routine Diabetes mellitus screening Expected: 04/18/2025 (Approximate), Expires: 04/18/2026[facility] HealthcareComment on above:Expected: 04/18/2025 (Approximate), Expires: 04/18/2026Start: 04-18-2025 End: 27-02-5192Ijyyefhwfxgl / ancillary services yjgwyusprm32/13/2025 2:00 PM EDT [place] [address] NOMS [place] OBGYNStart: 03-21-2025 End: 10-65-3971Nalhy fetoprotein, maternalAlpha fetoprotein, maternal Lab Routine Second trimester ([facility]) 17 weeks gestation of ([facility]) Expected: 03/21/2025 (Approximate), Expires: 04/20/2025[facility] Comment on above:Expected: 03/21/2025 (Approximate), Expires: 04/20/2025Start: 03-21-2025 End: 92-25-5391CN for pregnancyUS OB 14+ weeks anatomy scan Imaging Routine Screening, , for anatomic survey ([facility]) Expected: 03/21/2025, Expires: 06/20/2025[facility] Work Phone: comment on above:Expected: 03/21/2025, Expires: 06/20/2025Start: 03-21-2025 End: 06-17-9342Cvbnwdd encounter procedureNOMS [place] OBGYNComment on above: ArrivedStart: 02-28-2025 End: 73-76-0509Okluhgot Tpupaih5402/28/2025 9:00 AM EDT Clinical Support SAMANTH[place], [id number] NOMShashi [place] OBGYNStart: 02-21-2025 End: 95-92-3256Chlhyxs encounter procedureNO BCP OBComment on above:Arrived Start: 01-21-2025 End: 65-38-3422RQM/RhABO/Rh Lab Routine Missed menses , unspecified gestational age ([facility]) Expected: 01/21/2025 (Approximate), Expires: 01/21/2026[facility] HealthcareComment on above:Expected: 01/21/2025 (Approximate), Expires: 01/21/2026Start: 01-21-2025 End: 41-65-4375Vicwo type and Indirect antibody screen panel - BloodType and screen Lab Routine Missed menses , unspecified gestational age ([facility]) Expected: 01/21/2025 (Approximate), Expires: 01/21/2026[facility] Comment on above:Expected: 01/21/2025 (Approximate), Expires: 01/21/2026Start: 01-21-2025 End: 95-49-2771Cbxnz of abuse panel - Urine by Screen methodRapid drug screen, urine Lab Routine , unspecified gestational age ([facility]) Encounter for supervision of normal first in first trimester ([facility]) Expected: 01/21/2025 (Approximate), Expires: 01/21/2026[facility] HealthcareComment on above: Expected: 01/21/2025 (Approximate), Expires: 01/21/2026Start: 01-21-2025 End: 97-94-5831cxcnccsdcp26/18/2025 9:00 AM EDT Initial [facility] BCP OB [address] [place] [address] NOMS BCP OBStart: 01-21-2025 End: 44-95-3681Iozihnerfrqr / ancillary services dliyfwtfsw54/18/2025 8:30 AM EDT Ancillary Procedure [facility] BCP OB [address] [place] [address] NOMS BCP OBStart: 01-12-2025 End: 16-42-5473EV Pelvis transvaginalUS OB transvaginal Imaging Routine Missed menses Expected: 01/12/2025, Expires: 04/14/2025[facility] Work Phone: comment on above:Expected: 01/12/2025, Expires: 04/14/2025Start: 12-20-2024 End: 45-18-6644Ofkgnes encounter ruoblercx62/16/2025 2:00 PM EDT Office Visit [facility] [address] [place] [phone] Deandra Gomez, DO [address] [place] [address] [place] [address] [facility]MEN[facility] OBComment on above:ArrivedStart: 08-18-2023 End: 25-00-6215Yqyzbjq encounter ourzmhrdd64/12/2024 1:00 PM EST Routine NOM[facility] OB [address] [place] [phone] Deandra Gomez, [address] [place] [address] Third trimester pregnancyNOSANT[facility] Comment on above:Third trimester pregnancyBacteria identified in Urine by CultureUrine culture Microbiology Routine Missed menses Ordered: 01/21/2025[facility] HealthcareComment on above:Ordered: 01/21/2025BC W Auto Differential panel - BloodCBC and differential Lab Routine Missed menses , unspecified gestational age ([facility]) Ordered: 01/21/2025[facility] HealthcareComment on above: Ordered: 01/21/2025HLAMYDIA TRACHOMATIS (GENITO/STI)CHLAMYDIA TRACHOMATIS (GENITO/STI) Lab Routine STD exposure Ordered: 12/20/2024[facility] HealthcareComment on above:Ordered: 5Cytology Cervical or vaginal smear or scraping study Pap Smear Pathology and Cytology Routine Well woman exam with routine gynecological exam Ordered: 12/20/2024[facility] Work Phone: comment on above:Ordered: 12/20/2024Hemoglobin A1c/Hemoglobin.total in BloodHemoglobin A1c Lab Routine Missed menses , unspecified gestational age ([facility]) Ordered: 01/21/2025[facility] HealthcareComment on above:Ordered: 01/21/2025Hepatitis B virus surface Ag [Presence] in Serum or Plasma by ImmunoassayHepatitis B surface antigen Lab Routine Missed menses , unspecified gestational age ([facility]) Ordered: 01/21/2025[facility] HealthcareComment on above:Ordered: 01/21/2025Hepatitis C virus Ab [Presence] in Serum or Plasma by ImmunoassayHepatitis C antibody Lab Routine Missed menses , unspecified gestational age ([facility]) Ordered: 01/21/2025[facility] HealthcareComment on above:Ordered: 01/21/2025HIV-1/HIV-2 antigen/antibody combination immunoassayHIV-1 and HIV-2 antibodies Lab Routine Missed menses , unspecified gestational age ([facility]) Ordered: 01/21/2025[facility] HealthcareComment on above:Ordered: 01/21/2025Human papilloma virus DNA [Presence] in Unspecified specimen by Probe with amplificationHPV DNA probe, amplified Microbiology Routine Well woman exam with routine gynecological exam Ordered: 12/20/2024[facility] HealthcareComment on above:Ordered: 12/20/2024Neisseria gonorrhoeae DNA [Presence] in Unspecified specimen by JERRY with probe detection Neisseria gonorrhea DNA probe, direct Lab Routine STD exposure Ordered: 12/20/2024[facility]:Ordered: 12/20/2024Reagin Ab [Presence] in Serum by RPRRPR Lab Routine Missed menses , unspecified gestational age ([facility]) Ordered: 01/21/2025[facility] HealthcareComment on above: Ordered: 01/21/2025Rubella antibody, IgGRubella antibody, IgG Lab Routine Missed menses , unspecified gestational age ([facility]) Ordered: 01/21/2025[facility] HealthcareComment on above:Ordered: 01/21/2025SURESWAB(R) ADVANCED VAGINITIS PLUS, TMASURESWAB(R) ADVANCED VAGINITIS PLUS, TMA Pathology and Cytology Routine STD exposure Ordered: 12/20/2024[facility] HealthcareComment on above:Ordered: 12/20/2024US Pelvis transvaginalUS OB transvaginal Imaging Routine Missed menses 01/21/2025 8:41 AM [facility] Payers DatePayer CategoryPayerPolicy [id number] Health Insurance [id number] FRONTPATH [id number] 2022-Present [address] [place] [address] [id number] [id number] 2.16840.1.289279.3.57[id number] 2.16840.1.812178.3.57[id number] 2.16840.1.578603.3.57[id number] 2.16840.1.633915.3.57[id number] 2.16840.1.789569.3.57[id number] 2.16840.1.813584.3.57[id number] 2.16840.1.612060.3.57[id number] 2.16840.1.395369.3.57[id number] 2.16840.1.707250.3.57[id number] 2.16840.1.302165.3.57[id number] 2.16840.1.882151.3.57[id number] 2.16.840.1.938970.3.57[id number] Social History DateTypeDetailFacilityStart: 02-25-2023 End: 01-26-1050Nrrpkai smoking status NHISNever smoked tobaccoNOAL Healthcare Start: 26-01-0150Kuuapmi use and exposureSmokeless tobacco non-userNOMS HealthcareStart: 07-28-2023 End: 14-41-3951Kujudsq intakeLifetime non-drinker (finding)NOMS HealthcareStart: 02-25-2023 End: 08-43-1299Yxglosx of Social functionNOMS HealthcareStart: 02-25-2023 End: 95-19-0613Elmidxb use panelCleveland Clinic Foundationtart: 12-17-2022 PregnancyNOAL HealthcareStart: 97-56-0077Iwh Assigned At BirthNot on fileNOAL HealthcareStart: 71-29-0592Lcn Assigned At BirthFeTrinity Health System West Campustart: 20-57-3650Fbdkcvt smoking statusNeverPomerene Hospital Functional Status FckbGhviaslmlgCityoqClskvncb09-62-6713Augcvzlyti StatusN/AFProMedica Memorial Hospital Clinical Notes 08-18-2023 to 04-18-2025 Note Date & OarjIgwhOpfaocar63-73-1833 History of Present illness Narrative* Yamilet Ho NP - 04/18/2025 3:00 PM EDT Reason for Appointment: Patient ID: Albina Castillo is a 29 y.o. female who presents [...] Medical History: Diagnosis Date 6 weeks follow-up ([facility]) BMI 24.0-24.9, adult History of placenta abruption Vaginal delivery ([facility]) HISTORY PAST MEDICAL HISTORY SOCIAL HISTORY Medical [...] nursing note reviewed. Exam conducted with a multicraft operator present. Vitals: Estimated body mass index is 29.04 kg/m as calculated from the following: Height as of 09/23/22: 5' 2 . Weight as of this encounter: 158 lb 12 oz. BP: 134/90 Patient's last menstrual period was 11/16/2024. ASSESSMENT & PLAN ICD-10-CM 1. Second trimester ([facility]) Z34.92 POCT urinalysis dipstick manually resulted 2. 21 weeks gestation of ([facility]) Z3A.21 3. Diabetes mellitus screening Z13.1 CBC [...] by Yamilet Ho NP on behalf of: Deandra Gomez DO [1] Allergies Allergen Reactions Bee Venom Hives and Unknown Erythromycin Hives and Unknown Honey Bee Venom Hives Erythromycin Base Rash [2] Past Medical History: Diagnosis Date 6 weeks follow-up ([facility]) BMI 24.0-24.9, adult History of placenta abruption Vaginal delivery ([facility]) [3] Family History Problem Relation Name Age of Onset Hypertension Mother Hypertension Father Heart disease Father Heart disease Brother [4] Past Surgical History: Procedure Laterality Date PAP SMEAR 09/19/2021 negative documented in this encounterUniversity HospitalFlhajwxutv47-86-9197 History of Present illness Narrative* BIRGIT Uriostegui - 03/21/2025 9:30 AM EDT Reason for Appointment: Patient ID: Albina Castillo is a 29 y.o. female who presents for Routine Visit Patient presents today for Return OB appointment. MEDICATIONS Current Outpatient Medications Medication Instructions ondansetron (ZOFRAN) 8 mg, Oral, Every 6 [...] 6 hours as needed for nausea. ALLERGIES Allergies Allergen Reactions Bee Venom Hives and Unknown Erythromycin Hives and Unknown Honey Bee Venom Hives Erythromycin Base Rash PROBLEMS Active Ambulatory Problems Diagnosis Date Noted Axillary mass, right 01/05/2024 Resolved Ambulatory Problems Diagnosis Date Noted No Resolved Ambulatory Problems Past Medical History: Diagnosis Date 6 weeks follow-up ([facility]) BMI 24.0-24.9, adult History of placenta abruption Vaginal delivery ([facility]) HISTORY PAST MEDICAL HISTORY SOCIAL HISTORY Past Medical History: Diagnosis Date 6 weeks follow-up ([facility]) BMI 24.0-24.9, adult History of placenta abruption Vaginal delivery ([facility]) Social History Tobacco Use Smoking status: Never Smokeless tobacco: Never Substance Use Topics Alcohol use: Never Drug use: Never FAMILY HISTORY Family History Problem Relation Name Age of Onset Hypertension Mother Hypertension Father Heart disease Father Heart disease Brother SURGICAL HISTORY Past Surgical History: Procedure Laterality Date PAP SMEAR 09/19/2021 negative REVIEW OF SYSTEMS Review of Systems: Review of Systems Constitutional: Negative. HENT: Negative. Eyes: Negative. Respiratory: Negative. Cardiovascular: Negative. Gastrointestinal: Negative. Genitourinary: Negative. Musculoskeletal: Negative. Skin: Negative. Neurological: Negative. All other systems reviewed and are negative. Hematological: Negative. Endocrine: Negative. Allergic/Immunologic: Negative. OBJECTIVE Objective: Physical Exam Constitutional: Appearance: Normal appearance. She is normal weight. HENT: Head: Normocephalic. Cardiovascular: Rate and Rhythm: Normal rate. Pulses: Normal pulses. Pulmonary: Effort: Pulmonary effort is normal. Breath sounds: Normal breath sounds. Abdominal: Palpations: Abdomen is soft. Musculoskeletal: General: Normal range of motion. Neurological: General: No focal deficit present. Mental Status: She is alert and oriented to person, place, and time. Psychiatric: Mood and Affect: Mood normal. Behavior: Behavior normal. Thought Content: Thought content normal. Judgment: Judgment normal. Vitals and nursing note reviewed. Vitals: Estimated body mass index is 26.01 kg/m as calculated from the following: Height as of 09/23/22: 5' 2 . Weight as of this encounter: 142 lb 3.2 oz. BP: 110/70 Patient's last menstrual period was 11/16/2024. ASSESSMENT & PLAN ICD-10-CM 1. Second trimester ([facility]) Z34.92 Alpha fetoprotein, maternal Alpha fetoprotein, maternal 2. 17 weeks gestation of ([facility]) Z3A.17 Alpha fetoprotein, maternal Alpha fetoprotein, maternal 3. Screening, , for anatomic survey ([facility]) Z36.89 OB 14+ weeks anatomy scan Return OB: Patient presents today for a routine obstetrics appointment. Patient is currently 17w6d . Patient states she is doing well but has complaints of being tired due to current . Patient has verbalizes frequent movement. Orders Placed This Encounter Procedures US OB 14+ weeks anatomy scan Alpha fetoprotein, maternal Follow Up: Patient is to return to office in 4 week for routine OB appointment. Documented by BIRGIT Uriostegui on behalf of: BIRGIT Uriostegui documented in this encounterUniversity [id number] History of Present illness Narrative* Nikki Szymanski LPN - 02/21/2025 9:50 AM EDT Reason for Appointment: Patient ID: Albina Castillo is a 29 y.o. female who presents for Routine Visit Patient presents today for Return OB appointment. MEDICATIONS Current Outpatient Medications Medication Instructions ondansetron (ZOFRAN) 8 mg, Oral, Every 6 hours PRN, Take 1 tablet by mouth every 6 hours as needed for nausea. ondansetron (ZOFRAN) 4 mg, Oral, Every 6 hours PRN, Take 1 tablet by mouth every 6 hours as needed for nausea. Vit-Fe Fumarate-FA ( Vitamins) 28-0.8 MG tablet 1 tablet, Oral, Daily ALLERGIES Allergies Allergen Reactions Bee Venom Hives and Unknown Erythromycin Hives and Unknown Erythromycin Base Rash PROBLEMS Active Ambulatory Problems Diagnosis Date Noted Axillary mass, right 01/05/2024 Resolved Ambulatory Problems Diagnosis Date Noted No Resolved Ambulatory Problems Past Medical History: Diagnosis Date 6 weeks follow-up ([facility]) BMI 24.0-24.9, adult Vaginal delivery ([facility]) HISTORY PAST MEDICAL HISTORY SOCIAL HISTORY Past Medical History: Diagnosis Date 6 weeks follow-up ([facility]) BMI 24.0-24.9, adult Vaginal delivery ([facility]) Social History Tobacco Use Smoking status: Never Smokeless tobacco: Never Substance Use Topics Alcohol use: Never Drug use: Never FAMILY HISTORY Family History Problem Relation Name Age of Onset Hypertension Mother Hypertension Father Heart disease Father Heart disease Brother SURGICAL HISTORY Past Surgical History: Procedure Laterality Date PAP SMEAR 09/19/2021 negative REVIEW OF SYSTEMS Review of Systems: Review [...] nursing note reviewed. Exam conducted with a multicraft operator present. Vitals: Estimated body mass index is 25.74 kg/m as calculated from the following: Height as of 09/23/22: 5' 2 . Weight as of this encounter: 140 lb 12 oz. BP: (!) 136/100 Patient's last menstrual period was 11/16/2024. ASSESSMENT & PLAN ICD-10-CM 1. Second trimester ([facility]) Z34.92 POCT urinalysis dipstick manually resulted 2. 13 weeks gestation of ([facility]) Z3A.13 New OB: Patient presents today for 1st time obstetrics appointment with provider. Patient is currently 13w6d . Patients history has been reviewed in great detail including any potential risks. Patient stated she currently has no complaints. Expectations throughout regarding labs, ultrasounds, and appointments have been discussed with the patient in detail. It was reiterated that the patient is to drink 6-8 glasses of water a day, eat 6 small meals a day, do not consume raw or undercooked meat, and stay away from [facility]. Patient has been consulted regarding any further do's and don'tsof . Patient voiced understanding and all questions and concerns were answered. Patient to start NST/BPP at 32 weeks and growth scan at 28 weeks. Patient to return to clinic in 1 week for BP check--Nurse Visit. Orders Placed This Encounter Procedures POCT urinalysis dipstick manually resulted Follow Up: Patient is to return in 1 week for NV--BP check & 4 weeks for routine OB appointment. Documented by Nikki Szymanski LPN on behalf of: Deandra Gomez DO documented in this encounterUniversity [id number] History of Present illness Narrative* Nu Patiño LPN - 01/21/2025 9:00 AM EDT Reason for Appointment: Patient ID: Albina Castillo is a 29 y.o. female who presents [...] 6 lb 10 oz M Vag-Spont AKIL 1 Term 12/25/21 38w0d 6 lb 10 [...] Medical History: Diagnosis Date 6 weeks follow-up ([facility]) BMI 24.0-24.9, adult Vaginal delivery ([facility]) Family History Problem Relation Name Age of [...] Vitals: Estimated body mass index is 26.12 kg/m as calculated from the following: Height [...] dipstick manually resulted , unspecified gestational age ([facility]) - Type and screen; Future - ABO/Rh; Future - CBC and differential - Hemoglobin A1c - RPR - Rubella antibody, IgG - Hepatitis B surface antigen - Hepatitis C antibody - HIV-1 and HIV-2 antibodies - Rapid drug screen, urine; Future Encounter for supervision of normal first in first trimester ([facility]) - Rapid drug screen, urine; Future Nurse [...] or undercooked meat, and stay away from [facility]. Patient has also been advised to not [...] by: Nu Patiño LPN documented in this encounterUniversity [id number] History of Present illness Narrative* Yamilet Ho, CHANDRAKANT - 12/20/2024 2:00 PM EDT Reason for Appointment: Patient ID: Albina Castillo is a 29 y.o. female who presents for Well Women Visit Patient presents today for Annual Exam. MEDICATIONS Current Outpatient Medications Medication Instructions ondansetron (ZOFRAN) 8 mg, Oral, Every 6 hours PRN, Take 1 tablet by mouth every 6 hours as needed for nausea. Vit-DSS-Fe Fum-FA ( 19) 29-1 MG tablet 1 tablet, Oral, Daily ALLERGIES Allergies Allergen Reactions Bee Venom Hives and Unknown Erythromycin Hives and Unknown Erythromycin Base Rash PROBLEMS Active Ambulatory Problems Diagnosis Date Noted Axillary mass, right 01/05/2024 Resolved Ambulatory Problems Diagnosis Date Noted No Resolved Ambulatory Problems Past Medical History: Diagnosis Date 6 weeks follow-up ([facility]) BMI 24.0-24.9, adult Vaginal delivery ([facility]) HISTORY PAST MEDICAL HISTORY SOCIAL HISTORY Past Medical History: Diagnosis Date 6 weeks follow-up ([facility]) BMI 24.0-24.9, adult Vaginal delivery ([facility]) Social History Tobacco Use Smoking status: Never Smokeless tobacco: Never Substance Use Topics Alcohol use: Never Drug use: Never FAMILY HISTORY Family History Problem Relation Name Age of Onset Hypertension Mother Hypertension Father Heart disease Father Heart disease Brother SURGICAL HISTORY Past Surgical History: Procedure Laterality Date PAP SMEAR 09/19/2021 negative REVIEW OF SYSTEMS Review of Systems: Review of Systems Constitutional: Negative. HENT: Negative. Eyes: Negative. Respiratory: Negative. Cardiovascular: Negative. Gastrointestinal: Negative. Genitourinary: Negative. Musculoskeletal: Negative. Skin: Negative. Neurological: Negative. All other systems reviewed and are negative. Hematological: Negative. Endocrine: Negative. Allergic/Immunologic: Negative. OBJECTIVE Objective: Physical Exam Constitutional: Appearance: Normal appearance. She is well-developed. Genitourinary: Vulva normal. Breasts: Breasts are soft. Right: Normal. Left: Normal. Cardiovascular: Rate and Rhythm: Normal rate and [...] nursing note reviewed. Exam conducted with a multicraft operator present. Vitals: Estimated body mass index is 26.16 kg/m as calculated from the following: Height as of 09/23/22: 5' 2 . Weight as of this encounter: 143 lb. BP: 126/90 Patient's last menstrual period was 11/16/2024. ASSESSMENT & PLAN ICD-10-CM 1. Well woman exam with routine gynecological exam Z01.419 Pap Smear HPV DNA probe, amplified ondansetron (Zofran) 4 MG tablet 2. STD exposure Z20.2 SURESWAB(R) ADVANCED VAGINITIS PLUS, TMA CHLAMYDIA TRACHOMATIS (GENITO/STI) Neisseria gonorrhea DNA probe, direct 3. Nausea and vomiting during ([facility]) O21.9 Annual Exam: Patient presents today for an annual exam. Patient states she is doing well and has no complaints. Pap was obtained without difficulty. Orders Placed This Encounter Procedures HPV DNA probe, amplified CHLAMYDIA TRACHOMATIS (GENITO/STI) Neisseria gonorrhea DNA probe, direct Follow Up: Patient is to return in one year for annual unless needed otherwise. Patient with positive urine test. Patient with complaints of nausea and will send in zofran and vitamins. Patient to schedule new OB intake. Documented by Yamilet Ho NP on behalf of: Deandra Gomez DO documented in this encounterUniversity [id number] NoteGeneral Surgery Office/Clinic Note Chief Complaint consultation for axillary cyst [facility] Staff 28 year old female presents on [...] swallowing difficulties, no hearing loss, no ear infection(s),no nose bleeds. Cardiovascular: normal blood pressure, no [...] Cardiac arrhythmia: Father. Hypertension: Mother, Father and Brother.[facility] Medical CenterComment on above:Result Comment: Electronically Signed By: NOA SANTA, Mark Tolbert\Date and Time Signed: 03/09/24 14:03 [id number] History of Present illness Narrative* Saadia Fernandez MA - 08/18/2023 1:00 PM EST Reason for Appointment: Patient ID: Albina Castillo is a 27 y.o. female who presents for Routine Visit Patient presents today for Return OB appointment. Current Medications: has a current medication list which includes the following prescription(s): omeprazole and pjmpjyfd30. Medical History: Active Ambulatory Problems Diagnosis Date [...] Induction paperwork was signed and faxed to [facility] for patients scheduled induction plan. Documented by Saadia Fernandez MA on behalf of: Deandra Gomez DO documented in this encounterNOMS HealthcareEvaluation + Plan note No data available for this section [facility] [place] Evaluation note* Diagnosis Third trimester state, incidental documented in this encounter [facility]* Diagnosis Onset Date Resolution Status Acute bacterial pharyngitis acuteAcute right otitis mediaacute [facility] Work Phone: Evaluation noteNo assessment information available [facility] Work Phone: Evaluation note* Diagnosis examination or test, positive result ([facility] Primary examination or test, positive result Well woman exam with routine gynecological exam Routine gynecological examination STD exposure Nausea and vomiting during ([facility]) documented in this encounter [facility]* Diagnosis Missed menses , unspecified gestational age ([facility]) Encounter for supervision of normal first in first trimester ([facility]) documented in this encounter [facility]* Diagnosis Second trimester ([facility]) state, incidental 13 weeks gestation of ([facility]) documented in this encounter [facility]* Diagnosis Second trimester ([facility]) state, incidental 17 weeks gestation of ([facility]) Screening, , for anatomic survey ([facility]) Encounter for anatomic survey documented in this encounter [facility]* Diagnosis Second trimester ([facility]) state, incidental 21 weeks gestation of ([facility]) Diabetes mellitus screening Screening for diabetes mellitus documented in this encounter [facility] Discharge instructions No data available for this section [facility] Progress note No data available for this section [facility] Summary Purpose Family History Relationship Condition Age at Onset Recorded Date/T celio father Hypertension Unknown Heart diseaseUnknownmotherHypertensionUnknown Advance Directives Advance Directive Response Recorded Date/ Time Advance Directives No December 26 9:37am Chief Complaint and Reason for Visit Chief Complaint sore throat, fever, body aches Reason for Visit Acute bacterial phar yngitis Acute right otitis media Chief Complaint sore throat, fever, body aches UnknownReason for VisitAcute bacterial pharyngitis Acute right otitis media Chief Complaint Cough Additional Source Comments INFORMATION SOURCE (unrecogn ized section and content) DATE CREATED AUTHOR 10/06/2022 [facility] DATE CREATED AUTHOR AUTHOR'S ORGANIZ ATION 01/23/2024 [facility] DATE CREATED AUTHOR AUTHOR'S ORGANIZ ATION 03/11/2024 [facility] DATE CREATED AUTHOR AUTHOR'S ORGANIZ ATION 04/19/2025 [facility] EPIC Care Teams (unrecognized sec tion and content) Team MemberRelationshipSpecialtyStart DateEnd Date Harshil Moran MD [address] [facility], [facility] [place] [address] PCP - GeneralFamily Medicine12/30/22Team MemberRelationshipSpecialtyStart DateEnd Date Harshil Moran MD [address] [facility], [place] [address] PCP - [facility] Medicine12/30/22 Team Status: Active Member Role Status Dates Outreach [facility] Primary Care Provider Active Team Status: Inactive Member Role Status Dates Terrie Cardozo APRN Attending Provider Active S tart: December 27, 2023 End: December 27, 2023[facility] Care ProviderActiveStart: December 27, 2023 End: December 27, 2023 Team Status: Inactive Member Role Status Dates [facility] Primary Care Provider Active Start: January 16, 2024 End: January 15Sabine Patelending ProviderActiveStart: January 16, 2024 End: January 16, 2024 Team Status: Active Member Role Status Dates Harshil Moran DO Primary Care Provider Active Team Status: Inactive Member Role Status Dates Terrie Cardozo APRN Attending Provider Active S tart: April 21, 2024 End: April 21ennPily Brown Care ProviderActiveStart: April 21, 2024 End: April 21, 2024Team MemberRelationshipSpecialtyStart DateEnd Date Harshil Moran MD PCP - [facility] Medicine12/30/22Team MemberRelationshipSpecialtyStart DateEnd Date Harshil Moran MD [facility]/30/22Team MemberRelationshipSpecialtyStart DateEnd Date Harshil Moran MD PCP - [facility] Medicine12/30/22Team MemberRelationshipSpecialtyStart DateEnd Date Harshil Moran MD PCP - [facility]12/30/22Team MemberRelationshipSpecialtyStart DateEnd Date Harshil Moran MD PCP - [facility]12/30/22Team MemberRelationshipSpecialtyStart DateEnd Date Harshil Moran MD PCP - [facility]12/30/22Team MemberRelationshipSpecialtyStart DateEnd Date Harshil Moran MD PCP - [facility]12/30/22Team MemberRelationshipSpecialtyStart DateEnd Date Harshil Moran MD PCP - [facility]12/30/22Team MemberRelationshipSpecialtyStart DateEnd Date Harshil Moran MD PCP - [facility]12/30/22Team MemberRelationshipSpecialtyStart DateEnd Date Harshil Moran MD PCP - [facility]12/30/22 Reason for Visit (unrecogniz ed section and content) ReasonCommentsRoutine VisitReasonCommentsWell Women VisitReasonComments Amenorrhea Goals (unrecognized section and content) Goals may [...] BE BASED ON THE PRIMARY CLINICAL RECORDS. [facility]. provides no warranty or guarantee of the accuracy or completeness of information in this document.
[2025-05-13 09:47] LABS: Hematocrit 39.8 % (36.0-48.0); Hemoglobin 13.5 g/dL (12.0-16.0); Immature Granulocytes Abs Auto 0.02 10^3/uL (0.00-0.03); Immature Granulocytes Pct Auto 0.3 % (0.0-0.5); Lymphocytes Absolute Auto 1.0 10^3/uL (1.2-3.8); Mean Corpuscular HGB Conc 33.9 g/dL (29.9-35.2); Mean Corpuscular Hemoglobin 31.2 pg (26.7-34.0); Mean Corpuscular Volume 91.9 fL (81.0-99.0); Platelet Count 156 10^3/uL (150-450); Red Blood Count 4.33 10^6/uL (4.20-5.40); White Blood Count 6.3 10^3/uL (4.0-11.0)
[2025-05-13 10:40] LABS: Glucose 1 Hour 109 mg/dL (<130)
== END 2025-05-13 08:29 | disposition home or self-care (01) ==
LOC: LAB 08:28
PROVIDERS: PCP Family Medicine; Visit Provider Obstetrics & Gynecology
DX: Z13.1 Encounter for screening for diabetes mellitus (principal)
CPT/HCPCS: 36415; 82950; 85025

== ENCOUNTER 2025-06-28 08:57 | Outpatient (OUT) | payer OTHER, SELFPAY ==
--- OUTSIDE RECORDS SUMMARY | 2025-06-23 09:10 | XMS_ITS | Encounter Summary ---
Author Organization [facility] Address [address] [place] [address] Care Team Providers Care Mba Internship Name Role Phone Harshil Moran MD Primary Care Provider [phone] Reason for Visit * ReasonCommentsRoutine Visit Encounter Details DateTypeDepartmentCare Team (Latest Contact Info)Axdeupmybmk89/18/2025 9:10 AM ESTRoutine [facility] [address] [facility] [place] [address] Tammie Maloney PA [address] [facility] [address] Third trimester ([facility]); 31 weeks gestation of ([facility]); History of placental abruption Social History Tobacco UseTypesPacks/DayYears UsedDateSmoking Tobacco: NeverSmokeless Tobacco: NeverAlcohol UseStandard Drinks/WeekCommentsNever0 (1 standard drink = 0.6 oz pure alcohol)Estimated Date of LhkopskeZzvwvkeqEce92/17/2026ased on last menstrual period of 11/16/2024Sex and Gender InformationValueDate Recorded Sex Assigned at BirthNot on fileLegal GrqPgraul17/15/2023 11:47 PM EDTGender IdentityNot on fileSexual OrientationNot on filedocumented as of this encounter Last Filed Vital Signs Vital SignReadingTime TakenCommentsBlood Nslqddxm374/6606/23/2025 9:10 AM EST Pulse--Temperature--Respiratory Rate--Oxygen Saturation--Inhaled Oxygen Concentration--Odihgi45.4 kg (164 lb)06/23/2025 9:10 AM ESTHeight--Body Mass Mvmif7599/ 12:00 PM EDTdocumented in this encounter Progress [...] Medical History: Diagnosis Date 6 weeks follow-up ([facility]) BMI 24.0-24.9, adult History of placenta abruption Vaginal delivery ([facility]) HISTORY PAST MEDICAL HISTORY SOCIAL HISTORY Past Medical History: Diagnosis Date 6 weeks follow-up ([facility]) BMI 24.0-24.9, adult History of placenta abruption Vaginal delivery ([facility]) Social History Tobacco Use Smoking status: Never [...] was 11/16/2024. Assessment/Plan ICD-10-CM 1. Third trimester ([facility]) Z34.93 POCT urinalysis dipstick manually resulted 2. 31 weeks gestation of ([facility]) Z3A.31 POCT urinalysis dipstick manually resulted 3. [...] Plan of Treatment DateTypeDepartmentCare Team (Latest Contact Info)Zrqlnafkuxx35/31/2025 10:30 AM ESTAncillary Procedure [facility] [address] [facility] [place] [phone] 07/06/2025 11:00 AM ESTRoutine [facility] [address] [facility] [place] [phone] Yamilet Ho, CHANDRAKANT [address] [facility] [place] [phone] 12/22/2025 8:30 AM EDTProcedure Visit SAMANTHA BILL [address] [place] [address] [place] [phone] Alexis Gomez DO [address] [facility] [address] [place], [place] [id number] NameTypePriorityAssociated DiagnosesOrder ScheduleUS biophysical profile w non stress testImagingRoutine History of placental abruption Expected: 06/23/2025 (Approximate), Expires: 12/22/2025US OB follow up transabdominal approachImagingRoutine History of placental abruption Expected: 06/23/2025, Expires: 10/22/2025documented as of this encounter Procedures Procedure NamePriorityDate/TimeAssociated DiagnosisCommentsPOCT URINALYSIS GCAGULMNAhpcbsj10/18/2025 9:22 AM EST Third trimester ([facility]) 31 weeks gestation of ([facility]) documented in this encounter Results * (ABNORMAL) [...] Location / LateralityCollection Method / VolumeCollection TimeReceived AiktCcuad75/18/2025 9:22 AM EST Narrative Authorizing ProviderResult TypeResult StatusBournewood Hospital OF CARE TEST ENTER/EDIT ORDERABLESFinal Result documented in this encounter Visit Diagnoses Diagnosis Third trimester ([facility]) state, incidental 31 weeks gestation of ([facility]) History of placental abruption documented in this encounter Care Teams Team MemberRelationshipSpecialtyStart DateEnd Date Harshil Moran MD [address] [facility] [place] [address] PCP - GeneralFamily Medicine12/30/22documented as of this encounter
--- OUTSIDE RECORDS SUMMARY | 2025-06-28 08:59 | XMS_ITS | Encounter Summary ---
Author Organization [facility] Address [address] [facility] [place] [address] Care Team Providers Care Restaurant Area Manager Name Role Phone Harshil Moran MD Primary Care Provider [phone] Encounter Details DateTypeDepartmentCare Team (Latest Contact Info)Sbjavswrkur72/15/2025bstract [facility] [place] BILL [address] [facility] [place] [address] Alexis Gomez DO [address] [facility] [address] [place], [facility]11 Social History Tobacco UseTypesPacks/DayYears UsedDateSmoking Tobacco: NeverSmokeless Tobacco: NeverAlcohol UseStandard Drinks/WeekCommentsNever0 (1 standard drink = 0.6 oz pure alcohol)Estimated Date of AiqttjwxBshsmwhxQzp63/17/2026ased on last menstrual period of 11/16/2024Sex and Gender InformationValueDate Recorded Sex Assigned at BirthNot on fileLegal XryAscrba69/15/2023 11:47 PM EDTGender IdentityNot on fileSexual OrientationNot on filedocumented as of this encounter Plan of Treatment DateTypeDepartmentCare Team (Latest Contact Info)Oaxmxcdjlsn12/31/2025 10:30 AM ESTAncillary Procedure [facility] [place] BILL [address] [place] [address] 07/06/2025 11:00 AM ESTRoutine [facility] [place] BILL [address] [place] [address] Yamilet Ho, FORM BLOCK MAKER [address] [facility] [place] [address] [place] [address] 12/22/2025 8:30 AM EDTProcedure Visit [facility] [place] BILL [address] [facility] [place] [address] Alexis Gomez DO [address] [facility] [place] [address] documented as of this encounter Visit Diagnoses Not on filedocumented in this encounter Care Teams Team MemberRelationshipSpecialtyStart DateEnd Date Harshil Moran MD [address] [facility] [place] [address] PCP - GeneralFamily Medicine12/30/22documented as of this encounter
--- OUTSIDE RECORDS SUMMARY | 2025-06-28 08:59 | XMS_ITS | Clinical Summary ---
Author Organization [facility] tem Address [id number] [address] [place] [address] Care Team Providers Care Psychological Operations Specialist Name Role Phone Unavailable Primary Care Provider Unavailabl e Allergies Active AllergyReactionsCriticalityNoted DateCommentsBee Venom Protein (Honey Bee)YtgbmOgcpov78/16/2019Erythromycin KkacTfgnWpl21/24/2022 Medications MedicationSigDispense QuantityRefillsLast FilledStart DateEnd DateStatus hydrocortisone (HYTONE) 2.5 % cream Apply 1 application topically in the morning and 1 application before bedtime. 30 g 04/29/2022ctive Family History Medical HistoryRelationNameCommentsAtrial fibrillationFatherHypertensionFather Anxiety disorderMotherHypertensionMotherRelationNameStatusCommentsFatherMother Social History Tobacco UseTypesPacks/DayYears UsedDateSmoking Tobacco: NeverSmokeless Tobacco: Never Tobacco Cessation:Counseling Given: Not Answered CommentsUnknownSex and Gender InformationValueDate RecordedSex Assigned at BirthNot on fileLegal CleJordwa94/24/2022 9:18 AM EDTGender IdentityNot on fileSexual OrientationNot on file Last Filed Vital Signs Vital SignReadingTime TakenCommentsBlood Jprhjmsn727/8304/29/2022 10:44 AM EDT Dndil274104/29/2022 10:44 AM BWSQomwkmgeigh35.4 ??C (99.3 ??F)04/29/2022 10:44 AM EDTRespiratory Rate--Oxygen Qisignftqy28%04/29/2022 10:44 AM EDTInhaled Oxygen Concentration--Hnzeut32.4 kg (131 lb)04/29/2022 10:44 AM TABWsqdoz040.6 cm (5' 4 )04/29/2022 10:44 AM EDTBody Mass Index22.4904/29/2022 10:44 AM EDT Plan of Treatment Health MaintenanceDue DateLast DoneCommentsDepression Wuxwkxvkd18/07/2007Tobacco Qbnkwbhgw20/07/2007dult BMI Uskofzayw53/07/2013Influenza Qnkncam7703/07/2025 05/04/2019, 04/14/2018, 04/30/2017Pap Smear6009/23/2022TaP,Tdap and Td Vaccines (2 - Td or Tdap) Medical Devices Not on file Insurance
--- OUTSIDE RECORDS SUMMARY | 2025-06-28 08:59 | XMS_ITS | Clinical Summary ---
Author Organization [facility] Address [address] [place] [address] Care Team Providers Care Electric Organ Checker Name Role Phone Harshil Moran MD Primary Care Provider [phone] Allergies Active AllergyReactionsCriticalityNoted DateCommentsBee VenomHives,UnknownMedium 12/20/2018ErythromycinHives,Xisncax5301/30/2023Erythromycin JdztTqkoKlk00/24/2022 Honey Bee JgwsbJczetRchchh69/16/2019 Medications MedicationSigDispense QuantityRefillsLast FilledStart DateEnd DateStatus ondansetron [...] 4 MG tablet Indications:Nausea and vomiting during ([facility])Take 1 tablet (4 mg) by mouth every 6 (six) hours if needed for nausea or vomiting for up to 30 doses Take 1 tablet by mouth every 6 hours as needed for nausea. 30 tablet 3065Active Vit-Fe Fumarate-FA ( Vitamins) 28-0.8 MG tablet Indications: examination or test, positive result ([facility])Take 1 tablet by mouth Daily 30 tablet 90/506/6Active promethazine (Phenergan) 12.5 MG tablet Indications:NauseaTake 1 tablet (12.5 mg) by mouth every 6 (six) hours if needed for nausea or vomiting for up to 30 doses Take 1 tablet by mouth every 6 hours as needed for nausea. 30 tablet 5Active omeprazole (PriLOSEC) [address] capsule Indications:Gastroesophageal Reflux Disease,HeartburnTake 1 capsule (20 mg) by mouth in the morning. Take before meals. Do not crush or chew. 30 capsule 5Active labetalol (Normodyne) 100 MG tablet Indications:HypertensionTake 1 tablet (100 mg) by mouth in the morning and 1 tablet (100 mg) before bedtime. 60 tablet 5Active Active Problems ProblemNoted DateDiagnosed DateAxillary mass, right4Estimated Date of JnngpxriGzjhfrxvFkw55/17/2026Based on last menstrual period of 11/16/2024 Encounters DateTypeDepartmentCare BtpuNcxzqwieyfa74/18/2025 9:10 AM ESTRoutine [facility] [place] [address] Tammie Maloney PA Third trimester ([facility]); 31 weeks gestation of ([facility]); History of placental kuvgseviy65/18/2025amboo flowsheet [facility] [place] [facility] [place] [address] Tammie Maloney PA 06/20/2025bstract [facility] BILL [address] [place] [address] [place] [phone] Alexis Gomez DO 06/20/20251596Vuksou17/03/2025 1:20 PM ESTRoutine [facility] [place] [facility] [place] [address] Alexis Gomez DO 29 weeks gestation of ([facility]); Third trimester ([facility]); History of placental abruption; Placental abnormality, antepartum ([facility])06/08/2025 1:00 PM ESTAncillary Procedure [facility] [place] Scott [facility] [place] [address] Size of fetus inconsistent with dates in first trimester ([facility])06/07/2025 Pvilgm1206/01/2025Telephone [facility] [place] RYANN [address] [facility] [place] [address] Tammie Maloney PA 06/01/20252136Ethabu58/10/2025 2:30 PM ESTRoutine [facility] [place] RYANN Sonia [facility] [place] [address] Tammie Maloney PA Size of fetus inconsistent with dates in first trimester ([facility]) (Primary Dx); Second trimester ([facility]); 25 weeks gestation of ([facility])05/16/2025amboo flowsheet [facility] [place] [facility] [place] [address] Tammie Maloney PA 05/13/2025linisync Result Encounter [facility] External Department Unsolicited Alexis Gomez DO 05/11/20254055Tudscf19/03/2025Telephone [facility] [place] RYANN [address] [facility] [place] [phone] Alexis Gomez DO 04/18/2025 3:00 PM EDTRoutine [facility] [place] [phone] Alexis Gomez, Second trimester ([facility]); 21 weeks gestation of ([facility]); Diabetes mellitus xidvamcnx17/13/2025 2:00 PM EDTAncillary Procedure [facility] [place] [facility] [place] [phone] Screening, , for anatomic survey ([facility])04/13/2025Travelfrom Last 3 Months Family History Medical HistoryRelationNameCommentsHeart diseaseBrotherHeart diseaseFather OxuukthqpydmRdjlniFibkyqudjtjxVesfxaKjwwrflpJexpWzsguvThxxmhdxZcnlyfq5Nhymbj Mother Social History Tobacco UseTypesPacks/DayYears UsedDateSmoking Tobacco: NeverSmokeless Tobacco: Never Tobacco Cessation:Counseling Given: Not Answered Alcohol UseStandard Drinks/WeekCommentsNever0 (1 standard drink = 0.6 oz pure alcohol)Estimated Date of KonhvifkXflzufvgDni12/17/2026ased on last menstrual period of 11/16/2024Sex and Gender InformationValueDate RecordedSex Assigned at BirthNot on fileLegal IfyZmymfp06/15/2023 11:47 PM EDTGender IdentityNot on fileSexual OrientationNot on file Last Filed Vital Signs Vital SignReadingTime TakenCommentsBlood Vsnnfkmv493/6606/23/2025 9:10 AM EST Pulse--Temperature--Respiratory Rate--Oxygen Saturation--Inhaled Oxygen Concentration--Rykcqg92.4 kg (164 lb)06/23/2025 9:10 AM GKXGdkava655.5 cm (5' 2 )09/23/2022 12:00 PM EDTBody Mass Wzzcb4801/20/2023 12:00 PM EDT Plan of Treatment DateTypeDepartmentCare Team (Latest Contact Info)Ahqkzummwlm15/31/2025 10:30 AM ESTAncillary Procedure [facility] BILL [address] [place] [address] [place] [phone] 07/06/2025 11:00 AM ESTRoutine [facility] BILL [address] [place] [address] [place] [address] Yamilet Ho, HORSE RACETRACK MANAGER [address] [facility] [place] [phone] 12/22/2025 8:30 AM EDTProcedure Visit SAMANTHA BILL [address] [facility] [place] [address] Alexis Gomez DO [address] [facility] [address] [place], [place] [address] Procedures Procedure NamePriorityDate/TimeAssociated DiagnosisCommentsPOCT URINALYSIS ZYNKFOXDThrpxiq26/18/2025 9:22 AM EST Third trimester ([facility]) 31 weeks gestation of ([facility]) US OB FOLLOW UP TRANSABDOMINAL BCGZWTZMFccsldo27/03/2025 1:30 PM EST Size of fetus inconsistent with dates in first trimester ([facility]) POCT URINALYSIS CMGIWGXCDqonzlm61/03/2025 1:22 PM EST 29 weeks gestation of ([facility]) Third trimester ([facility]) POCT URINALYSIS RHNIFQGICcrbqau33/10/2025 2:48 PM EST 25 weeks gestation of ([facility]) GLUCOSE 1 ZJXPCvllsmn20/07/2025 9:35 AM EST ALL CBC WITH AUTO GZKSQganote04/07/2025 9:35 AM EST POCT URINALYSIS LAGGRKICLadcyvw13/13/2025 3:34 PM EDT Second trimester ([facility]) US OB 14+ WEEKS ANATOMY XCQUTehkipg61/13/2025 2:51 PM EDT Screening, , for anatomic survey ([facility]) from Last 3 Months Results * (ABNORMAL) POCT urinalysis dipstick manually resulted (06/23/2025 9:22 AM EST) Only the most recent of4 resultswithin the time period is included. ComponentValueRef RangeTest MethodAnalysis TimePerformed AtPathologist Signature Color, UAYellowClarity, UAClearGlucose, UANegativeNegative - 2000(110) ++++ mg/dLBilirubin, UANegativeNegative - 4(70) +++ mg/dLKetones, UANegativeNegative - 160(16) ++++ mg/dLSpec Grav, UA1.0201 - 1.03Blood, UANegativeNegative - 50 Jerad/mcLpH, UA5.55 - 9Protein, UAPositiveNegative - 2000(20) ++++ mg/dL Urobilinogen, UA1.00.2 - 12 mg/dLLeukocytes, UANegativeNegative - 500+++ Gerson/mcL Nitrite, UANegativeNegative - PositiveSpecimen (Source)Anatomical Location / LateralityCollection Method / VolumeCollection TimeReceived AuajDvqck74/18/2025 9:22 AM EST Narrative Authorizing ProviderResult TypeResult StatusTammie Maloney [facility] TEST ENTER/EDIT ORDERABLESFinal Result * US OB follow up transabdominal approach (06/08/2025 1:30 PM EST)Anatomical RegionLateralityModalityBodyUltrasoundSpecimen (Source)Anatomical Location / LateralityCollection Method / VolumeCollection TimeReceived Time06/08/2025 6:16 PM EST Impressions 06/09/2025 7:57 AM EST Single, live intrauterine , current sonographic age of 30 weeks and 6 days, with an estimated date of delivery of August 11, 2025. 2. ??Comparison made with prior examination of April 18, 2025 delivery at that time was August 23, 2025. * ??Estimated Weight (g) by Percentile is based upon an accurate estimated age based onlast menstrual period. ?? TRANSCRIBED BY: ? ELECTRONICALLY SIGNED BY: Corey Melgoza MD Narrative 06/09/2025 7:57 AM EST FINDINGS: A single, live intrauterine is present with normal cardiac rate of 136 ??beats per minute. Normal activity and amniotic fluid volume. Amniotic fluid index is 16.0 ??cm. ??Morphology is grossly normal. ??The current sonographic age is 30 ??weeks and 6 days, based on the following measurements: BPD ?7.9cm (31 weeks, 5 days) Head Circumference ? 28.0cm ( 30 weeks, 5 days) Abdominal Circumference ? 26.4cm (30 ??weeks,4 ??days) Femur Length ? 5.8cm ( 30 weeks, 1 days) Presentation ? Cephalic ? Weight (g) by Percentile ?? 85.6% * These measurements result in an estimated date of delivery of ??August 11, 2025. ?? The current estimated weight is 1594 ?? grams ( 3 pound, 8 ??ounces). ?? Slight thickening of a linear band, possible synechiae lower uterine segment no associated with thecervical os. Procedure Note Corey Melgoza MD - 06/09/2025 FINDINGS: A single, live intrauterine is present with normal cardiacrate of 136 beats per minute. Normal activity and amniotic fluidvolume. Amniotic fluid index is 16.0 cm. Morphology is grossly normal.The current sonographic age is 30 weeks and 6 days, based on thefollowing measurements: BPD 7.9cm (31 weeks, 5 days) Head Circumference 28.0cm ( 30 weeks, 5 days) Abdominal Circumference 26.4cm (30 weeks,4 days) Femur Length 5.8cm ( 30 weeks, 1 days) Presentation Cephalic Weight (g) by Percentile 85.6% * These measurements result in an estimated date of delivery of August. The current estimated weight is 1594 grams ( 3 pound, 8ounces). Slight thickening of a linear band, possible synechiae lower uterinesegment no associated with the cervical os. IMPRESSION: Single, live intrauterine , current sonographic age of 30 weeksand 6 days, with an estimated date of delivery of August 11, 2025. 2. Comparison made with prior examination of April 18, 2025 delivery atthat time was August 23, 2025. * Estimated Weight (g) by Percentile is based upon an accurateestimated age based on last menstrual period. TRANSCRIBED BY: ELECTRONICALLY SIGNED BY: Corey Melgoza MD Authorizing ProviderResult TypeResult StatusAmy [facility] US PROCEDURES Final Result * GLUCOSE 1 HOUR (05/13/2025 9:35 AM EST)ComponentValueRef RangeTest Method Analysis TimePerformed AtPathologist SignatureGLUCOSE 1 VJTN213<130 mg/dLTBH Specimen (Source)Anatomical Location / LateralityCollection Method / Volume Collection TimeReceived Time05/13/2025 9:35 AM EST05/13/2025 9:36 AM EST Narrative GLENNYISYNC - 05/13/2025 10:41 AM EST Authorizing ProviderResult TypeResult StatusCorey Jason [place] BLOOD ORDERABLES Final ResultPerforming OrganizationAddressCity/State/ZIP CodePhone Number [facility] * (ABNORMAL) ALL CBC WITH AUTO DIFF (05/13/2025 9:35 AM EST)ComponentValueRef RangeTest MethodAnalysis TimePerformed AtPathologist SignatureTBH WBC6.34.0 - 11.0 10 3/uLTBHTBH RBC4.334.20 - 5.40 10 6/uLTBHTBH HGB13.512.0 - 16.0 g/dLTBH TBH HCT39.836.0 - 48.0 %TBHTBH MCV91.981.0 - 99.0 fLTBHTBH MCH31.226.7 - 34.0 pgTBHTBH MCHC33.929.9 - 35.2 g/dLTBHTBH RDW13.011.0 - 15.0 %TBHTBH LUF514521 - 450 10 3/uLTBHTBH MPV10.39.5 - 13.5 fLTBHNEUTROPHILS PERCENT AUTO76.2(H)43.0 - 75.0 %TBHLYMPHOCYTES PERCENT AUTO16.0(L)20.5 - 60.0 %TBHMONOCYTES PERCENT AUTO 6.51.7 - 12.0 %TBHTBH EO %0.8(L)0.9 - 7.0 %TBHBASOPHILS PERCENT AUTO0.20.2 - 2.0 %TBHIMMATURE GRANULOCYTES PCT AUTO0.30.0 - 0.5 %TBHNEUTROPHILS ABSOLUTE AUTO4.81.4 - 6.5 10 3/uLTBHLYMPHOCYTES ABSOLUTE AUTO1.0(L)1.2 - 3.8 10 3/uLTBH MONOCYTES ABSOLUTE AUTO0.40.3 - 0.8 10 3/uLTBHTBH EO #0.10.0 - 0.7 10 3/uLTBH BASOPHILS ABSOLUTE AUTO0.00.0 - 0.1 10 3/uLTBHIMMATURE GRANULOCYTES ABS AUTO 0.020.00 - 0.03 10 3/uLTBHSpecimen (Source)Anatomical Location / Laterality Collection Method / VolumeCollection TimeReceived Time05/13/2025 9:35 AM EST 05/13/2025 9:36 AM EST Narrative MOUSTAPHA - 05/13/2025 9:55 AM EST Authorizing ProviderResult TypeResult StatusCorey Jason DOCLINISYNCFinal Result Performing OrganizationAddressCity/State/ZIP CodePhone Number [facility] * OB 14+ weeks anatomy scan (04/18/2025 2:51 [...] Corey Melgoza MD Authorizing ProviderResult TypeResult StatusAmy [facility] US PROCEDURES Final Result from Last 3 Months Insurance * Guarantor: Krista Monreal TypeRelation to PatientDate of BirthPhone Billing AddressPersonal/SyqwrpNwvb39/07/1996 [facility] [address] [address] Care Teams Team MemberRelationshipSpecialtyStart DateEnd Date Harshil Moran MD [address] [facility], [facility] [place] [address] PCP - GeneralFamily Medicine12/30/22
--- OUTSIDE RECORDS SUMMARY | 2025-06-28 08:59 | XMS_ITS | Encounter Summary ---
Author Organization [facility] Address [address] [facility] [place] [address] Care Team Providers Care Money Market Clerk Name Role Phone Harshil Moran MD Primary Care Provider [phone] Encounter Details DateTypeDepartmentCare Team (Latest Contact Info)Rzkmastkghj58/18/2025amboo flowsheet [facility] [place] BILL [address] [place] [address] Tammie Maloney PA [address] [facility] [address] [place], [facility]11 Social History Tobacco UseTypesPacks/DayYears UsedDateSmoking Tobacco: NeverSmokeless Tobacco: NeverAlcohol UseStandard Drinks/WeekCommentsNever0 (1 standard drink = 0.6 oz pure alcohol)Estimated Date of EpttqawfVpfivdhcRxh01/17/2026ased on last menstrual period of 11/16/2024Sex and Gender InformationValueDate Recorded Sex Assigned at BirthNot on fileLegal ZrcRfwedz17/15/2023 11:47 PM EDTGender IdentityNot on fileSexual OrientationNot on filedocumented as of this encounter Plan of Treatment DateTypeDepartmentCare Team (Latest Contact Info)Mqomvvnjtqa64/31/2025 10:30 AM ESTAncillary Procedure [facility] [place] BILL [address] [place] [address] 07/06/2025 11:00 AM ESTRoutine [facility] [place] BILL [address] [place] [address] Yamilet Ho, BRIDGE INSPECTOR [address] [facility] [place] [address] [place] [address] 12/22/2025 8:30 AM EDTProcedure Visit [facility] [place] BILL [address] [facility] [place] [address] Alexis Gomez, [address] [facility] [place] [address] documented as of this encounter Visit Diagnoses Not on filedocumented in this encounter Care Teams Team MemberRelationshipSpecialtyStart DateEnd Date Harshil Moran MD [address] [place] [address] PCP - GeneralFamily Medicine12/30/22documented as of this encounter
--- OUTSIDE RECORDS SUMMARY | 2025-06-28 08:59 | XMS_ITS | Encounter Summary ---
Author Organization [facility] Address [address] [place] [address] Care Team Providers Care Internet Marketing Assistant Name Role Phone Harshil Moran MD Primary Care Provider [phone] Encounter Details DateTypeDepartmentCare Team (Latest Contact Info)Kwjifirisss47/15/2025Travel Social History Tobacco UseTypesPacks/DayYears UsedDateSmoking Tobacco: NeverSmokeless Tobacco: NeverAlcohol UseStandard Drinks/WeekCommentsNever0 (1 standard drink = 0.6 oz pure alcohol)Estimated Date of WtxlukakZepnberbGxs06/17/2026ased on last menstrual period of 11/16/2024Sex and Gender InformationValueDate Recorded Sex Assigned at BirthNot on fileLegal PyiWonftg01/15/2023 11:47 PM EDTGender IdentityNot on fileSexual OrientationNot on filedocumented as of this encounter Plan of Treatment DateTypeDepartmentCare Team (Latest Contact Info)Fxoszgczczd20/31/2025 10:30 AM ESTAncillary Procedure [facility] [place] BILL [address] [place] [phone] 07/06/2025 11:00 AM ESTRoutine [facility] BILL [address] [place] [address] Yamilet Ho, CHEMICAL STRENGTH TESTER [address] [place] [address] 12/22/2025 8:30 AM EDTProcedure Visit [facility] [place] BILL [address] [place] [address] Alexis Gomez DO [address] [facility] [place] [address] documented as of this encounter Visit Diagnoses Not on filedocumented in this encounter Care Teams Team MemberRelationshipSpecialtyStart DateEnd Date Harshil Moran MD [address] [place] [address] PCP - GeneralFamily Medicine12/30/22documented as of this encounter
--- NOTE | 2025-06-28 09:00 | US_ITS ---
[facility] [place] [id number] Patient Name: GUANAKITO CASTILLO MRN: [id number] date: 1995 Sex: F Assigned Patient Location: [facility] Current Patient Location: Accession/Order Number: [id number] Exam Date: 06/28/2025 09:01 Report Date: 06/28/2025 11:17 At the request of: DEANDRA HOWE DO Procedure: US OB BPP w non-stress BIOPHYSICAL PROFILE: CLINICAL INFORMATION: History of placental abruption COMPARISON: None There is a single live intrauterine gestation in cephalic presentation. The reported gestational age is 32 weeks 0 days. The heart rate measures 134 beats per minute. FINDINGS: TONE: 1 or more episodes of activity extension and flexion of extremity or opening and closing of the hand [Y] 2/2 GROSS BODY MOVEMENTS: 3 or more discrete body or limb movements [Y] 2/2 BREATHING MOVEMENTS: 1 or more episodes of breathing lasting at least 30 seconds [Y] 2/2 TERESA: A single deepest vertical pocket of amniotic fluid greater than 2 cm [Y] 2/2 TERESA: 18.5 cm . This is in upper normal range. Total score: 8/8 US/US OB BPP w non-stress IMPRESSION: NORMAL BIOPHYSICAL PROFILE Impression dictated by: Sharon Zamora M.D. 06/28/2025 11:17 AM Dictation Location: [place] [address] Electronically authenticated by: [id number] Y Date: 06/28/2025 11:17
[2025-06-28 09:22] VITALS: BP 109/73; PULSE 82
== END 2025-06-28 09:55 | disposition home or self-care (01) ==
LOC: US 08:57 → FBC 08:59
PROVIDERS: PCP Family Medicine; Visit Provider Obstetrics & Gynecology
DX: Z87.59 Personal history of other complications of pregnancy, childbirth and the puerperium (principal); Z3A.32 32 weeks gestation of pregnancy
CPT/HCPCS: 76818

== ENCOUNTER 2025-07-01 12:55 | Outpatient (OUT) | payer OTHER, SELFPAY ==
--- OUTSIDE RECORDS SUMMARY | 2025-06-23 09:10 | XMS_ITS | Encounter Summary ---
Author Organization [facility] Address [address] [place] [address] Care Team Providers Care Process Development Engineer Name Role Phone Harshil Moran MD Primary Care Provider Reason for Visit * ReasonCommentsRoutine Visit Encounter Details DateTypeDepartmentCare Team (Latest Contact Info)Zlorijajxyw08/18/2025 9:10 AM ESTRoutine [facility] [address] [place] [address] Tammie Maloney PA [address] [facility] [place] [address] Third trimester ([facility]); 31 weeks gestation of ([facility]); History of placental abruption Social History Tobacco UseTypesPacks/DayYears UsedDateSmoking Tobacco: NeverSmokeless Tobacco: NeverAlcohol UseStandard Drinks/WeekCommentsNever0 (1 standard drink = 0.6 oz pure alcohol)Estimated Date of PbtbmwmkErftsgskYfl48/17/2026ased on last menstrual period of 11/16/2024Sex and Gender InformationValueDate Recorded Sex Assigned at BirthNot on fileLegal CdsMdevlp95/15/2023 11:47 PM EDTGender IdentityNot on fileSexual OrientationNot on filedocumented as of this encounter Last Filed Vital Signs Vital SignReadingTime TakenCommentsBlood Dygmhdrj909/6606/23/2025 9:10 AM EST Pulse--Temperature--Respiratory Rate--Oxygen Saturation--Inhaled Oxygen Concentration--Xxbqlv10.4 kg (164 lb)06/23/2025 9:10 AM ESTHeight--Body Mass Srdbr0933/ 12:00 PM EDTdocumented in this encounter Progress Notes * BIRGIT Uriostegui - 06/23/2025 9:10 AM EST Reason for Appointment: Patient ID: Albina Monreal is a 29 y.o. female who presents for Routine Visit Patient presents today for Return OB appointment. MEDICATIONS Current Outpatient Medications Medication Instructions labetalol (NORMODYNE) 100 mg, Oral, 2 times daily omeprazole (PRILOSEC) 20 mg, Oral, Daily before [...] Allergen Reactions Bee Venom Hives and Unknown Honey Bee Venom Hives Erythromycin Hives and Unknown Erythromycin Base Rash PROBLEMS Active Ambulatory Problems Diagnosis Date Noted Axillary mass, right 01/05/2024 Resolved Ambulatory Problems Diagnosis Date Noted No Resolved Ambulatory Problems Past Medical History: Diagnosis Date 6 weeks follow-up ([facility]) BMI 24.0-24.9, adult History of placenta abruption Vaginal delivery ([facility]) HISTORY PAST MEDICAL HISTORY SOCIAL HISTORY Past Medical History: Diagnosis Date 6 weeks follow-up ([facility]) BMI 24.0-24.9, adult History of placenta abruption Vaginal delivery ([facility]) Social History Tobacco Use Smoking status: [...] reviewed. Vitals: Estimated body mass index is 30 kg/m?? as calculated from the following: Height as of 09/23/22: 5' 2 . Weight as of this encounter: 164 lb. BP: 104/66 Patient's last menstrual period was 11/16/2024. Assessment/Plan ICD-10-CM 1. Third trimester ([facility]) Z34.93 POCT urinalysis dipstick manually resulted 2. 31 weeks gestation of ([facility]) Z3A.31 POCT urinalysis dipstick manually resulted 3. History of placental abruption Z87.59 US biophysical profile w non stress test Assessment/Plan Return OB: Patient presents today for a routine obstetrics appointment. Patient is currently 31w2d . Patient states she is doing well but has complaints of being tired due to current . Patient has verbalizes frequent movement. labor precautions was discussed/given and patient was instructed to perform kick counts three times a day. Orders Placed This Encounter Procedures US biophysical profile w non stress test POCT urinalysis dipstick manually resulted Follow Up: Patient is to return to office in 2 week for routine OB appointment. Documented by BIRGIT Uriostegui on behalf of: BIRGIT Uriostegui documented in this encounter Miscellaneous Notes * Addendum Note - Selina Ruiz LPN - 06/23/2025 9:10 AM ESTAddended by: SELINA RUIZ on: 06/23/2025 09:47 AM Modules accepted: Orders documented in this encounter Plan of Treatment DateTypeDepartmentCare Team (Latest Contact Info)Sfndywibqpi84/31/2025 10:30 AM ESTAncillary Procedure [facility] [address] [place] [phone] 07/06/2025 11:00 AM ESTRoutine [facility] [address] [facility] [facility] [phone] Yamilet Ho, CHANDRAKANT [address] [facility] [facility] [place] [phone] 12/22/2025 8:30 AM EDTProcedure Visit SAMANTHA BILL [address] [place] [address] [place] [phone] Alexis Gomez DO [address] [facility] [facility] [address] [place], [place] [id number] NameTypePriorityAssociated DiagnosesOrder ScheduleUS biophysical profile w non stress testImagingRoutine History of placental abruption Expected: 06/23/2025 (Approximate), Expires: 12/22/2025US OB follow up transabdominal approachImagingRoutine History of placental abruption Expected: 06/23/2025, Expires: 10/22/2025documented as of this encounter Procedures Procedure NamePriorityDate/TimeAssociated DiagnosisCommentsPOCT URINALYSIS AXVJBCLTIqbwwsh13/18/2025 9:22 AM EST Third trimester ([facility]) 31 weeks gestation of ([facility]) documented in this encounter Results * (ABNORMAL) POCT urinalysis dipstick manually resulted (06/23/2025 9:22 AM EST) ComponentValueRef RangeTest MethodAnalysis TimePerformed AtPathologist SignatureColor, UAYellowClarity, UAClearGlucose, UANegativeNegative - 1999(110) ++++ mg/dLBilirubin, UANegativeNegative - 4(70) +++ mg/dLKetones, UA NegativeNegative - 160(16) ++++ mg/dLSpec Grav, UA1.0201 - 1.03Blood, UA NegativeNegative - 50 Jerad/mcLpH, UA5.55 - 9Protein, UAPositiveNegative - 1999(20) ++++ mg/dLUrobilinogen, UA1.00.2 - 12 mg/dLLeukocytes, UANegative Negative - 500+++ Gerson/mcLNitrite, UANegativeNegative - PositiveSpecimen (Source)Anatomical Location / LateralityCollection Method / VolumeCollection TimeReceived KmefJkhgn96/18/2025 9:22 AM EST Narrative Authorizing ProviderResult TypeResult StatusShaw Hospital OF CARE TEST ENTER/EDIT ORDERABLESFinal Result documented in this encounter Visit Diagnoses Diagnosis Third trimester ([facility]) state, incidental 31 weeks gestation of ([facility]) History of placental abruption documented in this encounter Care Teams Team MemberRelationshipSpecialtyStart DateEnd Date Harshil Moran MD [address] [facility] [address] PCP - GeneralFamily Medicine12/30/22documented as of this encounter
--- OUTSIDE RECORDS SUMMARY | 2025-07-01 12:58 | XMS_ITS | Clinical Summary ---
Author Organization [facility] tem Address [id number] [address] [place] [address] Care Team Providers Care Dry House Tender Name Role Phone Unavailable Primary Care Provider Unavailabl e Allergies Active AllergyReactionsCriticalityNoted DateCommentsBee Venom Protein (Honey Bee)BqyjyVghgvh05/16/2019Erythromycin AdhkBqvtTwq05/24/2022 Medications MedicationSigDispense QuantityRefillsLast FilledStart DateEnd DateStatus hydrocortisone (HYTONE) 2.5 % cream Apply 1 application topically in the morning and 1 application before bedtime. 30 g 04/29/2022ctive Encounters DateTypeDepartmentCare JoiwOhrzqsdnpzr98/24/2025Orders Only [facility] [address] [place] [address] Ref Prov, Not In System from Last 3 Months Family History Medical HistoryRelationNameCommentsAtrial fibrillationFatherHypertensionFather Anxiety disorderMotherHypertensionMotherRelationNameStatusCommentsFatherMother Social History Tobacco UseTypesPacks/DayYears UsedDateSmoking Tobacco: NeverSmokeless Tobacco: Never Tobacco Cessation:Counseling Given: Not Answered CommentsUnknownSex and Gender InformationValueDate RecordedSex Assigned at BirthNot on fileLegal OqsRvhawf07/24/2022 9:18 AM EDTGender IdentityNot on fileSexual OrientationNot on file Last Filed Vital Signs Vital SignReadingTime TakenCommentsBlood Ygqhfgfs711/8310 10:44 AM EDT Byheg7207 10:44 AM RCMZolamwiontr73.4 ??C (99.3 ??F)04/29/2022 10:44 AM EDTRespiratory Rate--Oxygen Isonsubkbh79%04/29/2022 10:44 AM EDTInhaled Oxygen Concentration--Qutymy27.4 kg (131 lb)04/29/2022 10:44 AM FYMApbzid266.6 cm (5' 4 )04/29/2022 10:44 AM EDTBody Mass Index22.4904/29/2022 10:44 AM EDT Plan of Treatment Health MaintenanceDue DateLast DoneCommentsDepression Ertxqauho22/07/2007Tobacco Pnqxcefig21/07/2007dult BMI Hmhvcwohj73/07/2013Influenza Mfwgkfq3803/07/2025 05/04/2019, 04/14/2018, 04/30/2017Pap Smear3DTaP,Tdap and Td Vaccines (2 - Td or Tdap) Medical Devices Not on file Procedures Procedure NamePriorityDate/TimeAssociated DiagnosisCommentsUS PELVIC WITH LKGAUNNYQRVAUbezrbu29/23/2025 10:09 AM ESTfrom Last 3 Months Results * Ultrasound pelvic with transvaginal (06/28/2025 10:09 AM EST)Anatomical Region LateralityModalityBody, PelvisUltrasound Narrative Authorizing ProviderResult TypeResult StatusNot In System Ref ProvIMG US ORDERABLESFinal Result from Last 3 Months Insurance
--- OUTSIDE RECORDS SUMMARY | 2025-07-01 12:58 | XMS_ITS | Encounter Summary ---
Author Organization [facility] Address [id number] [address] [place] [address] Care Team Providers Care Neurology Professor Name Role Phone Unavailable Primary Care Provider Unavailabl e Encounter Details DateTypeDepartmentCare Team (Latest Contact Info)Qzdpphjvzqs72/24/2025Orders Only [facility] - Family Medicine [address] [place] [address] Ref Prov, [place] [address] Social History Tobacco UseTypesPacks/DayYears UsedDateSmoking Tobacco: NeverSmokeless Tobacco: NeverCommentsUnknownSex and Gender InformationValueDate RecordedSex Assigned at BirthNot on fileLegal EjiXxjssg29/24/2022 9:18 AM EDTGender Identity Not on fileSexual OrientationNot on filedocumented as of this encounter Plan of Treatment Not on file documented as of this encounter Procedures Procedure NamePriorityDate/TimeAssociated DiagnosisCommentsUS PELVIC WITH BEHEWTGKWTCGYbewpmo76/23/2025 10:09 AM ESTdocumented in this encounter Results * Ultrasound pelvic with transvaginal (06/28/2025 10:09 AM EST)Anatomical Region LateralityModalityBody, PelvisUltrasound Narrative Authorizing ProviderResult TypeResult StatusNot In System Ref ProvIMG US ORDERABLESFinal Result documented in this encounter Visit Diagnoses Not on filedocumented in this encounter
--- OUTSIDE RECORDS SUMMARY | 2025-07-01 12:58 | XMS_ITS | Encounter Summary ---
Author Organization [facility] Address [address] [facility] [place] [address] Care Team Providers Care Mental Health Nurse Practitioner Name Role Phone Harshil Moran MD Primary Care Provider [phone] Encounter Details DateTypeDepartmentCare Team (Latest Contact Info)Ysplmewngea98/25/2025Travel Social History Tobacco UseTypesPacks/DayYears UsedDateSmoking Tobacco: NeverSmokeless Tobacco: NeverAlcohol UseStandard Drinks/WeekCommentsNever0 (1 standard drink = 0.6 oz pure alcohol)Estimated Date of EgosuaeoDmoifixjCuh91/17/2026ased on last menstrual period of 11/16/2024Sex and Gender InformationValueDate Recorded Sex Assigned at BirthNot on fileLegal KvyGvksws50/15/2023 11:47 PM EDTGender IdentityNot on fileSexual OrientationNot on filedocumented as of this encounter Plan of Treatment DateTypeDepartmentCare Team (Latest Contact Info)Qgycihidrtx74/31/2025 10:30 AM ESTAncillary Procedure [facility] [place] [address] [address] [place] [phone] 07/06/2025 11:00 AM ESTRoutine [facility] BILL [address] [place] [address] Yamilet Ho, THERMOMETER PRODUCTION WORKER [address] [place] [address] 12/22/2025 8:30 AM EDTProcedure Visit [facility] [place] BILL [address] [place] [address] Alexis Gomez DO [address] [facility] [place] [address] documented as of this encounter Visit Diagnoses Not on filedocumented in this encounter Care Teams Team MemberRelationshipSpecialtyStart DateEnd Date Harshil Moran MD [address] [place] [address] PCP - GeneralFamily Medicine12/30/22documented as of this encounter
--- OUTSIDE RECORDS SUMMARY | 2025-07-01 12:58 | XMS_ITS | Clinical Summary ---
Author Organization [facility] Healthcare Address [address] [place] [address] Care Team Providers Care Refractive Surgeon Name Role Phone Harshil Garcia MD Primary Care Provider [phone] Allergies Active AllergyReactionsCriticalityNoted DateCommentsBee VenomHives,UnknownMedium 12/20/2018ErythromycinHives,Uzplcsv7901/30/2023Erythromycin InwrMkgyNmr19/24/2022 Honey Bee LrykxGbdpmNgxkrd91/16/2019 Medications MedicationSigDispense QuantityRefillsLast FilledStart DateEnd DateStatus ondansetron [...] 4 MG tablet Indications:Nausea and vomiting during ([facility])Take 1 tablet (4 mg) by mouth every 6 (six) hours if needed for nausea or vomiting for up to 30 doses Take 1 tablet by mouth every 6 hours as needed for nausea. 30 tablet 3065Active Vit-Fe Fumarate-FA ( Vitamins) 28-0.8 MG tablet Indications: examination or test, positive result ([facility])Take 1 tablet by mouth Daily 30 [...] ProblemNoted DateDiagnosed DateAxillary mass, right4Estimated Date of CnnulhyyZjhwgvdtEtr68/17/2026Based on last menstrual period of 11/16/2024 Encounters DateTypeDepartmentCare LhkyQsrygmdzllt09/25/9081Fehcrl76/23/2025linisync Result Encounter [facility] External Department Unsolicited Deandra Gomez, 06/23/2025 9:10 [place] [address] Tammie Maloney PA Third trimester ([facility]); 31 weeks gestation of ([facility]); History of placental rwtvfowlz27/18/2025[place] [address] Tammie Maloney PA 06/20/20[place] [address] Deandra Gomez, DO 06/20/20253818Emzmrv55/03/2025 1:20 [place] [address] Deandra Gomez, 29 weeks gestation of ([facility]); Third trimester ([facility]); History of placental abruption; Placental abnormality, antepartum ([facility])06/08/2025 1:00 PM ESTAncillary [place] [address] Size of fetus inconsistent with dates in first trimester ([facility])06/07/2025 Cbyrjt4206/01/2025Telephone [facility] [place] [facility] [address] [facility] [place] [address] Tammie Maloney PA 06/01/20255930Pmwmun19/10/2025 2:30 PM ESTRoutine [facility] [place] [facility] [address] [facility] [place] [address] Tammie Maloney, PA Size of fetus inconsistent with dates in first trimester ([facility]) (Primary Dx); Second trimester ([facility]); 25 weeks gestation of ([facility])05/16/2025amboo flowsheet [facility] [place] [facility] [address] [place] [address] [place] [address] Tammie Maloney PA 05/13/2025linisync Result Encounter [facility] External Department Unsolicited Deandra Gomez, DO 05/11/20251833Ootyig47/03/2025Telephone [facility] [place] [facility] [address] [place] [address] [place] [address] Deandra Gomez, 04/18/2025 3:00 PM EDTRoutine [facility] [place] BILL [address] [place] [address] [place] [address] Deandra Gomez, DO Second trimester ([facility]); 21 weeks gestation of ([facility]); Diabetes mellitus ytkzuzldt65/13/2025 2:00 PM EDTAncillary Procedure [facility] [place] [facility] [address] [place] [address] Screening, , for anatomic survey ([facility])04/13/2025Travelfrom Last 3 Months Family History Medical HistoryRelationNameCommentsHeart diseaseBrotherHeart diseaseFather VloxrvbhwjteIdftqaServwoahpkwiKzxwmfUpbwepoyPfjwJvaysuDlhbnvzaFfilpnh3Hljosb Mother Social History Tobacco UseTypesPacks/DayYears UsedDateSmoking Tobacco: NeverSmokeless Tobacco: Never Tobacco Cessation:Counseling Given: Not Answered Alcohol UseStandard Drinks/WeekCommentsNever0 (1 standard drink = 0.6 oz pure alcohol)Estimated Date of BrpvbumtJkbqdsknJdj21/17/2026ased on last menstrual period of 11/16/2024Sex and Gender InformationValueDate RecordedSex Assigned at BirthNot on fileLegal BywCwurpw57/15/2023 11:47 PM EDTGender IdentityNot on fileSexual OrientationNot on file Last Filed Vital Signs Vital SignReadingTime TakenCommentsBlood Doldnlnn127/6606/23/2025 9:10 AM EST Pulse--Temperature--Respiratory Rate--Oxygen Saturation--Inhaled Oxygen Concentration--Mhewsl72.4 kg (164 lb)06/23/2025 9:10 AM NXDJtroyl458.5 cm (5' 2 )09/23/2022 12:00 PM EDTBody Mass Cdcnx7025/20/2023 12:00 PM EDT Plan of Treatment DateTypeDepartmentCare Team (Latest Contact Info)Nvgwtcywuyk52/31/2025 10:30 AM ESTAncillary Procedure [facility] [place] B[facility] [address] [facility] [place] [address] 07/06/2025 11:00 AM ESTRoutine [facility] [place] BILL [address] [facility] [place] [address] Yamilet Ho, VEGETABLE WORKER [address] [facility] [place] [address] 12/22/2025 8:30 AM EDTProcedure Visit [facility] B[facility] [address] [facility] [place] [address] Deandra Gomez DO [address] [facility] [place] [address] Procedures Procedure NamePriorityDate/TimeAssociated DiagnosisCommentsUS OB BPP W NON-QIBASO94/ 11:17 AM EST POCT URINALYSIS ZKZVCZCDXzsdcne92/18/2025 9:22 AM EST Third trimester ([facility]) 31 weeks gestation of ([facility]) US OB FOLLOW UP TRANSABDOMINAL SHRYIURLNgrygxk36/03/2025 1:30 PM EST Size of fetus inconsistent with dates in first trimester ([facility]) POCT URINALYSIS QRXXGWITRxzhieq07/03/2025 1:22 PM EST 29 weeks gestation of ([facility]) Third trimester ([facility]) POCT URINALYSIS FYTOVGWTEpchuap22/10/2025 2:48 PM EST 25 weeks gestation of ([facility]) GLUCOSE 1 GVVLAjxxvxn68/07/2025 9:35 AM EST ALL CBC WITH AUTO LCNMIcifigp81/07/2025 9:35 AM EST POCT URINALYSIS UHEXEGXGVnheoxr05/13/2025 3:34 PM EDT Second trimester ([facility]) US OB 14+ WEEKS ANATOMY PRGYZwgvlpu62/13/2025 2:51 PM EDT Screening, , for anatomic survey ([facility]) from Last 3 Months Results * US OB BPP W NON-STRESS (06/28/2025 11:17 AM EST)Anatomical Region LateralityModalityOtherSpecimen (Source)Anatomical Location / Laterality Collection Method / VolumeCollection TimeReceived Time06/28/2025 11:17 AM EST Narrative 06/28/2025 11:20 AM EST [facility] ?[address] ? [place] [address] ? Ultrasound Report ? Signed ? Patient: MONREAL,ALBINA L ?MR#: [id number] ?? : 1995 ?Acct:[id number] ?? Age/Sex: 29 / F ?ADM Date: 12/23/25 ?? Loc: US ? Attending Dr: Deandra Gomez D.O. ? Ordering Physician: Deandra Gomez D.O. ?? Date of Service: 06/28/25 ?? Procedure(s): US OB BPP w non-stress ?? Accession Number(s): [id number] ? cc: HARSHIL [place] ; Deandra Gomez D.O. ? [facility] ? [address] ? [place] [address] ? Patient Name: ?? ALBINA MONREAL ? MRN: [facility]:[id number] ? date: 1995 ?Sex: F ?? Assigned Patient Location: [facility] ?? Current Patient Location: ? Accession/Order Number: [id number] ?? Exam Date: 06/28/2025 ??09:01 ?Report Date: 06/28/2025 ??11:17 ? At the request of: ?? DEANDRA ??JASON ??DO ? Procedure: ??US OB BPP w non-stress ? BIOPHYSICAL PROFILE: ? CLINICAL INFORMATION: History of placental abruption ? COMPARISON: None ? There is a single live intrauterine gestation in cephalic presentation. ??The ?? reported gestational age is 32 weeks 0 days. ??The heart rate measures ?? 134 beats per minute. ? FINDINGS: ? TONE: 1 or more episodes of activity extension and flexion of ?? extremity or opening and closing of the hand ?[Y] ? 2/2 ?? GROSS BODY MOVEMENTS: 3 or more discrete body or limb movements ?[Y] ? 2/2 ?? BREATHING MOVEMENTS: 1 or more episodes of breathing lasting at ?? least 30 seconds ? [Y] ? 2/2 ?? TERESA: A single deepest vertical pocket of amniotic fluid greater than 2 cm ? [Y] ? 2/2 ?TERESA: 18.5 cm . ??This is in upper normal range. ? Total score: ? 8/8 ? US/US OB BPP w non-stress ?? IMPRESSION: ? NORMAL BIOPHYSICAL PROFILE ? Impression dictated by: Sharon Zamora M.D. ??06/28/2025 11:17 AM ? Dictation Location: RADIO-PC-30 ? Electronically authenticated by: [id number] ??Y ?? Date: 06/28/2025 ??11:17 ? Dictated By: ?Sharon Zamora M.D. ? Signed By: ?06/28/25 1120 ? DD/ 1117 ? TD/TT: ? Watch Engineer: Procedure Note Radiology, Radiologist, MD - 06/28/[address] [address] Ultrasound Report Signed Patient: ALBINA MONREAL LMR#: [id number] : 1995Acct:[id number] Age/Sex: 29 / FADM Date: 06/28/25 Loc: US Attending Dr: Deandra Gomez D.O. Ordering Physician: Deandra Gomez D.O. Date of Service: 06/28/25 Procedure(s): US OB BPP w non-stress Accession Number(s): [id number] cc: HARSHIL [place] ; Deandra Gomez D.O. [place] [address] Patient Name: ALBINA MONREAL MRN: [id number] date: 1995 Sex: F Assigned Patient Location: [facility] Current Patient Location: Accession/Order Number: [id number] Exam Date: 06/28/2025 09:01 Report Date: 06/28/2025 11:17 At the request of: DEANDRA GOMEZ DO Procedure: US OB BPP w non-stress BIOPHYSICAL PROFILE: CLINICAL INFORMATION: History of placental abruption COMPARISON: None There is a single live intrauterine gestation in cephalic presentation.The reported gestational age is 32 weeks 0 days. The heart ratemeasures 134 beats per minute. FINDINGS: TONE: 1 or more episodes of activity extension and flexion of extremity or opening and closing of the hand [Y] 2/2 GROSS BODY MOVEMENTS: 3 or more discrete body or limb movements [Y] 2/2 BREATHING MOVEMENTS: 1 or more episodes of breathing lastingat least 30 seconds [Y] 2/2 TERESA: A single deepest vertical pocket of amniotic fluid greater than 2 cm [Y] 2/2 TERESA: 18.5 cm . This is in upper normal range. Total score: 8/8 US/US OB BPP w non-stress IMPRESSION: NORMAL BIOPHYSICAL PROFILE Impression dictated by: Sharon Zamora M.D. 06/28/2025 11:17 AM Dictation Location: [place] [address] Electronically authenticated by: [id number] Y Date: 1:17 Dictated By: Sharon Zamora M.D. Signed By:06/28/25 1120 DD/ 1117 TD/TT: Watch Engineer: Authorizing ProviderResult TypeResult StatusCoreандрей CHOI IMAGINGFinal Result * (ABNORMAL) POCT urinalysis dipstick manually resulted (06/23/2025 9:22 AM EST) Only the most recent of4 resultswithin the time period is included. ComponentValueRef RangeTest MethodAnalysis TimePerformed AtPathologist Signature Color, UAYellowClarity, UAClearGlucose, UANegativeNegative - 2000(110) ++++ mg/dLBilirubin, UANegativeNegative - 4(70) +++ mg/dLKetones, UANegativeNegative - 160(16) ++++ mg/dLSpec Grav, UA1.0201 - 1.03Blood, UANegativeNegative - 50 Jeard/mcLpH, UA5.55 - 9Protein, UAPositiveNegative - 2000(20) ++++ mg/dL Urobilinogen, UA1.00.2 - 12 mg/dLLeukocytes, UANegativeNegative - 500+++ Gerson/mcL Nitrite, UANegativeNegative - PositiveSpecimen (Source)Anatomical Location / LateralityCollection Method / VolumeCollection TimeReceived QsrzSfvvm72/18/2025 9:22 AM EST Narrative Authorizing ProviderResult TypeResult StatusTammie Maloney [facility]INT [facility] CARE TEST ENTER/EDIT ORDERABLESFinal Result * [...] BY: Corey Melgoza MD Authorizing ProviderResult TypeResult StatusTammie VAUGHN OB US PROCEDURES Final Result * GLUCOSE 1 HOUR (05/13/2025 9:35 AM EST)ComponentValueRef RangeTest Method Analysis TimePerformed AtPathologist SignatureGLUCOSE 1 REXW612<130 mg/dLTBH Specimen (Source)Anatomical Location / LateralityCollection Method / Volume Collection TimeReceived Time05/13/2025 9:35 AM EST05/13/2025 9:36 AM EST Narrative [facility] - 05/13/2025 10:41 AM EST Authorizing ProviderResult TypeResult StatusCoreандрей [place] BLOOD ORDERABLES Final ResultPerforming OrganizationAddressCity/State/ZIP CodePhone Number [facility] * (ABNORMAL) ALL CBC WITH AUTO DIFF (05/13/2025 9:35 AM EST)ComponentValueRef RangeTest MethodAnalysis TimePerformed AtPathologist SignatureTBH WBC6.34.0 - 11.0 10 3/uLTBHTBH RBC4.334.20 - 5.40 10 6/uLTBHTBH HGB13.512.0 - 16.0 g/dLTBH TBH HCT39.836.0 - 48.0 %TBHTBH MCV91.981.0 - 99.0 fLTBHTBH MCH31.226.7 - 34.0 pgTBHTBH MCHC33.929.9 - 35.2 g/dLTBHTBH RDW13.011.0 - 15.0 %TBHTBH VZU363949 - 450 10 3/uLTBHTBH MPV10.39.5 - 13.5 fLTBHNEUTROPHILS PERCENT AUTO76.2(H)43.0 - 75.0 %TBHLYMPHOCYTES PERCENT AUTO16.0(L)20.5 - 60.0 %TBHMONOCYTES PERCENT AUTO6.51.7 - 12.0 %TBHTBH EO %0.8(L)0.9 - 7.0 %TBHBASOPHILS PERCENT AUTO0.20.2 - 2.0 %TBHIMMATURE GRANULOCYTES PCT AUTO0.30.0 - 0.5 %TBHNEUTROPHILS ABSOLUTE AUTO4.81.4 - 6.5 10 3/uLTBHLYMPHOCYTES ABSOLUTE AUTO1.0(L)1.2 - 3.8 10 3/uL TBHMONOCYTES ABSOLUTE AUTO0.40.3 - 0.8 10 3/uLTBHTBH EO #0.10.0 - 0.7 10 3/uL TBHBASOPHILS ABSOLUTE AUTO0.00.0 - 0.1 10 3/uLTBHIMMATURE GRANULOCYTES ABS AUTO0.020.00 - 0.03 10 3/uLTBHSpecimen (Source)Anatomical Location / LateralityCollection Method / VolumeCollection TimeReceived Time05/13/2025 9:35 AM EST05/13/2025 9:36 AM EST Narrative MOUSTAPHA - 05/13/2025 9:55 AM EST Authorizing ProviderResult TypeResult StatusCorey Jason DOCLINISYNCFinal Result Performing OrganizationAddressCity/State/ZIP CodePhone Number [facility] * OB 14+ weeks anatomy scan (04/18/2025 [...] Corey Melgoza MD Authorizing ProviderResult TypeResult StatusAmy Haider VAUGHN OB US PROCEDURES Final Result from Last 3 Months Insurance Care Teams Team MemberRelationshipSpecialtyStart DateEnd Date Harshil Garcia MD [address] [facility], [place] [address] PCP - GeneralFamily Medicine12/30/22
--- OUTSIDE RECORDS SUMMARY | 2025-07-01 12:58 | XMS_ITS | Encounter Summary ---
Author Organization [facility] Address [address] [facility] [place] [address] Care Team Providers Care Parachute Folder Name Role Phone Harshil Moran MD Primary Care Provider [phone] Encounter Details DateTypeDepartmentCare Team (Latest Contact Info)Kyiujgsjdhi53/15/2025bstract [facility] [place] BILL [address] [facility] [place] [address] Alexis Gomez DO [address] [facility] [address] [place], [facility] Social History Tobacco UseTypesPacks/DayYears UsedDateSmoking Tobacco: NeverSmokeless Tobacco: NeverAlcohol UseStandard Drinks/WeekCommentsNever0 (1 standard drink = 0.6 oz pure alcohol)Estimated Date of TdnglbqhOdunfiqpRpn30/17/2026ased on last menstrual period of 11/16/2024Sex and Gender InformationValueDate Recorded Sex Assigned at BirthNot on fileLegal ClnQidbju97/15/2023 11:47 PM EDTGender IdentityNot on fileSexual OrientationNot on filedocumented as of this encounter Plan of Treatment DateTypeDepartmentCare Team (Latest Contact Info)Kqifivlnnqi33/31/2025 10:30 AM ESTAncillary Procedure [facility] [place] BILL [address] [place] [address] 07/06/2025 11:00 AM ESTRoutine [facility] [place] BILL [address] [place] [address] Yamilet Ho, APPRENTICE STYLIST [address] [facility] [place] [address] [place] [address] 12/22/2025 8:30 AM EDTProcedure Visit [facility] [place] BILL [address] [facility] [place] [address] Alexis Gomez DO [address] [facility] [place] [address] documented as of this encounter Visit Diagnoses Not on filedocumented in this encounter Care Teams Team MemberRelationshipSpecialtyStart DateEnd Date Harshil Moran MD [address] [facility] [place] [address] PCP - GeneralFamily Medicine12/30/22documented as of this encounter
--- OUTSIDE RECORDS SUMMARY | 2025-07-01 12:58 | XMS_ITS | Encounter Summary ---
Author Organization [facility] Address [address] [facility] [place] [address] Care Team Providers Care Inspector Golf Ball Name Role Phone Harshil Moran MD Primary Care Provider [phone] Encounter Details DateTypeDepartmentCare Team (Latest Contact Info)Uwcnxvcwaob34/23/2025linisync Result Encounter NOMS External Department Unsolicited Deandra Gomez DO [address] [facility] [address] [place], [facility] Social History Tobacco UseTypesPacks/DayYears UsedDateSmoking Tobacco: NeverSmokeless Tobacco: NeverAlcohol UseStandard Drinks/WeekCommentsNever0 (1 standard drink = 0.6 oz pure alcohol)Estimated Date of ZbrkitouMevyznpeKdq49/17/2026ased on last menstrual period of 11/16/2024Sex and Gender InformationValueDate Recorded Sex Assigned at BirthNot on fileLegal IacXuvnna66/15/2023 11:47 PM EDTGender IdentityNot on fileSexual OrientationNot on filedocumented as of this encounter Plan of Treatment DateTypeDepartmentCare Team (Latest Contact Info)Uhaauuoaryz01/31/2025 10:30 AM ESTAncillary Procedure [facility] [place] BILL [address] [place] [address] 07/06/2025 11:00 AM ESTRoutine [facility] [place] BILL [address] [facility] [place] [address] Yamilet Ho, CHANDRAKANT [address] [facility] [place] [address] 12/22/2025 8:30 AM EDTProcedure Visit [facility] [place] OBGYN [address] [facility] [place] [address] Deandra Gomez, DO [address] [facility] [address] [place], [place] [address] documented as of this encounter Procedures Procedure NamePriorityDate/TimeAssociated DiagnosisCommentsUS OB BPP W NON-BMGALU2606/28/2025 11:17 AM EST documented in this encounter Results * US OB BPP W NON-STRESS (06/28/2025 11:17 AM EST)Anatomical Region LateralityModalityOtherSpecimen (Source)Anatomical Location / Laterality Collection Method / VolumeCollection TimeReceived Time06/28/2025 11:17 AM EST Narrative 06/28/2025 11:[address] [facility] ?[address] ? [place] [address] ? Ultrasound Report ? Signed ? Patient: ALBINA MONREAL ?MR#: [id number] ?? : 1995 ?Acct:[id number] ?? Age/Sex: 29 / F ?ADM Date: 06/28/25 ?? Loc: US ? Attending Dr: Deandra Gomez D.O. ? Ordering Physician: Deandra Gomez D.O. ?? Date of Service: 06/28/25 ?? Procedure(s): US OB BPP w non-stress ?? Accession Number(s): [id number] ? cc: HARSHIL MORAN ; Deandra Gomez D.O. ? [facility] ? [address] ? [place] [address] ? Patient Name: ?? ALBINA MONREAL ? MRN: [id number] ? date: 1995 ?Sex: F ?? Assigned Patient Location: [facility] ?? Current Patient Location: ? Accession/Order Number: [id number] ?? Exam Date: 06/28/2025 ??09:01 ?Report Date: [...] Dictation Location: RADIO-PC-30 ? Electronically authenticated by: [id number] ??Y ?? Date: 06/28/2025 ??11:17 ? Dictated By: ?Sharon Zamora M.D. ? Signed By: ?12/23/ 1120 ? DD/ 1117 ? TD/TT: ? Retort Unloader: Procedure Note Radiology, Radiologist, MD - 06/28/2025 [place] [address] Ultrasound Report Signed Patient: ALBINA MONREAL LMR#: [id number] : 1995Acct:[id number] Age/Sex: 29 / FADM Date: 06/28/25 Loc: US Attending Dr: Deandra Gomez D.O. Ordering Physician: Deandra Gomez D.O. Date of Service: 06/28/25 Procedure(s): US OB BPP w non-stress Accession Number(s): [id number] cc: HARSHIL MORAN ; Deandra Gomez D.O. The [address] [address] Patient Name: ALBINA MONREAL MRN: [id number] date: 1995 Sex: F Assigned Patient Location: [facility] Current Patient Location: Accession/Order Number: [id number] Exam Date: 06/28/2025 09:01 Report Date: 06/28/2025 [...] IMPRESSION: NORMAL BIOPHYSICAL PROFILE Impression dictated by: Shaorn Zamora M.D. 06/28/2025 11:17 AM Dictation Location: [place] [address] Electronically authenticated by: [id number] Y Date: 1:17 Dictated By: Sharon Zamora M.D. Signed By:06/28/25 1120 DD/ 1117 TD/TT: Retort Unloader: Authorizing ProviderResult TypeResult StatusCorey Jason DOCLINISYNC IMAGINGFinal Result documented in this encounter Visit Diagnoses Not on filedocumented in this encounter Care Teams Team MemberRelationshipSpecialtyStart DateEnd Date Harshil Moran MD [address] [facility], [facility] [place] [address] PCP - GeneralFamily Medicine12/30/22documented as of this encounter
--- OUTSIDE RECORDS SUMMARY | 2025-07-01 12:58 | XMS_ITS | Encounter Summary ---
Author Organization [facility] Address [address] [facility] [place] [address] Care Team Providers Care Veterinary Technician Assistant Name Role Phone Harshil Moran MD Primary Care Provider [phone] Encounter Details DateTypeDepartmentCare Team (Latest Contact Info)Oxgszelmxat42/18/2025amboo flowsheet [facility] [place] BILL [address] [place] [address] Tammie Maloney PA [address] [facility] [address] Garcia, [facility] Social History Tobacco UseTypesPacks/DayYears UsedDateSmoking Tobacco: NeverSmokeless Tobacco: NeverAlcohol UseStandard Drinks/WeekCommentsNever0 (1 standard drink = 0.6 oz pure alcohol)Estimated Date of YnslsfrlJdhtgkysVwi22/17/2026ased on last menstrual period of 11/16/2024Sex and Gender InformationValueDate Recorded Sex Assigned at BirthNot on fileLegal JorVzemvk98/15/2023 11:47 PM EDTGender IdentityNot on fileSexual OrientationNot on filedocumented as of this encounter Plan of Treatment DateTypeDepartmentCare Team (Latest Contact Info)Urzugnzupkh05/31/2025 10:30 AM ESTAncillary Procedure [facility] [place] BILL [address] [place] [address] 07/06/2025 11:00 AM ESTRoutine [facility] [place] BILL [address] [place] [address] Yamilet Ho, MECHANICAL MAINTENANCE SUPERVISOR [address] [facility] [place] [address] [place] [address] 12/22/2025 8:30 AM EDTProcedure Visit [facility] [place] BILL [address] [facility] [place] [address] Alexis Gomez, [address] [facility] [place] [address] documented as of this encounter Visit Diagnoses Not on filedocumented in this encounter Care Teams Team MemberRelationshipSpecialtyStart DateEnd Date Harshil Moran MD [address] [place] [address] PCP - GeneralFamily Medicine12/30/22documented as of this encounter
--- OUTSIDE RECORDS SUMMARY | 2025-07-01 12:58 | XMS_ITS | Encounter Summary ---
Author Organization [facility] Address [address] [facility] [place] [address] Care Team Providers Care Creative Art Director Name Role Phone Harshil Moran MD Primary Care Provider [phone] Encounter Details DateTypeDepartmentCare Team (Latest Contact Info)Hbxafbcnptp54/15/2025Travel Social History Tobacco UseTypesPacks/DayYears UsedDateSmoking Tobacco: NeverSmokeless Tobacco: NeverAlcohol UseStandard Drinks/WeekCommentsNever0 (1 standard drink = 0.6 oz pure alcohol)Estimated Date of NrcrosshCsjeabssDnh26/17/2026ased on last menstrual period of 11/16/2024Sex and Gender InformationValueDate Recorded Sex Assigned at BirthNot on fileLegal TvuJgjnnw99/15/2023 11:47 PM EDTGender IdentityNot on fileSexual OrientationNot on filedocumented as of this encounter Plan of Treatment DateTypeDepartmentCare Team (Latest Contact Info)Kwdorpjhhfr51/31/2025 10:30 AM ESTAncillary Procedure [facility] [place] BILL [address] [place] [address] 07/06/2025 11:00 AM ESTRoutine [facility] BILL [address] [place] [address] Yamilet Ho, LEADERSHIP PROGRAM INTERN [address] [place] [address] 12/22/2025 8:30 AM EDTProcedure Visit [facility] [place] BILL [address] [place] [address] Alexis Gomez DO [address] [facility] [place] [address] documented as of this encounter Visit Diagnoses Not on filedocumented in this encounter Care Teams Team MemberRelationshipSpecialtyStart DateEnd Date Harshil Moran MD [address] [place] [address] PCP - GeneralFamily Medicine12/30/22documented as of this encounter
[2025-07-01 13:02] VITALS: BP 109/67; PULSE 112
== END 2025-07-01 13:30 | disposition home or self-care (01) ==
LOC: FBCO 12:55 → FBC 12:57
PROVIDERS: PCP Family Medicine; Visit Provider Obstetrics & Gynecology
DX: O26.893 Other specified pregnancy related conditions, third trimester (principal); Z3A.32 32 weeks gestation of pregnancy
CPT/HCPCS: 59025

== ENCOUNTER 2025-07-05 08:55 | Outpatient (OUT) | payer OTHER, SELFPAY ==
--- OUTSIDE RECORDS SUMMARY | 2025-06-23 09:10 | XMS_ITS | Encounter Summary ---
Author Organization [facility] Address [address] [place] [address] Care Team Providers Care Worm Raiser Name Role Phone Harshil Moran MD Primary Care Provider Reason for Visit * ReasonCommentsRoutine Visit Encounter Details DateTypeDepartmentCare Team (Latest Contact Info)Caajcmgdive11/18/2025 9:10 AM ESTRoutine [facility] [address] [facility] [place] [address] Tammie Maloney PA [address] [facility] [place] [address] Third trimester ([facility]); 31 weeks gestation of ([facility]); History of placental abruption Social History Tobacco UseTypesPacks/DayYears UsedDateSmoking Tobacco: NeverSmokeless Tobacco: NeverAlcohol UseStandard Drinks/WeekCommentsNever0 (1 standard drink = 0.6 oz pure alcohol)Estimated Date of KmjadonaFnuljphaGsr92/17/2026ased on last menstrual period of 11/16/2024Sex and Gender InformationValueDate Recorded Sex Assigned at BirthNot on fileLegal YhgKyyhpe54/15/2023 11:47 PM EDTGender IdentityNot on fileSexual OrientationNot on filedocumented as of this encounter Last Filed Vital Signs Vital SignReadingTime TakenCommentsBlood Qsawcmmu231/6606/23/2025 9:10 AM EST Pulse--Temperature--Respiratory Rate--Oxygen Saturation--Inhaled Oxygen Concentration--Pifrtb49.4 kg (164 lb)06/23/2025 9:10 AM ESTHeight--Body Mass Aurky0249/ 12:00 PM EDTdocumented in this encounter Progress [...] Medical History: Diagnosis Date 6 weeks follow-up ([facility]) BMI 24.0-24.9, adult History of placenta abruption Vaginal delivery ([facility]) HISTORY PAST MEDICAL HISTORY SOCIAL HISTORY Past Medical History: Diagnosis Date 6 weeks follow-up ([facility]) BMI 24.0-24.9, adult History of placenta abruption Vaginal delivery ([facility]) Social History Tobacco Use Smoking status: [...] was 11/16/2024. Assessment/Plan ICD-10-CM 1. Third trimester ([facility]) Z34.93 POCT urinalysis dipstick manually resulted 2. 31 weeks gestation of ([facility]) Z3A.31 POCT urinalysis dipstick manually resulted [...] Plan of Treatment DateTypeDepartmentCare Team (Latest Contact Info)Ljebmnruwqm69/31/2025 10:30 AM ESTAncillary Procedure [facility] [address] [facility] [place] [phone] 07/06/2025 11:00 AM ESTRoutine [facility] [address] [facility] [place] [phone] Yamilet Ho, CHANDRAKANT [address] [facility] [place] [phone] 12/22/2025 8:30 AM EDTProcedure Visit SAMANTHA BILL [address] [place] [address] [place] [phone] Alexis Gomez DO [address] [facility] [address] [place], [place] [id number] NameTypePriorityAssociated DiagnosesOrder ScheduleUS biophysical profile w non stress testImagingRoutine History of placental abruption Expected: 06/23/2025 (Approximate), Expires: 12/22/2025US OB follow up transabdominal approachImagingRoutine History of placental abruption Expected: 06/23/2025, Expires: 10/22/2025documented as of this encounter Procedures Procedure NamePriorityDate/TimeAssociated DiagnosisCommentsPOCT URINALYSIS IRNLIOXTEpebqoj86/18/2025 9:22 AM EST Third trimester ([facility]) 31 weeks gestation of ([facility]) documented in this encounter Results [...] Location / LateralityCollection Method / VolumeCollection TimeReceived RazlItvaz08/18/2025 9:22 AM EST Narrative Authorizing ProviderResult TypeResult StatusHahnemann Hospital OF CARE TEST ENTER/EDIT ORDERABLESFinal Result documented in this encounter Visit Diagnoses Diagnosis Third trimester ([facility]) state, incidental 31 weeks gestation of ([facility]) History of placental abruption documented in this encounter Care Teams Team MemberRelationshipSpecialtyStart DateEnd Date Harshil Moran MD [address] [email or web address] [place] [address] PCP - GeneralFamily Medicine12/30/22documented as of this encounter
--- NOTE | 2025-07-05 08:58 | US_ITS ---
The [place] [address] Patient Name: GUANAKITO CASTILLO MRN: [id number] date: 1995 Sex: F Assigned Patient Location: [facility] Current Patient Location: Accession/Order Number: [id number] Exam Date: 07/05/2025 09:00 Report Date: 07/05/2025 11:22 At the request of: DEANDRA HOWE DO Procedure: US OB BPP w non-stress BIOPHYSICAL PROFILE: CLINICAL INFORMATION: History of placental abruption COMPARISON: 06/28/2025 There is a single live intrauterine gestation in cephalic presentation. The reported gestational age is 33 weeks 0 days. The heart rate measures 126 beats per minute. FINDINGS: TONE: 1 or more episodes of activity extension and flexion of extremity or opening and closing of the hand [Y] 2/2 GROSS BODY MOVEMENTS: 3 or more discrete body or limb movements [Y] 2/2 BREATHING MOVEMENTS: 1 or more episodes of breathing lasting at least 30 seconds [Y] 2/2 TERESA: A single deepest vertical pocket of amniotic fluid greater than 2 cm [Y] 2/2 TERESA: 13.9 cm Total score: 8/8 US/US OB BPP w non-stress IMPRESSION: NORMAL BIOPHYSICAL PROFILE Impression dictated by: Sharon Zamora M.D. 07/05/2025 11:22 AM Dictation Location: [place] [address] Electronically authenticated by: [id number] Y Date: 07/05/2025 11:22
--- OUTSIDE RECORDS SUMMARY | 2025-07-05 08:58 | XMS_ITS | Encounter Summary ---
Author Organization [facility] Address [address] [facility] [place] [address] Care Team Providers Care Small Parts Shaper Operator Name Role Phone Harshil Moran MD Primary Care Provider [phone] Encounter Details DateTypeDepartmentCare Team (Latest Contact Info)Pseevngqmdk86/18/2025amboo flowsheet [facility] [place] BILL [address] [place] [address] Tammie Maloney PA [address] [facility] [address] Garcia, [facility]11 Social History Tobacco UseTypesPacks/DayYears UsedDateSmoking Tobacco: NeverSmokeless Tobacco: NeverAlcohol UseStandard Drinks/WeekCommentsNever0 (1 standard drink = 0.6 oz pure alcohol)Estimated Date of HptdfqqoZurtzdyxGgt46/17/2026ased on last menstrual period of 11/16/2024Sex and Gender InformationValueDate Recorded Sex Assigned at BirthNot on fileLegal SrdXatkra08/15/2023 11:47 PM EDTGender IdentityNot on fileSexual OrientationNot on filedocumented as of this encounter Plan of Treatment DateTypeDepartmentCare Team (Latest Contact Info)Bfnikwirrop48/31/2025 10:30 AM ESTAncillary Procedure [facility] [place] BILL [address] [place] [address] 07/06/2025 11:00 AM ESTRoutine [facility] [place] BILL [address] [place] [address] Yamilet Ho, MOLD UNLOADER [address] [facility] [place] [address] [place] [address] 12/22/2025 8:30 AM EDTProcedure Visit [facility] [place] BILL [address] [facility] [place] [address] Alexis Gomez, [address] [facility] [place] [address] documented as of this encounter Visit Diagnoses Not on filedocumented in this encounter Care Teams Team MemberRelationshipSpecialtyStart DateEnd Date Harshil Moran MD [address] [place] [address] PCP - GeneralFamily Medicine12/30/22documented as of this encounter
--- OUTSIDE RECORDS SUMMARY | 2025-07-05 08:58 | XMS_ITS | Clinical Summary ---
Author Organization [facility] Address [address] [place] [address] Care Team Providers Care Diaper Folder Name Role Phone Harshil Garcia MD Primary Care Provider [phone] Allergies Active AllergyReactionsCriticalityNoted DateCommentsBee VenomHives,UnknownMedium 12/20/2018ErythromycinHives,Pjqpnbn4801/30/2023Erythromycin DnyrLnrxIkv76/24/2022 Honey Bee MkoskVlxvkShccgk67/16/2019 Medications MedicationSigDispense QuantityRefillsLast FilledStart DateEnd DateStatus ondansetron [...] 4 MG tablet Indications:Nausea and vomiting during ([facility])Take 1 tablet (4 mg) by mouth every 6 (six) hours if needed for nausea or vomiting for up to 30 doses Take 1 tablet by mouth every 6 hours as needed for nausea. 30 tablet 3065Active Vit-Fe Fumarate-FA ( Vitamins) 28-0.8 MG tablet Indications: examination or test, positive result ([facility])Take 1 tablet by mouth Daily 30 tablet [...] ProblemNoted DateDiagnosed DateAxillary mass, right4Estimated Date of DkaetrpuKmkdcujsCag35/17/2026Based on last menstrual period of 11/16/2024 Encounters DateTypeDepartmentCare MpcuJdtofyblcth91/25/2812Mjbhuu96/23/2025linisync Result Encounter [facility] External Department Unsolicited Deandra Gomez, 06/23/2025 9:10 [place] [address] Tammie Maloney PA Third trimester ([facility]); 31 weeks gestation of ([facility]); History of placental vybphzpyr86/18/2025[place] [address] Tammie Maloney PA 06/20/20[place] [address] Deandra Gomez, DO 06/20/20254004Fifwbg33/03/2025 1:20 [place] [address] Deandra Gomez, 29 weeks gestation of ([facility]); Third trimester ([facility]); History of placental abruption; Placental abnormality, antepartum ([facility])06/08/2025 1:00 PM ESTAncillary [place] [address] Size of fetus inconsistent with dates in first trimester ([facility])06/07/2025 Rujnqy1206/01/2025Telephone [facility] [place] [facility] [address] [facility] [place] [address] Tammie Maloney PA 06/01/20256253Npbuzu66/10/2025 2:30 PM ESTRoutine [facility] [place] [facility] [address] [facility] [place] [address] Tammie Maloney, PA Size of fetus inconsistent with dates in first trimester ([facility]) (Primary Dx); Second trimester ([facility]); 25 weeks gestation of ([facility])05/16/2025amboo flowsheet [facility] [place] [facility] [address] [place] [address] [place] [address] Tammie Maloney PA 05/13/2025linisync Result Encounter [facility] External Department Unsolicited Deandra Gomez, DO 05/11/20253664Fvotyy39/03/2025Telephone [facility] [place] [facility] [address] [place] [address] [place] [address] Deandra Gomez, 04/18/2025 3:00 PM EDTRoutine [facility] [place] BILL [address] [place] [address] [place] [address] Deandra Gomez, DO Second trimester ([facility]); 21 weeks gestation of ([facility]); Diabetes mellitus xrfahrdhe98/13/2025 2:00 PM EDTAncillary Procedure [facility] [place] [facility] [address] [place] [address] Screening, , for anatomic survey ([facility])04/13/2025Travelfrom Last 3 Months Family History Medical HistoryRelationNameCommentsHeart diseaseBrotherHeart diseaseFather GthkfnjekblkYszuatPanjstzjgfatFjsfzeTnxywczqHykgTrotdnLqilfyqpPvydxtw8Cknndb Mother Social History Tobacco UseTypesPacks/DayYears UsedDateSmoking Tobacco: NeverSmokeless Tobacco: Never Tobacco Cessation:Counseling Given: Not Answered Alcohol UseStandard Drinks/WeekCommentsNever0 (1 standard drink = 0.6 oz pure alcohol)Estimated Date of IsfwcijwWmtfbccpQtu21/17/2026ased on last menstrual period of 11/16/2024Sex and Gender InformationValueDate RecordedSex Assigned at BirthNot on fileLegal TnsLgbrjb50/15/2023 11:47 PM EDTGender IdentityNot on fileSexual OrientationNot on file Last Filed Vital Signs Vital SignReadingTime TakenCommentsBlood Qzvqakes964/6606/23/2025 9:10 AM EST Pulse--Temperature--Respiratory Rate--Oxygen Saturation--Inhaled Oxygen Concentration--Cvgjlm28.4 kg (164 lb)06/23/2025 9:10 AM IUJYyzjib842.5 cm (5' 2 )09/23/2022 12:00 PM EDTBody Mass Ddihq9882/20/2023 12:00 PM EDT Plan of Treatment DateTypeDepartmentCare Team (Latest Contact Info)Zgtmyfihnks77/31/2025 10:30 AM ESTAncillary Procedure [facility] [place] BILL [address] [facility] [place] [address] 07/06/2025 11:00 AM ESTRoutine [facility] [place] BILL [address] [facility] [place] [address] Yamilet Ho, CLUTCH SPECIALIST [address] [facility] [place] [address] 12/22/2025 8:30 AM EDTProcedure Visit [facility] BILL [address] [facility] [place] [address] Deandra Gomez DO [address] [facility] [place] [address] Procedures Procedure NamePriorityDate/TimeAssociated DiagnosisCommentsUS OB BPP W NON-PEHQLM17/ 11:17 AM EST POCT URINALYSIS GLQYKRQWSntnuvk56/18/2025 9:22 AM EST Third trimester ([facility]) 31 weeks gestation of ([facility]) US OB FOLLOW UP TRANSABDOMINAL EQOKRDDMJjzhlnl19/03/2025 1:30 PM EST Size of fetus inconsistent with dates in first trimester ([facility]) POCT URINALYSIS UITKBOPQWfqdzgz05/03/2025 1:22 PM EST 29 weeks gestation of ([facility]) Third trimester ([facility]) POCT URINALYSIS YPWKXFHSLjqfoki69/10/2025 2:48 PM EST 25 weeks gestation of ([facility]) GLUCOSE 1 TYDKQurknir93/07/2025 9:35 AM EST ALL CBC WITH AUTO TLIDWogoipg27/07/2025 9:35 AM EST POCT URINALYSIS HKQUBQNOKgireou17/13/2025 3:34 PM EDT Second trimester ([facility]) US OB 14+ WEEKS ANATOMY MLDPSbhaufd13/13/2025 2:51 PM EDT Screening, , for anatomic survey ([facility]) from Last 3 Months Results * US OB BPP W NON-STRESS (06/28/2025 11:17 AM EST)Anatomical Region LateralityModalityOtherSpecimen (Source)Anatomical Location / Laterality Collection Method / VolumeCollection TimeReceived Time06/28/2025 11:17 AM EST Narrative 06/28/2025 11:20 AM EST [facility] ?[address] ? [place] [address] ? Ultrasound Report ? Signed ? Patient: MONREAL,ALBINA L ?MR#: [id number] ?? : 1995 ?Acct:[id number] ?? Age/Sex: 29 / F ?ADM Date: 12/23/25 ?? Loc: US ? Attending Dr: Deandra Gomez D.O. ? Ordering Physician: Deandra Gomez D.O. ?? Date of Service: 06/28/25 ?? Procedure(s): US OB BPP w non-stress ?? Accession Number(s): [id number] ? cc: HARSHIL [place] ; Deandra Gomez D.O. ? [facility] ? [address] ? [place] [address] ? Patient Name: ?? ALBINA MONREAL ? MRN: [facility]:[id number] ? date: 1995 ?Sex: F ?? Assigned Patient Location: [facility] ?? Current Patient Location: ? Accession/Order Number: [id number] ?? Exam Date: 06/28/2025 ??09:01 ?Report Date: [...] Dictation Location: RADIO-PC-30 ? Electronically authenticated by: [id number] ??Y ?? Date: 06/28/2025 ??11:17 ? Dictated By: ?Sharon Zamora M.D. ? Signed By: ?06/28/25 1120 ? DD/ 1117 ? TD/TT: ? Clinical Laboratory Service Teacher: Procedure Note Radiology, Radiologist, MD - 06/28/[address] [address] Ultrasound Report Signed Patient: ALBINA MONREAL LMR#: [id number] : 1995Acct:[id number] Age/Sex: 29 / FADM Date: 06/28/25 Loc: US Attending Dr: Deandra Gomez D.O. Ordering Physician: Deandra Gomez D.O. Date of Service: 06/28/25 Procedure(s): US OB BPP w non-stress Accession Number(s): [id number] cc: HARSHIL [place] ; Deandra Gomez D.O. [place] [address] Patient Name: ALBINA MONREAL MRN: [id number] date: 1995 Sex: F Assigned Patient Location: [facility] Current Patient Location: Accession/Order Number: [id number] Exam Date: 06/28/2025 09:01 Report Date: 06/28/2025 [...] Zamora M.D. 06/28/2025 11:17 AM Dictation Location: [place] [address] Electronically authenticated by: [id number] Y Date: 1:17 Dictated By: Sharon Zamora M.D. Signed By:06/28/25 1120 DD/ 1117 TD/TT: Clinical Laboratory Service Teacher: Authorizing ProviderResult TypeResult StatusCoreандрей CHOI IMAGINGFinal Result [...] Location / LateralityCollection Method / VolumeCollection TimeReceived BiezZbgef79/18/2025 9:22 AM EST Narrative Authorizing ProviderResult TypeResult StatusTammie Maloney [facility]INT [facility] CARE TEST ENTER/EDIT ORDERABLESFinal Result * [...] RangeTest Method Analysis TimePerformed AtPathologist SignatureGLUCOSE 1 IUBV968<130 mg/dLTBH Specimen (Source)Anatomical Location / LateralityCollection Method / Volume Collection TimeReceived Time05/13/2025 9:35 AM EST05/13/2025 9:36 AM EST Narrative [facility] - 05/13/2025 10:41 AM EST Authorizing ProviderResult TypeResult StatusCoreандрей [place] BLOOD ORDERABLES Final ResultPerforming OrganizationAddressCity/State/ZIP CodePhone Number [facility] * (ABNORMAL) ALL CBC WITH AUTO DIFF (05/13/2025 9:35 AM EST)ComponentValueRef RangeTest MethodAnalysis TimePerformed AtPathologist SignatureTBH WBC6.34.0 - 11.0 10 3/uLTBHTBH RBC4.334.20 - 5.40 10 6/uLTBHTBH HGB13.512.0 - 16.0 g/dLTBH TBH HCT39.836.0 - 48.0 %TBHTBH MCV91.981.0 - 99.0 fLTBHTBH MCH31.226.7 - 34.0 pgTBHTBH MCHC33.929.9 - 35.2 g/dLTBHTBH RDW13.011.0 - 15.0 %TBHTBH VTW732711 - 450 10 3/uLTBHTBH MPV10.39.5 - 13.5 [...] Jason DOCLINISYNCFinal Result Performing OrganizationAddressCity/State/ZIP CodePhone Number [facility] * OB 14+ weeks anatomy scan (04/18/2025 [...] Date Harshil Garcia MD [address] [facility], [place] [address] PCP - GeneralFamily Medicine12/30/22
--- OUTSIDE RECORDS SUMMARY | 2025-07-05 08:58 | XMS_ITS | Encounter Summary ---
Author Organization [facility] Address [address] [facility] [place] [address] Care Team Providers Care Certified Master Safecracker Name Role Phone Harshil Moran MD Primary Care Provider Encounter Details DateTypeDepartmentCare Team (Latest Contact Info)Ernwerrzwts72/25/2025Travel Social History Tobacco UseTypesPacks/DayYears UsedDateSmoking Tobacco: NeverSmokeless Tobacco: NeverAlcohol UseStandard Drinks/WeekCommentsNever0 (1 standard drink = 0.6 oz pure alcohol)Estimated Date of BvqbbjilWmhykbrdHgj70/17/2026ased on last menstrual period of 11/16/2024Sex and Gender InformationValueDate Recorded Sex Assigned at BirthNot on fileLegal YkeByykop45/15/2023 11:47 PM EDTGender IdentityNot on fileSexual OrientationNot on filedocumented as of this encounter Plan of Treatment DateTypeDepartmentCare Team (Latest Contact Info)Ckdhcgbykqb79/31/2025 10:30 AM ESTAncillary Procedure [facility] [place] BILL [address] [place] [address] 07/06/2025 11:00 AM ESTRoutine [facility] BILL [address] [place] [address] Yamilet Ho, PIECE DYE WORKER [address] [place] [address] 12/22/2025 8:30 AM EDTProcedure Visit [facility] [place] BILL [address] [place] [address] Alexis Gomez DO [address] [facility] [place] [address] documented as of this encounter Visit Diagnoses Not on filedocumented in this encounter Care Teams Team MemberRelationshipSpecialtyStart DateEnd Date Harshil Moran MD [address] [place] [address] PCP - GeneralFamily Medicine12/30/22documented as of this encounter
--- OUTSIDE RECORDS SUMMARY | 2025-07-05 08:58 | XMS_ITS | Encounter Summary ---
Author Organization [facility] Address [address] [facility] [place] [address] Care Team Providers Care Rn Mds Coordinator Name Role Phone Harshil Moran MD Primary Care Provider [phone] Encounter Details DateTypeDepartmentCare Team (Latest Contact Info)Qupjuovpbtq38/23/2025linisync Result Encounter NOMS External Department Unsolicited Deandra Gomez DO [address] [facility] [address], [facility]11 Social History Tobacco UseTypesPacks/DayYears UsedDateSmoking Tobacco: NeverSmokeless Tobacco: NeverAlcohol UseStandard Drinks/WeekCommentsNever0 (1 standard drink = 0.6 oz pure alcohol)Estimated Date of HpjkhmbvNwvsfhecBpm62/17/2026ased on last menstrual period of 11/16/2024Sex and Gender InformationValueDate Recorded Sex Assigned at BirthNot on fileLegal ZehGrlglh37/15/2023 11:47 PM EDTGender IdentityNot on fileSexual OrientationNot on filedocumented as of this encounter Plan of Treatment DateTypeDepartmentCare Team (Latest Contact Info)Rybrouqmxlq71/31/2025 10:30 AM ESTAncillary Procedure [facility] [place] BILL [address] [place] [address] 07/06/2025 11:00 AM ESTRoutine [facility] [place] BILL [address] [facility] [place] [address] Yamilet Ho, DEVELOPER PROVER MECHANICAL [address] [facility] [place] [address] 12/22/2025 8:30 AM EDTProcedure Visit [facility] [place] OBGYN [address] [facility] [place] [address] Deandra Gomez, DO [address] [facility] [address] [place], [place] [address] documented as of this encounter Procedures Procedure NamePriorityDate/TimeAssociated DiagnosisCommentsUS OB BPP W NON-USTWBB4506/28/2025 11:17 AM EST documented in this encounter Results * US OB BPP W NON-STRESS (06/28/2025 11:17 AM EST)Anatomical Region LateralityModalityOtherSpecimen (Source)Anatomical Location / Laterality Collection Method / VolumeCollection TimeReceived Time06/28/2025 11:17 AM EST Narrative 06/28/2025 11:20 AM EST [facility] ?[address] ? [place] [address] ? Ultrasound Report ? Signed ? Patient: GUANAKITO MONREAL ?MR#: [id number] ?? : 1995 ?Acct:[id number] ?? Age/Sex: 29 / F ?ADM Date: 06/28/25 ?? Loc: US ? Attending Dr: Deandra Gomez D.O. ? Ordering Physician: Deandra Gomez D.O. ?? Date of Service: 06/28/25 ?? Procedure(s): US OB BPP w non-stress ?? Accession Number(s): [id number] ? cc: HARSHIL MORAN ; Deandra Gomez D.O. ? [facility] ? [address] ? [place] [address] ? Patient Name: ?? GUANAKITO MONREAL ? MRN: [id number] ? date: 1995 ?Sex: F ?? Assigned Patient Location: [facility] ?? Current Patient Location: ? Accession/Order Number: [id number] ?? Exam Date: 06/28/2025 ??09:01 ?Report Date: [...] Dictation Location: RADIO-PC-30 ? Electronically authenticated by: [id number] ??Y ?? Date: 06/28/2025 ??11:17 ? Dictated By: ?Sharon Zamora M.D. ? Signed By: ?12/23/ 1120 ? DD/ 1117 ? TD/TT: ? Is Manager: Procedure Note Radiology, Radiologist, MD - 06/28/2025 [place] [address] Ultrasound Report Signed Patient: GUANAKITO MONREAL LMR#: [id number] : 1995Acct:[id number] Age/Sex: 29 / FADM Date: 06/28/25 Loc: US Attending Dr: Deandra Gomez D.O. Ordering Physician: Deandra Gomez D.O. Date of Service: 06/28/25 Procedure(s): US OB BPP w non-stress Accession Number(s): [id number] cc: HARSHIL MORAN ; Deandra Gomez D.O. The [address] [address] Patient Name: GUANAKITO MONREAL MRN: [id number] date: 1995 Sex: F Assigned Patient Location: [facility] Current Patient Location: Accession/Order Number: [id number] Exam Date: 06/28/2025 09:01 Report Date: 06/28/2025 [...] Zamora M.D. 06/28/2025 11:17 AM Dictation Location: [place] [address] Electronically authenticated by: [id number] Y Date: 1:17 Dictated By: Sharon Zamora M.D. Signed By:06/28/25 1120 DD/ 1117 TD/TT: Is Manager: Authorizing ProviderResult TypeResult StatusCorey Jason DOCLINISYNC IMAGINGFinal Result documented in this encounter Visit Diagnoses Not on filedocumented in this encounter Care Teams Team MemberRelationshipSpecialtyStart DateEnd Date Harshil Moran MD [address] [facility] [place] [address] PCP - GeneralFamily Medicine12/30/22documented as of this encounter
--- OUTSIDE RECORDS SUMMARY | 2025-07-05 09:00 | XMS_ITS | CCD ---
Author Organization [facility] Team Providers Care Manager Vehicle Name Role Phone JASON ., DR LIRIANO [...] Unavail Harshil Solares MD Primary Care Provider [facility], [facility] Primary Care Provider DO Deandra Gomez Attending Provider [facility], [facility] Primary Care Unavailable Deandra Gomez Attending Unavailable Deandra Gomez Admitting Unavailable HARSHIL MORAN Primary Care Physician HARSHIL MORAN Referring Unavailable Mark LATHAM Attending Unavailable Harshil Moran MD Primary Care Provider [phone] DEANDRA GOMEZ Attending Unavailable DEANDRA GOMEZ Attending Unavailable TAMMIE OLSEN Attending Unavailable PRETTY TAMMIE Referring Unavailable DEANDRA GOMEZ Attending Unavailable TAMMIE OLSEN Attending Unavailable Allergies Allergy ClassificationReported Allergen(s)Allergy TypeDate of OnsetReaction(s) Facility (1 source)bee venomDrug allergy (disorder)32-50-0497[facility] (20 sources)ErythromycinDrug Daseawx69-30-2339OctvApk [facility] Repository (20 sources)Erythromycin; Translations: [erythromycin]Drug Huacoar59-49-1096 Hives, Unknown, Eruption of skin (disorder)[facility] (20 sources)Honey bee venomPropensity to adverse ujuasgqzb77-44-6219Hvjgb, UnknownNOMS Healthcare Work Phone: (2 sources)Bee/Wasp/Ant venom; Translations: [Bee Stings]Allergy to substance Weal (disorder)[facility] (1 source)No Known Medication Allergies; Translations: [No Known Medication Allergies]Propensity to adverse reactions (disorder)[facility] Repository (11 sources)Honey bee venomPropensity to adverse dfojarglj90-45-0783ZnbtvGOYB Healthcare Medications Current Medications MedicationDrug Class(es)DatesSig (Normalized)Sig (Original)alpha-tocopherol acetate 30 unt / ascorbic acid 100 mg / beta carotene 1000 unt / calcium iqonjbtlz103 mg / calcium pantothenate 7 mg / cholecalciferol 400 unt / docusate sodium 25 mg / ferrous fumarate 29 mg / folic acid 1 mg / niacinamide 15 mg / pyridoxine hydrochloride 20 mg / riboflavin 3 mg / thiamine 3 mg / vitamin b12 0.012 mg / zinc oxide 20 mg oral tablet (13 sources)Vitamin B12, Vitamin D, Vitamin C End: 04-36-3504vdsg 1 tablet by mouth in the morningPrenatal Vit-DSS-Fe Fum-FA ( 19) 29-1 MG tablet Take 1 tablet by mouth in the morning. 02/21/2025 DiscontinuedNo Name (No Known Home Meds) (1 source)Start: 65-98-4868Ob Name (No Known Home Meds) Active April 21, 2024 12:00amomeprazole 20 mg delayed release oral capsule (9 sources)Proton Pump InhibitorStart: 03-22-2025 End: 59-34-6064bpsz 1 capsule by mouth before mealtimeomeprazole (PriLOSEC) [address] capsule Indications: Gastroesophageal Reflux Disease , Heartburn Take 1 capsule (20 mg) by mouth in the morning. Take before meals. Do not crush or chew. 30 capsule 3 03/22/2025 ActiveStart: 04-30-2023 End: 85-68-0744siaq 1 capsule by mouth before mealtimeomeprazole (PriLOSEC) [address] capsule Indications: Acute cough Take 1 capsule (20 mg) by mouth in the morning. Take before meals. Do not crush or chew. . 30 capsule 11 04/30/2023 04/29/2024 Activeondansetron 4 mg oral tablet (20 sources)Serotonin-3 Receptor AntagonistStart: 26-79-3745uwtd 2 tablets by mouth every six hours [...] for nausea. 60 tablet 3 12/20/2024 ActiveStart: 48-47-4963bymb 1 tablet by mouth every six hours as needed for nausea and nausea, then take 1 tablet by mouthevery six hours as needed for nausea and nauseaondansetron (Zofran) 4 MG tablet Indications: Nausea and vomiting during ([facility]) Take 1tablet (4 mg) by mouth every 6 (six) hours if needed for nausea or vomiting for up to 30 doses Take1 tablet by mouth every 6 hours as needed for nausea. 30 tablet 3 12/20/2024 ActivePrenatal Vit-Fe Fumarate-FA ( Vitamins) 28-0.8 MG tablet (18 sources)Start: 12-20-2024 End: 94-77-4354mmzg 1 tablet by mouth once dailyPrenatal Vit-Fe Fumarate-FA ( Vitamins) 28-0.8 MG tablet Indications: examinationor test, positive result ([facility]) Take 1 tablet by mouth Daily 30 tablet 9 12/20/2024 12/20/2025 Activepromethazine hydrochloride 12.5 mg oral tablet (9 sources)PhenothiazineStart: 82-08-8319eqsb 1 tablet by mouth every six hours [...] oral capsule (3 sources)Penicillin-class AntibacterialStart: 12-27-2023 End: 28-08-7377tdra 500 mg by mouth twice dailyAmoxicillin Discontinued 500 MG PO Twice daily 20 December 27, 2023 12:00am April 21, 2024 9:28am Problems Active Problems Problem ClassificationProblemDateDocumented DateEpisodic/ChronicImmunizations and screening for infectious disease (2 sources)Exposure to sexually transmissible disorder; Translations: [Contact with and (suspected) exposure to infections with a predominantly sexual mode of transmission]67-88-1163BcftpobaJjvpgcrwu disorders (1 source)Missed period; Translations: [Irregular menstruation, unspecified] 00-36-5325TjdeipgGydmu complications of (2 sources)Vomiting of , unspecified; Translations: [Unspecified vomiting of , unspecified as to episode of care or not applicable] 47-67-1910LyeywqkrPhefj complications of (2 sources) size does not accord with dates; Translations: [Uterine size- date discrepancy, first trimester]43-21-6285OwffgedqVinfw nutritional; endocrine; and metabolic disorders (1 source)Lyrgfidfzd77-59-9033VlamkqwwJgamu nutritional; endocrine; and metabolic disorders (1 source)Overweight in adulthood with body mass index of 25 or more but less than 4430-24-8031BiuyqezcIoinl and delivery including normal (20 sources)Encounter for routine follow-up; Translations: [Encounter for supervision of normal , unspecified, first trimester]Onset: 04-94-0223XzmypduiHuilj screening for suspected conditions (not mental disorders or infectious disease) (12 sources)Encounter for screening for malignant neoplasm of cervix; Translations: [Encounter for screening for Streptococcus B]Onset: 79-21-3253SpzxrsjfWhomb skin disorders (1 source)Mass of subcutaneous tissue of upper limb; Translations: [Localized swelling, mass and lump, unspecified upper limb]Onset: 46-70-1813DoiaxwyrCtphy skin disorders (1 source)Mass of qhvuuz88-81-2961IxpdwohcYympw upper respiratory infections (5 sources)Acute bacterial pharyngitis; Translations: [Acute pharyngitis due to other specified organisms]62-11-3750UweyplplZtjlwu media and related conditions (5 sources)Acute right otitis media; Translations: [Otitis media, unspecified, right ear]35-95-2907YfqthhvaLqlwisqr codes; unclassified (2 sources)Gestation period, 13 weeks; Translations: [13 weeks gestation of ]76-88-0159GanyfvzpMqkhjfyw codes; unclassified (2 sources)Gestation period, 17 weeks; Translations: [17 weeks gestation of ]94-97-3921QssrauhpEqijrbcw codes; unclassified (2 sources)Gestation period, 21 weeks; Translations: [21 weeks gestation of ]36-83-2239IhbqlrvuMrhhmcye codes; unclassified (2 sources)Gestation period, 25 weeks; Translations: [25 weeks gestation of ]62-00-6791LvsfnxagQpsfwwmywnrg (1 source)CONTACT W/AND (SUSP) EXPOS COVID-19; Translations: [CONTACT W/AND (SUSP) EXPOS COVID-19]Onset: 01-03-2022 Past or Other Problems Problem ClassificationProblemDateDocumented DateEpisodic/ChronicOB-related trauma to perineum and vulva (1 source)Third degree perineal laceration during delivery, unspecified; Translations: [THIRD DEGREE PERINL LAC DUR DEL UNS]Onset: 61-45-3878Jukcsdbc Other skin disorders (20 sources)Localized swelling, mass and lump, right upper limb; Translations: [Localized superficial swelling,mass, or lump]Onset: 617280-58-7432 EpisodicResidual codes; unclassified (1 source)38 weeks gestation of ; Translations: [38 WEEKS GESTATION OF ]Onset: 07-14-1901Udnpcuvs Results Test NameValueInterpretationReference RangeFacilityUrinalysis macro (dipstick) panel (U)on 98-37-5490Ttdakreno, UANegativeNegative - 4(70) +++ mg/dLNOMS HealthcareBlood, UANegativeNegative - 50 Jerad/mcLNOTN HealthcareClarity, UAClear N[facility] HealthcareColor, UAYellowNOMS HealthcareGlucose, UANegativeNegative - 2000(110) ++++ mg/dLNOTN HealthcareInterpretation and review of laboratory resultsNormalNOTN HealthcareKetones, UANegativeNegative - 160(16) ++++ mg/dLNOTN HealthcareLeukocytes, UANegativeNegative - 500+++ Gerson/mcLNOTN HealthcareNitrite, UANegativeNegative - PositiveNOMS HealthcarepH, UA7.55 - 9[facility] Protein, UANegativeNegative - 2000(20) ++++ mg/dLNOTN HealthcareSpec Grav, UA 1.0101 - 1.03NOMS HealthcareUrobilinogen, UA1.00.2 - 12 mg/dLNOTN HealthcareNOMS HealthcareALL CBC WITH AUTO DIFFon 57-44-6565GMZIYSKFR ABSOLUTE AUTO0.0NOTN HealthcareBasophils/100 WBC (Bld)0.2 %0.2 - 2.0 %NOMS HealthcareEosinophils/100 WBC (Bld)0.8 %Low0.9 - 7.0 %NOM HealthcareErythrocyte distribution width (RBC) [Ratio]13.0 %11.0 - 15.0 %NOMS HealthcareHematocrit (Bld) [Volume fraction]39.8 %36.0 - 48.0 %NOM HealthcareHemoglobin (Bld) [Mass/Vol]13.5 g/dL12.0 - 16.0 g/dLNOTN HealthcareIMMATURE GRANULOCYTES ABS AUTO0.02NOTN HealthcareImmature granulocytes/100 WBC (Bld)0.3 %0.0 - 0.5 %NOM HealthcareInterpretation and review of laboratory resultsAbnormalNOTN HealthcareLYMPHOCYTES ABSOLUTE AUTO1.0 LowNOTN HealthcareLymphocytes/100 WBC (Bld)16.0 %Low20.5 - 60.0 %[facility] MCH (RBC) [Entitic mass]31.2 pg26.7 - 34.0 pgNONortheast Missouri Rural Health NetworkMCHC (RBC) [Mass/Vol]33.9 g/dL29.9 - 35.2 g/dLNOMS HealthcareMCV (RBC) [Entitic vol]91.9 fL 81.0 - 99.0 fLNOMS HealthcareMONOCYTES ABSOLUTE AUTO0.4[facility] Monocytes/100 WBC (Bld)6.5 %1.7 - 12.0 %[facility] HealthcareNEUTROPHILS ABSOLUTE AUTO 4.8NOMS HealthcareNeutrophils/100 WBC (Bld)76.2 %High43.0 - 75.0 %[facility] HealthcarePlatelet mean volume (Bld) [Entitic vol]10.3 fL9.5 - 13.5 fLNOMS HealthcareTBH EO #0.1NOMS HealthcareTBH IZU365VBBO HealthcareTBH RBC4.33NOMS HealthcareTBH WBC6.3NOMS HealthcareCLINISYNCNOMS HealthcareUS OB 14+ WEEKS ANATOMY SCANon 04-29-3529UQ OB 14+ WEEKS ANATOMY SCANFINDINGS: A single, [...] Delivery: 08/23/25 Gestational Age as of 03/21/2025: 80w0yAzuxrvdekn macro (dipstick) panel (U)on 88-61-8278Vvmfbuhxu, UANegativeNegative - 4(70) +++ mg/dLNOMS HealthcareBlood, UANegativeNegative [...] mg/dLNOMS HealthcareNOMS HealthcareUrinalysis macro (dipstick) panel (U)on 53-42-2134Vqcrmactt, UA NegativeNegative - 4(70) +++ mg/dLNOMS HealthcareBlood, UANegativeNegative - 50 Jerad/mcLNOMS HealthcareClarity, UAClearNOMS HealthcareColor, UAYellowNOMS HealthcareGlucose, UANegativeNegative - 2000(110) ++++ mg/dLN[facility] Interpretation and review of laboratory resultsNormalNOMS HealthcareKetones, UA NegativeNegative - 160(16) ++++ mg/dLNOMS HealthcareLeukocytes, UANegative Negative - 500+++ Gerson/mcLNOMS HealthcareNitrite, UANegativeNegative - Positive N[facility] HealthcarepH, UA65 - 9N[facility] HealthcareProtein, UANegativeNegative - 2000(20) ++++ mg/dLNOMS HealthcareSpec Grav, UA1.0151 - 1.03NOMS HealthcareUrobilinogen, UA0.20.2 - 12 mg/dLNOMS HealthcareNOMS HealthcareALL CBC WITH AUTO DIFFon 01-67-6675JUOETNLFN ABSOLUTE VSLJ4IMEM HealthcareBasophils/100 WBC (Bld)0.5 %0.2 - 2.0 %[facility] HospitalEosinophils/100 WBC (Bld)0.9 %0.9 - 7.0 %[facility] Erythrocyte distribution width (RBC) [Ratio]12 %11.0 - 15.0 %[facility] Hematocrit (Bld) [Volume fraction]40 %36.0 - 48.0 %[facility] HospitalHemoglobin (Bld) [Mass/Vol]14 g/dL12.0 - 16.0 g/dLSt. Luke's HospitalIMMATURE GRANULOCYTES ABS AUTO0.01NONortheast Missouri Rural Health NetworkImmature granulocytes/100 WBC (Bld)0.2 %0.0 - 0.5 %[facility] HospitalLYMPHOCYTES ABSOLUTE AUTO1.5NONortheast Missouri Rural Health NetworkLymphocytes/100 WBC (Bld) 26.6 %20.5 - 60.0 %[facility] HospitalMCH (RBC) [Entitic mass]32 pg26.7 - 34.[address] [facility] HospitalMCHC (RBC) [Mass/Vol]35 g/dL29.9 - 35.2 g/dLSt. Luke's HospitalMCV (RBC) [Entitic vol]91.3 fL81.0 - 99.0 fLSt. Luke's HospitalMONOCYTES ABSOLUTE AUTO 0.7NONortheast Missouri Rural Health NetworkMonocytes/100 WBC (Bld)11.3 %1.7 - 12.0 %[facility] NEUTROPHILS ABSOLUTE AUTO3.5NONortheast Missouri Rural Health NetworkNeutrophils/100 WBC (Bld)60.5 %43.0 - 75.0 %[facility]'s HospitalPlatelet mean volume (Bld) [Entitic vol]10.2 fL9.5 - 13.5 fLSt. Luke's HospitalTBH EO #0.1NKansas City VA Medical CenterTB BMA689HOCOEllis Fischel Cancer Center RBC4.[address] [facility] [facility] HospitalTB WBC5.8NONortheast Missouri Rural Health NetworkCLINISYNCNKansas City VA Medical CenterHCG ( test) Ql (U)on 13-02-0440Olzmkputsbabio and review of laboratory resultsAbnormal St. Luke's HospitalPreg Test, UrPositiveNegativeProgress [facility] HealthcareUS OB TRANSVAGINALon 51-39-2138CU OB TRANSVAGINALFINDINGS: A single intrauterine gestational sac [...] 25, 2025. TRANSCRIBED BY: ELECTRONICALLY SIGNED BY: Edward CorcoranNot AvailableComment on above:Order Comment: US OB TRANSVAGINAL No LMP recorded.Urinalysis macro (dipstick) panel (U)on 14-55-9731Diyxqsumc, UA NegativeNegative - 4(70) +++ mg/dLNOMS HealthcareBlood, UANegativeNegative - 50 Jerad/mcLNOMS HealthcareClarity, UAClearNOMS HealthcareColor, UAYellowNOMS HealthcareGlucose, UANegativeNegative - 1999(110) ++++ mg/dLN[facility] Healthcare Interpretation and review of laboratory resultsNormalNOMS HealthcareKetones, UA NegativeNegative - 160(16) ++++ mg/dLNOMS HealthcareLeukocytes, UANegative Negative - 500+++ Gerson/mcLNOMS HealthcareNitrite, UANegativeNegative - Positive [facility] HealthcarepH, UA65 - 9N[facility] HealthcareProtein, UANegativeNegative - 1999(20) ++++ mg/dLNOMS HealthcareSpec Grav, UA1.011 - 1.03NOMS HealthcareUrobilinogen, UA1.00.2 - 12 mg/dLNOMS HealthcareNOMS HealthcareIGP,APTIMA HPV,AGE GDLNon 81-96-6175NUG GDLN ACOG TESTINGNote.NOMS HealthcareComment on above:TESTS RESULT FLAG UNITS REF RANGE LAB Clinician Provided Cytology Information Source.............Cervix;Endocervix No. of containers..01 ThinPrep Vial Age Trish MÉNDEZ Yessy... FLAG LEGEND: L-Low Normal,H-High Normal,LL-Alert Low,HH-Alert High <-Panic Low,>-Panic High,A-Abnormal,AA-Critical Abnormal Performed at: 01 =[address] [address] Sunita Jacobs MD, HPV APTIMANegativeNegativeNOMS HealthcareComment on above:This nucleic acid amplification test detects fourteen high- risk HPV types (16,18,31,33,35,39,45,51,52,56,58,59,66,68) without differentiation. Performed at: =[address] [id number] Compressor Operator Portable: Sunita Jacobs MD, Phone: [phone] Performed at: [address] [id number] Compressor Operator Portable: Sunita Jacobs MD, Phone: [phone] IGP, APTIMA HPV, RFX 16/18,45Note.NOMS HealthcareComment on above:TESTS RESULT FLAG UNITS REF RANGE LAB DIAGNOSIS: 02 NEGATIVE FOR INTRAEPITHELIAL LESION OR MALIGNANCY. Specimen adequacy: 02 Satisfactory for evaluation. No endocervical component is identified. Performed by: 02 Daisha Goode Violin Tutor (ASCP) . 02 Note: Note 02 The [...] <-Panic Low,>-Panic High,A-Abnormal,AA-Critical Abnormal Performed at: [address] [address] Sunita Jacobs MD, BRUSH-SPATULA CERVIX ENDOCERVIX CLINISYNCNOMS HealthcareRECURRENT VAGINITIS (HTRX)on 04-97-2772YTTONBNQT VAGINAE 0NOMS HealthcareATOPOBIUM VAGINAENot detectedNOMS HealthcareBVAB 2,3 (BACTERIAL VAGINOSIS ASSOCIATED BACTERIA 2, 3); MOBILUNCUS MVR1JPXD HealthcareBVAB 2,3 (BACTERIAL VAGINOSIS ASSOCIATED BACTERIA 2, 3); MOBILUNCUS SPPNot detectedNOMS HealthcareCANDIDA ALBICANS, PARAPSILOSIS, LBMAKYFDFY7JMTP HealthcareCANDIDA ALBICANS, PARAPSILOSIS, TROPICALISNot detectedNOMS HealthcareCANDIDA GLABRATA0 NOMS HealthcareCANDIDA GLABRATANot detectedNOMS HealthcareCANDIDA FJZCGH7JJEK HealthcareCANDIDA KRUSEINot detectedNOMS HealthcareCHLAMYDIA MZFBPSPRCMG2GIWY HealthcareCHLAMYDIA TRACHOMATISNot detectedNOMS HealthcareGARDNERELLA VAGINALIS0 NOMS HealthcareGARDNERELLA VAGINALISNot detectedNOMS HealthcareMEGASPHAERA (TYPES 1, 2)0NOMS HealthcareMEGASPHAERA (TYPES 1, 2)Not detectedNOMS Healthcare MYCOPLASMA QRBWWIDESO9ZGIX HealthcareMYCOPLASMA GENITALIUMNot detectedNOMS HealthcareNEISSERIA BMTBXAIPFLE0XZJJ HealthcareNEISSERIA GONORRHOEAENot detected NOMS HealthcareTRICHOMONAS QYSRLKOTH6ABXR HealthcareTRICHOMONAS VAGINALISNot detectedNOMS HealthcareNOMS HealthcareHCG ( test) Ql (U)on 12-20-2024 Interpretation and review of laboratory resultsAbnormalNOMS HealthcarePreg Test, UrPositiveNegativeNOTN HealthcareNOTN HealthcareLon 52-18-1844LKoikbsrj: [id number] Received: 01/19/24 Status: JACQUELYN Ashraf Num: [id number] Spec Type: Cytology Subm Dr: Deandra Gomez Tissues: A FNA SLIDES PATH (RT AXILLA) Procedures: HE/2, -, PAPSTN/7 Age/ Patient Sex Location Account Attending Physician Albina Castillo 28/F LABELL [id number] Deandra Gomez SPEC NUM: [id number] RECD: 01/19/24 STATUS: JACQUELYN ASHRAF NUM: [id number] KAITLIN: 01/16/24- DR: Deandra Gomez ENTERED: 01/19/24 [facility] DR: Ashly,Lab Erica Bhandari MD SPEC TYPE: Cytology DEPT: MYESHA TOPETE ENTERED BY: [id number] RECV BY: [id number] ORDERED: HE/2, -, PAPSTN/7 ORDERED: HE/2, -, [...] to be stained pap for microscopic Specimen: [id number] Received: 01/19/24 Status: JACQUELYN Ashraf Num: [id number] Spec Type: Cytology Subm Dr: Deandra Gomez Tissues: A FNA SLIDES PATH (RT AXILLA) Procedures: HE/2, -, PAPSTN/7 Patient: Albina Castillo [id number] (Continued) Specimen: [id number] Received: 01/19/24 (Continued) Gross Description (Continued) Signed (signature on file) Kishore Paez MD 01/20/24 1770 Specimen: [id number] Received: 01/19/24 Status: JACQUELYN Ashraf Num: [id number] Spec Type: Cytology Subm Dr: Deandra Gomez Tissues: A FNA SLIDES PATH (RT AXILLA) Procedures: HE/2, -, PAPSTN/7 Patient: Albina Castillo [id number] (Continued) Specimen: [id number] Received: 01/19/24 (Continued) Gross Description (Continued) examination.(CC/nh) CPT Codes 20663 Specimen: [id number] Received: 01/19/24 Status: JACQUELYN Ashraf Num: [id number] Spec Type: Cytology Subm Dr: Deandra Gomez Tissues: A FNA SLIDES PATH (RT AXILLA) Procedures: HE/Silvia, -, PAPSTN/7 Patient: Albina Castillo [id number] (Continued) Signed (signature on file) Kishore Paez MD 01/20/[address] [place] [address] Physician GroupUS BIOPSY FNAon 41-02-2432NlkR[place] [address] Ultrasound Report Signed Patient: ALBINA CASTILLO MR#: [id number] : 1995 Acct:[id number] Age/Sex: 28 / F ADM Date: 01/16/24 Loc: US Attending Dr: Deandra Gomez D.O. Ordering Physician: Deandra Gomez D.O. Date of Service: 01/16/24 Procedure(s): US biopsy FNA Accession Number(s): [id number] cc: HARSHIL MORAN Corey D.O. The [address] [address] Patient Name: ALBINA CASTILLO MRN: [id number] date: 1995 Sex: F Assigned Patient Location: US Current Patient Location: US Accession/Order Number: [id number] Exam Date: 01/16/2024 10:34 Report Date: 01/16/2024 [...] Signed By: 01/16/24 1248 DD/ 1245 TD/TT: Juvenile Court Judge:FABIOLAHRadiology, Radiologist, - 01/16/2024 [place] [address] Ultrasound Report Signed Patient: ALBINA CASTILLO MR#: [id number] : 1995 Acct:[id number] Age/Sex: 28 / F ADM Date: 01/16/24 Loc: US Attending Dr: Deandra Gomez D.O. Ordering Physician: Deandra Gomez D.O. Date of Service: 01/16/24 Procedure(s): US biopsy FNA Accession Number(s): [id number] cc: HARSHIL MORAN ; Deandra Gomez D.O. [place] [id number] Patient Name: ALBINA CASTILLO MRN: [id number] date: 1995 Sex: F Assigned Patient Location: US Current Patient Location: US Accession/Order Number: [id number] Exam Date: 01/16/2024 10:34 Report Date: 01/16/2024 [...] Signed By: 01/16/24 1248 DD/ 1245 TD/TT: Juvenile Court Judge: SAMANTHA HealthcareRadiology Study observation (narrative)SAMANTHA ValdesUS BIOPSY FNAOrdered By: Radiologist Radiology on 76-07-6500SCPQ Healthcare Work Phone: No Panel InformationOrdered By: Terrie Cardozo on 50-29-5037Cpoxw Strep (POC)[facility], IncUS Extremity - right on 84-26-1615GszR[place] [address] Ultrasound Report Signed Patient: ALBINA CASTILLO MR#: [id number] : 1995 Acct:[id number] Age/Sex: 28 / F ADM Date: 12/25/23 Loc: US Attending Dr: Deandra Gomez D.O. Ordering Physician: Deandra Gomez D.O. Date of Service: 12/25/23 Procedure(s): US extremity nonvascular RT Accession Number(s): [id number] cc: HARSHIL MORAN ; Deandra Gomez D.O. The [address] [address] Patient Name: ALBINA CASTILLO MRN: [facility]:[id number] date: 1995 Sex: F Assigned Patient Location: US Current Patient Location: Accession/Order Number: [id number] Exam Date: 12/25/2023 09:10 Report Date: 12/26/2023 [...] M.D. Signed By: 12/26/23514 DD/ 1 TD/TT: Juvenile Court Judge:FABIOLAHRadiology, Radiologist, MD - 12/26/2023 The [place] [id number] Ultrasound Report Signed Patient: ALBINA CASTILLO MR#: [id number] : 1995 Acct:[id number] Age/Sex: 28 / F ADM Date: 12/25/23 Loc: US Attending Dr: Deandra Gomez D.O. Ordering Physician: Deandra Gomez D.O. Date of Service: 12/25/23 Procedure(s): US extremity nonvascular RT Accession Number(s): [id number] cc: HARSHIL MORAN Corey D.O. The [place] [address] Patient Name: ALBINA CASTILLO MRN: [id number] date: 1995 Sex: F Assigned Patient Location: US Current Patient Location: Accession/Order Number: [id number] Exam Date: 12/25/2023 09:10 Report Date: 12/26/2023 [...] M.D. Signed By: 12/26/2315 DD/ 1 TD/TT: Juvenile Court Judge: SAMANTHA HealthcareRadiology Study observation (narrative)[facility] HOSPITALShashi Samaritan North Health CenterUS Extremity - rightOrdered By: Radiologist Radiology on 25-55-4659ZYPZSt. Luke's Hospital Work Phone: Urinalysis macro (dipstick) panel (U)on 08-18-2023 Bilirubin, UANegativeNegative - 4(70) +++ mg/dLNOMS HealthcareBlood, UANegative Negative - 50 Jerad/mcLNOMS HealthcareClarity, UAClearNOMS HealthcareColor, UA YellowNOMS HealthcareGlucose, UANegativeNegative - 2000(110) ++++ mg/dLNOMS HealthcareInterpretation and review of laboratory resultsNormalNOMS Healthcare Ketones, UANegativeNegative - 160(16) ++++ mg/dLNOMS HealthcareLeukocytes, UA NegativeNegative - 500+++ Gerson/mcLNOMS HealthcareNitrite, UANegativeNegative - PositiveNOMS HealthcarepH, UA7.05 - 9NOMS HealthcareProtein, UANegativeNegative - 2000(20) ++++ mg/dLNOMS HealthcareSpec Grav, UA1.0101 - 1.03NOTN Healthcare Urobilinogen, UA0.20.2 - 12 mg/dLNOTN HealthcareNOMS HealthcareTBH UA (CLEAN/CATCH) MICROSCOPIC IF INDICATEon 87-92-8793FVMPBASUO URINENegative NEGATIVENOMS HealthcareBLOOD URINENegativeNEGATIVENOMS HealthcareClarity (U) CLEARCLEARNOMS HealthcareColor (U)LT. YELLOWYELLOWNOTN HealthcareGLUCOSE URINE UANegativeNEGATIVE mg/dLNOTN HealthcareKetones Ql (U)NegativeNEGATIVE mg/dLNOTN HealthcareLeukocyte esterase Test strip Ql (U)NegativeNEGATIVENOMS Healthcare NITRITE URINENegativeNEGATIVENOMS HealthcarepH (U)5.5 [pH]5.0 - 9.0NOTN HealthcarePROTEIN URINENegativeNEG/TRACE mg/dLNOTN HealthcareSPECIFIC GRAVITY URINE1.0101.005 - 1.025NOTN HealthcareURINE MICROSCOPIC INDICATEDNONOMS HealthcareUROBILINOGEN URINE0.2 EU/dL0.2 - 1.0 EU/dLNOTN HealthcareCLINISYNCNOMS HealthcarePAP ACOG PANEL 2: 21 to 29on 10-02-2022..[facility] Comment on above:Performed By: #### [id number] #### [facility] [address] [place] [address] Dr. Alee White Gdln ACOG Exhutzc93-43MacbjhGjySheltering Arms HospitalComment on above:Performed By: #### [id number] #### [facility] [address] [place] [address] Dr. Alee PaezDIAGNOSIS:CommentSelect Medical Specialty Hospital - Columbusment on above: Result Comment: NEGATIVE FOR INTRAEPITHELIAL LESION OR MALIGNANCY. THIS SPECIMEN WAS RESCREENED PART OF OUR HELICOPTER REPAIRER PROGRAM.Performed By: #### [id number] #### [facility] [address] [place] [address] Dr. Alee PaezMethodology:CommentNoSheltering Arms HospitalComment on above: Result Comment: This liquid based ThinPrep(R) pap test was screened with the use of an image guided system.Performed By: #### [id number] #### [place] [address] [address] Alee PaezNote:CommentTriHealth on above:Result Comment: The Pap smear is a screening test designed to aid in the detection of premalignant and malignant conditions of the uterine cervix. It is not a diagnostic procedure and should not be used as the sole means of detecting cervical cancer. Both false-positive and false-negative reports do occur. .Performed By: #### [id number] #### [place] [address] [address] Alee PaezPerformed by:[facility] on above: Result Comment: Tiffani Gonzales, Plastic Joint Maker (ASCP)Performed By: #### [id number] #### [place] [address] [address] Alee PaezQC reviewed by:[facility] on above:Result Comment: Bhumika Caba, Plastic Joint Maker (ASCP)Performed By: #### [id number] #### [place] [address] [address] Alee PaezReflex Criteria:[facility] on above:Result Comment: The HPV DNA reflex criteria were not met with this specimen result therefore, no HPV testing was performed. .Performed By: #### [id number] #### [place] [address] [address] Alee PaezSpecimen adequacy:[facility] on above:Result Comment: Satisfactory for evaluation. Endocervical and/or squamous metaplastic cells (endocervical component) are present.Performed By: #### [id number] #### [place] [address] [address] Alee PaezCB AUTO DIFFon [id number] #0.0 103/ulNormal0.0-0.1The [facility] HospitalComment on above:Performed By: #### CBC #### [facility] [address] [place] [address] Dr. Alee PaezBasophils/100 WBC (Bld)0.2 %Normal0.2-2.0[facility] Comment on above:Performed By: #### CBC #### [facility] [address] [place] [address] Dr. Alee Hartley #0.1 103/ulNormal0.0-0.7The [facility] HospitalComment on above: Performed By: #### CBC #### [facility] [address] [place] [address] Dr. Alee Murphyosinophils/100 WBC (Bld)1.2 %Normal0.9-7.0[facility] Comment on above:Performed By: #### CBC #### [facility] [address] [place] [address] Dr. Alee Murphyrythrocyte distribution width (RBC) [Ratio]15.3 %Critically high 11.0-15.0[facility] HospitalComment on above:Performed By: #### CBC #### [facility] [address] [place] [address] Dr. Alee PaezHematocrit (Bld) [Volume fraction]25.1 %Critically low36.0-48.0 [facility] HospitalComment on above:Performed By: #### CBC #### [facility] [address] [place] [address] Dr. Alee PaezHemoglobin (Bld) [Mass/Vol]8.2 g/dLCritically low12.0-16.0[facility] HospitalComment on above:Result Comment: just deliveredPerformed By: #### CBC #### [facility] [address] [place] [address] Dr. Alee Gordon #0.03 10e3/ulNormal0.00-0.03The [facility] HospitalComment on above:Performed By: #### CBC #### [facility] [address] [place] [address] Dr. Alee Gordon %0.4 %Normal0.0-0.5[facility] HospitalComment on above: Performed By: #### CBC #### [facility] [address] [place] [address] Dr. Alee Hutchison #2.0 103/ulNormal1.2-3.8[facility] HospitalComment on above:Performed By: #### CBC #### [facility] [address] [place] [address] Dr. Alee Ramanhocytes/100 WBC (Bld)23.9 %Xzpjpa59.5-60.0[facility] HospitalComment on above:Performed By: #### CBC #### [facility] [address] [place] [address] Dr. Alee Allison DIFF REQNONormalThe [facility] HospitalComment on above: Performed By: #### CBC #### [facility] [address] [place] [address] Dr. Alee Marino (RBC) [Entitic mass]28.3 ygBnjvgp71.7-34.0The [facility] HospitalComment on above:Performed By: #### CBC #### [facility] [address] [place] [address] Dr. Alee Walter (RBC) [Mass/Vol]32.7 g/zZFtiyyi75.9-35.2The [facility] HospitalComment on above:Performed By: #### CBC #### [facility] [address] [place] [address] Dr. Alee Walter (RBC) [Entitic vol]86.6 xPApyvep21.0-99.0[facility] HospitalComment on above:Performed By: #### CBC #### [facility] [address] [place] [address] Dr. Alee Jett #0.8 103/ulNormal0.3-0.8[facility] HospitalComment on above:Performed By: #### CBC #### [facility] [address] [place] [address] Dr. Yilan ChangMonocytes/100 WBC (Bld)9.8 %Normal1.7-12.0[facility] Comment on above:Performed By: #### CBC #### [facility] [address] [place] [address] Dr. Alee CotterUT #5.5 103/ulNormal1.4-6.5[facility] HospitalComment on above:Performed By: #### CBC #### [facility] [address] [place] [address] Dr. Alee Cotterutrophils/100 WBC (Bld)64.5 %Tepwjy98.0-75.0The [facility] HospitalComment on above:Performed By: #### CBC #### [facility] [address] [place] [address] Dr. Alee Waldroplet mean volume (Bld) [Entitic vol]9.8 fLNormal9.5-13.5The [facility] HospitalComment on above:Performed By: #### CBC #### [facility] [address] [place] [address] Dr. Alee PaezPLT152 103/izKtxddh442-886Aki [facility] HospitalComment on above: Performed By: #### CBC #### [facility] [address] [place] [address] Dr. Alee PaezRBC2.90 106/ulCritically low4.20-5.40The [facility] HospitalComment on above:Performed By: #### CBC #### [facility] [address] [place] [address] Dr. Alee PaezWBC8.5 103/ulNormal4.0-11.0[facility] HospitalComment on above: Performed By: #### CBC #### [facility] [address] [place] [address] Dr. Alee GuptaC AUTO DIFFon [id number] #0.0 103/ulNormal0.0-0.1The [facility] HospitalComment on above:Performed By: #### CBC #### [facility] [address] [address] [address] Alee PaezBasophils/100 WBC (Bld)0.2 %Normal0.2-2.0[facility] Comment on above:Performed By: #### CBC #### [facility] [address] [place] [address] Dr. Alee Hartley #0.0 103/ulNormal0.0-0.7The [facility] HospitalComment on above: Performed By: #### CBC #### [facility] [address] [place] [address] Dr. Alee Murphyosinophils/100 WBC (Bld)0.5 %Critically low0.9-7.0[facility] HospitalComment on above:Performed By: #### CBC #### [facility] [address] [place] [address] Dr. Alee Murphyrythrocyte distribution width (RBC) [Ratio]15.0 %Vmgubc64.0-15.0 [facility] HospitalComment on above:Performed By: #### CBC #### [facility] [address] [place] [address] Dr. Alee PaezHematocrit (Bld) [Volume fraction]38.1 %Islrea16.0-48.0The [facility] HospitalComment on above:Performed By: #### CBC #### [facility] [address] [place] [address] Dr. Alee PaezHemoglobin (Bld) [Mass/Vol]12.6 g/qWYzkkdl05.0-16.0The [facility] HospitalComment on above:Performed By: #### CBC #### [facility] [address] [place] [address] Dr. Alee Gordon #0.03 10e3/ulNormal0.00-0.03The [facility] HospitalComment on above:Performed By: #### CBC #### [facility] [address] [place] [address] Dr. Alee Gordon %0.4 %Normal0.0-0.5The [facility] HospitalComment on above: Performed By: #### CBC #### [facility] [address] [address] [address] Alee Hutchison #1.0 103/ulCritically low1.2-3.8[facility] Comment on above:Performed By: #### CBC #### [facility] [address] [address] [address] Alee Perezmphocytes/100 WBC (Bld)12.5 %Critically low20.5-60.0[facility] HospitalComment on above:Performed By: #### CBC #### [facility] [address] [address] [address] Alee Allison DIFF REQNONormalThe [facility] HospitalComment on above: Performed By: #### CBC #### [facility] [address] [place] [address] Dr. Alee Walter (RBC) [Entitic mass]27.8 xgDeqael72.7-34.0The [facility] HospitalComment on above:Performed By: #### CBC #### [facility] [address] [place] [address] Dr. Alee Walter (RBC) [Mass/Vol]33.1 g/kHVvfppd07.9-35.2[facility] Medical CenterComment on above:Performed By: #### CBC #### [facility] [address] [place] [address] Dr. Alee Walter (RBC) [Entitic vol]84.1 jXCwipqj77.0-99.0[facility] HospitalComment on above:Performed By: #### CBC #### [facility] [address] [place] [address] Dr. Alee Jett #1.0 103/ulCritically high0.3-0.8[facility] Comment on above:Performed By: #### CBC #### [facility] [address] [place] [address] Dr. Alee Estradaocytes/100 WBC (Bld)11.4 %Normal1.7-12.0[facility] Comment on above:Performed By: #### CBC #### [facility] [address] [place] [address] Dr. Alee CotterUT #6.2 103/ulNormal1.4-6.5The [facility] HospitalComment on above:Performed By: #### CBC #### [facility] [address] [place] [address] Dr. Alee Cotterutrophils/100 WBC (Bld)75.0 %Ktghkn61.0-75.0The [facility] HospitalComment on above:Performed By: #### CBC #### [facility] [address] [place] [address] Dr. Alee PaezPlatelet mean volume (Bld) [Entitic vol]11.4 fLNormal9.5-13.5The [facility] HospitalComment on above:Performed By: #### CBC #### [facility] [address] [place] [address] Dr. Alee PaezPLT204 103/prYifxdb411-641Cux [facility] HospitalComment on above: Performed By: #### CBC #### [facility] [address] [place] [address] Dr. Alee PaezRBC4.53 106/ulNormal4.20-5.40The [facility] HospitalComment on above:Performed By: #### CBC #### [facility] [address] [place] [address] Dr. Alee PaezWBC8.3 103/ulNormal4.0-11.0[facility] HospitalComment on above: Performed By: #### CBC #### [facility] [address] [place] [address] Dr. Alee PaezCovid-19 PCR ([facility])on [id number]-CoV-2 (COVID-19) RNA JERRY+probe Ql (Unsp spec)Not detectedNormalNOT DETECTEDThe [facility] Comment on above:Result Comment: When diagnostic [...] for this test is supported by the [place] of [employer] and Human Service's declaration that [...] longer be used).Performed By: #### CVDTBH #### [facility] [address] [place] [address] Dr. Alee PaezDRUG SCREEN RAPID (URINE)on [id number]Y [facility] on above:Performed By: #### DRUGRPD #### [facility] [address] [place] [address] Dr. Alee PaezBARNegativeNormalNEGATIVEUniversity Hospitals St. John Medical CenterComment on above: Performed By: #### DRUGRPD #### [facility] [address] [place] [address] Dr. Alee PaezBUPNegativeNormalNEGATIVEUniversity Hospitals St. John Medical CenterCombeaumont hospital on above: Performed By: #### DRUGRPD #### [facility] [address] [place] [address] Dr. Alee PaezBZONegativeNormalNEGATIVEUniversity Hospitals St. John Medical CenterComment on above: Performed By: #### DRUGRPD #### [facility] [address] [place] [address] Dr. Alee PaezCOCNegativeNormalNEGATIVEUniversity Hospitals St. John Medical CenterComment on above: Performed By: #### DRUGRPD #### [facility] [address] [place] [address] Dr. Alee PaezCUT-EDGEWOOD SURGICAL HOSPITALE Norwalk Memorial HospitalComment on above: Result Comment: AMP (Amphetamine): 500ng/mL, BAR (Barbituates): 200 ng/mL, BZO (Benzodiazepines): 150 ng/mL, BUP (Buprenorphine): 10 ng/mL, FLOYD (Cocaine): 150 ng/mL, mAMP (Methamphetamine): 500 ng/mL, MTD (Methadone): 200 ng/mL, OPI (Opiates): 100 ng/mL, OXY (Oxycodone): 100 ng/mL, PCP (Phencyclidine): 25 ng/mL, PPX (Propoxyphene): 300 ng/mL, THC (Cannabinoids): 50 ng/mL, TCA (Trycyclic Antidepressants): 300 ng/mLPerformed By: #### DRUGRPD #### [facility] [address] [place] [address] Dr. Alee PaezDRUG CUT HEADERDRUG CLASS TEST SYSTEM CUT-OFF CONCENTRATIONS ARE FOLLOWS:NormalOhio Valley Hospital on above:Performed By: #### DRUGRPD #### [facility] [address] [place] [address] Dr. Alee PaezmAMPNegativeNormalNEGATIVEUniversity Hospitals St. John Medical CenterComment on above: Performed By: #### DRUGRPD #### [facility] [address] [place] [address] Dr. Alee PaezMTDNegativeNormalNEGATIVEUniversity Hospitals St. John Medical CenterCombeaumont hospital on above: Performed By: #### DRUGRPD #### [facility] [address] [place] [address] Dr. Alee SolorzanoINegativeNormalNEGATIVEUniversity Hospitals St. John Medical CenterComment on above: Performed By: #### DRUGRPD #### [facility] [address] [place] [address] Dr. Alee PaezOXYNegativeNormalNEGATIVEUniversity Hospitals St. John Medical CenterComment on above: Performed By: #### DRUGRPD #### [facility] [address] [place] [address] Dr. Alee PaezPCPNegativeNormalNEGATIVEUniversity Hospitals St. John Medical CenterComment on above: Performed By: #### DRUGRPD #### [facility] [address] [place] [address] Dr. Yilan ChangPPXNegativeNormalNEGATIVEUniversity Hospitals St. John Medical CenterComment on above: Performed By: #### DRUGRPD #### [facility] [address] [place] [address] Dr. Alee PaezTCANegativeNormalNEGATIVEUniversity Hospitals St. John Medical CenterComment on above: Performed By: #### DRUGRPD #### [facility] [address] [place] [address] Dr. Alee PaezTHCNegativeNormalNEGATIVEUniversity Hospitals St. John Medical CenterComment on above: Performed By: #### DRUGRPD #### [facility] [address] [place] [address] Dr. Alee PaezTYPE AND SCREENon 29-28-7105CHAM AND SCREENNegativeNoalThUniversity Hospitals Geauga Medical CenterComment on above:Performed By: #### TNS #### [facility] [address] [place] [address] Dr. Alee PaezGROUP B STREP CULTUREon 12-11-2021. agalactiae Ag Ql (Unsp spec) Culture Observations: NEGATIVE FOR GROUP B STREPTOCOCCUS.NormalUniversity Hospitals St. John Medical CenterComment on above: Performed By: #### GBSCX #### [facility] [address] [place] [address] Dr. Alee Paez Vital Signs Date TimeVital SignValuePerforming RwklxrvwpCbbyfver17-46-2143 14:47-0500Body mass index (BMI) [Ratio]28.35 kg/m2Tammie GENAO Work Phone: [facility] HospitalIojpguizae46-47-3805 14:47-0500Body intcer97.31 kgTammie GENAO Work Phone: [facility] HospitalGkyjgzdopj84-36-8143 14:47-0500Diastolic blood pbkjkdys22 mm[Hg]Tammie GENAO Work Phone: [phone][facility]'s HospitalWiopooxnvd55-44-0961 14:47-0500Systolic blood qalrfrwq984 mm[Hg]Tammie GENAO Work Phone: [facility] HospitalDynzotjhuw30-37-5141 15:31-0400Body mass index (BMI) [Ratio]29.04 kg/g4Ssvfh Jason DO Work Phone: [phone] [place], [place] [address]Wmwhqohzyx46-36-1033 15:31-0400Body dutjjc42.01 kgCorey Jason DO Work Phone: [phone] [place], [place] [address]Rtyryrbnwn93-54-8869 15:31-0400Diastolic blood orgtjovw39 mm[Hg]Deandra Jason DO Work Phone: [phone] [place], [place] [address]Qplbtjjuja69-92-1102 15:31-0400Systolic blood xusywlti628 mm[Hg]Deandra Jason DO Work Phone: [phone] [place], [place] [address]Dmfldgtwev21-08-5688 09:45-0400Body mass index (BMI) [Ratio]26.01 kg/m2Tammie GENAO Work Phone: [phone] [place], [place] [address]Wjqjitnhct50-50-9452 09:45-0400Body myaaxk40.5 kg Tammie GENAO Work Phone: [phone] [place], [place] [address]Ezaecxhoct56-12-7222 09:45-0400Diastolic blood zdeigqcg50 mm[Hg]Tammie GENAO Work Phone: [phone] [place], [place] [address]Dculugasyt29-59-5450 09:45-0400Systolic blood eywybahb379 mm[Hg]Tammie GNEAO Work Phone: [phone] [place], [place] [address]Cqpxcxtjbv03-21-1743 10:03-0400Diastolic blood uvppvswr834 mm[Hg]Deandra Jason DO Work Phone: [phone] [place], [place] [address]Eigwhkwrue59-80-6538 10:03-0400Systolic blood lihfsfbm555 mm[Hg]Deandra Jason DO Work Phone: [phone] [place], [place] [address]Kwsiukxavq58-21-9713 09:52-0400Body mass index (BMI) [Ratio]25.74 kg/c8Kgwem Jason DO Work Phone: [phone] [place], [place] [address]Oibeqbjlmw19-00-1874 09:52-0400Body vwzsiu07.84 kgCorey Jason DO Work Phone: [phone] [place], [place] [address]Fjvlrjodbg59-77-3780 09:03-0400Body mass index (BMI) [Ratio]26.12 kg/r5KsaydU.[facility]. Army [facility] 107-18-2025 09:03-0400Body weight 64.77 kgU.[facility]. [facility] 107-18-2025 09:03-0400Diastolic blood qyjqjogg77 mm[Hg][facility] 107-18-2025 09:03-0400Systolic blood ynyjtumz904 mm[Hg][facility] 106-16-2025 14:29-0400Body mass index (BMI) [Ratio] 26.16 kg/p2Fgznc [employer] Work Phone: [phone] [place], [place] [address]Skjlebxjac75-60-4505 14:29-0400Body jojomc17.86 kgMary [facility] [employer] Work Phone: [phone] [place], [place] [address]Lbarzqdpwk33-80-9557 14:29-0400Diastolic blood vpqsoipr63 mm[Hg][employer] Work Phone: [phone] [place], [place] [address]Salsfkhjxg58-61-6919 14:29-0400Systolic blood crboyqeg319 mm[Hg][employer] Work Phone: [phone] [place], [place] [address]Rrgbhswcct13-21-0749 09:31-0400Body qdlnde677.56 cmSelect [facility]10-16-2024 09:31-0400Body mass index (BMI) [Ratio]24 kg/v9JgqqwowevSelect Medical Specialty [facility], Inc10-16-2024 09:31-0400Body kzckzvkobvi52.1 [degF][facility]10-16-2024 09:31-0400Body lheydn86.5 kgSelect [facility]10-16-2024 09:31-0400Diastolic blood zyrspmub32 mm[Hg][facility]10-16-2024 09:31-0400 Heart kkjq902 /[facility]10-16-2024 09:31-0400 Respiratory rate18 /[facility]10-16-2024 09:31-0400 SaO2% (BldA) [Mass fraction]99 %[facility]10-16-2024 09:31-0400Systolic blood vjvozrvg479 mm[Hg][facility] 03-09-2024 13:32-0400Blood Pressure LocationMichael NILL [phone]-LaycxFort [facility]09-03-2024 13:32-0400Diastolic blood otsdbmqw20 mm[Hg]Mark NILL [phone]-DkhezFort [facility] Hospital09-03-2024 13:32-0400Heart rate72 /minMichael NILL [phone]-XguoqFort [facility] Hospital09-03-2024 13:32-0400Respiratory rate16 /minMichael NILL [phone]-RovymFort [facility] Hospital09-03-2024 13:32-0400Systolic blood bcygfywy450 mm[Hg]Mark NILL [phone]-OknfuFort [facility] Hospital06-22-2024 09:45-0400Body ibkqwn047.56 cmSelect [facility]06-22-2024 09:45-0400Body mass index (BMI) [Ratio]23.6 kg/h9SsgdqrevpSelect Medical Specialty [facility], Inc06-22-2024 09:45-0400Body rrubayyohun99.7 [degF][facility]06-22-2024 09:45-0400Body uwwmlc13.59 kgSelect [facility] Specialty [facility] 12-27-2023 09:45-0400Heart rate79 /[facility] 12-27-2023 09:45-0400Respiratory rate18 /[facility] 12-27-2023 09:45-9669UtY5% (BldA) [Mass fraction]98 %[facility]02-12-2024 12:59-0500Body mass index (BMI) [Ratio]29.45 kg/f8Odkxa Jason DO Work Phone: [facility] HospitalGiptllpdes54-42-4953 12:59-0500Body ryamwy38.03 kgCorey Jason DO Work Phone: [facility] HospitalAomycpgcut35-31-7092 12:59-0500Diastolic blood ktwdndar56 mm[Hg]Deandra Jason DO Work Phone: [facility] Wocxtaaggm55-29-6366 12:59-0500Systolic blood owdmsxop634 mm[Hg]Deandra Jason DO Work Phone: [facility] Encounters Encounter DateEncounter TypeCare ProviderFacilityStart: 05-16-2025 End: 44-59-2125Ekfgtzxh flow Suni GENAO Work Phone: [facility] OBGYNComment on above:Size of fetus inconsistent with dates in first trimester ([facility]) (Primary Dx); Second trimester ([facility]); 25 weeks gestation of ([facility])Start: 05-16-2025 End: 00-80-0925rviubdbratFFX RAMEYNot AvailableStart: 05-16-2025 End: 82-38-1768Jqjymj Ronnie GENAO Work Phone: [facility] OBGYNStart: 05-16-2025 End: 70-52-0588Zravms Ronnie GENAO Work Phone: noMS [facility] OBGYNStart: 05-13-2025 End: 19-19-2390Sbzfqjbtt Result EncounterCorey Jason DO Work Phone: [facility] External Department UnsolicitedStart: 05-13-2025 End: 33-22-7661Ptfsqxokc Result EncounterCorey Jason DO Work Phone: [facility] External Department UnsolicitedStart: 04-18-2025 End: 15-87-0580Fqysvklm flow sheetCorey Jason DO Work Phone: [facility] OBGYNComment on above:Second trimester ([facility]); 21 weeks gestation of ([facility]); Diabetes mellitus screeningStart: 04-18-2025 End: 61-19-0683ebwxxbnfpyAFPFL FAZIONot AvailableStart: 04-18-2025 End: 73-51-7858uimnyaejyoUIV RAMEYNot AvailableStart: 03-21-2025 End: 67-41-1132Jwoahf flowsLuis Daniel Olsen PA Work Phone: NO [facility] OBGYNStart: 03-21-2025 End: 40-12-4703Telfyq flowsheetTammie Olsen PA Work Phone: [facility] OBGYNStart: 03-21-2025 End: 94-36-7972Aspsperq flow sheetTammie Olsen PA Work Phone: [facility] OBGYNComment on above:Second trimester ([facility]); 17 weeks gestation of ([facility]); Screening, , for anatomic survey ([facility])Start: 03-21-2025 End: 44-31-9166tpkvpwvqdtUKD RAMEYNot AvailableStart: 02-28-2025 End: 42-41-3325tgfhgyracaGHDNW FAZIONot AvailableStart: 02-21-2025 End: 41-39-2289Adojub flowsheetCorey Jason DO Work Phone: [facility]BGYNStart: 02-21-2025 End: 03-50-8033Arvqku flowsheetCorey Jason DO Work Phone: [facility]BGYNStart: 02-21-2025 End: 65-85-0113Nawrlsfr flow sheetCorey Jason DO Work Phone: NOMS Ashly OBGYNComment on above:Second trimester ([facility]); 13 weeks gestation of ([facility])Start: 02-21-2025 End: 38-81-6062slsxazvpniRDOQD FAZIONot AvailableStart: 01-28-2025 End: 24-74-2663Ctiixmosv Result EncounterCorey Jason DO Work Phone: NOMS External Department UnsolicitedStart: 01-28-2025 End: 43-46-8173Sngojgcxv Result EncounterCorey Jason DO Work Phone: NOMS External Department UnsolicitedStart: 01-21-2025 End: 82-78-0346Sjvuik outpatient visit 5 minutesFapooja Nurse Noms Bcp ObNOMS BCP OBComment on above:GA: 0f7pFbgjx: 01-21-2025 End: 60-70-4229enuuewwmujVBBAG FAZIONot AvailableStart: 12-20-2024 End: 39-70-6640Kcfodv flowsheetCorey Jason DO Work Phone: NOMS BCP OBStart: 12-20-2024 End: 32-32-5052Zcvniw flowsheetCorey Jason DO Work Phone: NOMS BCP OBStart: 12-20-2024 End: 79-11-1668Mqnuhgira Result EncounterCorey Jason DO Work Phone: NOMS External Department UnsolicitedStart: 12-20-2024 End: 40-92-2370Qhqqguoi Result EncounterCorey Jason DO Work Phone: NOMS External Department UnsolicitedStart: 12-20-2024 End: 04-78-2160Thklipi encounter procedureCorey Jason DO Work Phone: noMS HealthcareStart: 12-20-2024 End: 23-58-2018Auyfqacx preventive med est patient 18-39 yrsCorey Jason DO Work Phone: noMS BCP OBComment on above: examination or test, positive result ([facility]) (Primary Dx); Well woman exam with routine gynecological exam; STD exposure; Nausea and vomiting during ([facility])Start: 12-20-2024 End: 52-15-5756mvnbnqwmqsTLSPX FAZIONot AvailableStart: 04-21-2024 End: 38-72-2779dcmdhzlmtwMsttkqiciKettering Health [facility] Work Phone: Start: 04-21-2024 End: 52-19-8087Pxxmvqm encounter procedureCritical Access Hospital [facility] [place] Work Phone: Start: 03-09-2024 End: 76-45-3335txfbuejklhKNYKDJ FURLONGFacility:[facility]Start: 03-09-2024 End: 56-54-3638Qkcujzl encounter procedureMichael R NILL [phone]-Settm General Surgery [place] Start: 61-45-4779peeaiixffwJJKXHQ FURLONGFacility:[facility]ueStart: 01-16-2024 End: 75-32-2817Fuvcfyhlf Result EncounterCorey Jason DO Work Phone: noms External Department UnsolicitedStart: 01-16-2024 End: 11-07-0497Bkadzanym Result EncounterCorey Jason DO Work Phone: noms External Department UnsolicitedStart: 01-16-2024 End: 47-88-3111yecoqikoypUggmdkkz Community Work Phone: [facility] Work Phone: Start: 01-16-2024 End: 87-63-2832Cokpkeft ReferredC[facility]sea Hospital Work Phone: [facility]-LAB Path Spec [facility] HospStart: 12-27-2023 End: 81-54-8336kkvziqqgniUgyuwvwtl [facility] Work Phone: Start: 12-27-2023 End: 44-53-0593Vjzzrcm encounter procedureCritical Access Hospital Phys[facility] [place] Work Phone: Start: 12-26-2023 End: 20-32-6918Chcwfwwdl Result EncounterCorey Jason DO Work Phone: noms External Department UnsolicitedStart: 12-26-2023 End: 34-89-4639Zdchzibdm Result EncounterCorey Jason DO Work Phone: noms External Department UnsolicitedStart: 08-18-2023 End: 07-66-1825Axvoffgx flow sheetCorey Jason DO Work Phone: NOPE BCP OBComment on above:Third trimester Start: 36-31-8058Flzxtbnnx Result EncounterCorey Jason DO Work Phone: noms External Department UnsolicitedStart: 08-14-2023 Clinisync Result EncounterCorey Jason DO Work Phone: noms External Department UnsolicitedStart: 09-23-2022 End: 68-46-1680adllsgjfhhHV DEANDRA JASON .Facility:X5Lngai: 12-31-2021 End: 69-45-2856vdgzmmmxmqHX DEANDRA JASON .Facility:A4Bmuac: 12-25-2021 End: 23-91-5207Jbohmhdezw and management of inpatientDR DEANDRA JASON .Facility: Start: 12-11-2021 End: 70-77-5059nhuaeggngfQD JOVANY RUSHING .Facility: Procedures DateProcedureProcedure DetailPerforming ClinicianStart: 24-11-5108Vxifn dip stick/tablet rgnt non-auto w/o micrscpAmy Pretty GENAO Work Phone: Start: 58-93-2322NAI CBC WITH AUTO DIFFCorey Jason DO Work Phone: Start: 65-80-6169Uyfex dip stick/tablet rgnt non-auto w/o micrscpCorey Jason DO Work Phone: Start: 50-47-0418Pynqa dip stick/tablet rgnt non-auto w/o micrscpCorey Jason DO Work Phone: Start: 01-24-8462OFJ CBC WITH AUTO DIFFCorey Jason DO Work Phone: Start: 26-88-3705Qzzlr dip stick/tablet rgnt non-auto w/o micrscpCorey Jason DO Work Phone: Start: 47-91-5948XJVXEWELD VAGINITIS (HTRX)Deandra Jason DO Work Phone: Start: 27-86-3471Rwjcl test visual color cmprsn methsCorey Jason DO Work Phone: Start: 46-44-1326PVN,APTIMA HPV,AGE GDLNCorey Jason DO Work Phone: Start: 70-50-5414UI BIOPSY FNACorey Jason DO Work Phone: Start: 14-20-9958Gwisd Strep (POC)Start: 28-06-4143JF Extremity - rightCorey Jason DO Work Phone: Start: 98-73-9728Slqro dip stick/tablet rgnt non-auto w/o micrscpCorey Jason DO Work Phone: Start: 32-93-0622WRY UA (CLEAN/CATCH) MICROSCOPIC IF INDICATECorey Jason DO Work Phone: Start: 71-65-1064Oqnywqvk of Products of Conception, External ApproachDR DEANDRA PACHECOO .Start: 68-23-5688Chqfvlyl of Female Perineum, External ApproachDR DEANDRA PACHECOO .Start: 22-60-2807Cvnaak Anal Sphincter, Open ApproachDR DEANDRA PACHECOO .Adenoid excisionMichael NILL Nasal polypectomyMichael NILL Plan of Treatment DateCare ActivityDetailAuthorStart: 12-22-2025 End: 83-10-8282Nbgthfk encounter ndwatjwcc70/18/2026 8:30 AM EDT Procedure Visit [facility] Ashly RYANN [address] [place] [address] Deandra Gomez DO [address] [place] [address] NOMS Ashly RYANNStart: 05-16-2025 End: 28-23-6186Hcqdbcb encounter procedureNOMS Ashly RYANNComment on above: ArrivedStart: 05-16-2025 End: 98-98-5947BS for pregnancyUS OB follow up transabdominal approach Imaging Routine Size of fetus inconsistent with dates in first trimester ([facility]) Expected: 05/16/2025, Expires: 09/13/2025[facility] Work Phone: comment on above:Expected: 05/16/2025, Expires: 09/13/2025Start: 04-18-2025 End: 53-72-0932Pgrgfrr encounter lzvdcjqle45/13/2025 3:00 PM EDT Routine [facility] Ashly RYANN [address] [place], [id number] Deandra Gomez DO [address] [place] [address] NOMShashi [place] OBGYNStart: 04-18-2025 End: 83-73-6032ZXY panel - Blood by Automated countCBC Lab Routine Diabetes mellitus screening Expected: 04/18/2025 (Approximate), Expires: 04/18/2026[facility] Work Phone: comment on above:Expected: 04/18/2025 (Approximate), Expires: 04/18/2026Start: 04-18-2025 End: 81-04-5029Owbebklqczr of glucose 1 hour after glucose challenge for glucose tolerance testGlucose tolerance, 1 hour Lab Routine Diabetes mellitus screening Expected: 04/18/2025 (Approximate), Expires: 04/18/2026[facility] HospitalComment on above:Expected: 04/18/2025 (Approximate), Expires: 04/18/2026Start: 04-18-2025 End: 43-15-3022Bfjdxhwsyxcl / ancillary services /13/2025 2:00 PM EDT Ancillary Procedure NOMShashi RYANN [address] [phone] NOMS [place] OBGYNStart: 03-21-2025 End: 16-06-0079Wejlc fetoprotein, maternalAlpha fetoprotein, maternal Lab Routine Second trimester ([facility]) 17 weeks gestation of ([facility]) Expected: 03/21/2025 (Approximate), Expires: 04/20/2025[facility] Comment on above:Expected: 03/21/2025 (Approximate), Expires: 04/20/2025Start: 03-21-2025 End: 30-65-3997YL for pregnancyUS OB 14+ weeks anatomy scan Imaging Routine Screening, , for anatomic survey ([facility]) Expected: 03/21/2025, Expires: 06/20/2025[facility] Work Phone: comment on above:Expected: 03/21/2025, Expires: 06/20/2025Start: 03-21-2025 End: 71-59-4784Xfrwakk encounter procedureNOMS [place] OBGYNComment on above: ArrivedStart: 02-28-2025 End: 56-16-4272Gqslolfy Tizjcuq8902/28/2025 9:00 AM EDT Clinical Support NOM[facility] Ashly GARDNERGYN [address] [place] [address] [address] [place], [id number] NOMS Ashly OBGYNStart: 02-21-2025 End: 13-06-3497Nmfnxmo encounter procedureNO BCP OBComment on above:Arrived Start: 01-21-2025 End: 64-26-0402MZL/RhABO/Rh Lab Routine Missed menses , unspecified gestational age ([facility]) Expected: 01/21/2025 (Approximate), Expires: 01/21/2026[facility] HealthcareComment on above:Expected: 01/21/2025 (Approximate), Expires: 01/21/2026Start: 01-21-2025 End: 44-91-8290Cdhul type and Indirect antibody screen panel - BloodType and screen Lab Routine Missed menses , unspecified gestational age ([facility]) Expected: 01/21/2025 (Approximate), Expires: 01/21/2026[facility] Comment on above:Expected: 01/21/2025 (Approximate), Expires: 01/21/2026Start: 01-21-2025 End: 69-48-0908Quilh of abuse panel - Urine by Screen methodRapid drug screen, urine Lab Routine , unspecified gestational age ([facility]) Encounter for supervision of normal first in first trimester ([facility]) Expected: 01/21/2025 (Approximate), Expires: 01/21/2026NOTN HealthcareComment on above: Expected: 01/21/2025 (Approximate), Expires: 01/21/2026Start: 01-21-2025 End: 28-41-1254ogtkzmxblq08/18/2025 9:00 AM EDT Initial [facility] BCP OB [address] [place] [address] NOMS BCP OBStart: 01-21-2025 End: 73-02-5176Gcjbjuilgopw / ancillary services /18/2025 8:30 AM EDT Ancillary Procedure N[facility] BCP OB [address] [place] [address] [facility] OBStart: 01-12-2025 End: 62-82-1246HQ Pelvis transvaginalUS OB transvaginal Imaging Routine Missed menses Expected: 01/12/2025, Expires: 04/14/2025[facility] Work Phone: comment on above:Expected: 01/12/2025, Expires: 04/14/2025Start: 12-20-2024 End: 57-07-5109Uvqvcsv encounter yqeoyysff92/16/2025 2:00 PM EDT Office Visit [facility] BCP OB [address] [place] [address] Deandra Gomez, [address] [place] [address] [facility]COAL[facility] OBComment on above:ArrivedStart: 08-18-2023 End: 84-89-1218Lsrkupj encounter /12/2024 1:00 PM EST Routine N[facility] BCP OB [address] [place] [address] Deandra Gomez, DO [address] [place] [address] Third trimester pregnancyNOMS BCP OB Comment on above:Third trimester pregnancyBacteria identified in Urine by CultureUrine culture Microbiology Routine Missed menses Ordered: 01/21/2025[facility] HealthcareComment on above:Ordered: 01/21/2025BC W Auto Differential panel - BloodCBC and differential Lab Routine Missed menses , unspecified gestational age ([facility]) Ordered: 01/21/2025[facility] HealthcareComment on above: Ordered: 01/21/2025HLAMYDIA TRACHOMATIS (GENITO/STI)CHLAMYDIA TRACHOMATIS (GENITO/STI) Lab Routine STD exposure Ordered: 12/20/2024[facility] HealthcareComment on above:Ordered: 12/20/2024ytology Cervical or vaginal smear or scraping study Pap Smear Pathology and Cytology Routine Well woman exam with routine gynecological exam Ordered: 12/20/2024[facility] Work Phone: comment on above:Ordered: 12/20/2024Hemoglobin A1c/Hemoglobin.total in BloodHemoglobin A1c Lab Routine Missed menses , unspecified gestational age ([facility]) Ordered: 01/21/2025[facility] HealthcareComment on above:Ordered: 01/21/2025Hepatitis B virus surface Ag [Presence] in Serum or Plasma by ImmunoassayHepatitis B surface antigen Lab Routine Missed menses , unspecified gestational age ([facility]) Ordered: 01/21/2025[facility] HealthcareComment on above:Ordered: 01/21/2025Hepatitis C virus Ab [Presence] in Serum or Plasma by ImmunoassayHepatitis C antibody Lab Routine Missed menses , unspecified gestational age ([facility]) Ordered: 01/21/2025[facility] HealthcareComment on above:Ordered: 01/21/2025HIV-1/HIV-2 antigen/antibody combination immunoassayHIV-1 and HIV-2 antibodies Lab Routine Missed menses , unspecified gestational age ([facility]) Ordered: 01/21/2025[facility] HealthcareComment on above:Ordered: 01/21/2025Human papilloma virus DNA [Presence] in Unspecified specimen by Probe with amplificationHPV DNA probe, amplified Microbiology Routine Well woman exam with routine gynecological exam Ordered: 12/20/2024[facility] HealthcareComment on above:Ordered: 12/20/2024Neisseria gonorrhoeae DNA [Presence] in Unspecified specimen by JERRY with probe detection Neisseria gonorrhea DNA probe, direct Lab Routine STD exposure Ordered: 12/20/2024[facility] HealthcareComment on above:Ordered: 12/20/2024Reagin Ab [Presence] in Serum by RPRRPR Lab Routine Missed menses , unspecified gestational age ([facility]) Ordered: 01/21/2025[facility] HealthcareComment on above: Ordered: 01/21/2025Rubella antibody, IgGRubella antibody, IgG Lab Routine Missed menses , unspecified gestational age ([facility]) Ordered: 01/21/2025[facility] HealthcareComment on above:Ordered: 01/21/2025SURESWAB(R) ADVANCED VAGINITIS PLUS, TMASURESWAB(R) ADVANCED VAGINITIS PLUS, TMA Pathology and Cytology Routine STD exposure Ordered: 12/20/2024[facility] HealthcareComment on above:Ordered: 12/20/2024US Pelvis transvaginalUS OB transvaginal Imaging Routine Missed menses 01/21/2025 8:41 AM [facility] Payers DatePayer CategoryPayerPolicy [id number] Insurance 1..[id number] FRONTPATH [id number] 2022-Present [address] [place] [address] 1..[id number] ..[id number] 2.0.1.454820.3.57[id number] 2.0.1.148479.3.57[id number] 2.16.840.1.380739.3.57[id number] 2.16.840.1.409893.3.57[id number] 2.16.840.1.363260.3.57[id number] 2.16.840.1.074056.3.57[id number] 2.16.840.1.534872.3.57[id number] 2.16.840.1.721489.3.57[id number] 2.16.840.1.717586.3.57[id number] 2.16.840.1.297182.3.57[id number] 2.16.840.1.955083.3.57[id number] 2.16.840.1.146334.3.57[id number] 2.840.1.522695.3.579.2.043358-12-3387Wrxlxil062143 Social History DateTypeDetailFacilityStart: 02-25-2023 End: 02-86-1176Atkblyy smoking status NHISNever smoked tobaccoNOMS Healthcare Start: 29-24-9919Xztgipv use and exposureSmokeless tobacco non-userNOMS HealthcareStart: 07-28-2023 End: 74-37-0944Qtdvotc intakeLifetime non-drinker (finding)NOMS HealthcareStart: 02-25-2023 End: 63-49-6082Wlywxqb of Social functionNOTN HealthcareStart: 02-25-2023 End: 63-22-2637Ntuouwi use panelMercy Health Tiffin Hospitaltart: 12-17-2022 PregnancyNOTN HealthcareStart: 03-46-1886Pfq Assigned At BirthNot on fileTIMPANOGOS REGIONAL HOSPITAL HealthcareStart: 59-51-2041Zia Assigned At BirthFeAultman Hospitaltart: 78-95-7537Sshmspr smoking statusNeverFort [facility] Functional Status EhjoVrlwtdhreaBbbrsuOmfsijrl39-02-1858Mwvkavxgnw StatusN/AFisherVa [facility] Clinical Notes 08-18-2023 to 05-16-2025 Note Date & OmcwIczjDlvxyhxp46-58-0162 History of Present illness Narrative* BIRGIT Uriostegui - 05/16/2025 2:30 PM EST Reason for Appointment: Patient ID: [...] Medical History: Diagnosis Date 6 weeks follow-up ([facility]) BMI 24.0-24.9, adult History of placenta abruption Vaginal delivery ([facility]) HISTORY PAST MEDICAL HISTORY SOCIAL HISTORY Past Medical History: Diagnosis Date 6 weeks follow-up ([facility]) BMI 24.0-24.9, adult History of placenta abruption Vaginal delivery ([facility]) Social History Tobacco Use Smoking status: Never [...] reviewed. Vitals: Estimated body mass index is 28.35 kg/m as calculated from the following: Height as of 09/23/22: 5' 2 . Weight as of this encounter: 155 lb. BP: 106/60 Patient's last menstrual period was 11/16/2024. Assessment/Plan ICD-10-CM 1. Second trimester ([facility]) Z34.92 2. 25 weeks gestation of ([facility]) Z3A.25 POCT urinalysis dipstick manually resulted Return OB: Patient presents today for a routine obstetrics appointment. Patient is currently 25w6d . Patient states she is doing well but has complaints of being tired due to current . Patient has verbalizes frequent movement. labor precautions was discussed/given and patient was instructed to perform kick counts three times a day. Orders Placed This Encounter Procedures POCT urinalysis dipstick manually resulted Follow Up: Patient is to return to office in 3 week for routine OB appointment. Documented by BIRGIT Uriostegui on behalf of: BIRGIT Uriostegui documented in this encounterSt. Luke's HospitalQxffrdnqat27-19-6135 History of Present illness Narrative* Yamilet Ho, CHANDRAKANT - 04/18/2025 3:00 PM EDT Reason for [...] Medical History: Diagnosis Date 6 weeks follow-up ([facility]) BMI 24.0-24.9, adult History of placenta abruption Vaginal delivery ([facility]) HISTORY PAST MEDICAL HISTORY SOCIAL HISTORY Medical [...] nursing note reviewed. Exam conducted with a can machine operator present. Vitals: Estimated body mass index is 29.04 kg/m as calculated from the following: Height as of 09/23/22: 5' 2 . Weight as of this encounter: 158 lb 12 oz. BP: 134/90 Patient's last menstrual period was 11/16/2024. ASSESSMENT & PLAN ICD-10-CM 1. Second trimester ([facility]) Z34.92 POCT urinalysis dipstick manually resulted 2. 21 weeks gestation of ([facility]) Z3A.21 3. Diabetes mellitus screening Z13.1 CBC [...] Medical History: Diagnosis Date 6 weeks follow-up ([facility]) BMI 24.0-24.9, adult History of placenta abruption Vaginal delivery ([facility]) [3] Family History Problem Relation Name Age of Onset Hypertension Mother Hypertension Father Heart disease Father Heart disease Brother [4] Past Surgical History: Procedure Laterality Date PAP SMEAR 09/19/2021 negative documented in this encounterSt. Luke's HospitalVhemoznwqn85-53-1916 History of Present illness Narrative* BIRGIT Uriostegui [...] Medical History: Diagnosis Date 6 weeks follow-up ([facility]) BMI 24.0-24.9, adult History of placenta abruption Vaginal delivery ([facility]) HISTORY PAST MEDICAL HISTORY SOCIAL HISTORY Past Medical History: Diagnosis Date 6 weeks follow-up ([facility]) BMI 24.0-24.9, adult History of placenta abruption Vaginal delivery ([facility]) Social History Tobacco Use Smoking status: Never [...] ASSESSMENT & PLAN ICD-10-CM 1. Second trimester ([facility]) Z34.92 Alpha fetoprotein, maternal Alpha fetoprotein, maternal 2. 17 weeks gestation of ([facility]) Z3A.17 Alpha fetoprotein, maternal Alpha fetoprotein, maternal 3. Screening, , for anatomic survey ([facility]) Z36.89 US OB 14+ weeks anatomy scan Return OB: [...] behalf of: BIRGIT Uriostegui documented in this encounterSt. Luke's HospitalYnofxoupfj40-13-6807 History of Present illness Narrative* Nikki Szymanski [...] Medical History: Diagnosis Date 6 weeks follow-up ([facility]) BMI 24.0-24.9, adult Vaginal delivery ([facility]) HISTORY PAST MEDICAL HISTORY SOCIAL HISTORY Past Medical History: Diagnosis Date 6 weeks follow-up ([facility]) BMI 24.0-24.9, adult Vaginal delivery ([facility]) Social History Tobacco Use Smoking status: Never [...] nursing note reviewed. Exam conducted with a can machine operator present. Vitals: Estimated body mass index is 25.74 kg/m as calculated from the following: Height as of 09/23/22: 5' 2 . Weight as of this encounter: 140 lb 12 oz. BP: (!) 136/100 Patient's last menstrual period was 11/16/2024. ASSESSMENT & PLAN ICD-10-CM 1. Second trimester ([facility]) Z34.92 POCT urinalysis dipstick manually resulted 2. 13 weeks gestation of ([facility]) Z3A.13 New OB: Patient presents today for [...] or undercooked meat, and stay away from [facility]. Patient has been consulted regarding any [...] of: Deandra Gomez DO documented in this encounterSt. Luke's HospitalLvqvvscytg09-05-3538 History of Present illness Narrative* Nu Patiño [...] Medical History: Diagnosis Date 6 weeks follow-up ([facility]) BMI 24.0-24.9, adult Vaginal delivery ([facility]) Family History Problem Relation Name Age of [...] dipstick manually resulted , unspecified [facility] age [facility] - Type and screen; Future - ABO/Rh; Future - CBC and differential - Hemoglobin A1c - RPR - Rubella antibody, IgG - Hepatitis B surface antigen - Hepatitis C antibody - HIV-1 and HIV-2 antibodies - Rapid drug screen, urine; Future Encounter for supervision of normal first in first trimester ([facility]) - Rapid drug screen, urine; Future Nurse [...] or undercooked meat, and stay away from [facility]. Patient has also been advised to [...] by: Nu Patiño LPN documented in this encounterSt. Luke's HospitalGdsnhsgafp15-00-3298 History of Present illness Narrative* Yamilet Ho NP - 12/20/2024 2:00 PM EDT Reason for [...] Medical History: Diagnosis Date 6 weeks follow-up ([facility]) BMI 24.0-24.9, adult Vaginal delivery ([facility]) HISTORY PAST MEDICAL HISTORY SOCIAL HISTORY Past Medical History: Diagnosis Date 6 weeks follow-up ([facility]) BMI 24.0-24.9, adult Vaginal delivery ([facility]) Social History Tobacco Use Smoking status: Never [...] nursing note reviewed. Exam conducted with a can machine operator present. Vitals: Estimated body mass index [...] probe, direct 3. Nausea and vomiting during ([facility]) O21.9 Annual Exam: Patient presents today for [...] of: Deandra Gomez DO documented in this encounterSt. Luke's HospitalVfgkppaarq89-52-9789 NoteGeneral Surgery Office/Clinic Note Chief Complaint consultation [...] Cardiac arrhythmia: Father. Hypertension: Mother, Father and Brother.Memorial HospitalComment on above:Result Comment: Electronically Signed By: Mark LATHAM MD\Date and Time Signed: 03/09/24 14:03 [id number] History of Present illness Narrative* Saadia Fernandez MA - 08/18/2023 1:00 PM EST Reason for Appointment: Patient ID: Albina Castillo is a 27 y.o. female who presents for Routine Visit Patient presents today for Return OB appointment. Current Medications: has a current medication list which includes the following prescription(s): omeprazole and [id number]. Medical History: Active Ambulatory Problems Diagnosis Date [...] Induction paperwork was signed and faxed to [facility] for patients scheduled induction plan. Documented by Saadia Fernandez MA on behalf of: Deandra Gomez DO [facility] Plan note No data available for this section [facility]* Diagnosis Third trimester state, incidental documented in this encounter [facility] HealthcareEvaluation note* Diagnosis Onset Date Resolution Status Acute bacterial pharyngitis acuteAcute right otitis mediaacute [facility] Work Phone: Evaluation noteNo assessment information available [facility] Work Phone: Evaluation note* Diagnosis examination or test, positive result ([facility])- Primary examination or test, positive result Well woman exam with routine gynecological exam Routine gynecological examination STD exposure Nausea and vomiting during ([facility]) documented in this encounter [facility] HealthcareEvaluation note* Diagnosis Missed menses , unspecified gestational age ([facility]) Encounter for supervision of normal first in first trimester ([facility]) documented [facility]* Diagnosis Second trimester ([facility]) state, incidental 13 weeks gestation of ([facility]) documented in this encounter [facility] HealthcareEvaluation note* Diagnosis Second trimester ([facility]) state, incidental 17 weeks gestation of ([facility]) Screening, , for anatomic survey ([facility]) Encounter for anatomic survey documented in this encounter [facility] HealthcareEvaluation note* Diagnosis Second trimester ([facility]HS-HCC) state, incidental 21 weeks gestation of ([facility]) Diabetes mellitus screening Screening for diabetes mellitus documented in this encounter [facility] HealthcareEvaluation note* Diagnosis Size of fetus inconsistent with dates in first trimester ([facility])- Primary Second trimester ([facility]) state, incidental 25 weeks gestation of ([facility]) documented in this encounter [facility] Dis[facility] instructions No data available for this section [facility] Progress [facility] No data available for this section [facility] Summary Purpose Family History Relationship Condition Age [...] and content) DATE CREATED AUTHOR 10/06/2022 [facility] DATE CREATED AUTHOR AUTHOR'S ORGANIZ ATION 01/23/2024 [facility] DATE CREATED AUTHOR AUTHOR'S ORGANIZ ATION 03/11/2024 [facility] DATE CREATED AUTHOR AUTHOR'S ORGANIZ ATION 05/17/2025 [facility] EPIC Care Teams (unrecognized sec tion and content) Team MemberRelationshipSpecialtyStart DateEnd Date Harshil Moran MD [address], [place] [address] [facility] - [facility]12/30/22Team MemberRelationshipSpecialtyStart DateEnd Date Harshil Moran MD [address], [place] [address] PCP - GeneralFamily Medicine12/30/22 Team Status: Active Member Role Status Dates Outreach [facility] Primary Care Provider Active Team Status: Inactive Member Role Status Dates Terrie Cardozo APRN Attending Provider Active S tart: December 27, 2023 End: December 27, 2023[facility] ProviderActiveStart: December 27, 2023 End: December 27, 2023 Team Status: Inactive Member Role Status Dates Outreach [facility] Primary Care Provider Active Start: January 16, 2024 End: January 15gayatri Gomez DOAttmar[facility] ProviderActiveStart: January 16, 2024 End: January 16, 2024 Team Status: Active Member Role Status Dates Harshil Moran DO Primary Care Provider Active Team Status: Inactive Member Role Status Dates Terrie Cardozo APRN Attending Provider Active S tart: April 21, 2024 End: April 21ennis Pily Moran [facility] ProviderActiveStart: April 21, 2024 End: April 21, 2024Team MemberRelationshipSpecialtyStart DateEnd Date Harshil Moran MD PCP - [facility]12/30/22Team MemberRelationshipSpecialtyStart DateEnd Date Harshil Moran MD [facility] - [facility]12/30/22Team MemberRelationshipSpecialtyStart DateEnd Date Harshil Moran MD [facility] - [facility]12/30/22Team MemberRelationshipSpecialtyStart DateEnd Date Harshil Moran MD [facility] - [facility]12/30/22Team MemberRelationshipSpecialtyStart DateEnd Date Harsihl Moran MD PCP - [facility]12/30/22Team MemberRelationshipSpecialtyStart DateEnd Date Harshil Moran MD [facility] - [facility]12/30/22Team MemberRelationshipSpecialtyStart DateEnd Date Harshil Moran MD PCP - [facility]12/30/22Team MemberRelationshipSpecialtyStart DateEnd Date Harshil Moran MD [facility] - [facility]12/30/22Te MemberRelationshipSpecialtyStart DateEnd Date Harshil Moran MD PCP - [facility]12/30/22Te MemberRelationshipSpecialtyStart DateEnd Date Harshil Moran MD [facility] - [facility]12/30/22Te MemberRelationshipSpecialtyStart DateEnd Date Harshil Moran MD PCP - [facility]12/30/22 Reason for Visit (unrecogniz ed section and [...] BE BASED ON THE PRIMARY CLINICAL RECORDS. [facility]. provides no warranty or guarantee of the accuracy or completeness of information in this document.
[2025-07-05 09:16] VITALS: BP 134/82; PULSE 94
== END 2025-07-05 09:46 | disposition home or self-care (01) ==
LOC: US 08:55 → FBC 08:57
PROVIDERS: PCP Family Medicine; Visit Provider Obstetrics & Gynecology
DX: O26.893 Other specified pregnancy related conditions, third trimester (principal); Z3A.33 33 weeks gestation of pregnancy; Z87.59 Personal history of other complications of pregnancy, childbirth and the puerperium
CPT/HCPCS: 76818